=== PATIENT | female | born 1940 | race Caucasian/White ===

== ENCOUNTER → 2016-10-05 | Outpatient (CLI) | payer MEDICARE, OTHER ==
[2016-10-05 16:34] LABS: CH 32.5; CHCM 34.1; HCT 33.3 % (34.0-46.0); HDW 2.68; HGB 11.3 gm/dL (11.4-16.0); MCH 32.5 pg (25.0-35.0); MCV 95.6 fL (80.0-100.0); Mean Platelet Volume 8.3; RBC 3.48 m/uL (3.80-5.40); RDW 13.2 % (11.5-15.5); WBC 9.4 k/uL (3.8-10.6)
[2016-10-05 18:24] LABS: Erythrocyte Sedimentation Rate 106 mm/hr (0-20)
--- NOTE | 2016-10-05 22:24 | US ---
EXAMINATION TYPE: US venous doppler duplex LE RT DATE OF EXAM: 10/05/2016 3:46 PM COMPARISON: NONE CLINICAL HISTORY: 76-year-old female I80.9 Calf Pain, Phlebitis I80.9. Right foot pain. SIDE PERFORMED: Right TECHNIQUE: The lower extremity deep venous system is examined utilizing real time linear array sonog mayuri with graded compression, doppler sonography and color-flow sonography. FINDINGS: VESSELS IMAGED: External Iliac Vein (EIV) Common Femoral Vein Deep Femoral Vein Greater Saphenous Vein * Femoral Vein Popliteal Vein Small Saphenous Vein * Proximal Calf Veins Posterior tibial veins (* superficial vessels) Right Leg: Appears negative for DVT IMPRESSION: No evidence for DVT within the right lower extremity.
== END | disposition home or self-care (01) ==
LOC: RADUSWWP 15:05
PROVIDERS: ATTEND Orthopaedic Surgery
DX: S90.31XD Contusion of right foot, subsequent encounter (principal); M79.671 Pain in right foot; E11.9 Type 2 diabetes mellitus without complications; M19.071 Primary osteoarthritis, right ankle and foot; I80.9 Phlebitis and thrombophlebitis of unspecified site; S90.31XA Contusion of right foot, initial encounter; M25.571 Pain in right ankle and joints of right foot; M25.471 Effusion, right ankle; X58.XXXA Exposure to other specified factors, initial encounter
CPT/HCPCS: 36415; 83520; 85027; 85652; 86140

== ENCOUNTER 2016-12-14 12:08 | Day surgery (SDC) | payer MEDICARE, OTHER ==
[2016-12-13 09:11] VITALS: BMI 31.9
[~2016-12-14 12:08] MED LIST: CLINDAMYCIN 900 MG in DEXTROSE 5% IN WATER 50 ML IVPB ONE; LIDOCAINE 1%-EPI 1:100,000 20 ML VIAL SQ ONE; MIDAZOLAM 2 MG/2 ML VIAL IV ONE; SODIUM CHLORIDE 0.9% 1,000 ML IV SCH; fentaNYL (PF) 50 MCG/ML 2 ML AMP IV ONE
[2016-12-14 12:52] VITALS: BP 151/66; PULSE 77; RESP 12
[2016-12-14] MEDS ORDERED: ACETAMINOPHEN TAB 325 MG TAB PO PRN (14:20)
--- NOTE | 2016-12-15 13:14 | P.PCN ---
Date of Procedure: 12/14/16 Preoperative Diagnosis: Recurrent palpitations Postoperative Diagnosis: The same Procedure(s) Performed: Loop recorder insertion Implants: Indications for Procedure: Operative Findings: Description of Procedure: This 76-year-old female has been having recurrent bouts of unexplained palpitations. Patient is advised to have a loop recorder insertion for further investigation. Patient was brought to the procedure as an outpatient. She was prepped and draped in the usual fashion. Patient was given 1 mg of Versed and 50 of fentanyl for sedation. The duration of the conscious sedation was 10 minutes. The skin in the third intercostal space on the left side was infiltrated with lidocaine. An incision was made with the provided blade. A reveal lingular device was advanced through the incision subcutaneously. The incision was closed with a stay suture. Patient tolerated the procedure well. The R-wave amplitude is satisfactory at 0.5 mV. The sensing is programmed to point at 035 mV. A HECTOR/AF detection is on. Tachycardia detection is programmed to a rate of 1 54 bpm, pulse duration of 60 beats. Lito detection is programmed to a rate of 30 bpm for a duration of 4 beats and pauses of programmed for more than 3 seconds. Patient tolerated the procedure well. Patient will be discharged home later today. Follow-up in the office in about one week.
== END 2016-12-14 15:06 | disposition home or self-care (01) ==
LOC: CATHEP 12:08
PROVIDERS: ATTEND Internal Medicine Cardiovascular Disease
DX: R00.2 Palpitations (principal); I42.9 Cardiomyopathy, unspecified; I50.42 Chronic combined systolic (congestive) and diastolic (congestive) heart failure; E78.5 Hyperlipidemia, unspecified; E11.9 Type 2 diabetes mellitus without complications; I25.10 Atherosclerotic heart disease of native coronary artery without angina pectoris; E66.9 Obesity, unspecified; I08.0 Rheumatic disorders of both mitral and aortic valves; E78.00 Pure hypercholesterolemia, unspecified; Z85.3 Personal history of malignant neoplasm of breast; Z92.21 Personal history of antineoplastic chemotherapy; Z92.3 Personal history of irradiation; Z86.73 Personal history of transient ischemic attack (TIA), and cerebral infarction without residual deficits; Z82.49 Family history of ischemic heart disease and other diseases of the circulatory system; Z79.84 Long term (current) use of oral hypoglycemic drugs; Z79.02 Long term (current) use of antithrombotics/antiplatelets; Z79.82 Long term (current) use of aspirin; Z79.899 Other long term (current) drug therapy; Z88.5 Allergy status to narcotic agent; Z88.0 Allergy status to penicillin; Z88.7 Allergy status to serum and vaccine; Z88.8 Allergy status to other drugs, medicaments and biological substances
CPT/HCPCS: 33282; 99152; C1764; J2250; J3010

== ENCOUNTER → 2017-02-15 | Outpatient (CLI) | payer MEDICARE, OTHER ==
--- NOTE | 2017-02-16 09:46 | MM ---
Reason for exam: additional evaluation requested from prior study. Last mammogram was performed 1 year ago. History: Patient is postmenopausal, has history of breast cancer at age 59, and history of other cancer. Benign right mammotome panel of the right breast, September 29, 2013. Benign right mammotome panel of the right breast, August 24, 2010. Excisional biopsy of the right breast, August 27, 2007. Malignant excisional biopsy of the left breast, June 13, 1999. Excisional biopsy of the left breast, 1999. Lumpectomy of the left breast, 1999. Chemotherapy, 1999. Radiation therapy of the left breast, 1999. Excisional biopsy of the right breast. Took estrogen for 4 years. Took tamoxifen for 5 years 7 months beginning at age 60. Physical Findings: Nurse did not find any significant physical abnormalities on exam. MG 3D Diag Mammo W/Cad ANN MARIE Bilateral CC and MLO view(s) were taken. XCCL view(s) were taken of the left breast. Prior study comparison: February 09, 2016, left breast MG 3d diag mammo w/cad LT. October 04, 2015, bilateral MG 3d diag mammo w/cad ANN MARIE. The breast tissue is heterogeneously dense. This may lower the sensitivity of mammography. Stable benign calcifications. Stable post operation distortion bilateral breast. No significant new findings when compared with previous films. These results were verbally communicated with the patient and result sheet given to the patient on 02/15/17. ASSESSMENT: Benign, BI-RAD 2 RECOMMENDATION: Follow-up diagnostic mammogram of both breasts in 1 year.
== END | disposition home or self-care (01) ==
LOC: RADMAMWWP 10:40
PROVIDERS: ATTEND Radiology Diagnostic Radiology
DX: Z08 Encounter for follow-up examination after completed treatment for malignant neoplasm (principal); Z85.3 Personal history of malignant neoplasm of breast
CPT/HCPCS: G0204; G0279

== ENCOUNTER → 2017-03-23 | Outpatient (CLI) | payer MEDICARE, OTHER ==
--- NOTE | 2017-03-26 08:06 | USB ---
Reason for exam: clinical finding. History: Patient is postmenopausal, has history of breast cancer at age 59, and history of other cancer. Benign right mammotome panel of the right breast, September 29, 2013. Benign right mammotome panel of the right breast, August 24, 2010. Excisional biopsy of the right breast, August 27, 2007. Malignant excisional biopsy of the left breast, June 13, 1999. Excisional biopsy of the left breast, 1999. Lumpectomy of the left breast, 1999. Chemotherapy, 1999. Radiation therapy of the left breast, 1999. Excisional biopsy of the right breast. Took estrogen for 4 years. Took tamoxifen for 5 years 7 months beginning at age 60. Indicated problem(s): lump or thickening in the left breast. Physical Findings: Nurse Summary: left breast loop recorder, left breast palpable area 2 o'clock post lumpectomy scar, bilateral thickening due post radiation (nurse ts). US Breast LT Left breast ultrasound includes all four quadrants, the retroareolar region and axilla. Finding demonstrates a 0.7 x 0.6 x 0.4cm solid, hypoechoic lesion at 2 o'clock, suspicious mass for which a biopsy is recommended and a 2.0cm lesion at scar at 2 o'clock. These results were verbally communicated with the patient and result sheet given to the patient on 03/23/17. ASSESSMENT: Suspicious, BI-RAD 4 RECOMMENDATION: Ultrasound core biopsy of the left breast. Called Dr. Hicks with mammographic findings and has scheduled an appointment for the patient for 03/27/17 at 10:[address] Underwood. PRELIMINARY REPORT CALLED AND FAXED TO DR. UNDERWOOD ON 03/26/17.
== END ==
LOC: RADUSWWP 12:24
PROVIDERS: ATTEND Family Medicine
DX: R22.32 Localized swelling, mass and lump, left upper limb (principal); Z85.3 Personal history of malignant neoplasm of breast

== ENCOUNTER 2017-11-25 16:07 | Inpatient (IN) | payer MEDICARE, OTHER ==
[2017-11-25 16:58] LABS: Basophils # (A) 0.1 k/uL (0-0.2); Basophils % (A) 1 %; Eosinophils # (A) 0.2 k/uL (0-0.7); Eosinophils % (A) 2 %; HCT 40.6 % (34.0-46.0); HGB 13.6 gm/dL (11.4-16.0); Lymphocytes # (A) 0.9 k/uL (1.0-4.8); Lymphocytes % (A) 12 %; MCH 31.1 pg (25.0-35.0); MCHC 33.4 g/dL (31.0-37.0); MCV 93.1 fL (80.0-100.0); Mean Platelet Volume 8.3; Monocytes # (A) 0.3 k/uL (0-1.0); Monocytes % (A) 4 %; Neutrophils # (A) 6.4 k/uL (1.3-7.7); Neutrophils % (A) 80 %; Platelet Count 241 k/uL (150-450); RBC 4.36 m/uL (3.80-5.40); RDW 14.6 % (11.5-15.5); WBC 8.1 k/uL (3.8-10.6)
--- NOTE | 2017-11-25 17:00 | ED ---
Chest Pain HPI - General Chief Complaint: Chest Pain Stated Complaint: CHEST PAIN Time Seen by Provider: 11/25/17 16:12 Source: patient, EMS Mode of arrival: EMS Limitations: no limitations - History of Present Illness Initial Comments: This patient is a 77-year-old woman who presents to be evaluated for chest pain. The patient states that she has been having these pains intermittently, as she has a diagnosis of angina. The episodes may have been coming more frequently over the past week. She states that it usually goes away with the nitroglycerin but today's did not. The patient phoned EMS and was given additional nitroglycerin and aspirin and placed on oxygen and the pain did resolve. Today's episode lasted about 20-30 minutes. She denies associated symptoms. MD Complaint: chest pain Onset/Timin -: week(s) Pain Location: substernal Pain Radiation: neck Severity: mild Quality: other Consistency: intermittent, now resolved Improves With: nitroglycerin Worsens With: nothing Treatments Prior to Arrival: aspirin, nitroglycerin, oxygen - Related Data Home Medications Medication Instructions Recorded Confirmed Ascorbic Acid [Vitamin C] 500 mg PO DAILY 09/11/14 11/25/17 Aspirin 81 mg PO DAILY 09/11/14 11/25/17 Cholecalciferol [Vitamin D3] 2,000 unit PO DAILY 09/11/14 11/25/17 Clopidogrel [Plavix] 75 mg PO DAILY 09/11/14 11/25/17 Glucosam/Denilson-Msm1/C/Curtis/Bosw 1 tab PO DAILY 09/11/14 11/25/17 [Glucosamine-Chondroitin Tablet] Lutein 20 mg PO DAILY 09/11/14 11/25/17 Multivitamins, Thera [Multivitamin 1 tab PO DAILY 09/11/14 11/25/17 (formulary)] Simvastatin [Zocor] 40 mg PO HS 09/11/14 11/25/17 Spironolactone [Aldactone] 12.5 - 25 mg PO DAILY 09/11/14 11/25/17 Digoxin [Digox] 125 mcg PO DAILY 11/07/15 11/25/17 Sacubitril/Valsartan [Entresto 24 1 tab PO BID 11/07/15 11/25/17 mg-26 mg Tablet] Biotin 5,000 mcg PO DAILY 12/13/16 11/25/17 Carvedilol [Coreg] 3.125 mg PO BID 12/13/16 11/25/17 Levothyroxine Sodium [Synthroid] 112 mcg PO DAILY 06/01/17 11/25/17 Anastrozole [Arimidex] 1 mg PO DAILY 11/25/17 11/25/17 Furosemide [Lasix] 40 mg PO DAILY 11/25/17 11/25/17 Isosorbide Mononitrate ER [Imdur] 30 mg PO DAILY 11/25/17 11/25/17 LORazepam [Ativan] 0.5 - 1 mg PO DAILY PRN 11/25/17 11/25/17 Loratadine [Claritin] 10 mg PO DAILY 11/25/17 11/25/17 Previous Rx's Medication Instructions Recorded glipiZIDE XL [Glucotrol XL] 10 mg PO DAILY #30 tab 06/03/17 Allergies Allergy/AdvReac Type Severity Reaction Status Date / Time bee venom protein (honey bee) Allergy Unknown Swelling Verified 11/25/17 17:44 Penicillins AdvReac Rash/Hives Verified 11/25/17 17:44 Tetanus Vaccines and Toxoid AdvReac Swelling Verified 11/25/17 17:44 [Tetanus Vaccines & Toxoid] yeast, dried AdvReac Abdominal Verified 11/25/17 17:44 Pain zolpidem tartrate AdvReac Hallucinati Verified 11/25/17 17:44 [[facility] ons Review of Systems ROS Statement: Those systems with pertinent positive or pertinent negative responses have been documented in the HPI. ROS Other: All systems not noted in ROS Statement are negative. Constitutional: Denies: fever, chills Respiratory: Denies: cough, dyspnea Cardiovascular: Reports: chest pain. Denies: palpitations, orthopnea, edema, syncope Gastrointestinal: Denies: abdominal pain, nausea, vomiting Genitourinary: Denies: dysuria Musculoskeletal: Denies: back pain Skin: Denies: rash Neurological: Denies: headache, weakness, numbness, paresthesias EKG Findings - EKG Results: EKG: interpreted by ERMD, sinus rhythm (Rate approximately 86 bpm), normal axis - Blocks, Gary, Hypertrophy, ST Abn: AV and intraventricular conduction: 1 AV block (NV interval 232 ms, consistent with first-degree AV block) - SC, Pacemaker, Normal: Myocardial infarction: septal SC (old age or indeterminate) (Possible old septal infarct.) Past Medical History Past Medical History: Cancer, Heart Failure, CVA/TIA, Diabetes Mellitus, Hyperlipidemia, Osteoarthritis (OA), Thyroid Disorder Additional Past Medical History / Comment(s): Bilateral breast cancer (L in 1999 and R in 2007) tx with lumpectomies and chemo and radiation, lymphadema bilateral upper arms, CHF with 1st chemo, NIDDM, leaky heart valve, tia (2011) with L upper arm weakness since resolved., HX of leg fx x2 hema, SOB with exertion., See Cardiology [facility] & [facility]. History of Any Multi-Drug Resistant Organisms: None Reported Past Surgical History: Appendectomy, Breast Surgery, Heart Catheterization, Hysterectomy, Joint Replacement, Orthopedic Surgery, Tonsillectomy Additional Past Surgical History / Comment(s): Breast bx's & lumpectomy (1999 & 2007), Heart cath (2003), R and L lower leg fx (separate incidences) with surgical repair using plates and screws, neck skin cancer , Cataracts, Bilateral total shoulders, bilateral carpal tunnel . thumb surgery. Additional Past Anesthesia/Blood Transfusion Reaction / Comment(s): "slow to wake up" after surgery. Hx of blood transfusion after chemo - no reaction. Past Psychological History: No Psychological Hx Reported Smoking Status: Never smoker Past Alcohol Use History: Occasional Past Drug Use History: None Reported - Past Family History Father Family Medical History: Congestive Heart Failure (CHF) Additional Family Medical History / Comment(s): Father at age 69yrs from CHF. He also had stomach problems-ulcers. Mother Family Medical History: Cancer, Coronary Artery Disease (CAD) Additional Family Medical History / Comment(s): . General Exam General appearance: alert, in no apparent distress Head exam: Present: atraumatic, normocephalic Eye exam: Present: normal appearance. Absent: scleral icterus, conjunctival injection Respiratory exam: Present: normal lung sounds bilaterally. Absent: respiratory distress, wheezes, rales, rhonchi, stridor, chest wall tenderness, accessory muscle use, decreased breath sounds, prolonged expiratory Cardiovascular Exam: Present: regular rate, normal rhythm, systolic murmur ( Grade 2/6 systolic ejection murmur). Absent: diastolic murmur, rubs, gallop GI/Abdominal exam: Present: soft. Absent: distended, tenderness, guarding, rebound, mass Extremities exam: Present: normal inspection, normal capillary refill. Absent: pedal edema, calf tenderness Back exam: Present: normal inspection. Absent: CVA tenderness (R), CVA tenderness (L) Neurological exam: Present: alert Skin exam: Present: warm, dry, intact, normal color. Absent: rash Course Vital Signs 11/25/17 11/25/17 11/25/17 16:14 17:00 18:54 Temperature 97.8 F Pulse Rate 90 78 80 Respiratory 16 16 16 Rate Blood Pressure 137/61 126/82 116/56 O2 Sat by Pulse 99 98 98 Oximetry Disposition Clinical Impression: Hyperglycemia, Angina pectoris Disposition: ADMITTED IP TO THIS HOSP Condition: Fair Instructions: Angina (ED), Diabetic Hyperglycemia (ED) Is patient prescribed a controlled substance at d/c from ED?: No Referrals: Radha Hicks MD [Primary Care Provider] - 1-2 days
[2017-11-25 17:07] LABS: Albumin 4.3 g/dL (3.5-5.0); Calcium 9.4 mg/dL (8.4-10.2); Magnesium 2.4 mg/dL (1.6-2.3); Potassium 5.1 mmol/L (3.5-5.1); Total Bilirubin 0.6 mg/dL (0.2-1.3); Total Protein 7.3 g/dL (6.3-8.2)
[2017-11-25 17:09] LABS: Creatine Kinase 34 U/L (30-135)
[2017-11-25 17:13] LABS: Partial Thromboplastin Time 22.5 sec (22.0-30.0); Prothrombin Time 9.9 sec (9.0-12.0)
[2017-11-25 17:22] LABS: Creatine Kinase MB <0.2 ng/mL (0.0-2.4); Troponin I <0.012 ng/mL (0.000-0.034)
[2017-11-25] MEDS ORDERED: INSULIN REGULAR 100 UNIT/ML VIAL SQ STA (17:30)
--- NOTE | 2017-11-25 17:37 | XR ---
EXAMINATION TYPE: XR chest 1V portable DATE OF EXAM: 11/25/2017 COMPARISON: 06/02/2017 HISTORY: Chest pain TECHNIQUE: Single frontal view of the chest is obtained. FINDINGS: There is mild pulmonary congestion. Heart is slightly enlarged. There are bilateral should er prostheses. There is very slight blunting of costophrenic angles. There are chest leads. IMPRESSION: There is mild heart failure that is improved compared to last exam. No pulmonary consolidation.
[2017-11-25] MEDS ORDERED: NITROGLYCERIN SL TABS 0.4 MG TAB SUBLINGUAL PRN (19:22)
[2017-11-25] MEDS: SACUBITRIL/VALSARTAN 24 MG-26 MG TABLET PO SCH (21:18)
[2017-11-25] MEDS: ATORVASTATIN 20 MG TAB PO SCH (21:19)
[2017-11-25] MEDS: CARVEDILOL 3.125 MG TAB PO SCH (21:19)
[2017-11-25] MEDS: glipiZIDE 5 MG TAB PO SCH (21:19)
[2017-11-25 21:49] VITALS: BMI 27.1
[2017-11-26 00:08] LABS: Creatine Kinase MB 1.2 ng/mL (0.0-2.4)
[2017-11-26 00:24] LABS: Troponin I 0.053 ng/mL (0.000-0.034)
[2017-11-26 04:50] LABS: Cholesterol 157 mg/dL (<200); HDL Cholesterol 49 mg/dL (40-60); LDL Cholesterol,Calculated 88 mg/dL (0-99); Triglycerides 101 mg/dL (<150)
[2017-11-26 05:24] LABS: Creatine Kinase MB 1.7 ng/mL (0.0-2.4)
[2017-11-26 05:27] LABS: Troponin I 0.062 ng/mL (0.000-0.034)
[2017-11-26] MEDS: LEVOTHYROXINE 112 MCG TAB PO SCH ×2 (06:47→09:26)
[2017-11-26 07:25] LABS: Glucose,Whole Blood 93 mg/dL (75-99)
[2017-11-26] MEDS ORDERED: ASPIRIN 325 MG TAB PO SCH (09:00)
[2017-11-26] MEDS ORDERED: glipiZIDE 5 MG TAB PO SCH (09:00)
[2017-11-26] MEDS: FUROSEMIDE 40 MG TAB PO SCH (09:25)
[2017-11-26] MEDS: CHOLECALCIFEROL 1,000 UNIT TAB PO SCH (09:25)
[2017-11-26] MEDS: ASPIRIN 81 MG PO SCH (09:25)
[2017-11-26] MEDS: glipiZIDE 5 MG TAB PO SCH ×2 (09:25→21:22)
[2017-11-26] MEDS: SACUBITRIL/VALSARTAN 24 MG-26 MG TABLET PO SCH ×2 (09:25→21:22)
[2017-11-26] MEDS: CLOPIDOGREL 75 MG TAB PO SCH (09:26)
[2017-11-26] MEDS: ISOSORBIDE MONONITRATE ER 30 MG TAB.ER.24H PO SCH (09:26)
[2017-11-26] MEDS: CARVEDILOL 3.125 MG TAB PO SCH ×2 (09:26→17:21)
[2017-11-26] MEDS: DIGOXIN 125 MCG TAB PO SCH (09:26)
[2017-11-26] MEDS: ANASTROZOLE 1 MG TAB PO SCH (09:26)
[2017-11-26] MEDS: SODIUM CHLORIDE 0.9% 1,000 ML IV SCH (09:27)
[2017-11-26] MEDS ORDERED: LORazepam 0.5 MG TAB PO PRN (11:00)
[2017-11-26] MEDS ORDERED: ALPRAZolam 0.5 MG TAB PO PRN (11:01)
[2017-11-26] MEDS ORDERED: ALPRAZolam 0.25 MG TAB PO PRN (11:01)
[2017-11-26] MEDS ORDERED: HEPARIN SODIUM,PORCINE 5,000 UNIT/ML 1 ML VIAL IV PRN (11:03)
[2017-11-26] MEDS ORDERED: HEPARIN SODIUM,PORCINE 5,000 UNIT/ML 1 ML VIAL IV ONE (11:03)
--- NOTE | 2017-11-26 11:12 | P.CRDCN ---
History of Present Illness History of present illness: Mrs. Stevenson is a pleasant 77-year-old female past medical history significant for chemotherapy induced cardiomyopathy, systolic heart failure, dyslipidemia, diabetes mellitus, breast cancer s/p mastectomy, junctional tachycardia and mild disease of RCA per catheterization in 2016. She follows with Dr. Rogers in the office. Her ejection fraction has been fluctuating between 20 -25% 05/2017 with recent improvement to 35% in most recent echo performed at the office using contrast 07/2017. We have been asked to see her in consultation for chest pain. She states she has been following closely with Dr. Hicks over the last 2 months for symptoms of shortness of breath and lower extremity swelling. Serial proBNP levels obtained have been elevated. Starting 09/17 were 6820, 8580, 8800 and 2170. She had been instructed to increase her lasix to 40 mg TID from daily and increase aldactone to 25 mg daily from 12.5 mg daily. She states her swelling has been decreasing and her breathing was improving. However , over the last week she started having a sensation of tightening in her chest after bending over. The discomfort was very non-specific and improved after she took her Claritin. Yesterday she felt a similar discomfort in her mid-sternal region that was much more intensified and radiated into her neck on both sides and down her left arm. The discomfort did not subside as it had been previously so she called EMS. EMS gave her aspirin, nitroglycerin and oxygen and her symptoms subsided. She has had no further symptoms since admission. She underwent cardiac catheterization in 2016 that revealed mild disease of the RCA and aortic stenosis with gradient across the valve of 18 mmHg. EKG on admission reveals first degree AV block with ST depression inferiolateral leads. Repeat EKG this morning appears to have a more significantly prolonged NC interval with the P-wave appearing in the T-wave. Chest xray shows mild heart failure with no consolidation. Laboratory data reviewed, hgb 13.6, plt 241, d-dimer 0.74, sodium 141, potassium 5.1, creatinine 1.67, GFR 29, magnesium 2.4, digoxin level 1.7, troponin 0.012, 0.053, 0.062, proBNP this admission 4030, LDL 88, HDL 49. Current cardiac medications include simvastatin 40 mg daily, aspirin 81 mg daily , imdur 30 mg daily, aldactone 12.5 mg daily with recent increase per PCP to 25 mg daily, entresto 24/26 mg daily, lasix 40 mg daily with recent increase to TID per primary, digozin 125 mcg daily, plavix 75 mg daily and carvedilol 3.125 mg BID. Review of Systems At the time of my exam: CONSTITUTIONAL: Denies fever. Denies chills. EYES: Denies blurred vision. Denies vision changes. Denies eye pain. EARS, NOSE, MOUTH & THROAT: Denies headache. Denies sore throat. Denies ear pain. CARDIOVASCULAR: Denies chest pain. Denies shortness of breath. Denies orthopnea. Denies PND. Denies palpitations. RESPIRATORY: Denies cough. GASTROINTESTINAL: Denies abdominal pain. Denies diarrhea. Denies constipation. Denies nausea. Denies vomiting. MUSCULOSKELETAL: Denies myalgias. INTEGUMENTARY: Denies pruitis. Denies rash. NEUROLOGIC: Denies numbness. Denies tingling. Denies weakness. PSYCHIATRIC: Denies anxiety. Denies depression. ENDOCRINE: Denies fatigue. Denies weight change. Denies polydipsia. Denies polyurina. GENITOURINARY: Denies burning, hematuria or urgency with micturation. HEMATOLOGIC: Denies history of anemia. Denies bleeding. Past Medical History Past Medical History: Cancer, Heart Failure, CVA/TIA, Diabetes Mellitus, Hyperlipidemia, Osteoarthritis (OA), Thyroid Disorder Additional Past Medical History / Comment(s): Bilateral breast cancer (L in 1999 and R in 2007) tx with lumpectomies and chemo and radiation, lymphadema bilateral upper arms, CHF with 1st chemo, NIDDM, leaky heart valve, tia (2011) with L upper arm weakness since resolved., HX of leg fx x2 hema, SOB with exertion., See Cardiology H & P. History of Any Multi-Drug Resistant Organisms: None Reported Past Surgical History: Appendectomy, Breast Surgery, Heart Catheterization, Hysterectomy, Joint Replacement, Orthopedic Surgery, Tonsillectomy Additional Past Surgical History / Comment(s): Breast bx's & lumpectomy (1999 & 2007), Mastectomy (2017) Heart cath (2003, 2016), R and L lower leg fx ( separate incidences) with surgical repair using plates and screws, neck & face skin cancer , Cataracts, Bilateral total shoulders, bilateral carpal tunnel . thumb surgery. Additional Past Anesthesia/Blood Transfusion Reaction / Comment(s): "slow to wake up" after surgery. Hx of blood transfusion after chemo - no reaction. Past Psychological History: No Psychological Hx Reported Additional Psychological History / Comment(s): . Smoking Status: Never smoker Past Alcohol Use History: Occasional Past Drug Use History: None Reported - Past Family History Father Family Medical History: Congestive Heart Failure (CHF) Additional Family Medical History / Comment(s): Father at age 69yrs from CHF. He also had stomach problems-ulcers. Mother Family Medical History: Cancer, Coronary Artery Disease (CAD) Additional Family Medical History / Comment(s): . Medications and Allergies Home Medications Medication Instructions Recorded Confirmed Type Ascorbic Acid [Vitamin C] 500 mg PO DAILY 09/11/14 11/25/17 History Aspirin 81 mg PO DAILY 09/11/14 11/25/17 History Cholecalciferol [Vitamin D3] 2,000 unit PO DAILY 09/11/14 11/25/17 History Clopidogrel [Plavix] 75 mg PO DAILY 09/11/14 11/25/17 History Glucosam/Denilson-Msm1/C/Curtis/Bosw 1 tab PO DAILY 09/11/14 11/25/17 History [Glucosamine-Chondroitin Tablet] Lutein 20 mg PO DAILY 09/11/14 11/25/17 History Multivitamins, Thera [Multivitamin 1 tab PO DAILY 09/11/14 11/25/17 History (formulary)] Simvastatin [Zocor] 40 mg PO HS 09/11/14 11/25/17 History Spironolactone [Aldactone] 12.5 - 25 mg PO DAILY 09/11/14 11/25/17 History Digoxin [Digox] 125 mcg PO DAILY 11/07/15 11/25/17 History Sacubitril/Valsartan [Entresto 24 1 tab PO BID 11/07/15 11/25/17 History mg-26 mg Tablet] Biotin 5,000 mcg PO DAILY 12/13/16 11/25/17 History Carvedilol [Coreg] 3.125 mg PO BID 12/13/16 11/25/17 History Levothyroxine Sodium [Synthroid] 112 mcg PO DAILY 06/01/17 11/25/17 History glipiZIDE XL [Glucotrol XL] 10 mg PO DAILY #30 tab 06/03/17 11/25/17 Rx Anastrozole [Arimidex] 1 mg PO DAILY 11/25/17 11/25/17 History Furosemide [Lasix] 40 mg PO DAILY 11/25/17 11/25/17 History Isosorbide Mononitrate ER [Imdur] 30 mg PO DAILY 11/25/17 11/25/17 History LORazepam [Ativan] 0.5 - 1 mg PO DAILY PRN 11/25/17 11/25/17 History Loratadine [Claritin] 10 mg PO DAILY 11/25/17 11/25/17 History Allergies Allergy/AdvReac Type Severity Reaction Status Date / Time bee venom protein (honey bee) Allergy Unknown Swelling Verified 11/25/17 17:44 Penicillins AdvReac Rash/Hives Verified 11/25/17 17:44 Tetanus Vaccines and Toxoid AdvReac Swelling Verified 11/25/17 17:44 [Tetanus Vaccines & Toxoid] yeast, dried AdvReac Abdominal Verified 11/25/17 17:44 Pain zolpidem tartrate AdvReac Hallucinati Verified 11/25/17 17:44 [From Ambien] ons Physical Exam Vitals: Vital Signs Temp Pulse Pulse Resp BP BP Pulse Ox 11/26/17 04:57 16 11/26/17 03:39 97.7 F 77 16 107/51 94 L 11/25/17 23:19 97.8 F 79 16 107/51 98 11/25/17 20:30 16 11/25/17 20:11 98.0 F 79 16 123/63 100 11/25/17 18:54 80 16 116/56 98 11/25/17 17:00 78 16 126/82 98 11/25/17 16:14 97.8 F 90 16 137/61 99 Intake and Output 11/25/17 11/26/17 11/26/17 22:59 06:59 14:59 Intake Total 30 Balance 30 Intake: Amount of Fluid Infused ( 30 ml) Other: Voiding Method Toilet Toilet # Voids 1 1 Weight 76.204 kg Blood pressure 107/51 heart rate 77 afebrile maintaining oxygen saturation on room air GENERAL: This is a 77-year-old female in no apparent distress at the time of my examination. HEENT: Head is atraumatic, normocephalic. Pupils are equal, round. Sclerae anicteric. Conjunctivae are clear. Mucous membranes of the mouth are moist. Neck is supple. There is no jugular venous distention. No carotid bruit is heard. LUNGS: Coarse lung sounds right middle and upper lobe, no wheezes or rales. Left side clear to auscultation. No chest wall tenderness is noted on palpation or with deep breathing. HEART: Regular rate and rhythm with systolic ejection murmur, no rubs or gallops. S1 and S2 heard. ABDOMEN: Soft, nontender. Bowel sounds are heard. No organomegaly noted. EXTREMITIES: No evidence of peripheral edema and no calf tenderness noted. VASCULAR: Radial and dorsalis pedis pulses palpated, no evidence of clubbing. NEUROLOGIC: Patient is awake, alert and oriented x3. Results 11/25/17 16:40 11/25/17 16:40 Cardiac Enzymes 11/25/17 11/25/17 11/25/17 Range/Units 16:40 16:40 22:54 AST 30 (14-36) U/L CK-MB (CK-2) <0.2 1.2 (0.0-2.4) ng/mL Troponin I <0.012 0.053 H* (0.000-0.034) ng/mL 11/26/17 Range/Units 04:27 AST (14-36) U/L CK-MB (CK-2) 1.7 (0.0-2.4) ng/mL Troponin I 0.062 H* (0.000-0.034) ng/mL Coagulation 11/25/17 Range/Units 16:40 PT 9.9 (9.0-12.0) sec APTT 22.5 (22.0-30.0) sec Lipids 11/26/17 Range/Units 04:27 Triglycerides 101 (<150) mg/dL Cholesterol 157 (<200) mg/dL HDL Cholesterol 49 (40-60) mg/dL CBC 11/25/17 Range/Units 16:40 WBC 8.1 (3.8-10.6) k/uL RBC 4.36 (3.80-5.40) m/uL Hgb 13.6 (11.4-16.0) gm/dL Hct 40.6 (34.0-46.0) % Plt Count 241 (150-450) k/uL Comprehensive Metabolic Panel 11/25/17 Range/Units 16:40 Sodium 141 (137-145) mmol/L Potassium 5.1 (3.5-5.1) mmol/L Chloride 102 (98-107) mmol/L Carbon Dioxide 25 (22-30) mmol/L BUN 61 H (7-17) mg/dL Creatinine 1.67 H (0.52-1.04) mg/dL Glucose 339 H (74-99) mg/dL Calcium 9.4 (8.4-10.2) mg/dL AST 30 (14-36) U/L ALT 30 (9-52) U/L Alkaline Phosphatase 59 (38-126) U/L Total Protein 7.3 (6.3-8.2) g/dL Albumin 4.3 (3.5-5.0) g/dL Current Medications Generic Name Dose Route Start Last Admin Trade Name Freq PRN Reason Stop Dose Admin Anastrozole 1 mg 11/26/17 09:00 Arimidex PO DAILY [facility] Aspirin 81 mg 11/26/17 09:00 Aspirin PO DAILY [facility] Atorvastatin Calcium 20 mg 11/25/17 21:00 11/25/17 21:19 Lipitor PO 20 mg HS LIBERT[facility] Administration Carvedilol 3.125 mg 11/25/17 20:00 11/25/17 21:19 Coreg PO 3.125 mg AC-BID [facility]ERT[facility] Administration Cholecalciferol 2,000 unit 11/26/17 09:00 Vitamin D3 PO DAILY [facility] Clopidogrel Bisulfate 75 mg 11/26/17 09:00 Plavix PO DAILY [facility] Digoxin 125 mcg 11/26/17 09:00 Lanoxin PO DAILY [facility] Furosemide 40 mg 11/26/17 09:00 Lasix PO DAILY [facility] Glipizide 5 mg 11/25/17 21:00 11/25/17 21:19 Glucotrol PO 5 mg BID [facility] Administration Isosorbide Mononitrate 30 mg 11/26/17 09:00 Imdur PO DAILY [facility] Levothyroxine Sodium 112 mcg 11/26/17 06:30 [place] 0630 [facility] Multivitamins 1 each 11/26/17 12:00 Theragran PO 1200 [facility] Nitroglycerin 0.4 mg 11/25/17 19:22 Nitrostat SUBLINGUAL Q5M PRN Chest Pain Sacubitril/Valsartan 1 each 11/25/17 21:00 11/25/17 21:18 Entresto 24 Mg-26 Mg Tablet PO 1 each BID [facility] Administration Spironolactone 25 mg 11/26/17 09:00 Aldactone PO DAILY [facility] Intake and Output 11/25/17 11/26/17 11/26/17 22:59 06:59 14:59 Intake Total 30 Balance 30 Intake: Amount of Fluid Infused ( 30 ml) Other: Voiding Method Toilet Toilet # Voids 1 1 Weight 76.204 kg 11/25/17 16:40 11/25/17 16:40 Assessment and Plan Assessment: ASSESSMENT 1. [id number] myocardial infarction 2. 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 History of systolic heart failure 4. History of recurrent breast cancer with recent mastectomy. 5. Diabetes mellitus 6. Dyslipidemia 7. Moderate aortic stenosis, mean gradient 18 mmHg 8. Chronic renal failure, GFR 29, Stage 4 9. Minimally elevated d-dimer PLAN Obtain 2-D echocardiogram and Doppler study to assess cardiac structure and function. Check proBNP level and d-dimer. Initiate heparin infusion. Hydrate the patient at 50 cc/hr. Recommend cardiac catheterization tomorrow after hydration for the next 24 hours. I have discussed the risks, benefits and alternative therapies for the above- mentioned procedure and for both sedation/analgesia as well as necessary blood product administration, if indicated, as they pertain to this patient. The patient has indicated understanding and acceptance of the risks and procedures discussed. Questions have been answered appropriately and she is agreeable to proceed with above stated procedure. Further recommendations to follow based on clinical course. Thank you kindly for this consultation. Nurse Practitioner note has been reviewed, I agree with a documented findings and plan of care. Patient was seen and examined.
[2017-11-26] MEDS ORDERED: HEPARIN SODIUM,PORCINE/D5W PMX 25,000 UNIT in DEXTROSE/WATER 1 500ML.BAG IV SCH (11:15)
[2017-11-26 11:18] LABS: Basophils # (A) 0.1 k/uL (0-0.2); Basophils % (A) 1 %; Eosinophils # (A) 0.2 k/uL (0-0.7); Eosinophils % (A) 2 %; HCT 41.9 % (34.0-46.0); Lymphocytes # (A) 1.3 k/uL (1.0-4.8); Lymphocytes % (A) 12 %; MCH 31.3 pg (25.0-35.0); MCHC 33.3 g/dL (31.0-37.0); MCV 93.7 fL (80.0-100.0); Mean Platelet Volume 8.2; Monocytes # (A) 0.6 k/uL (0-1.0); Monocytes % (A) 5 %; Neutrophils # (A) 8.8 k/uL (1.3-7.7); Neutrophils % (A) 79 %; Platelet Count 215 k/uL (150-450); RBC 4.47 m/uL (3.80-5.40); RDW 14.6 % (11.5-15.5); WBC 11.2 k/uL (3.8-10.6)
--- NOTE | 2017-11-26 11:19 | P.HPIM ---
History of Present Illness H&P Date: 11/26/17 Chief Complaint: Chest pain This is a 77-year-old female, patient of Dr. Hicks. She has a known past medical history of angina, systolic congestive heart failure, diabetes mellitus , hyperlipidemia, hypothyroidism, moderate aortic stenosis, moderate to severe aortic, tricuspid and mitral regurgitation. Patient also has a history of bilateral breast cancer had undergone chemo and radiation treatment. Patient has had left breast mastectomy in April 2017. Patient also has a history of TIA and chronic kidney disease. Patient presents to the emergency room with complaints of chest pain. She reports having chest pain, left side of the chest that radiated up into the neck bilaterally also having some numbness and pain in the left arms. She also had shortness of breath. Patient does have known angina and was recently placed on into her. She reports that she gets these chest pain episodes but this one lasted about 20-30 minutes and therefore she called EMS and they gave her a nitro aspirin and place her on oxygen. By the time she presented to the ER her symptoms had completely resolved. Her troponins were elevated initial one was normal at 0.012 and then increased to 0.053 and 0.062. Patient has been placed on IV heparin. Cardiology is planning a heart catheterization tomorrow. Last heart catheterization was 2 years ago no stent was placed at that time per patient. Chest x-ray had shown mild heart failure which had proved improved since last exam. EKG sinus rhythm with a first-degree AV block. Repeat EKG had showed accelerated junctional rhythm. There has been some arrhythmia noted on telemetry. Cardiology is following. D-dimer elevated at 0.74. A VQ scan will be ordered due to patient' s kidney function. Patient denies any nausea or vomiting bowel movement changes urinary symptoms. Denies any cough or cold-like symptoms. Patient was moved from observation up to the sixth floor for closer monitoring. Review of Systems Please refer to HPI otherwise unremarkable Past Medical History Past Medical History: Cancer, Heart Failure, CVA/TIA, Diabetes Mellitus, Hyperlipidemia, Osteoarthritis (OA), Thyroid Disorder Additional Past Medical History / Comment(s): Bilateral breast cancer (L in 1999 and R in 2007) tx with lumpectomies and chemo and radiation, lymphadema bilateral upper arms, CHF with 1st chemo, NIDDM, leaky heart valve, tia (2011) with L upper arm weakness since resolved., HX of leg fx x2 hema, SOB with exertion., See Cardiology H & P. History of Any Multi-Drug Resistant Organisms: None Reported Past Surgical History: Appendectomy, Breast Surgery, Heart Catheterization, Hysterectomy, Joint Replacement, Orthopedic Surgery, Tonsillectomy Additional Past Surgical History / Comment(s): Breast bx's & lumpectomy (1999 & 2007), Mastectomy (2017) Heart cath (2003, 2015), R and L lower leg fx ( separate incidences) with surgical repair using plates and screws, neck & face skin cancer , Cataracts, Bilateral total shoulders, bilateral carpal tunnel . thumb surgery. Additional Past Anesthesia/Blood Transfusion Reaction / Comment(s): "slow to wake up" after surgery. Hx of blood transfusion after chemo - no reaction. Past Psychological History: No Psychological Hx Reported Additional Psychological History / Comment(s): . Smoking Status: Never smoker Past Alcohol Use History: Occasional Past Drug Use History: None Reported - Past Family History Father Family Medical History: Congestive Heart Failure (CHF) Additional Family Medical History / Comment(s): Father at age 69yrs from CHF. He also had stomach problems-ulcers. Mother Family Medical History: Cancer, Coronary Artery Disease (CAD) Additional Family Medical History / Comment(s): . Medications and Allergies Home Medications Medication Instructions Recorded Confirmed Type Ascorbic Acid [Vitamin C] 500 mg PO DAILY 09/11/14 11/25/17 History Aspirin 81 mg PO DAILY 09/11/14 11/25/17 History Cholecalciferol [Vitamin D3] 2,000 unit PO DAILY 09/11/14 11/25/17 History Clopidogrel [Plavix] 75 mg PO DAILY 09/11/14 11/25/17 History Glucosam/Denilson-Msm1/C/Curtis/Bosw 1 tab PO DAILY 09/11/14 11/25/17 History [Glucosamine-Chondroitin Tablet] Lutein 20 mg PO DAILY 09/11/14 11/25/17 History Multivitamins, Thera [Multivitamin 1 tab PO DAILY 09/11/14 11/25/17 History (formulary)] Simvastatin [Zocor] 40 mg PO HS 09/11/14 11/25/17 History Spironolactone [Aldactone] 12.5 - 25 mg PO DAILY 09/11/14 11/25/17 History Digoxin [Digox] 125 mcg PO DAILY 11/07/15 11/25/17 History Sacubitril/Valsartan [Entresto 24 1 tab PO BID 11/07/15 11/25/17 History mg-26 mg Tablet] Biotin 5,000 mcg PO DAILY 12/13/16 11/25/17 History Carvedilol [Coreg] 3.125 mg PO BID 12/13/16 11/25/17 History Levothyroxine Sodium [Synthroid] 112 mcg PO DAILY 06/01/17 11/25/17 History glipiZIDE XL [Glucotrol XL] 10 mg PO DAILY #30 tab 06/03/17 11/25/17 Rx Anastrozole [Arimidex] 1 mg PO DAILY 11/25/17 11/25/17 History Furosemide [Lasix] 40 mg PO DAILY 11/25/17 11/25/17 History Isosorbide Mononitrate ER [Imdur] 30 mg PO DAILY 11/25/17 11/25/17 History LORazepam [Ativan] 0.5 - 1 mg PO DAILY PRN 11/25/17 11/25/17 History Loratadine [Claritin] 10 mg PO DAILY 11/25/17 11/25/17 History Allergies Allergy/AdvReac Type Severity Reaction Status Date / Time bee venom protein (honey bee) Allergy Unknown Swelling Verified 11/25/17 17:44 Penicillins AdvReac Rash/Hives Verified 11/25/17 17:44 Tetanus Vaccines and Toxoid AdvReac Swelling Verified 11/25/17 17:44 [Tetanus Vaccines & Toxoid] yeast, dried AdvReac Abdominal Verified 11/25/17 17:44 Pain zolpidem tartrate AdvReac Hallucinati Verified 11/25/17 17:44 [From Ambien] ons Physical Exam Vitals: Vital Signs Temp Pulse Pulse Resp BP BP Pulse Ox 11/26/17 08:00 98.0 F 83 18 119/59 96 11/26/17 04:57 16 11/26/17 03:39 97.7 F 77 16 107/51 94 L 11/25/17 23:19 97.8 F 79 16 107/51 98 11/25/17 20:30 16 11/25/17 20:11 98.0 F 79 16 123/63 100 11/25/17 18:54 80 16 116/56 98 11/25/17 17:00 78 16 126/82 98 11/25/17 16:14 97.8 F 90 16 137/61 99 Intake and Output 11/25/17 11/26/17 11/26/17 22:59 06:59 14:59 Intake Total 30 Balance 30 Intake: Amount of Fluid Infused ( 30 ml) Other: Voiding Method Toilet Toilet # Voids 1 1 Weight 76.204 kg Head normocephalic Neck supple Lungs clear to auscultation bilaterally no wheezing or crackles. Chest wall left meniscectomy incision area clean and dry. No evidence of any skin lesions or infection Heart regular rate and rhythm S1-S2, no rub or gallop Abdomen is soft nontender nondistended positive bowel sounds no hepatosplenomegaly Extremities no edema Neuro alert and orientated to 3 Results CBC & Chem 7: 11/25/17 16:40 11/25/17 16:40 Labs: Abnormal Lab Results - Last 24 Hours (Table) 11/25/17 11/25/17 11/25/17 Range/Units 16:40 16:40 22:54 Lymphocytes # 0.9 L (1.0-4.8) k/uL D-Dimer (<0.60) mg/L FEU BUN 61 H (7-17) mg/dL Creatinine 1.67 H (0.52-1.04) mg/dL Glucose 339 H (74-99) mg/dL Magnesium 2.4 H (1.6-2.3) mg/dL Troponin I 0.053 H* (0.000-0.034) ng/mL 11/26/17 11/26/17 Range/Units 04:27 09:13 Lymphocytes # (1.0-4.8) k/uL D-Dimer 0.74 H (<0.60) mg/L FEU BUN (7-17) mg/dL Creatinine (0.52-1.04) mg/dL Glucose (74-99) mg/dL Magnesium (1.6-2.3) mg/dL Troponin I 0.062 H* (0.000-0.034) ng/mL Thrombosis Risk Factor Assmnt - Choose All That Apply Each Risk Factor Represents 3 Points: Age 75 years or older Thrombosis Risk Factor Assessment Total Risk Factor Score: 3 Thrombosis Risk Factor Assessment Level: Moderate Risk Assessment and Plan Assessment: 1. Chest pain: Patient does have elevated troponins. Cardiology is planning heart catheterization tomorrow. Continue with IV heparin. Continue aspirin and Lipitor 2. Cardiac arrhythmia: Continue telemetry monitoring await further cardiology recommendations 3. History of chronic systolic congestive heart failure. Cardiology following. Last echo shows an EF of 20-25% in May 2017 4. Chronic kidney disease stage III. 5. Elevated d-dimer of 0.74. Check VQ scan 6. Diabetes mellitus type 2: Continue glipizide and sliding scale 7. Hyperlipidemia 8. Hypothyroidism: Continue Synthroid. Check thyroid level 9. Bilateral breast cancer with previous chemo and radiation treatment. Left mastectomy in April 2017 10. History of TIA 11. History of moderate aortic stenosis 12. History of moderate to severe regurgitation of the aortic valve, mitral valve and tricuspid valve DVT prophylaxis IV heparin and GI prophylaxis Pepcid Time with Patient: Greater than 30 (Greater than 60% of the total time spent in counseling and coordination of care.I performed an examination of the patient and discussed their management with the physician Kiln Car Unloader. I have reviewed the Physician Kiln Car Unloader's notes and agree with the documented findings and plan of care)
[2017-11-26 11:43] LABS: Partial Thromboplastin Time 22.3 sec (22.0-30.0); Prothrombin Time 10.1 sec (9.0-12.0)
--- NOTE | 2017-11-26 12:43 | ECHOF ---
Referral Reason:sob, cp MEASUREMENTS -------- HEIGHT: 167.6 cm WEIGHT: 76.2 kg BP: 119/59 RVIDd: 2.9 cm (< 3.3) IVSd: 1.0 cm (0.6 - 1.1) LVIDd: 4.0 cm (3.9 - 5.3) LVPWd: 1.1 cm (0.6 - 1.1) IVSs: 1.1 cm LVIDs: 3.6 cm LVPWs: 1.3 cm LAESV Index (A-L): 54.99 ml/m Ao Diam: 2.6 cm (2.0 - 3.7) AV Cusp: 1.1 cm (1.5 - 2.6) LA Diam: 4.7 cm (2.7 - 3.8) MV E Sunny: 1.63 m/s MV DecT: 233 ms MV A Sunny: 0.00 m/s MV E/A Ratio: 365.12 AV maxP.77 mmHg AV meanP.24 mmHg AR PHT: 255 ms RAP: 15.00 mmHg RVSP: 72.22 mmHg FINDINGS -------- Sinus rhythm. This was a technically difficult study with suboptimal views. The left ventricular size is normal. Left ventricular wall thickness is normal. There is severe g lobal hypokinesis of LV . Overall left ventricular systolic function is mild-moderately impaired wi th, an EF between 40 - 45 %. Septal wall motion is delayed, and consistent with conduction delay/bu ndle branch block. The right ventricle is normal in size and function. LA is severely dilated >40 ml/m2 RA appears enlarged. 3ml of Lumason was utilized for enhancement of images. There is moderate to severe aortic valve sclerosis. There is jdvcfgra-[id number] aortic regurgitatio n. There is moderate aortic stenosis present. Peak/mean gradient across the Aortic Valve is 40.77 mmHg / 25.24mmHg. The mitral valve leaflets are mildly thickened. Mild mitral annular calcification present. Severe mitral regurgitation is present. Moderate to severe tricuspid regurgitation present. There is moderate to severe pulmonary hypertens ion. The right ventricular systolic pressure, as measured by Doppler, is 72.22mmHg. Trace/mild (physiologic) pulmonic regurgitation. The aortic root size is normal. The inferior vena cava is dilated with no significant inspiratory collapse which is consistent estima fiorella right atrial pressure of >20 mmHg. There is no pericardial effusion. CONCLUSIONS -------- 1. Sinus rhythm. 2. This was a technically difficult study with suboptimal views. 3. The left ventricular size is normal. 4. Left ventricular wall thickness is normal. 5. There is severe global hypokinesis of LV . 6. Septal wall motion is delayed, and consistent with conduction delay/bundle branch block. 7. LA is severely dilated >40 ml/m2 8. RA appears enlarged. 9. 3ml of Lumason was utilized for enhancement of images. 10. There is moderate to severe aortic valve sclerosis. 11. There is lqtsylvz-tr-cfaqfd aortic regurgitation. 12. There is moderate aortic stenosis present. 13. Peak/mean gradient across the Aortic Valve is 40.77mmHg / 25.24mmHg. 14. The mitral valve leaflets are mildly thickened. 15. Mild mitral annular calcification present. 16. Severe mitral regurgitation is present. 17. Moderate to severe tricuspid regurgitation present. 18. There is moderate to severe pulmonary hypertension. 19. The right ventricular systolic pressure, as measured by Doppler, is 72.22mmHg. 20. Trace/mild (physiologic) pulmonic regurgitation. 21. The aortic root size is normal. 22. The inferior vena cava is dilated with no significant inspiratory collapse which is consistent es timated right atrial pressure of >20 mmHg. 23. There is no pericardial effusion. WEB APPLICATIONS PROGRAMMER: Alejandro House RDCS
[2017-11-26] MEDS: SPIRONOLACTONE 25 MG TAB PO SCH (13:02)
[2017-11-26] MEDS: MULTIVITAMINS, THERA 1 EACH TAB PO SCH (13:03)
--- NOTE | 2017-11-26 13:05 | NM ---
EXAMINATION TYPE: NM pul vent and perfuse DATE OF EXAM: 11/26/2017 COMPARISON: 11/07/2015. Correlation to chest radiograph 11/25/2017. HISTORY: 77 year-old female shortness of breath, elevated d-dimer TECHNIQUE: Utilizing inhalation of 37.3 mCi Tc 99m DTPA aerosol and intravenous injection of 5.19 mC i of Tc 99m MAA, ventilation and perfusion images are acquired post injection in multiple projections . FINDINGS: There is mild heterogeneity of ventilation and perfusion without mismatched perfusion defect. IMPRESSION: Very low probability for pulmonary embolus.
[2017-11-26 13:16] LABS: Glucose,Whole Blood 164 mg/dL (75-99)
[2017-11-26] MEDS: INSULIN ASPART 100 UNIT/ML 1 ML 10 ML VIAL SQ SCH ×3 (13:26→21:22)
[2017-11-26 16:28] LABS: Glucose,Whole Blood 165 mg/dL (75-99)
[2017-11-26] MEDS ORDERED: ACETAMINOPHEN TAB 325 MG TAB PO PRN (18:42)
[2017-11-26 19:46] LABS: Hemoglobin A1C 7.4 % (4.0-6.0)
[2017-11-26 21:02] LABS: Glucose,Whole Blood 199 mg/dL (75-99)
[2017-11-26] MEDS: ATORVASTATIN 20 MG TAB PO SCH (21:22)
[2017-11-26] MEDS: LORazepam 1 MG TAB PO PRN (21:25)
[2017-11-27 03:58] LABS: Basophils # (A) 0.1 k/uL (0-0.2); Basophils % (A) 1 %; Eosinophils # (A) 0.2 k/uL (0-0.7); Eosinophils % (A) 2 %; HCT 40.1 % (34.0-46.0); HGB 13.1 gm/dL (11.4-16.0); Lymphocytes # (A) 1.7 k/uL (1.0-4.8); Lymphocytes % (A) 14 %; MCHC 32.6 g/dL (31.0-37.0); Mean Platelet Volume 7.6; Monocytes # (A) 0.6 k/uL (0-1.0); Monocytes % (A) 5 %; Neutrophils # (A) 8.8 k/uL (1.3-7.7); Neutrophils % (A) 77 %; Platelet Count 190 k/uL (150-450); RBC 4.22 m/uL (3.80-5.40); RDW 15.1 % (11.5-15.5); WBC 11.4 k/uL (3.8-10.6)
[2017-11-27 04:28] LABS: Calcium 9.5 mg/dL (8.4-10.2); Potassium 4.4 mmol/L (3.5-5.1)
[2017-11-27 05:57] LABS: Glucose,Whole Blood 106 mg/dL (75-99)
[2017-11-27] MEDS: SODIUM CHLORIDE 0.9% 1,000 ML IV SCH ×3 (06:14→18:03)
[2017-11-27] MEDS: INSULIN ASPART 100 UNIT/ML 1 ML 10 ML VIAL SQ SCH ×4 (06:14→20:53)
[2017-11-27] MEDS: CARVEDILOL 3.125 MG TAB PO SCH ×2 (06:18→17:47)
[2017-11-27] MEDS: ANASTROZOLE 1 MG TAB PO SCH (06:18)
[2017-11-27] MEDS: ASPIRIN 81 MG PO SCH (06:18)
[2017-11-27] MEDS: LEVOTHYROXINE 112 MCG TAB PO SCH (06:18)
[2017-11-27] MEDS: CLOPIDOGREL 75 MG TAB PO SCH (06:18)
[2017-11-27] MEDS: CHOLECALCIFEROL 1,000 UNIT TAB PO SCH (06:18)
[2017-11-27] MEDS: SACUBITRIL/VALSARTAN 24 MG-26 MG TABLET PO SCH ×2 (06:19→20:23)
[2017-11-27] MEDS: LORATADINE 10 MG TAB PO SCH (06:19)
[2017-11-27] MEDS: FAMOTIDINE 20 MG TAB PO SCH (06:19)
[2017-11-27] MEDS: DIGOXIN 125 MCG TAB PO SCH (06:19)
[2017-11-27] MEDS: ISOSORBIDE MONONITRATE ER 30 MG TAB.ER.24H PO SCH (06:19)
[2017-11-27] MEDS ORDERED: IV FLUID CONTINUATION 825 ML IV ONE (08:35)
[2017-11-27] MEDS ORDERED: fentaNYL (PF) 50 MCG/ML 2 ML AMP ONE (08:53)
[2017-11-27] MEDS ORDERED: LIDOCAINE 2% SYG (PF) 100 MG/5 ML MISCELLANE ONE (08:55)
[2017-11-27] MEDS ORDERED: LIDOCAINE 2% INJ 20 MG/ML SQ ONE (08:55)
[2017-11-27] MEDS ORDERED: fentaNYL (PF) 50 MCG/ML 2 ML AMP IV ONE (08:56)
[2017-11-27] MEDS ORDERED: NON-FORMULARY DRUG (Biotin [Biotin] 5,000 MCG) PO SCH (09:00)
[2017-11-27] MEDS ORDERED: NON-FORMULARY DRUG (Lutein [Lutein] 20 MG) PO SCH (09:00)
[2017-11-27 09:25] LABS: O2 Sat Blood Gas 56.8 %
[2017-11-27 09:27] LABS: O2 Sat Blood Gas 91.6 %
[2017-11-27] MEDS ORDERED: IOPAMIDOL-370 125ML BTL INJ ONE (09:37)
[2017-11-27] MEDS ORDERED: RX INFO: IV CONTRAST WAS GIVEN 1 EACH MISC MISCELLANE PRN (09:42)
--- NOTE | 2017-11-27 09:56 | P.PCN ---
Date of Procedure: 11/27/17 Preoperative Diagnosis: Chest pain, positive troponin, aortic stenosis and regurgitation, mitral regurgitation and CHF Postoperative Diagnosis: Severe aortic stenosis, low cardiac output and no coronary artery disease. Echo evidence of moderate to severe mitral Regurgitation Description of Procedure: HISTORY: This is a 77-year-old female with history of bilateral breast cancer status post bilateral mastectomy, history of cardiomyopathy and CHF who was admitted to the hospital with chest pain and positive troponins and also worsening CHF. Echo Cardigan showed evidence of moderate to severe aortic stenosis and moderate to severe mitral regurgitation with a moderately impaired LV function. Patient is advised to have a cardiac catheterization for definitive diagnosis. CONSENT:I have discussed the risks, benefits and alternative therapies for the above-mentioned procedure and for both sedation/analgesia as well as necessary blood product administration, if indicated, as they pertain to this patient. The patient has indicated understanding and acceptance of the risks and procedures discussed. [] PROCEDURE: Patient was brought to the lab in a fasting state. Patient was given IV sedation. Right heart catheterization:The right groin is infiltrated with lidocaine and right femoral Vein was entered using Seldinger technique. A 6-Burundian catheter was left in place and selective coronary arteriography was performed. Patient tolerated the procedure well.Manual compression was applied for hemostasis. Left heart catheterization: This is performed through the right femoral artery. The femoral artery was entered using Seldinger technique and a 6-Burundian catheter was left in place. Selective coronary arteriography was performed. Left ventriculography was not performed. Femoral angiogram was performed and Angio-Seal was applied for hemostasis. No immediate complications were noted and patient was transferred to [facility] in a stable condition Conscious Sedation: Versed 1mg Fentanyl 50g Duration 40 minutes HEMODYNAMICS: The aortic pressure is a 97/44. The left ventricle end-diastolic pressure is about 12-16. The peak gradient across the aortic valve 42 with a mean gradient of 28. The calculated valve area is 0.54 cm with area index of 0.29. The right heart catheterization: Right atrial pressure is 8/15/6, right ventricular pressure is 44/4, pulmonary artery pressure is 45/ 15/28 and the pulmonary wedge pressure is 15/19/16. SELECTIVE CORONARY ARTERIOGRAPHY: LEFT MAIN: Normal length and free of any occlusive disease. THE LEFT ANTERIOR DESCENDING CORONARY ARTERY: This is a good caliber vessel giving rise to 2 diagonal branches of reasonable size and small septal branches. The LAD and branches are free of any significant occlusive disease. THE LEFT CIRCUMFLEX AND IS CORONARY ARTERY: This is a good caliber vessel giving rise to 2 OM branches and AV groove segment. Circumflex and is coronary artery and branches are free of occlusive disease. THE RIGHT CORONARY ARTERY: The right coronary artery is a dominant vessel giving rise to PDA and PLV branches and good in caliber. This vessel is free of any significant occlusive disease. LEFT VENTRICULOGRAPHY: Not performed FINAL IMPRESSION: #1. Severe aortic stenosis with moderate to severe aortic regurgitation #2. Moderate to severe mitral regurgitation #3. Moderate pulmonary hypertension #4. Cardiomyopathy with an ejection fraction about 40%. #5. Chronic CHF PLAN: Patient would benefit from iron 12 replacement and mitral valve repair. Surgical consult is requested PROGNOSIS: Guarded
[2017-11-27 10:51] LABS: Glucose,Whole Blood 82 mg/dL (75-99)
[2017-11-27] MEDS: glipiZIDE 5 MG TAB PO SCH ×2 (11:55→20:23)
--- NOTE | 2017-11-27 12:26 | P.GSCN ---
History of Present Illness Consult date: 11/27/17 Reason for Consult: Severe aortic stenosis with moderate to severe aortic regurgitation, moderate to severe mitral regurgitation, surgical recommendations. Requesting physician: Heriberto Rogers History of present illness: This is a 77-year-old female patient follows on an outpatient basis with Dr. Hicks and Dr. Rogers for cardiology. She has a previous medical history of aortic stenosis, aortic insufficiency, mitral regurgitation, hyperlipidemia, diabetes mellitus, myocardial infarction 2005, TIA, hypothyroidism, bilateral breast cancer with lumpectomy, chemo and radiation last dose in 2007, and recent left mastectomy, chemo-induced cardiomyopathy, systolic heart failure with current ejection fraction 40-45%, and multiple orthopedic surgeries. Over the last couple of months she has noticed increasing shortness of breath and lower extremity edema. This previous weekend she developed anginal-type chest pain and presented to [facility] emergency room. She was given aspirin , nitroglycerin, and oxygen with resolution of her symptoms. Her troponins were mildly elevated with the highest being 0.062, and her BNP was 4030. EKG demonstrated sinus rhythm with first-degree AV block and ST depression in the inferior lateral leads. Chest x-ray demonstrated mild heart failure. Transthoracic echocardiogram was completed demonstrated ejection fraction of 40- 45% which is improved from the echo completed in May 2017 with an ejection fraction 20-25%. The echo also demonstrated moderate to severe aortic insufficiency, moderate aortic stenosis, with a peak/mean gradient of 40.77/ 25.24 mmHg, severe mitral regurgitation, moderate to severe tricuspid regurgitation, and moderate to severe pulmonary hypertension. The patient was recommended to undergo heart catheterization which was completed this morning and which demonstrated normal coronaries. Due to the patient's progression of symptoms Dr. Dale from cardiothoracic surgery was consulted regarding surgical recommendations. Review of Systems 14 point review systems was completed and was negative except as noted. - Cardiovascular Reports dyspnea on exertion, Reports leg edema, Reports shortness of breath - Respiratory Reports dyspnea Past Medical History Past Medical History: Cancer, Heart Failure, CVA/TIA, Diabetes Mellitus, Hyperlipidemia, Osteoarthritis (OA), Thyroid Disorder Additional Past Medical History / Comment(s): Bilateral breast cancer (L in 1999 and R in 2007) tx with lumpectomies and chemo and radiation, lymphadema bilateral upper arms, CHF with 1st chemo, NIDDM, leaky heart valve, tia (2011) with L upper arm weakness since resolved., HX of leg fx x2 hema, SOB with exertion., See [facility]. History of Any Multi-Drug Resistant Organisms: None Reported Past Surgical History: Appendectomy, Breast Surgery, Heart Catheterization, Hysterectomy, Joint Replacement, Orthopedic Surgery, Tonsillectomy Additional Past Surgical History / Comment(s): Breast bx's & lumpectomy (1999 & 2007), Mastectomy (2017) Heart cath (2003, 2015), R and L lower leg fx ( separate incidences) with surgical repair using plates and screws, neck & face skin cancer , Cataracts, Bilateral total shoulders, bilateral carpal tunnel . thumb surgery. Additional Past Anesthesia/Blood Transfusion Reaction / Comm: "slow to wake up" after surgery. Hx of blood transfusion after chemo - no reaction. Past Psychological History: No Psychological Hx Reported Additional Psychological History / Comment(s): . Smoking Status: Never smoker Past Alcohol Use History: Rare Past Drug Use History: None Reported - Past Family History Father Family Medical History: Congestive Heart Failure (CHF) Additional Family Medical History / Comment(s): Father at age 69yrs from CHF. He also had stomach problems-ulcers. Mother Family Medical History: Cancer, Coronary Artery Disease (CAD) Additional Family Medical History / Comment(s): . Medications and Allergies Home Medications Medication Instructions Recorded Confirmed Type Ascorbic Acid [Vitamin C] 500 mg PO DAILY 09/11/14 11/25/17 History Aspirin 81 mg PO DAILY 09/11/14 11/25/17 History Cholecalciferol [Vitamin D3] 2,000 unit PO DAILY 09/11/14 11/25/17 History Clopidogrel [Plavix] 75 mg PO DAILY 09/11/14 11/25/17 History Glucosam/Denilson-Msm1/C/Curtis/Bosw 1 tab PO DAILY 09/11/14 11/25/17 History [Glucosamine-Chondroitin Tablet] Lutein 20 mg PO DAILY 09/11/14 11/25/17 History Multivitamins, Thera [Multivitamin 1 tab PO DAILY 09/11/14 11/25/17 History (formulary)] Simvastatin [Zocor] 40 mg PO HS 09/11/14 11/25/17 History Spironolactone [Aldactone] 12.5 - 25 mg PO DAILY 09/11/14 11/25/17 History Digoxin [Digox] 125 mcg PO DAILY 11/07/15 11/25/17 History Sacubitril/Valsartan [Entresto 24 1 tab PO BID 11/07/15 11/25/17 History mg-26 mg Tablet] Biotin 5,000 mcg PO DAILY 12/13/16 11/25/17 History Carvedilol [Coreg] 3.125 mg PO BID 12/13/16 11/25/17 History Levothyroxine Sodium [Synthroid] 112 mcg PO DAILY 06/01/17 11/25/17 History glipiZIDE XL [Glucotrol XL] 10 mg PO DAILY #30 tab 06/03/17 11/25/17 Rx Anastrozole [Arimidex] 1 mg PO DAILY 11/25/17 11/25/17 History Furosemide [Lasix] 40 mg PO DAILY 11/25/17 11/25/17 History Isosorbide Mononitrate ER [Imdur] 30 mg PO DAILY 11/25/17 11/25/17 History LORazepam [Ativan] 0.5 - 1 mg PO DAILY PRN 11/25/17 11/25/17 History Loratadine [Claritin] 10 mg PO DAILY 11/25/17 11/25/17 History Allergies Allergy/AdvReac Type Severity Reaction Status Date / Time bee venom protein (honey bee) Allergy Unknown Swelling Verified 11/25/17 17:44 Penicillins AdvReac Rash/Hives Verified 11/25/17 17:44 Tetanus Vaccines and Toxoid AdvReac Swelling Verified 11/25/17 17:44 [Tetanus Vaccines & Toxoid] yeast, dried AdvReac Abdominal Verified 11/25/17 17:44 Pain zolpidem tartrate AdvReac Hallucinati Verified 11/25/17 17:44 [From Ambien] ons Surgical - Exam Vital Signs Temp Pulse Resp BP Pulse Ox 97.8 F 90 16 137/61 99 11/25/17 16:14 11/25/17 16:14 11/25/17 16:14 11/25/17 16:14 11/25/17 16:14 - General well developed, well nourished, no distress, no pain - Eyes PERRL, normal ocular movement - ENT no hearing loss - Neck no masses, no bruits, trachea midline - Respiratory Lungs sounds clear bilaterally. Respirations even, nonlabored. Currently on 2 L nasal cannula with oxygen saturation 100%. Chest wall demonstrates postsurgical changes from left mastectomy. - Cardiovascular S1, S2 present. Regular rate and rhythm, sinus rhythm with first-degree AV block on telemetry. Palpable peripheral pulses bilaterally. No edema present. No calf pain or tenderness noted. - Abdomen Abdomen: soft, non tender, bowel sounds - Genitourinary Deferred - Rectum Deferred - Integumentary Skin is warm and dry with evidence of good perfusion. Well-healed left mastectomy scar. no rash, no growths - Neurologic normal coordination, normal sensation - Psychiatric oriented to time, oriented to person, oriented to place, speech is normal, memory intact Results - Labs 11/27/17 03:26 11/27/17 03:26 Abnormal Lab Results - Last 24 Hours (Table) 11/26/17 11/26/17 11/26/17 Range/Units 09:13 12:56 16:19 WBC (3.8-10.6) k/uL Neutrophils # (1.3-7.7) k/uL APTT (22.0-30.0) sec Chloride (98-107) mmol/L Carbon Dioxide (22-30) mmol/L BUN (7-17) mg/dL Creatinine (0.52-1.04) mg/dL Glucose (74-99) mg/dL POC Glucose (mg/dL) 164 H 165 H (75-99) mg/dL Hemoglobin A1c 7.4 H (4.0-6.0) % 11/26/17 11/26/17 11/27/17 Range/Units 19:01 21:00 03:26 WBC (3.8-10.6) k/uL Neutrophils # (1.3-7.7) k/uL APTT 35.4 H (22.0-30.0) sec Chloride 108 H (98-107) mmol/L Carbon Dioxide 19 L (22-30) mmol/L BUN 47 H (7-17) mg/dL Creatinine 1.20 H (0.52-1.04) mg/dL Glucose 119 H (74-99) mg/dL POC Glucose (mg/dL) 199 H (75-99) mg/dL Hemoglobin A1c (4.0-6.0) % 11/27/17 11/27/1711/27/18 Range/Units 03:26 03:26 05:55 WBC 11.4 H (3.8-10.6) k/uL Neutrophils # 8.8 H (1.3-7.7) k/uL APTT 67.6 H (22.0-30.0) sec Chloride (98-107) mmol/L Carbon Dioxide (22-30) mmol/L BUN (7-17) mg/dL Creatinine (0.52-1.04) mg/dL Glucose (74-99) mg/dL POC Glucose (mg/dL) 106 H (75-99) mg/dL Hemoglobin A1c (4.0-6.0) % Diabetes panel 11/26/17 11/27/17 Range/Units 09:13 03:26 Sodium 141 (137-145) mmol/L Potassium 4.4 (3.5-5.1) mmol/L Chloride 108 H (98-107) mmol/L Carbon Dioxide 19 L (22-30) mmol/L BUN 47 H (7-17) mg/dL Creatinine 1.20 H (0.52-1.04) mg/dL Glucose 119 H (74-99) mg/dL Hemoglobin A1c 7.4 H (4.0-6.0) % Calcium 9.5 (8.4-10.2) mg/dL Thyroid panel 11/26/17 Range/Units 04:27 TSH 1.640 (0.465-4.680) mIU/L Calcium panel 11/27/17 Range/Units 03:26 Calcium 9.5 (8.4-10.2) mg/dL Pituitary panel 11/26/17 11/27/17 Range/Units 04:27 03:26 Sodium 141 (137-145) mmol/L Potassium 4.4 (3.5-5.1) mmol/L Chloride 108 H (98-107) mmol/L Carbon Dioxide 19 L (22-30) mmol/L BUN 47 H (7-17) mg/dL Creatinine 1.20 H (0.52-1.04) mg/dL Glucose 119 H (74-99) mg/dL Calcium 9.5 (8.4-10.2) mg/dL TSH 1.640 (0.465-4.680) mIU/L Adrenal panel 06/19/18 Range/Units 03:26 Sodium 141 (137-145) mmol/L Potassium 4.4 (3.5-5.1) mmol/L Chloride 108 H (98-107) mmol/L Carbon Dioxide 19 L (22-30) mmol/L BUN 47 H (7-17) mg/dL Creatinine 1.20 H (0.52-1.04) mg/dL Glucose 119 H (74-99) mg/dL Calcium 9.5 (8.4-10.2) mg/dL - Imaging Chest x-ray: report reviewed, image reviewed EKG: image reviewed Additional studies: Cardiac catheterization, echocardiogram films reviewed. Assessment and Plan (1) Hyperlipidemia Current Visit: Yes Status: Chronic Code(s): E78.5 - HYPERLIPIDEMIA, UNSPECIFIED SNOMED Code(s): 78220608 (2) Previous myocardial infarction older than 8 weeks Current Visit: No Status: Resolved Code(s): I25.2 - OLD MYOCARDIAL INFARCTION SNOMED Code(s): 9191039 (3) Diabetes mellitus type 2 in nonobese Current Visit: Yes Status: Chronic Code(s): E11.9 - TYPE 2 DIABETES MELLITUS WITHOUT COMPLICATIONS SNOMED Code(s): 493107615 (4) History of TIA (transient ischemic attack) Current Visit: No Status: Resolved Code(s): Z86.73 - PRSNL HX OF TIA (TIA), AND CEREB INFRC W/O RESID DEFICITS SNOMED Code(s): 249276812 (5) History of bilateral breast cancer Current Visit: No Status: Resolved Code(s): Z85.3 - PERSONAL HISTORY OF MALIGNANT NEOPLASM OF BREAST SNOMED Code(s): 693106177 (6) H/O left mastectomy Current Visit: No Status: Resolved Code(s): Z90.12 - ACQUIRED ABSENCE OF LEFT BREAST AND NIPPLE SNOMED Code(s): 100152857 (7) History of chemotherapy Current Visit: No Status: Resolved Code(s): Z92.21 - PERSONAL HISTORY OF ANTINEOPLASTIC CHEMOTHERAPY SNOMED Code(s): 337190994559350 (8) History of radiation therapy Current Visit: No Status: Resolved Code(s): Z92.3 - PERSONAL HISTORY OF IRRADIATION SNOMED Code(s): 497118445 (9) Systolic heart failure, chronic Current Visit: Yes Status: Chronic Code(s): I50.22 - CHRONIC SYSTOLIC ( CONGESTIVE) HEART FAILURE SNOMED Code(s): 230468993 (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 Current Visit: Yes Status: Chronic Code(s): I42.7 - CARDIOMYOPATHY DUE TO DRUG AND EXTERNAL AGENT; T45.1X5A - ADVERSE EFFECT OF ANTINEOPLASTIC AND IMMUNOSUP DRUGS, INIT SNOMED Code(s): 74522082 (11) Family history of heart disease Current Visit: Yes Status: Chronic Code(s): Z82.49 - FAMILY HX OF ISCHEM HEART DIS AND OTH DIS OF THE CIRC SYS SNOMED Code(s): 360242647 (12) Aortic stenosis, severe Current Visit: Yes Status: Chronic Code(s): I35.0 - NONRHEUMATIC AORTIC ( VALVE) STENOSIS SNOMED Code(s): 37295317 (13) Mitral regurgitation Current Visit: Yes Status: Chronic Code(s): I34.0 - NONRHEUMATIC MITRAL ( VALVE) INSUFFICIENCY SNOMED Code(s): 26941496 (14) Aortic insufficiency Current Visit: Yes Status: Chronic Code(s): I35.1 - NONRHEUMATIC AORTIC ( VALVE) INSUFFICIENCY SNOMED Code(s): 19859563 (15) Chest pain Current Visit: Yes Status: Acute Code(s): R07.9 - CHEST PAIN, UNSPECIFIED SNOMED Code(s): 60895987 Plan: The patient was seen and examined at the bedside. Chart/diagnostics were reviewed. Discussion has taken place between Dr. Dr. Rogers and Dr. Dale regarding this consult. Preoperative teaching initiated with the patient and her . At this time the patient would like to wait on any preoperative testing until she meets the cardiothoracic surgeon, and in fact the patient and her indicate they may want a second opinion. We will get a copy of her carotid dopplers which [facility] within the last 6 months per the patient. At this time we would recommend maximizing medical therapy. Dr. Dale will have further discussions with the patient regarding surgical options, more recommendations to follow. Thank you Dr. Rogers for this consult. We look forward to working with you in the care of your patient. Time with Patient: Greater than 30
--- NOTE | 2017-11-27 12:44 | P.PN ---
Subjective Progress Note Date: 11/27/17 Principal diagnosis: Non-ST elevation [place] Patient is doing well today. She denies any chest pain at this time. She underwent left heart catheterization this morning. Objective - Vital Signs Vital signs: Vital Signs Temp 96.4 F L 11/27/17 11:10 Pulse 79 11/27/17 11:40 Resp 16 11/27/17 11:40 BP 107/57 11/27/17 11:40 Pulse Ox 100 11/27/17 11:40 Intake & Output 11/26/17 11/27/17 11/27/17 18:59 06:59 18:59 Intake Total 400 491.616 50 Balance 400 491.616 50 Weight 76.7 kg Intake: IV 400 50 Sodium Chloride 0.9% 1, 400 000 ml @ 50 mls/hr IV . Q20H LIBERTAD Rx#:[id number] Intake, IV Titration 131.616 Amount Heparin Sodium,Porcine/ 131.616 D5w Pmx 25,000 unit In Dextrose/Water 1 500ml. bag @ 12 UNITS/KG/HR 18. 28 mls/hr IV .Q24H [facility] Rx #:[id number] Oral 360 Other: Voiding Method Toilet Toilet # Voids 1 - Exam General: The patient is awake and alert, in no distress Eye: there is normal conjunctiva bilaterally. Neck: The neck is supple, there is no JVD. Cardiovascular: Normal S1-S2, no S3-S4, no murmurs. Respiratory: Lungs clear to auscultation bilaterally Gastrointestinal: Abdomen is soft, nontender Musculoskeletal: There is no pedal edema. Neurological:. Speech is normal. Skin: Skin is warm and dry - Labs CBC & Chem 7: 11/27/17 03:26 11/27/17 03:26 Labs: Abnormal Lab Results - Last 24 Hours (Table) 11/26/17 11/26/17 11/26/17 Range/Units 09:13 12:56 16:19 WBC (3.8-10.6) k/uL Neutrophils # (1.3-7.7) k/uL APTT (22.0-30.0) sec Chloride (98-107) mmol/L Carbon Dioxide (22-30) mmol/L BUN (7-17) mg/dL Creatinine (0.52-1.04) mg/dL Glucose (74-99) mg/dL POC Glucose (mg/dL) 164 H 165 H (75-99) mg/dL Hemoglobin A1c 7.4 H (4.0-6.0) % 11/26/17 11/26/17 11/27/17 Range/Units 19:01 21:00 03:26 WBC (3.8-10.6) k/uL Neutrophils # (1.3-7.7) k/uL APTT 35.4 H (22.0-30.0) sec Chloride 108 H (98-107) mmol/L Carbon Dioxide 19 L (22-30) mmol/L BUN 47 H (7-17) mg/dL Creatinine 1.20 H (0.52-1.04) mg/dL Glucose 119 H (74-99) mg/dL POC Glucose (mg/dL) 199 H (75-99) mg/dL Hemoglobin A1c (4.0-6.0) % 11/27/17 11/27/17 11/27/17 Range/Units 03:26 03:26 05:55 WBC 11.4 H (3.8-10.6) k/uL Neutrophils # 8.8 H (1.3-7.7) k/uL APTT 67.6 H (22.0-30.0) sec Chloride (98-107) mmol/L Carbon Dioxide (22-30) mmol/L BUN (7-17) mg/dL Creatinine (0.52-1.04) mg/dL Glucose (74-99) mg/dL POC Glucose (mg/dL) 106 H (75-99) mg/dL Hemoglobin A1c (4.0-6.0) % Assessment and Plan Assessment: 1. Non-ST elevation NJ, managed medically. Patient underwent left heart catheterization showing no obstructive coronary artery disease. 2. Severe aortic stenosis with moderate to severe aortic regurg, awaiting cardiothoracic surgery evaluation for possible valve replacement. 3. Moderate pulmonary hypertension 4. Moderate to severe mitral regurg 5. 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 Type 2 diabetes mellitus: Relatively well-controlled 7. Stage IIIB chronic kidney disease 8. Elevated d-dimer on presentation, PE very less likely. VQ scan showed very low probability for PE. 9. Hypothyroidism, maintained on Synthroid Today, I reviewed her medication list and lab work results. Continue gentle IV fluid hydration. Appreciate senior science consultant's recommendations. Repeat lab work in the morning.
[2017-11-27] MEDS: FUROSEMIDE 40 MG TAB PO SCH (15:59)
[2017-11-27] MEDS: MULTIVITAMINS, THERA 1 EACH TAB PO SCH (15:59)
[2017-11-27] MEDS: SPIRONOLACTONE 25 MG TAB PO SCH (15:59)
[2017-11-27 17:16] LABS: Glucose,Whole Blood 158 mg/dL (75-99)
[2017-11-27] MEDS: ATORVASTATIN 20 MG TAB PO SCH (20:23)
[2017-11-27 20:49] LABS: Glucose,Whole Blood 188 mg/dL (75-99)
[2017-11-27] MEDS: LORazepam 1 MG TAB PO PRN (22:53)
[2017-11-28 05:44] LABS: Basophils # (A) 0.1 k/uL (0-0.2); Basophils % (A) 1 %; Eosinophils # (A) 0.3 k/uL (0-0.7); Eosinophils % (A) 3 %; HCT 36.9 % (34.0-46.0); HGB 12.2 gm/dL (11.4-16.0); Lymphocytes # (A) 1.2 k/uL (1.0-4.8); Lymphocytes % (A) 13 %; MCH 30.8 pg (25.0-35.0); MCHC 33.2 g/dL (31.0-37.0); Mean Platelet Volume 8.2; Monocytes # (A) 0.6 k/uL (0-1.0); Monocytes % (A) 6 %; Neutrophils # (A) 7.3 k/uL (1.3-7.7); Neutrophils % (A) 76 %; Platelet Count 181 k/uL (150-450); RBC 3.97 m/uL (3.80-5.40); RDW 14.8 % (11.5-15.5); WBC 9.6 k/uL (3.8-10.6)
[2017-11-28 05:54] LABS: Calcium 9.1 mg/dL (8.4-10.2); Potassium 4.6 mmol/L (3.5-5.1)
[2017-11-28 06:15] LABS: Glucose,Whole Blood 89 mg/dL (75-99)
[2017-11-28] MEDS: LEVOTHYROXINE 112 MCG TAB PO SCH (06:54)
[2017-11-28] MEDS: INSULIN ASPART 100 UNIT/ML 1 ML 10 ML VIAL SQ SCH ×2 (06:54→12:01)
[2017-11-28] MEDS: CARVEDILOL 3.125 MG TAB PO SCH ×2 (06:55→16:52)
[2017-11-28] MEDS: LORATADINE 10 MG TAB PO SCH (09:30)
[2017-11-28] MEDS: DIGOXIN 125 MCG TAB PO SCH (09:31)
[2017-11-28] MEDS: CHOLECALCIFEROL 1,000 UNIT TAB PO SCH (09:31)
[2017-11-28] MEDS: glipiZIDE 5 MG TAB PO SCH (09:31)
[2017-11-28] MEDS: SPIRONOLACTONE 25 MG TAB PO SCH (09:31)
[2017-11-28] MEDS: CLOPIDOGREL 75 MG TAB PO SCH (09:31)
[2017-11-28] MEDS: ISOSORBIDE MONONITRATE ER 30 MG TAB.ER.24H PO SCH (09:32)
[2017-11-28] MEDS: ASPIRIN 81 MG PO SCH (09:32)
[2017-11-28] MEDS: MULTIVITAMINS, THERA 1 EACH TAB PO SCH (09:32)
[2017-11-28] MEDS: SACUBITRIL/VALSARTAN 24 MG-26 MG TABLET PO SCH (09:33)
[2017-11-28] MEDS: FAMOTIDINE 20 MG TAB PO SCH (09:33)
[2017-11-28] MEDS: ANASTROZOLE 1 MG TAB PO SCH (09:33)
[2017-11-28] MEDS: FUROSEMIDE 40 MG TAB PO SCH (09:34)
[2017-11-28 09:45] VITALS: RESP 18
--- NOTE | 2017-11-28 10:05 | P.PN ---
<German Viera - Last Filed: 11/28/17 09:44> Subjective Progress Note Date: 11/28/17 Principal diagnosis: Severe aortic valve stenosis with moderate to severe aortic regurgitation, moderate to severe mitral valve regurgitation, hyperlipidemia, diabetes mellitus type 2, history of myocardial infarction in 2005, history of TIA, hypothyroidism, history of bilateral breast cancer with left mastectomy in 2017 and has received chemotherapy and radiation treatments with her last dose in 2007, systolic heart failure with current ejection fraction 40-45%, chronic kidney disease and osteoarthritis. Patient is sitting up to the bedside edge. She is in no acute distress. She is reporting that she has had some episodes of chest tightness this morning with minimal activity. She denies any complaints of nausea, dizziness or shortness of breath at this time. She has decided to proceed with preoperative testing and be evaluated for a Her procedure at [facility]. Objective - Vital Signs Vital signs: Vital Signs Temp 98.8 F 11/27/17 22:54 Pulse 92 11/28/17 04:00 Resp 16 11/28/17 04:00 BP 107/56 11/28/17 04:00 Pulse Ox 94 L 11/28/17 04:00 Intake & Output 11/27/17 11/28/17 11/28/17 18:59 06:59 18:59 Intake Total 680 600 180 Output Total 950 200 Balance -270 600 -20 Weight 77.8 kg Intake: IV 500 600 Sodium Chloride 0.9% 1, 450 600 000 ml @ 75 mls/hr IV . [id number] [facility] Rx#:[id number] Oral 180 180 Output: Urine 950 200 Other: Voiding Method Toilet Toilet # Voids 2 2 - Constitutional General appearance: Present: cooperative, no acute distress, obese - Respiratory Details: Lung sounds with few scattered crackles throughout, diminished bilateral bases. Respirations are symmetrical and nonlabored. Oxygen saturation are 96% on room air. - Cardiovascular Details: Regular rhythm and rate. S1 and S2 present with systolic murmur 3/6 present. Remote telemetry showing normal sinus rhythm with first-degree AV block heart rate 87 BPM. No edema present. - Gastrointestinal Gastrointestinal Comment(s): Abdomen is soft, nontender nondistended. Active bowel sounds to all 4 abdominal quadrants. No guarding or rigidity. Tolerating oral intake. - Genitourinary Genitourinary Comment(s): Voiding clear yellow urine. - Integumentary Integumentary Comment(s): Skin is warm and dry. No clubbing or cyanosis present. No rash or abnormal pigmentation present. - Neurologic Neurologic: Present: CNII-XII intact - Musculoskeletal Musculoskeletal: Present: gait normal, strength equal bilaterally - Psychiatric Psychiatric: Present: A&O x's 3, appropriate affect, intact judgment & insight - Allied health notes Allied health notes reviewed: nursing - Labs CBC & Chem 7: 11/28/17 05:22 11/28/17 05:22 Labs: Abnormal Lab Results - Last 24 Hours (Table) 11/27/17 11/27/17 11/28/17 Range/Units 17:07 20:47 05:22 Chloride 108 H (98-107) mmol/L Carbon Dioxide 21 L (22-30) mmol/L BUN 43 H (7-17) mg/dL Creatinine 1.40 H (0.52-1.04) mg/dL POC Glucose (mg/dL) 158 H 188 H (75-99) mg/dL Assessment and Plan (1) Chest pain Current Visit: Yes Status: Acute Code(s): R07.9 - CHEST PAIN, UNSPECIFIED SNOMED Code(s): 99556799 (2) Aortic insufficiency Current Visit: Yes Status: Chronic Code(s): I35.1 - NONRHEUMATIC AORTIC ( VALVE) INSUFFICIENCY SNOMED Code(s): 05831516 (3) Aortic stenosis, severe Current Visit: Yes Status: Chronic Code(s): I35.0 - NONRHEUMATIC AORTIC ( VALVE) STENOSIS SNOMED Code(s): 96121684 (4) Cardiomyopathy due to chemotherapy Current Visit: Yes Status: Chronic Code(s): I42.7 - CARDIOMYOPATHY DUE TO DRUG AND EXTERNAL AGENT; T45.1X5A - ADVERSE EFFECT OF ANTINEOPLASTIC AND IMMUNOSUP DRUGS, INIT SNOMED Code(s): 21175278 (5) Diabetes mellitus type 2 in nonobese Current Visit: Yes Status: Chronic Code(s): E11.9 - TYPE 2 DIABETES MELLITUS WITHOUT COMPLICATIONS SNOMED Code(s): 830517178 (6) Family history of heart disease Current Visit: Yes Status: Chronic Code(s): Z82.49 - FAMILY HX OF ISCHEM HEART DIS AND OTH DIS OF THE CIRC SYS SNOMED Code(s): 192092878 (7) Hyperlipidemia Current Visit: Yes Status: Chronic Code(s): E78.5 - HYPERLIPIDEMIA, UNSPECIFIED SNOMED Code(s): 88835122 (8) Mitral regurgitation Current Visit: Yes Status: Chronic Code(s): I34.0 - NONRHEUMATIC MITRAL ( VALVE) INSUFFICIENCY SNOMED Code(s): 96068195 (9) Systolic heart failure, chronic Current Visit: Yes Status: Chronic Code(s): I50.22 - CHRONIC SYSTOLIC ( CONGESTIVE) HEART FAILURE SNOMED Code(s): 144485171 (10) Renal insufficiency Current Visit: No Status: Acute Code(s): N28.9 - DISORDER OF KIDNEY AND URETER, UNSPECIFIED SNOMED Code(s): 601997392 (11) H/O left mastectomy Current Visit: No Status: Resolved Code(s): Z90.12 - ACQUIRED ABSENCE OF LEFT BREAST AND NIPPLE SNOMED Code(s): 288348910 (12) History of TIA (transient ischemic attack) Current Visit: No Status: Resolved Code(s): Z86.73 - PRSNL HX OF TIA (TIA), AND CEREB INFRC W/O RESID DEFICITS SNOMED Code(s): 408967497 (13) History of bilateral breast cancer Current Visit: No Status: Resolved Code(s): Z85.3 - PERSONAL HISTORY OF MALIGNANT NEOPLASM OF BREAST SNOMED Code(s): 784861555 (14) History of chemotherapy Current Visit: No Status: Resolved Code(s): Z92.21 - PERSONAL HISTORY OF ANTINEOPLASTIC CHEMOTHERAPY SNOMED Code(s): 296217900258851 (15) History of radiation therapy Current Visit: No Status: Resolved Code(s): Z92.3 - PERSONAL HISTORY OF IRRADIATION SNOMED Code(s): 192848346 (16) Previous myocardial infarction older than 8 weeks Current Visit: No Status: Resolved Code(s): I25.2 - OLD MYOCARDIAL INFARCTION SNOMED Code(s): 5702236 Plan: 1. Continue to maximize medical therapy, continue aspirin, Lipitor, beta devendra, Aldactone, Lasix, plavix, Entresto and Imdur. 2. The patient wishes to proceed with evaluation for TAVR procedure, her records will be sent to [facility] [place] review. 3. We will obtain a carotid duplex study and bedside FEV1 for further preoperative evaluation. 4. Further recommendations to follow based on the patient's clinical course. Time with Patient: Greater than 30 <Salinas Reyes - Last Filed: 11/28/17 14:09> Objective - Vital Signs Vital signs: Vital Signs Temp 96.7 F L 11/28/17 12:00 Pulse 83 11/28/17 12:00 Resp 18 11/28/17 12:00 BP 118/58 11/28/17 12:00 Pulse Ox 96 11/28/17 12:00 Intake & Output 11/27/17 11/28/17 11/28/17 18:59 06:59 18:59 Intake Total 680 600 180 Output Total 950 200 Balance -270 600 -20 Weight 77.8 kg Intake: IV 500 600 Sodium Chloride 0.9% 1, 450 600 000 ml @ 75 mls/hr IV . [id number] [facility] Rx#:[id number] Oral 180 180 Output: Urine 950 200 Other: Voiding Method Toilet Toilet Toilet # Voids 2 2 - Labs CBC & Chem 7: 11/28/17 05:22 11/28/17 05:22 Labs: Abnormal Lab Results - Last 24 Hours (Table) 11/27/17 11/27/17 11/28/17 Range/Units 17:07 20:47 05:22 Chloride 108 H (98-107) mmol/L Carbon Dioxide 21 L (22-30) mmol/L BUN 43 H (7-17) mg/dL Creatinine 1.40 H (0.52-1.04) mg/dL POC Glucose (mg/dL) 158 H 188 H (75-99) mg/dL 11/28/17 Range/Units 11:35 Chloride (98-107) mmol/L Carbon Dioxide (22-30) mmol/L BUN (7-17) mg/dL Creatinine (0.52-1.04) mg/dL POC Glucose (mg/dL) 131 H (75-99) mg/dL Assessment and Plan Plan: The patient was seen and examined. The history and physical findings were verified. I agree with the above assessment and plan. The patient is currently hemodynamically stable. She does report intermittent episodes of chest pain which appear to be mild in nature. Her cardiac catheterization did not reveal obstructive coronary artery disease. We will arrange for her to follow-up with our structural heart clinic at [facility] in [place] for consideration of TAVR. She is stable for discharge home from my standpoint.
[2017-11-28 11:37] LABS: Glucose,Whole Blood 131 mg/dL (75-99)
--- NOTE | 2017-11-28 12:00 | US ---
EXAMINATION TYPE: US carotid duplex BILAT DATE OF EXAM: 11/28/2017 COMPARISON: NONE CLINICAL HISTORY: Preop TAVR. Pre-op EXAM MEASUREMENTS: RIGHT: Peak Systolic Velocity (PSV) cm/sec ----- Right CCA: 66.2 ----- Right ICA: 90.5 ----- Right ECA: 71.4 ICA/CCA ratio: 1.4 RIGHT: End Diastole cm/sec ----- Right CCA: 13.0 ----- Right ICA: 18.0 ----- Right ECA: 0.0 LEFT: Peak Systolic Velocity (PSV) cm/sec ----- Left CCA: 72.4 ----- Left ICA: 94.3 ----- Left ECA: 82.7 ICA/CCA ratio: 1.3 LEFT: End Diastole cm/sec ----- Left CCA: 14.2 ----- Left ICA: 18.0 ----- Left ECA: 0.0 VERTEBRALS (direction of flow): Right Vertebral: Antegrade Left Vertebral: Antegrade Heterogeneous plaque bilaterally without hemodynamically significant stenosis bilaterally IMPRESSION: 1. Mild to moderate atheromatous plaquing without significant flow-limiting stenosis. Criteria for Assigning % of Stenosis / Diameter reduction (Estimation based on the indirect measurements of the internal carotid artery velocities (ICA PSV). 1. Normal (no stenosis)=ICA PSV < 125 cm/s: ratio < 2.0: ICA EDV<40 cm/s. 2. Less than 50% stenosis=ICA PSV < 125 cm/s: ratio < 2.0: ICA EDV<40 cm/s. 3. 50 to 69% stenosis=ICA PSV of 125 to 230 cm/s: ration 2.0 ? 4.0: ICA EDV 40-100 cm/s. 4. Greater than 70% stenosis to near occlusion= ICA PSV > 230 cm/s: ratio > 4.0: ICA EDV > 100 cm/s. 5. Near occlusion= ICA PSV velocities may be low or undetectable: variable ratio and ICA EDV. 6. Total occlusion=unable to detect flow.
--- NOTE | 2017-11-28 13:12 | P.PN ---
Subjective Progress Note Date: 11/28/17 Principal diagnosis: Non-ST elevation KS Patient is doing well today. She denies any chest pain at this time. No events overnight Objective - Vital Signs Vital signs: Vital Signs Temp 96.7 F L 11/28/17 12:00 Pulse 83 11/28/17 12:00 Resp 18 11/28/17 12:00 BP 118/58 11/28/17 12:00 Pulse Ox 96 11/28/17 12:00 Intake & Output 11/27/17 11/28/17 11/28/17 18:59 06:59 18:59 Intake Total 680 600 180 Output Total 950 200 Balance -270 600 -20 Weight 77.8 kg Intake: IV 500 600 Sodium Chloride 0.9% 1, 450 600 000 ml @ 75 mls/hr IV . [id number] [facility] Rx#:[id number] Oral 180 180 Output: Urine 950 200 Other: Voiding Method Toilet Toilet Toilet # Voids 2 2 - Exam General: The patient is awake and alert, in no distress Eye: there is normal conjunctiva bilaterally. Neck: The neck is supple, there is no JVD. Cardiovascular: Normal S1-S2, no S3-S4, no murmurs. Respiratory: Lungs clear to auscultation bilaterally Gastrointestinal: Abdomen is soft, nontender Musculoskeletal: There is no pedal edema. Neurological:. Speech is normal. Skin: Skin is warm and dry - Labs CBC & Chem 7: 11/28/17 05:22 11/28/17 05:22 Labs: Abnormal Lab Results - Last 24 Hours (Table) 11/27/17 11/27/17 11/28/17 Range/Units 17:07 20:47 05:22 Chloride 108 H (98-107) mmol/L Carbon Dioxide 21 L (22-30) mmol/L BUN 43 H (7-17) mg/dL Creatinine 1.40 H (0.52-1.04) mg/dL POC Glucose (mg/dL) 158 H 188 H (75-99) mg/dL 11/28/17 Range/Units 11:35 Chloride (98-107) mmol/L Carbon Dioxide (22-30) mmol/L BUN (7-17) mg/dL Creatinine (0.52-1.04) mg/dL POC Glucose (mg/dL) 131 H (75-99) mg/dL Assessment and Plan Assessment: 1. Non-ST elevation KS, managed medically. Patient underwent left heart catheterization showing no obstructive coronary artery disease. 2. Severe aortic stenosis with moderate to severe aortic regurg 3. Moderate pulmonary hypertension 4. Moderate to severe mitral regurg 5. 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 Type 2 diabetes mellitus: Relatively well-controlled 7. Stage IIIB chronic kidney disease 8. Elevated d-dimer on presentation, PE very less likely. VQ scan showed very low probability for PE. 9. Hypothyroidism, maintained on Synthroid Patient is currently being evaluated for possible TAVR. She underwent carotid Dopplers today. A spirometry was done today as well. Awaiting report. Awaiting further recommendations from cardiology. Continue optimal medical management
[2017-11-28] MEDS: SODIUM CHLORIDE 0.9% 1,000 ML IV SCH (14:59)
--- NOTE | 2017-11-28 15:17 | P.PN ---
Subjective Progress Note Date: 11/28/17 Mrs. 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 She follows with Dr. Rogers in the office. Her ejection fraction has been fluctuating between 20 -25% 05/2017 with recent improvement to 35% in most recent echo performed at the office using contrast 07/2017. We have been asked to see her in consultation for chest pain. She states she has been following closely with Dr. Hicks over the last 2 months for symptoms of shortness of breath and lower extremity swelling. Serial proBNP levels obtained have been elevated. Starting 09/17 were 6820, 8580, 8800 and 2170. She had been instructed to increase her lasix to 40 mg TID from daily and increase aldactone to 25 mg daily from 12.5 mg daily. She states her swelling has been decreasing and her breathing was improving. However , over the last week she started having a sensation of tightening in her chest after bending over. The discomfort was very non-specific and improved after she took her Claritin. Yesterday she felt a similar discomfort in her mid-sternal region that was much more intensified and radiated into her neck on both sides and down her left arm. The discomfort did not subside as it had been previously so she called EMS. EMS gave her aspirin, nitroglycerin and oxygen and her symptoms subsided. She has had no further symptoms since admission. She underwent cardiac catheterization in 2016 that revealed mild disease of the RCA and aortic stenosis with gradient across the valve of 18 mmHg. EKG on admission reveals first degree AV block with ST depression inferiolateral leads. Repeat EKG this morning appears to have a more significantly prolonged ID interval with the P-wave appearing in the T-wave. Chest xray shows mild heart failure with no consolidation. Laboratory data reviewed, hgb 13.6, plt 241, d-dimer 0.74, sodium 141, potassium 5.1, creatinine 1.67, GFR 29, magnesium 2.4, digoxin level 1.7, troponin 0.012, 0.053, 0.062, proBNP this admission 4030, LDL 88, HDL 49. Current cardiac medications include simvastatin 40 mg daily, aspirin 81 mg daily , imdur 30 mg daily, aldactone 12.5 mg daily with recent increase per PCP to 25 mg daily, entresto 24/26 mg daily, lasix 40 mg daily with recent increase to TID per primary, digozin 125 mcg daily, plavix 75 mg daily and carvedilol 3.125 mg BID. 11/28/2017 Patient was seen and examined this morning she underwent a cardiac catheterization yesterday by Dr. Rogers which did not reveal any significant obstructive coronary artery disease. Patient was found to have severe aortic stenosis with moderate to severe aortic regurgitation. Moderate to severe mitral regurgitation and moderate pulmonary hypertension. Artery thoracic surgery had been consulted regarding valve replacement. Patient requesting to undergo TAVR or seizure if possible. At the time of her examination today, she is doing well, denies any difficulty in breathing. Hemodynamically stable. Right groin is soft with no evidence of hematoma. Objective - Vital Signs Vital signs: Vital Signs Temp 96.7 F L 11/28/17 12:00 Pulse 83 11/28/17 12:00 Resp 18 11/28/17 12:00 BP 118/58 11/28/17 12:00 Pulse Ox 96 11/28/17 12:00 Intake & Output 11/27/17 11/28/17 11/28/17 18:59 06:59 18:59 Intake Total 680 600 180 Output Total 950 200 Balance -270 600 -20 Weight 77.8 kg Intake: IV 500 600 Sodium Chloride 0.9% 1, 450 600 000 ml @ 75 mls/hr IV . [id number] [facility] Rx#:[id number] Oral 180 180 Output: Urine 950 200 Other: Voiding Method Toilet Toilet Toilet # Voids 2 2 - Exam GENERAL: This is a 77-year-old female in no apparent distress at the time of my examination. HEENT: Head is atraumatic, normocephalic. Pupils are equal, round. Sclerae anicteric. Conjunctivae are clear. Mucous membranes of the mouth are moist. Neck is supple. There is no jugular venous distention. No carotid bruit is heard. LUNGS: Coarse lung sounds right middle and upper lobe, no wheezes or rales. Left side clear to auscultation. No chest wall tenderness is noted on palpation or with deep breathing. HEART: Regular rate and rhythm with systolic ejection murmur, no rubs or gallops. S1 and S2 heard. ABDOMEN: Soft, nontender. Bowel sounds are heard. No organomegaly noted. EXTREMITIES: No evidence of peripheral edema and no calf tenderness noted. Right groin soft, no evidence of any hematoma. VASCULAR: Radial and dorsalis pedis pulses palpated, no evidence of clubbing. NEUROLOGIC: Patient is awake, alert and oriented x3. - Labs CBC & Chem 7: 11/28/17 05:22 11/28/17 05:22 Labs: Abnormal Lab Results - Last 24 Hours (Table) 11/27/17 11/27/17 11/28/17 Range/Units 17:07 20:47 05:22 Chloride 108 H (98-107) mmol/L Carbon Dioxide 21 L (22-30) mmol/L BUN 43 H (7-17) mg/dL Creatinine 1.40 H (0.52-1.04) mg/dL POC Glucose (mg/dL) 158 H 188 H (75-99) mg/dL 11/28/17 Range/Units 11:35 Chloride (98-107) mmol/L Carbon Dioxide (22-30) mmol/L BUN (7-17) mg/dL Creatinine (0.52-1.04) mg/dL POC Glucose (mg/dL) 131 H (75-99) mg/dL Assessment and Plan Plan: ASSESSMENT 1. Eyk-KJ-pjnlriyi myocardial infarction 2. 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 History of systolic heart failure 4. History of recurrent breast cancer with recent mastectomy. 5. Diabetes mellitus 6. Dyslipidemia 7. Moderate aortic stenosis, mean gradient 18 mmHg 8. Chronic renal failure, GFR 29, Stage 4 9. Minimally elevated d-dimer Patient underwent cardiac catheterization yesterday which did not reveal any obstructive coronary artery disease. She was found to have severe aortic stenosis with moderate to severe mitral regurgitation. She has been seen by cardiothoracic surgery, preoperative testing as ordered. The plan is for her to be discharged home today, follow-up with Dr. Rogers in the office. She will be contacted regarding a follow-up for TAVR procedure as an outpatient. DNP note has been reviewed, I agree with a documented findings and plan of care. Patient was seen and examined.
--- NOTE | 2017-11-28 16:11 | P.DS ---
Providers Date of admission: 11/26/17 13:37 Expected date of discharge: 11/28/17 Attending physician: Kala Kimbrough Consults: 11/25/17 19:22 Consult Physician Routine Consulting Provider: Rafael Pablo Consult Reason/Comments: chest pain Do you want consulting provider notified?: Yes [facility] Course: 1. Non-ST elevation [place], managed medically. Patient underwent left heart catheterization showing no obstructive coronary artery disease. 2. Severe aortic stenosis with moderate to severe aortic regurg 3. Moderate pulmonary hypertension 4. Moderate to severe mitral regurg 5. 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 Type 2 diabetes mellitus: Relatively well-controlled 7. Stage IIIB chronic kidney disease 8. Elevated d-dimer on presentation, PE very less likely. VQ scan showed very low probability for PE. 9. Hypothyroidism, maintained on Synthroid Patient was seen and evaluated by cardiac surgery during this admission. She had a discussion regarding different options for her underlying valvular disease. She elected to pursue further evaluation at [facility] for possible TAVR. She'll be discharged home on optimal medical management. She will follow-up with cardiology as directed in the office. Patient Condition at Discharge: Fair Plan - Discharge Summary New Discharge Prescriptions: Continue Multivitamins, Thera [Multivitamin (formulary)] 1 tab PO DAILY Cholecalciferol [Vitamin D3] 2,000 unit PO DAILY Ascorbic Acid [Vitamin C] 500 mg PO DAILY Aspirin 81 mg PO DAILY Clopidogrel [Plavix] 75 mg PO DAILY Spironolactone [Aldactone] 12.5 - 25 mg PO DAILY Simvastatin [Zocor] 40 mg PO HS Glucosam/Denilson-Msm1/C/Curtis/Bosw [Glucosamine-Chondroitin Tablet] 1 tab PO DAILY Lutein 20 mg PO DAILY Digoxin [Digox] 125 mcg PO DAILY Sacubitril/Valsartan [Entresto 24 mg-26 mg Tablet] 1 tab PO BID Carvedilol [Coreg] 3.125 mg PO BID Biotin 5,000 mcg PO DAILY Levothyroxine Sodium [Synthroid] 112 mcg PO DAILY glipiZIDE XL [Glucotrol XL] 10 mg PO DAILY #30 tab LORazepam [Ativan] 0.5 - 1 mg PO DAILY PRN PRN Reason: Anxiety Anastrozole [Arimidex] 1 mg PO DAILY Isosorbide Mononitrate ER [Imdur] 30 mg PO DAILY Furosemide [Lasix] 40 mg PO DAILY Discontinued Loratadine [Claritin] 10 mg PO DAILY Discharge Medication List Ascorbic Acid [Vitamin C] 500 mg PO DAILY 09/11/14 [History] Aspirin 81 mg PO DAILY 09/11/14 [History] Cholecalciferol [Vitamin D3] 2,000 unit PO DAILY 09/11/14 [History] Clopidogrel [Plavix] 75 mg PO DAILY 09/11/14 [History] Glucosam/Denilson-Msm1/C/Curtis/Bosw [Glucosamine-Chondroitin Tablet] 1 tab PO DAILY 09/11/14 [History] Lutein 20 mg PO DAILY 09/11/14 [History] Multivitamins, Thera [Multivitamin (formulary)] 1 tab PO DAILY 09/11/14 [History ] Simvastatin [Zocor] 40 mg PO HS 09/11/14 [History] Spironolactone [Aldactone] 12.5 - 25 mg PO DAILY 09/11/14 [History] Digoxin [Digox] 125 mcg PO DAILY 11/07/15 [History] Sacubitril/Valsartan [Entresto 24 mg-26 mg Tablet] 1 tab PO BID 11/07/15 [ History] Biotin 5,000 mcg PO DAILY 12/13/16 [History] Carvedilol [Coreg] 3.125 mg PO BID 12/13/16 [History] Levothyroxine Sodium [Synthroid] 112 mcg PO DAILY 06/01/17 [History] glipiZIDE XL [Glucotrol XL] 10 mg PO DAILY #30 tab 06/03/17 [Rx] Anastrozole [Arimidex] 1 mg PO DAILY 11/25/17 [History] Furosemide [Lasix] 40 mg PO DAILY 11/25/17 [History] Isosorbide Mononitrate ER [Imdur] 30 mg PO DAILY 11/25/17 [History] LORazepam [Ativan] 0.5 - 1 mg PO DAILY PRN 11/25/17 [History] Follow up Appointment(s)/Referral(s): Radha Hicks MD [Primary Care Provider] - 12/04/17 9:45 am (Please keep previous appointment when discharged from hospital.) Gundlapalli,Sivaji, MD [STAFF PHYSICIAN] - 1 Week Patient Instructions/Handouts: *Surgery [facility] - After Heart Catheterization - Manager Sound Instructions, Heart Healthy Diet (DC), Acute Coronary Syndrome ( DC) Discharge Disposition: HOME SELF-CARE
[2017-11-28 16:13] VITALS: BP 123/67; PULSE 86; TEMP 97.1
[2017-11-28 16:54] LABS: Glucose,Whole Blood 110 mg/dL (75-99)
== END 2017-11-28 17:30 | disposition home or self-care (01) | DRG 281 ==
LOC: EC 16:07 → 3SUR 19:22 → 3OBS 11-26 08:25 → 6SEL 11-26 10:00 → OBSVTOIN 11-26 13:37
PROVIDERS: ADMIT Internal Medicine; ATTEND Internal Medicine
PROC: B211YZZ Fluoroscopy of Multiple Coronary Arteries using Other Contrast (ICD-10-PCS; 2017-11-27)
PROC: 4A023N6 Measurement of Cardiac Sampling and Pressure, Right Heart, Percutaneous Approach (ICD-10-PCS; principal; 2017-11-27 08:35)
DX: I21.4 Non-ST elevation (NSTEMI) myocardial infarction (principal); I42.7 Cardiomyopathy due to drug and external agent; I47.1 Supraventricular tachycardia; I50.22 Chronic systolic (congestive) heart failure; E11.22 Type 2 diabetes mellitus with diabetic chronic kidney disease; E11.65 Type 2 diabetes mellitus with hyperglycemia; I27.20 Pulmonary hypertension, unspecified; I08.3 Combined rheumatic disorders of mitral, aortic and tricuspid valves; T45.1X5A Adverse effect of antineoplastic and immunosuppressive drugs, initial encounter; E03.9 Hypothyroidism, unspecified; E78.5 Hyperlipidemia, unspecified; I44.0 Atrioventricular block, first degree; I25.2 Old myocardial infarction; I97.2 Postmastectomy lymphedema syndrome; M19.91 Primary osteoarthritis, unspecified site; Z79.811 Long term (current) use of aromatase inhibitors; Z79.84 Long term (current) use of oral hypoglycemic drugs; Z79.02 Long term (current) use of antithrombotics/antiplatelets; Z79.82 Long term (current) use of aspirin; Z79.890 Hormone replacement therapy; Z79.899 Other long term (current) drug therapy; Z92.3 Personal history of irradiation; Z92.21 Personal history of antineoplastic chemotherapy; Z85.3 Personal history of malignant neoplasm of breast; Z98.42 Cataract extraction status, left eye; Z98.41 Cataract extraction status, right eye; Z86.73 Personal history of transient ischemic attack (TIA), and cerebral infarction without residual deficits; Z87.81 Personal history of (healed) traumatic fracture; Z88.0 Allergy status to penicillin; Z88.7 Allergy status to serum and vaccine; Z88.8 Allergy status to other drugs, medicaments and biological substances; Z91.030 Bee allergy status; Z91.02 Food additives allergy status; Z90.49 Acquired absence of other specified parts of digestive tract; Z90.13 Acquired absence of bilateral breasts and nipples; Z96.612 Presence of left artificial shoulder joint; Z96.611 Presence of right artificial shoulder joint; Z82.49 Family history of ischemic heart disease and other diseases of the circulatory system; Z83.79 Family history of other diseases of the digestive system; Z80.9 Family history of malignant neoplasm, unspecified; N18.3 Chronic kidney disease, stage 3 (moderate); Z90.710 Acquired absence of both cervix and uterus; Z85.828 Personal history of other malignant neoplasm of skin
CPT/HCPCS: 36415; 71045; 78582; 80048; 80053; 80061; 80162; 82550; 82553; 82810; 83036; 83735; 83880; 84443; 84484; 85018; 85025; 85379; 85610; 85730; 93005; 93306; 93460; 93880; 94150; 99285

== ENCOUNTER → 2018-02-22 | Outpatient (CLI) | payer MEDICARE, OTHER ==
--- NOTE | 2018-02-23 11:30 | ECHOF ---
Referral Reason:Aortic Stenosis I35.0 MEASUREMENTS -------- HEIGHT: 167.6 cm WEIGHT: 73.9 kg BP: RVIDd: 2.3 cm (< 3.3) IVSd: 1.2 cm (0.6 - 1.1) LVIDd: 4.3 cm (3.9 - 5.3) LVPWd: 1.2 cm (0.6 - 1.1) IVSs: 1.5 cm LVIDs: 3.8 cm LVPWs: 1.4 cm LAESV Index (A-L): 44.72 ml/m Ao Diam: 2.0 cm (2.0 - 3.7) LA Diam: 4.1 cm (2.7 - 3.8) MV E Sunny: 1.89 m/s MV DecT: 174 ms MV A Sunny: 0.37 m/s MV E/A Ratio: 5.15 RAP: 5.00 mmHg RVSP: 33.65 mmHg FINDINGS -------- Sinus rhythm. This was a technically adequate study. The left ventricular size is normal. There is mild concentric left ventricular hypertrophy. Overa ll left ventricular systolic function is severely impaired with, an EF between 25 - 30 %. S eptal Hy pokinesis Apical Hypokinesis. The right ventricle is normal in size and function. LA is severely dilated >40 ml/m2 The right atrium is markedly enlarged. There is no evidence of aortic regurgitation. There is no evidence of aortic stenosis. Normally f unctioning bioprosthetic valve. The mitral valve leaflets are moderately thickened. Severe mitral annular calcification present. Severe mitral regurgitation is present. The peak and mean MV gradients are 21.34mmHg 5.44mmHg as m easured by doppler. Moderate mitral stenosis. Severe tricuspid regurgitation present. There is borderline pulmonary hypertension. The right nabil tricular systolic pressure, as measured by Doppler, is 33.65mmHg. The pulmonic valve was not well visualized. The aortic root size is normal. Normal inferior vena cava with normal inspiratory collapse consistent with estimated right atrial pre ssure of 5 mmHg. There is no pericardial effusion. CONCLUSIONS -------- 1. Sinus rhythm. 2. This was a technically adequate study. 3. The left ventricular size is normal. 4. There is mild concentric left ventricular hypertrophy. 5. Overall left ventricular systolic function is severely impaired with, an EF between 25 - 30 %. 6. Septal Hypokinesis 7. Apical Hypokinesis. 8. LA is severely dilated >40 ml/m2 9. The right atrium is markedly enlarged. 10. Normally functioning bioprosthetic valve. 11. The mitral valve leaflets are moderately thickened. 12. Severe mitral annular calcification present. 13. Severe mitral regurgitation is present. 14. The peak and mean MV gradients are 21.34mmHg 5.44mmHg as measured by doppler. 15. Moderate mitral stenosis. 16. Severe tricuspid regurgitation present. 17. There is borderline pulmonary hypertension. 18. The right ventricular systolic pressure, as measured by Doppler, is 33.65mmHg. 19. The pulmonic valve was not well visualized. 20. The aortic root size is normal. 21. There is no pericardial effusion. PLASTIC TILE SETTER: Alejandro Cordero RDCS
== END | disposition home or self-care (01) ==
LOC: RADECHMAIN 15:20
PROVIDERS: ATTEND Internal Medicine Cardiovascular Disease
DX: I08.1 Rheumatic disorders of both mitral and tricuspid valves (principal); I27.20 Pulmonary hypertension, unspecified; Z95.2 Presence of prosthetic heart valve
CPT/HCPCS: 93306

== ENCOUNTER → 2018-11-01 | Outpatient (CLI) | payer MEDICARE, OTHER ==
[2018-11-01 09:37] LABS: HCT 37.1 % (34.0-46.0); HGB 12.8 gm/dL (11.4-16.0); MCH 32.6 pg (25.0-35.0); MCHC 34.4 g/dL (31.0-37.0); MCV 94.9 fL (80.0-100.0); Mean Platelet Volume 7.6; Platelet Count 240 k/uL (150-450); RBC 3.91 m/uL (3.80-5.40); RDW 12.9 % (11.5-15.5); WBC 7.6 k/uL (3.8-10.6)
== END | disposition home or self-care (01) ==
LOC: LABPAT 09:06
PROVIDERS: ATTEND Internal Medicine Cardiovascular Disease
DX: Z01.812 Encounter for preprocedural laboratory examination (principal); I44.0 Atrioventricular block, first degree; I42.8 Other cardiomyopathies
CPT/HCPCS: 36415; 80051; 82565; 84520; 85027

== ENCOUNTER 2018-11-18 06:27 | Day surgery (SDC) | payer MEDICARE, OTHER ==
[2018-11-13 08:36] VITALS: BMI 28.2
[~2018-11-18 06:27] MED LIST changes: +CLINDAMYCIN 600 MG in SODIUM CHLORIDE 0.9% IRRIGATIO 250 ML IRRIGATION ONE; -LIDOCAINE 1%-EPI 1:100,000 20 ML VIAL SQ ONE; -MIDAZOLAM 2 MG/2 ML VIAL IV ONE; -fentaNYL (PF) 50 MCG/ML 2 ML AMP IV ONE
[2018-11-18 07:23] LABS: Glucose,Whole Blood 160 mg/dL (75-99)
[2018-11-18] MEDS ORDERED: IV FLUID CONTINUATION 1,000 ML IV ONE (07:50)
[2018-11-18] MEDS ORDERED: IOPAMIDOL-250 50ML BTL IV ONE (07:50)
[2018-11-18] MEDS ORDERED: LIDOCAINE 1% INJ 10MG/ML (20 ML MDV) ONE (08:08)
[2018-11-18] MEDS ORDERED: fentaNYL (PF) 50 MCG/ML 2 ML AMP ONE (08:09)
[2018-11-18] MEDS ORDERED: MIDAZOLAM (PF) 2 MG/2 ML VIAL IV ONE (08:12)
[2018-11-18] MEDS ORDERED: fentaNYL (PF) 50 MCG/ML 2 ML AMP IV ONE (08:12)
[2018-11-18] MEDS ORDERED: LIDOCAINE 1% INJ 10MG/ML (20 ML MDV) SQ ONE (08:16)
[2018-11-18] MEDS ORDERED: HYDROcodone/APAP 5-325MG 1 EACH TAB PO PRN (09:35)
[2018-11-18] MEDS ORDERED: ACETAMINOPHEN TAB 325 MG TAB PO PRN (09:35)
--- NOTE | 2018-11-18 09:46 | P.PCN ---
Date of Procedure: 11/18/18 Preoperative Diagnosis: High degree AV block and bradycardia Postoperative Diagnosis: The same Procedure(s) Performed: Dual-chamber permanent pacemaker implantation, axillary venography Description of Procedure: HISTORY: This is a 78-year-old female with history of cardiomyopathy and history of breast cancer and received multiple courses of chemotherapy, status post aortic replacement was noted to have very long MT interval of more than 4 seconds with intermittent AV block and bradycardia. Patient is in need of beta blockers and also digoxin. Patient is advised to have permanent pacemaker implantation. Patient had a cardiac MRI which showed an ejection fraction of 40%. CONSENT:I have discussed the risks, benefits and alternative therapies for the above-mentioned procedure and for both sedation/analgesia as well as necessary blood product administration, if indicated, as they pertain to this patient. The patient has indicated understanding and acceptance of the risks and procedures discussed. PROCEDURE: Patient was brought to the lab in a fasting state. Patient was prepped and draped in the usual fashion. Patient was given IV sedation with fentanyl and Versed. The skin below the left clavicle was infiltrated with lidocaine. An incision was made parallel to deltopectoral groove was deepened until the pectoral fascia was exposed. A pocket was created by blunt dissection and cautery. Axillary venography was performed to delineate the course of the axillary vein. 2 sticks were performed into extrathoracic portion of the axillary vein and 2 sheaths were advanced over the guidewires and left in subclavian vein. Conscious Sedation: Versed 2mg Fentanyl 50 g Duration 72minutes LEADS: ATRIAL:. The lead is manufactured by [employer]. Model number is 5076-45. The serial number is [id number] VENTRICULAR: This is manufactured by [employer]. Model number is 5076-52. The serial number is [id number] The ventricular lead is maneuvered l with help of a straight and curved stylets into the left ventricle apical region. Satisfactory position was obtained and threshold measurements were made. The atrial lead was then maneuvered into the right atrial appendage. And thresholds were obtained. THRESHOLDS: ATRIUM:. The minimum patient threshold was 3.1 at pulse width of 0.65. The impedance is 8 and 60 ohms. P-wave: 3.1. Multiple locations were tried but thresholds seemed to be high in the atrium. Could be related to scar tissue from all chemotherapy and radiation VENTRICLE:. The minimal patient threshold is 0.7 at pulse width of 0.5. The impedance was 12 was 2 R-wave: 12.2 The leads and pulse generator remained in the pocket after it was washed with antibiotics. Pocket was closed in the usual fashion. The fascia was closed with 2-0 Prolene ,the subcutaneous tissue was closed with 3-0 Prolene and the skin was closed with 4-0 Prolene. PROGRAMMING: MODE: DDD RATE: 60 to 130OUTPUT: Atrium : 3.5 Ventricle: 3.5 FINAL IMPRESSION: #1. Axillary venography #2. Dual-chamber permanent pacemaker implantation COMPLICATIONS:. None PLAN: Be monitored on the telemetry unit. Prophylactic antibacterial be continued. Chest x-ray in the morning
[2018-11-18 11:40] LABS: Glucose,Whole Blood 146 mg/dL (75-99)
[2018-11-18] MEDS: CLINDAMYCIN 900 MG in DEXTROSE 5% IN WATER 50 ML IVPB SCH ×4 (13:57→20:47)
[2018-11-18 16:30] LABS: Glucose,Whole Blood 85 mg/dL (75-99)
[2018-11-18] MEDS: CARVEDILOL 3.125 MG TAB PO SCH (17:41)
[2018-11-18 20:07] LABS: Glucose,Whole Blood 131 mg/dL (75-99)
[2018-11-18] MEDS: glipiZIDE 5 MG TAB PO SCH (20:47)
[2018-11-18] MEDS: SACUBITRIL/VALSARTAN 24 MG-26 MG TABLET PO SCH (20:47)
[2018-11-18] MEDS: SODIUM CHLORIDE 0.9% 1,000 ML IV SCH (20:54)
[2018-11-18] MEDS ORDERED: ATORVASTATIN 20 MG TAB PO SCH (21:00)
[2018-11-19] MEDS: CLINDAMYCIN 900 MG in DEXTROSE 5% IN WATER 50 ML IVPB SCH ×4 (02:05→09:50)
[2018-11-19] MEDS: SODIUM CHLORIDE 0.9% 1,000 ML IV SCH (03:28)
[2018-11-19] MEDS ORDERED: LEVOTHYROXINE 112 MCG TAB PO SCH (06:30)
[2018-11-19 06:42] LABS: Glucose,Whole Blood 76 mg/dL (75-99)
[2018-11-19 08:01] VITALS: RESP 18
[2018-11-19] MEDS: SACUBITRIL/VALSARTAN 24 MG-26 MG TABLET PO SCH (08:35)
[2018-11-19] MEDS: CARVEDILOL 3.125 MG TAB PO SCH (08:36)
[2018-11-19] MEDS: glipiZIDE 5 MG TAB PO SCH (08:36)
[2018-11-19] MEDS ORDERED: SPIRONOLACTONE 25 MG TAB PO SCH (09:00)
[2018-11-19] MEDS ORDERED: GLUCOSAMINE CHONDROITIN PO SCH (09:00)
[2018-11-19] MEDS ORDERED: MULTIVITAMINS, THERA 1 EACH TAB PO SCH (09:00)
[2018-11-19] MEDS ORDERED: NON-FORMULARY DRUG (Lutein 20 MG) PO SCH (09:00)
[2018-11-19] MEDS ORDERED: ISOSORBIDE MONONITRATE ER 30 MG TAB.ER.24H PO SCH (09:00)
[2018-11-19] MEDS ORDERED: FUROSEMIDE 40 MG TAB PO SCH (09:00)
[2018-11-19] MEDS ORDERED: ANASTROZOLE 1 MG TAB PO SCH (09:00)
[2018-11-19] MEDS ORDERED: ASCORBIC ACID 500 MG TAB PO SCH (09:00)
[2018-11-19] MEDS ORDERED: CHOLECALCIFEROL 1,000 UNIT TAB PO SCH (09:00)
[2018-11-19] MEDS ORDERED: DIGOXIN 125 MCG TAB PO SCH (09:00)
--- NOTE | 2018-11-19 09:03 | XR ---
EXAMINATION TYPE: XR chest 2V DATE OF EXAM: 11/19/2018 COMPARISON: 11/25/2017 HISTORY: Lead placement check TECHNIQUE: Frontal and lateral views of the chest are obtained. FINDINGS: Bilateral humeral arthroplasties are seen with old healed fracture deformity of the right proximal humerus. Left chest wall surgical clips are present. There is chronic right hemidiaphragm el evation. No new focal consolidation, pleural effusion or pneumothorax. A new dual lead left-sided car diac device is present with a notable lead and ventricular lead. An aortic stent is also seen. Mild m ultilevel degenerative changes of the spine. IMPRESSION: 1. New left-sided dual lead cardiac device is described above with no postprocedural pneumothorax. 2. Chronic changes with no acute cardiopulmonary process.
[2018-11-19 11:48] LABS: Glucose,Whole Blood 92 mg/dL (75-99)
[2018-11-19 12:26] VITALS: BP 120/72; PULSE 71; TEMP 98.5
== END 2018-11-19 14:05 | disposition home or self-care (01) ==
LOC: CATHEP 06:27 → 1SOBS 09:31 → CATHEP 11-19 14:05
PROVIDERS: ATTEND Internal Medicine Cardiovascular Disease
DX: I44.30 Unspecified atrioventricular block (principal); R00.1 Bradycardia, unspecified; I42.8 Other cardiomyopathies; E78.00 Pure hypercholesterolemia, unspecified; E11.9 Type 2 diabetes mellitus without complications; E78.5 Hyperlipidemia, unspecified; Z82.49 Family history of ischemic heart disease and other diseases of the circulatory system; I25.10 Atherosclerotic heart disease of native coronary artery without angina pectoris; I50.22 Chronic systolic (congestive) heart failure; C50.919 Malignant neoplasm of unspecified site of unspecified female breast; Z92.21 Personal history of antineoplastic chemotherapy; Z95.2 Presence of prosthetic heart valve; E66.9 Obesity, unspecified; Z68.28 Body mass index [BMI] 28.0-28.9, adult; Z79.84 Long term (current) use of oral hypoglycemic drugs; Z79.02 Long term (current) use of antithrombotics/antiplatelets; Z79.811 Long term (current) use of aromatase inhibitors; Z79.82 Long term (current) use of aspirin; Z79.899 Other long term (current) drug therapy; Z88.5 Allergy status to narcotic agent; Z88.0 Allergy status to penicillin; Z88.7 Allergy status to serum and vaccine; Z88.8 Allergy status to other drugs, medicaments and biological substances
CPT/HCPCS: 33207; 71046; C1892; C1898; C1769; C1785; J2001; J3010; S0170; Q9966; J2250

== ENCOUNTER → 2020-04-05 | Outpatient (CLI) | payer MEDICARE, OTHER ==
--- NOTE | 2020-04-05 13:53 | US ---
EXAMINATION TYPE: US venous doppler duplex LE LT DATE OF EXAM: 04/05/2020 1:35 PM COMPARISON: NONE CLINICAL HISTORY: 80-year-old female I80.9, M25.572, M19.172. Left leg swelling, patient on blood thi nners SIDE PERFORMED: Left TECHNIQUE: The lower extremity deep venous system is examined utilizing real time linear array sonog mayuri with graded compression, doppler sonography and color-flow sonography. FINDINGS: VESSELS IMAGED: External Iliac Vein (EIV) Common Femoral Vein Deep Femoral Vein Greater Saphenous Vein * Femoral Vein Popliteal Vein Small Saphenous Vein * Proximal Calf Veins (* superficial vessels) Left Leg: Appears negative for DVT IMPRESSION: No evidence for DVT within the left lower extremity imaged from the groin to the upper calf.
[2020-04-05 15:29] LABS: HCT 35.5 % (34.0-46.0); HGB 11.6 gm/dL (11.4-16.0); MCH 32.4 pg (25.0-35.0); MCHC 32.8 g/dL (31.0-37.0); MCV 98.7 fL (80.0-100.0); Mean Platelet Volume 8.7; Platelet Count 215 k/uL (150-450); RDW 12.7 % (11.5-15.5)
[2020-04-06 01:12] LABS: Erythrocyte Sedimentation Rate 85 mm/Hr (0-30)
== END | disposition home or self-care (01) ==
LOC: LABWHC1 13:01
PROVIDERS: ATTEND Orthopaedic Surgery
DX: M25.572 Pain in left ankle and joints of left foot (principal); M19.172 Post-traumatic osteoarthritis, left ankle and foot; M79.672 Pain in left foot; I80.9 Phlebitis and thrombophlebitis of unspecified site
CPT/HCPCS: 36415; 83520; 85027; 85652; 86140

== ENCOUNTER → 2020-08-17 | Outpatient (CLI) | payer MEDICARE, OTHER | END | disposition home or self-care (01) | LOC: LABWHC1 14:43 | PROVIDERS: ATTEND Family Medicine | DX: Z20.822 Contact with and (suspected) exposure to COVID-19 (principal) | CPT/HCPCS: 36415; 86769 ==

== ENCOUNTER → 2021-04-28 | Outpatient (CLI) | payer MEDICARE, OTHER ==
[2021-04-28 13:00] LABS: HCT 25.7 % (34.0-46.0); HGB 8.3 gm/dL (11.4-16.0); Hypochromasia Moderate; MCH 32.8 pg (25.0-35.0); MCHC 32.2 g/dL (31.0-37.0); Macrocytosis Slight; Mean Platelet Volume 8.5; Platelet Count 261 k/uL (150-450); RBC 2.52 m/uL (3.80-5.40); RDW 14.3 % (11.5-15.5); WBC 7.1 k/uL (3.8-10.6)
== END | disposition home or self-care (01) ==
LOC: LABWHC1 12:24
PROVIDERS: ATTEND Family Medicine
DX: R79.89 Other specified abnormal findings of blood chemistry (principal)
CPT/HCPCS: 36415; 85027

== ENCOUNTER → 2021-06-16 | Outpatient (CLI) | payer MEDICARE, OTHER ==
--- NOTE | 2021-06-16 15:17 | US ---
EXAMINATION TYPE: US kidneys/renal and bladder DATE OF EXAM: 06/16/2021 COMPARISON: NONE CLINICAL HISTORY: N18.9 CKD. CKD, pending kidney biopsy next week to determine if pt has lupus EXAM MEASUREMENTS: Right Kidney: 9.9 x 4.1 x 5.4 cm Left Kidney: 10.3 x 4.2 x 5.3 cm Right Kidney: No hydronephrosis or masses seen Left Kidney: No hydronephrosis or masses seen Bladder: wnl Bilateral Jets seen: Yes There is no evidence for hydronephrosis at this point in time. No nephrolithiasis is seen. No nicci s are identified. Cortical medullary differentiation is maintained. The urinary bladder is anechoic. Bilateral ureteral jets are seen. IMPRESSION: Normal renal ultrasound.
== END | disposition home or self-care (01) ==
LOC: RADUSWWP 13:28
PROVIDERS: ATTEND Family Medicine
DX: N18.9 Chronic kidney disease, unspecified (principal)
CPT/HCPCS: 76770

== ENCOUNTER → 2021-07-18 | Outpatient (CLI) | payer MEDICARE, OTHER ==
[2021-07-18 15:02] LABS: ALT 22 U/L (8-44); AST 28 U/L (13-35); African American GFR (CKD) 49.1 (60.0-200.0); Albumin 4.1 g/dL (3.8-4.9); Albumin/Globulin Ratio 1.82 (1.60-3.17); Alkaline Phosphatase 62 U/L (41-126); BUN/Creat Ratio 26.75 Ratio (12.00-20.00); Blood Urea Nitrogen 32.1 mg/dL (9.0-27.0); Calcium 9.1 mg/dL (8.7-10.3); Carbon Dioxide 20.3 mmol/L (20.0-27.5); Chloride 107 mmol/L (96-109); Chol/HDL Ratio 1.94 Ratio; Globulin 2.2 g/dL (1.6-3.3); Glucose 128 mg/dL (70-110); LDL Cholesterol,Calculated 54.5 mg/dL (0.0-131.0); Non-African American GFR(CKD) 42.4 (60.0-200.0); Potassium 4.8 mmol/L (3.5-5.5); Sodium 140 mmol/L (135-145); Total Bilirubin <0.20 mg/dL (0.30-1.20); Total Protein 6.3 g/dL (6.2-8.2)
== END | disposition home or self-care (01) ==
LOC: LABWHC1 08:19
PROVIDERS: ATTEND Internal Medicine Endocrinology, Diabetes & Metabolism
DX: E11.65 Type 2 diabetes mellitus with hyperglycemia (principal)
CPT/HCPCS: 36415; 80053; 80061; 82043; 82570; 83036; 84443

== ENCOUNTER 2022-04-11 05:56 | Day surgery (SDC) | payer MEDICARE, OTHER ==
[2022-04-11] MEDS ORDERED: ALPRAZolam 0.25 MG TAB PO PRN (06:01)
[2022-04-11] MEDS ORDERED: HEPARIN SODIUM,PORCINE 2,500 UNIT in SODIUM CHLORIDE 0.9% 250 ML IRRIGATION PRN (06:01)
[2022-04-11] MEDS ORDERED: SODIUM CHLORIDE 0.9% 1,000 ML in EMPTY BAG 1 BAG IV SCH (06:01)
[2022-04-11] MEDS ORDERED: HEPARIN SODIUM,PORCINE 10,000 UNIT in SODIUM CHLORIDE 0.9% 1,000 ML IRRIGATION PRN (06:01)
[2022-04-11] MEDS ORDERED: ATORVASTATIN 80 MG TAB PO STA (06:01)
[2022-04-11] MEDS ORDERED: ASPIRIN 325 MG TAB PO STA (06:01)
[2022-04-11] MEDS ORDERED: ALPRAZolam 0.5 MG TAB PO PRN (06:01)
[2022-04-11] MEDS ORDERED: NITROGLYCERIN SL TABS 0.4 MG TAB SUBLINGUAL PRN (06:01)
[2022-04-11] MEDS ORDERED: SODIUM CHLORIDE 0.9% 1,000 ML IV ONE (06:12)
[2022-04-11 06:27] LABS: Glucose,Whole Blood 110 mg/dL (70-110)
[2022-04-11 06:30] VITALS: RESP 16
[2022-04-11] MEDS ORDERED: VERAPAMIL 2.5 MG/ML 2 ML AMP ONE (07:13)
[2022-04-11] MEDS ORDERED: HEPARIN SODIUM 1,000 UN/ML (10ML VL) ONE (07:28)
[2022-04-11] MEDS ORDERED: MIDAZOLAM 2 MG/2 ML VIAL IV ONE ×2 (07:35→07:57)
[2022-04-11] MEDS: fentaNYL (PF) 50 MCG/1 ML VIAL IV ONE ×2 (07:36→08:03)
[2022-04-11] MEDS ORDERED: LIDOCAINE 1% INJ 10MG/ML (30 ML VIAL-PF) SQ ONE (07:36)
[2022-04-11] MEDS: VERAPAMIL SYRINGE (5 MG/10 ML) INTRAARTER ONE ×2 (07:37→07:58)
[2022-04-11] MEDS ORDERED: HEPARIN SODIUM 1,000 UN/ML (10ML VL) IV ONE (07:38)
[2022-04-11] MEDS ORDERED: IOPAMIDOL-370 125ML BTL INJ ONE (08:04)
[2022-04-11] MEDS ORDERED: RX INFO: IV CONTRAST WAS GIVEN 1 EACH MISC MISCELLANE PRN (08:18)
[2022-04-11] MEDS ORDERED: IOPAMIDOL-370 100ML BTL INJ ONE (08:20)
[2022-04-11] MEDS ORDERED: SODIUM CHLORIDE 0.9% 1,000 ML IV SCH (08:30)
[2022-04-11] MEDS ORDERED: ACETAMINOPHEN TAB 325 MG TAB ONE (16:33)
[2022-04-11 17:23] VITALS: BP 131/62; PULSE 82
--- NOTE | 2022-04-11 21:08 | P.PCN ---
Date of Procedure: 04/11/22 Operative Findings: CARDIAC CATHETERIZATION PERFORMING PHYSICIAN: Rafael Pablo MD, RPVI PROCEDURE PERFORMED: 1. Selective right and left coronary angiogram 2. Left heart catheterization 3. Ultrasound guided access of the right common femoral artery INDICATION: This is an 82-year-old female patient with hypertension and dyslipidemia who was having symptoms of chest discomfort with exertion concerning for angina. COMPLICATION: None APPROACH: Right radial artery In the right common femoral artery LEVEL OF SEDATION: Moderate with a sedation length of 45 minutes PROCEDURE DESCRIPTION: After obtaining an informed consent, the patient was brought to cardiac component lab tech. Local anesthesia was performed using lidocaine subcutaneously. The right radial artery was cannulated using Seldinger technique, the guidewire passed easily, following that we advanced a 5-Sami sheath dilator assembly, the wire and dilator were removed and sheath was flushed. Following that, 2 mg of verapamil along with 5000 unit heparin were given. Selective right coronary angiogram was performed using JR4 catheter. Selective left coronary angiogram was performed using JL4 catheter from right groin approach. We had a hard time engaging the left coronary system from radial approach because of severe vasospasm. Left heart catheterization was performed using the JR4 catheter which crossed the aortic valve. The procedure was completed there was no complication. SELECTIVE CORONARY ANGIOGRAM: The right coronary artery: Large-caliber vessel and dominant vessel. The RCA has mild disease only Left main: Angiographically normal and bifurcates into LCx and LAD The left circumflex: Large-caliber vessel and codominant vessel. The LCx appeared to be angiographically normal The left anterior descending artery: Large-caliber vessel. Appeared to have mild disease only. Gives rises into a diagonal branch which appeared to be angiographically normal CONCLUSION: 1. Normal coronary angiogram 2. Normal left-sided filling pressure POSTPROCEDURE MANAGEMENT: Medical treatment
== END 2022-04-11 17:35 | disposition home or self-care (01) ==
LOC: CATHCVL 05:56
PROVIDERS: ATTEND Internal Medicine Interventional Cardiology
DX: I25.10 Atherosclerotic heart disease of native coronary artery without angina pectoris (principal); E78.5 Hyperlipidemia, unspecified; I10 Essential (primary) hypertension
CPT/HCPCS: 93458; 76937; C1769 ×2; C1894 ×2; J2250; J2001; J1644; Q9967 ×2; J3010

== ENCOUNTER 2024-09-18 11:44 | Inpatient (IN) | payer MEDICARE, OTHER ==
[2024-09-18 11:55] LABS: Glucose,Whole Blood 91 mg/dL (70-110)
[2024-09-18 12:03] LABS: Basophils # (A) 0.07 10*3/uL (0.00-0.10); Basophils % (A) 0.8 %; Eosinophils # (A) 0.26 10*3/uL (0.04-0.35); Eosinophils % (A) 3.1 %; HCT 40.2 % (37.2-46.3); HGB 13.4 g/dL (12.0-15.0); Lymphocytes # (A) 1.72 10*3/uL (0.90-5.00); Lymphocytes % (A) 20.8 %; MCH 31.9 pg (27.0-32.0); MCHC 33.3 g/dL (32.0-37.0); MCV 95.7 fL (80.0-97.0); Monocytes # (A) 0.72 10*3/uL (0.20-1.00); Monocytes % (A) 8.7 %; Neutrophils # (A) 5.46 10*3/uL (1.80-7.70); Neutrophils % (A) 66.2 %; Platelet Count 173 10*3/uL (140-440); RDW 13.5 % (11.5-14.5); WBC 8.26 10*3/uL (4.50-10.00)
[2024-09-18] MEDS: SODIUM CHLORIDE 0.9% 1,000 ML IV STA (12:06)
--- NOTE | 2024-09-18 12:12 | CT ---
EXAMINATION TYPE: CT brain wo con DATE OF EXAM: 09/18/2024 COMPARISON: CT brain 2011 CLINICAL INDICATION: Female, 84 years old with history of Neuro deficit, acute, stroke suspected, Cod e stroke. Left side weakness. Difficulty speaking. TECHNIQUE: CT scan of the head is performed without contrast. CT DLP: 1190.6 mGycm. Automated Exposure Control for Dose Reduction was Utilized. FINDINGS: There is no acute intracranial hemorrhage or midline shift identified. There is mild to m oderate diffuse ventricular and sulcal prominence bowel seen. There is [id number] low-attenuat ion in the periventricular white matter now seen. Bilateral aphakia now present. Partial opacificatio n inferior left mastoid air cells. The visualized sinuses are clear. IMPRESSION: No acute intracranial hemorrhage or midline shift. If clinical concern for acute stroke persist further investigation with MRI study would be warranted. [facility], , 09/18/2024 12:09 PM
--- NOTE | 2024-09-18 12:20 | ED ---
General Adult HPI - General Chief complaint: Neuro Symptoms/Deficit Stated complaint: AMS Time Seen by Provider: 09/18/24 11:48 Source: patient, RN notes reviewed, old records reviewed Mode of arrival: EMS Limitations: no limitations - History of Present Illness Initial comments: 84-year-old female presenting with confusion that began while she woke. Sent denies specific complaint. She does appear to have some word finding difficulty on initial assessment. She went to bed at 11 PM yesterday evening and woke at 10:30 AM. Symptoms began at this time. Patient transported by paramedics, stroke scale was negative during transport. - Related Data Home Medications Medication Instructions Recorded Confirmed Ascorbic Acid [Vitamin C] 500 mg PO DAILY 09/11/14 04/11/22 Aspirin 81 mg PO DAILY 09/11/14 04/11/22 Cholecalciferol [Vitamin D3 (25 1,000 unit PO DAILY 09/11/14 04/11/22 Mcg = 1000 Iu)] Clopidogrel [Plavix] 75 mg PO HS 09/11/14 04/11/22 Lutein 20 mg PO DAILY 09/11/14 04/11/22 Multivitamins, Thera [Multivitamin 1 tab PO DAILY 09/11/14 04/11/22 (formulary)] Digoxin [Digox] 125 mcg PO DAILY 11/07/15 04/11/22 Sacubitril/Valsartan [Entresto 24 1 tab PO BID 11/07/15 04/11/22 mg-26 mg Tablet] carvediloL [Coreg] 3.125 mg PO BID 12/13/16 04/11/22 Levothyroxine Sodium [Synthroid] 112 mcg PO DAILY 06/01/17 04/11/22 Anastrozole [Arimidex] 1 mg PO DAILY 11/25/17 04/11/22 Isosorbide Mononitrate ER [Imdur] 30 mg PO BID 11/25/17 04/11/22 Loratadine 10 mg PO DAILY 11/18/18 04/11/22 Insulin Glargine,Hum.rec.anlog 12 - 14 unit SQ HS 12/03/19 04/11/22 [Lantus Solostar Pen] Rosuvastatin [Crestor] 20 mg PO HS 04/07/22 04/11/22 Semaglutide [Ozempic] 0.5 mg SQ FR 04/07/22 04/11/22 Allergies Allergy/AdvReac Type Severity Reaction Status Date / Time bee venom protein (honey bee) Allergy Unknown Swelling Verified 09/18/24 11:53 Penicillins AdvReac Rash/Hives Verified 09/18/24 11:53 Tetanus Vaccines and Toxoid AdvReac Swelling Verified 09/18/24 11:53 [Tetanus Vaccines & Toxoid] zolpidem tartrate AdvReac Hallucinati Verified 09/18/24 11:53 [From Ambien] ons Review of Systems ROS Statement: Those systems with pertinent positive or pertinent negative responses have been documented in the HPI. ROS Other: All systems not noted in ROS Statement are negative. Past Medical History Past Medical History: Cancer, Heart Failure, CVA/TIA, Diabetes Mellitus, Hyperlipidemia, Osteoarthritis (OA), Thyroid Disorder Additional Past Medical History / Comment(s): Bilateral breast cancer (L in 1999 and R in 2007) tx with lumpectomies and chemo and radiation, lymphadema bilateral upper arms, CHF with 1st chemo, NIDDM, leaky heart valve, tia (2011) with L upper arm weakness since resolved., HX of leg fx x2 hema, SOB with exertion., See Cardiology H & P. History of Any Multi-Drug Resistant Organisms: None Reported Past Surgical History: Appendectomy, Breast Surgery, Heart Catheterization, Hysterectomy, Joint Replacement, Orthopedic Surgery, Tonsillectomy Additional Past Surgical History / Comment(s): Breast bx's & lumpectomy (1999 & 2007), Mastectomy (2017) Heart cath (2003, 2015), R and L lower leg fx (separate incidences) with surgical repair using plates and screws, neck & face skin cancer , Cataracts, Bilateral total shoulders, bilateral carpal tunnel . thumb surgery. Additional Past Anesthesia/Blood Transfusion Reaction / Comment(s): "slow to wake up" after surgery. Hx of blood transfusion after chemo - no reaction. Past Psychological History: No Psychological Hx Reported Smoking Status: Never smoker Past Alcohol Use History: Rare Past Drug Use History: None Reported - Past Family History Father Family Medical History: Congestive Heart Failure (CHF) Additional Family Medical History / Comment(s): Father at age 69yrs from CHF. He also had stomach problems-ulcers. Mother Family Medical History: Cancer, Coronary Artery Disease (CAD) Additional Family Medical History / Comment(s): . General Exam Limitations: no limitations General appearance: alert, in no apparent distress Head exam: Present: atraumatic, normocephalic Eye exam: Present: normal appearance, PERRL Respiratory exam: Present: normal lung sounds bilaterally. Absent: respiratory distress, wheezes Cardiovascular Exam: Present: regular rate, normal rhythm GI/Abdominal exam: Present: soft. Absent: distended, tenderness, guarding Neurological exam: Present: alert, oriented X3, motor sensory deficit (Subtle right-sided facial droop and intermittent expressive aphasia, NIH of 2) Course Vital Signs 09/18/24 09/18/24 09/18/24 11:46 11:49 12:04 Temperature 98.1 F Pulse Rate 72 72 Respiratory 18 18 Rate Blood Pressure 147/78 146/70 O2 Sat by Pulse 98 99 Oximetry - Reevaluation(s) Reevaluation #1: 09/18/24 [address] Almaraz covering for stroke intervention, due to onset of symptoms, low NIH, patient not a candidate for intervention or thrombolytics. The risks outweigh the benefits. Medical Decision Making - Medical Decision Making Was pt. sent in by a medical professional or institution (, PA, SOFTWARE DEVELOPMENT SPECIALIST, urgent care, hospital, or longterm...) When possible be specific @ -No Did you speak to anyone other than the patient for history (EMS, parent, family, police, friend...)? What history was obtained from this source @ -[Paramedics who brought the patient and the patient's who was present at the initial presentation. Did you review nursing and triage notes (agree or disagree)? Why? @ -I reviewed and agree with nursing and triage notes Were old charts reviewed (outside hosp., previous admission, EMS record, old EKG , old radiological studies, urgent care reports/EKG's, longterm records)? Report findings @ -No old charts were reviewed Differential Diagnosis (chest pain, altered mental status, abdominal pain women, abdominal pain men, vaginal bleeding, weakness, fever, dyspnea, syncope, headache, dizziness, GI bleed, back pain, seizure, CVA, palpatations, mental health, musculoskeletal)? @ -Not applicable EKG interpreted by me (3pts min.). @ -Low voltage rate of 73, suspect paced rhythm. QRS duration 141, QTc 458 X-rays interpreted by me (1pt min.). @ -None done CT interpreted by me (1pt min.). @ -CT brain negative for intracranial hemorrhage or mass effect, CT angiography negative for acute occlusion or stenosis no aneurysmal change U/S interpreted by me (1pt. min.). @ -None done What testing was considered but not performed or refused? (CT, X-rays, U/S, labs)? Why? @ -None What meds were considered but not given or refused? Why? @ -None Did you discuss the management of the patient with other professionals (professionals i.e. , PA, SOFTWARE DEVELOPMENT SPECIALIST, lab, RT, psych nurse, child protective services social worker, construction tech, teacher, hospital chief executive officer, case investigator)? Give summary @ -Dr. Kimbrough, will admit. Case discussed with the stroke intervention, medical management at this time. Was smoking cessation discussed for >3mins.? @ -No Was critical care preformed (if so, how long)? @ -Yes, 35 minutes Were there social determinants of health that impacted care today? How? (Homelessness, low income, unemployed, alcoholism, drug addiction, transportation, low edu. Level, literacy, decrease access to med. care, penitentiary, rehab)? @ -No Was there de-escalation of care discussed even if they declined (Discuss DNR or withdrawal of care, Hospice)? DNR status @ -No What co-morbidities impacted this encounter? (DM, HTN, Smoking, COPD, CAD, Cancer, CVA, ARF, Chemo, Hep., AIDS, mental health diagnosis, sleep apnea, morbid obesity)? @ -[Pacemaker Was patient admitted / discharged? Hospital course, mention meds given and route, prescriptions, significant lab abnormalities, going to OR and other pertinent info. @ -84-year-old female presents with acute confusion, expressive aphasia and right-sided facial droop. Symptoms are mostly improved with very residual right-sided facial droop. CT CT angiography are unremarkable. Patient was a stroke activation due to the onset. Patient given aspirin in the emergency dep artment. Laboratory testing unremarkable. Patient will be admitted for further stroke evaluation. Undiagnosed new problem with uncertain prognosis? @ -[No Drug Therapy requiring intensive monitoring for toxicity (Heparin, Nitro, Insulin, Cardizem)? @ -No Were any procedures done? @ -No Diagnosis/symptom? @ -CVA Acute, or Chronic, or Acute on Chronic? @ -Acute Uncomplicated (without systemic symptoms) or Complicated (systemic symptoms)? @ -Default Side effects of treatment? @ -No Exacerbation, Progression, or Severe Exacerbation? @ -No Poses a threat to life or bodily function? How? (Chest pain, USA, CT, pneumonia, PE, COPD, DKA, ARF, appy, cholecystitis, CVA, Diverticulitis, Homicidal, Suicidal, threat to staff... and all critical care pts) @ -Yes, CVA - Lab Data Result diagrams: 09/18/24 11:55 09/18/24 11:55 Lab Results 09/18/24 09/18/24 09/18/24 Range/Units 11:53 11:55 11:55 WBC 8.26 (4.50-10.00) 10*3/uL RBC 4.20 (4.10-5.20) 10*6/uL Hgb 13.4 (12.0-15.0) g/dL Hct 40.2 (37.2-46.3) % MCV 95.7 (80.0-97.0) fL MCH 31.9 (27.0-32.0) pg MCHC 33.3 (32.0-37.0) g/dL Plt Count 173 (140-440) 10*3/uL MPV 10.0 (9.5-12.2) fL Immature Gran % (Auto) 0.4 % Neutrophils % 66.2 % Lymphocytes % 20.8 % Monocytes % 8.7 % Eosinophils % 3.1 % Basophils % 0.8 % Immature Gran # 0.03 (0.00-0.04) 10*3/uL Neutrophils # 5.46 (1.80-7.70) 10*3/uL Lymphocytes # 1.72 (0.90-5.00) 10*3/uL Monocytes # 0.72 (0.20-1.00) 10*3/uL Eosinophils # 0.26 (0.04-0.35) 10*3/uL Basophils # 0.07 (0.00-0.10) 10*3/uL PT 10.9 (10.0-12.5) sec INR 1.0 (<1.2) APTT 22.3 (22.0-30.0) sec Sodium (137-145) mmol/L Potassium (3.5-5.1) mmol/L Chloride (98-107) mmol/L Carbon Dioxide (22-30) mmol/L Anion Gap mmol/L BUN (7-17) mg/dL Creatinine (0.52-1.04) mg/dL Est GFR (CKD-EPI)AfAm (>60 ml/min/1.73 sqM) Est GFR (CKD-EPI)NonAf (>60 ml/min/1.73 sqM) Glucose (74-99) mg/dL POC Glucose (mg/dL) 91 (70-110) mg/dL POC Glu Real Estate Firm Manager ID [place] Shivani Calcium (8.4-10.2) mg/dL Total Bilirubin (0.2-1.3) mg/dL AST (14-36) U/L ALT (4-34) U/L Alkaline Phosphatase (38-126) U/L Creatine Kinase (30-135) U/L Troponin I (0.000-0.034) ng/mL Total Protein (6.3-8.2) g/dL Albumin (3.5-5.0) g/dL 09/18/24 09/18/24 Range/Units 11:55 11:55 WBC (4.50-10.00) 10*3/uL RBC (4.10-5.20) 10*6/uL Hgb (12.0-15.0) g/dL Hct (37.2-46.3) % MCV (80.0-97.0) fL MCH (27.0-32.0) pg MCHC (32.0-37.0) g/dL Plt Count (140-440) 10*3/uL MPV (9.5-12.2) fL Immature Gran % (Auto) % Neutrophils % % Lymphocytes % % Monocytes % % Eosinophils % % Basophils % % Immature Gran # (0.00-0.04) 10*3/uL Neutrophils # (1.80-7.70) 10*3/uL Lymphocytes # (0.90-5.00) 10*3/uL Monocytes # (0.20-1.00) 10*3/uL Eosinophils # (0.04-0.35) 10*3/uL Basophils # (0.00-0.10) 10*3/uL PT (10.0-12.5) sec INR (<1.2) APTT (22.0-30.0) sec Sodium 141 (137-145) mmol/L Potassium 4.4 (3.5-5.1) mmol/L Chloride 110 H (98-107) mmol/L Carbon Dioxide 23 (22-30) mmol/L Anion Gap 8 mmol/L BUN 27 H (7-17) mg/dL Creatinine 0.92 (0.52-1.04) mg/dL Est GFR (CKD-EPI)AfAm 66 (>60 ml/min/1.73 sqM) Est GFR (CKD-EPI)NonAf 58 (>60 ml/min/1.73 sqM) Glucose 95 (74-99) mg/dL POC Glucose (mg/dL) (70-110) mg/dL POC Glu Real Estate Firm Manager ID Calcium 9.2 (8.4-10.2) mg/dL Total Bilirubin 0.7 (0.2-1.3) mg/dL AST 34 (14-36) U/L ALT 24 (4-34) U/L Alkaline Phosphatase 53 (38-126) U/L Creatine Kinase 45 (30-135) U/L Troponin I <0.012 (0.000-0.034) ng/mL Total Protein 6.3 (6.3-8.2) g/dL Albumin 3.7 (3.5-5.0) g/dL Critical Care Time Critical Care Time: Yes Total Critical Care Time: 35 Disposition Clinical Impression: Cerebrovascular accident (CVA) Disposition: ADMITTED IP TO THIS [facility] Condition: Stable Is patient prescribed a controlled substance at d/c from ED?: No Referrals: Radha Hicks MD [Primary Care Provider] - 1-2 days Time of Disposition: 12:55
[2024-09-18 12:24] LABS: Partial Thromboplastin Time 22.3 sec (22.0-30.0); Prothrombin Time 10.9 sec (10.0-12.5)
[2024-09-18 12:37] LABS: ALT 24 U/L (4-34); AST 34 U/L (14-36); African American GFR (CKD) 66 (>60 ml/min/1.73 sqM); Albumin 3.7 g/dL (3.5-5.0); Alkaline Phosphatase 53 U/L (38-126); Anion Gap 8 mmol/L; Blood Urea Nitrogen 27 mg/dL (7-17); Calcium 9.2 mg/dL (8.4-10.2); Carbon Dioxide 23 mmol/L (22-30); Chloride 110 mmol/L (98-107); Creatine Kinase 45 U/L (30-135); Glucose 95 mg/dL (74-99); Non-African American GFR(CKD) 58 (>60 ml/min/1.73 sqM); Potassium 4.4 mmol/L (3.5-5.1); Sodium 141 mmol/L (137-145); Total Bilirubin 0.7 mg/dL (0.2-1.3); Total Protein 6.3 g/dL (6.3-8.2)
--- NOTE | 2024-09-18 12:41 | CT ---
EXAMINATION TYPE: CT angio head neck DATE OF EXAM: 09/18/2024 COMPARISON: NONE CLINICAL INDICATION: Female, 84 years old with history of Neuro deficit, acute, stroke suspected, Cod e stroke. Left side weakness. Difficulty speaking., TECHNIQUE: CTA scan of the head and neck is performed with IV Contrast, patient injected with 65 ml mL of Isovue 370, axial images are obtained, coronal and sagittal reformatted images are reviewed. 3D reconstructed images are created on an independent workstation and reviewed. NASCET criteria was use d in interpretation of this exam? CT DLP: 458.8 mGycm. Automated Exposure Control for Dose Reduction was Utilized. FINDINGS: Vertebral arteries: The vertebral arteries are patent. Vertebral artery dominance: Codominant Basilar artery: The basilar artery is intact. The basilar artery bifurcation is normal. Internal Carotid arteries: The cervical, petrous, cavernous and supraclinoid segments are normal. YESENIA: Patent with no evidence of aneurysm. ACOM: Small-caliber and likely patent without aneurysm. MCA: Patent with no evidence of aneurysm. DRY WALL SPRAYER: Patent with no evidence of aneurysm. PCOM: Patent bilaterally. Dural sinuses: Patent. CTA NECK: Right Carotid System: The common carotid artery and external carotid artery are patent. The carotid bifurcation demonstrate s moderate to severe calcified plaque extending into proximal internal carotid artery causing stenosi s approaching but under 50%. The remaining portions of the internal carotid artery demonstrate normal size without significant narrowing. Left Carotid System: The common carotid artery and external carotid artery are patent. The carotid bifurcation demonstrate s no evidence of hemodynamically significant stenosis. Moderate peripheral calcified plaque at this l evel is seen. The remaining portions of the internal carotid artery demonstrate normal size without s ignificant narrowing. Patent vertebral arteries are noted. There is a three-vessel aortic arch. The origins of the great v essels are patent. No evidence of hemodynamically significant stenosis. Surgical change of bilateral shoulders is seen. Pacemaker device is partially imaged. IMPRESSION: No evidence of significant stenosis at the carotid bifurcations. No evidence of intracranial large vessel occlusion or intracranial aneurysm. [facility], , 09/18/2024 12:38 PM
[2024-09-18] MEDS: ASPIRIN 325 MG TAB PO STA (13:00)
[2024-09-18 14:13] LABS: Appearance,Urine Clear (Clear); Bacteria,Urine Rare /hpf; Bilirubin,Urine Negative (Negative); Blood,Urine Negative (Negative); Color,Urine Colorless; Glucose,Urine (UA) 3+ (Negative); Ketones,Urine Negative (Negative); Leukocyte Esterase,Urine Small (Negative); Nitrite,Urine Negative (Negative); PH, Urine 5.5 (5.0-8.0); Protein,Urine Negative (Negative); Specific Gravity,Urine 1.014 (1.001-1.035); Squamous Epithelial Cell,Urine <1 /hpf (0-4); Urobilinogen,Urine <2.0 mg/dL (<2.0); WBC,Urine 9 /hpf (0-5)
--- NOTE | 2024-09-18 16:44 | P.CNNES ---
History of Present Illness Consult date: 09/18/24 Requesting physician: Franky Dougherty Reason for Consult: cva History of Present Illness: This is an 84-year-old woman who presents to the emergency department because of episode of verbal nonresponsivess. History is obtained from the patient was at bedside. It seems at 9:45 AM when the patient woke up her was speaking to her and she is awake but not verbally responding to him then they went to the kitchen and she was just looking at the window and not responding not following commands. Has any jerking of any extremity. No focal weakness was noted by the patient that he appreciated. He felt like the episode lasted for about 30 minutes. Her last normal was yesterday at 10 PM. At baseline she usually is very talkative. She does have a history of TIA in the past. She is on aspirin 81 mg daily. History of seizure. Is better compared to earlier in the morning. Patient has congestive heart failure and she has a pacemaker. Some of the workup during this hospital visit consisted of: I reviewed the lab workup CT of the head is reported as no acute intracranial hemorrhage or midline shift. I personally reviewed the CT and agree with the report. CT angiography of the head and neck is reported as no evidence of significant stenosis at the carotid bifurcation. No evidence of intracranial large vessel occlusion or intracranial aneurysm. Review of Systems As per HPI. Past Medical History Past Medical History: Cancer, Heart Failure, CVA/TIA, Diabetes Mellitus, Hyperlipidemia, Osteoarthritis (OA), Thyroid Disorder Additional Past Medical History / Comment(s): Bilateral breast cancer (L in 1999 and R in 2007) tx with lumpectomies and chemo and radiation, lymphadema bilate ral upper arms, CHF with 1st chemo, NIDDM, leaky heart valve, tia (2011) with L upper arm weakness since resolved., HX of leg fx x2 hema, SOB with exertion., See Cardiology H & P. History of Any Multi-Drug Resistant Organisms: None Reported Past Surgical History: Appendectomy, Breast Surgery, Heart Catheterization, Hysterectomy, Joint Replacement, Orthopedic Surgery, Tonsillectomy Additional Past Surgical History / Comment(s): Breast bx's & lumpectomy (1999 & 2007), Mastectomy (2017) Heart cath (2003, 2015), R and L lower leg fx (separate incidences) with surgical repair using plates and screws, neck & face skin cancer , Cataracts, Bilateral total shoulders, bilateral carpal tunnel . thumb surgery. Additional Past Anesthesia/Blood Transfusion Reaction / Comment(s): "slow to wake up" after surgery. Hx of blood transfusion after chemo - no reaction. Past Psychological History: No Psychological Hx Reported Smoking Status: Never smoker Past Alcohol Use History: Rare Past Drug Use History: None Reported - Past Family History Father Family Medical History: Congestive Heart Failure (CHF) Additional Family Medical History / Comment(s): Father at age 69yrs from CHF. He also had stomach problems-ulcers. Mother Family Medical History: Cancer, Coronary Artery Disease (CAD) Additional Family Medical History / Comment(s): . Medications and Allergies Home Medications Medication Instructions Recorded Confirmed Type Ascorbic Acid [Vitamin C] 500 mg PO DAILY 09/11/14 09/18/24 History Clopidogrel [Plavix] 75 mg PO DAILY 09/11/14 09/18/24 History Lutein 20 mg PO DAILY 09/11/14 09/18/24 History Digoxin [Digox] 125 mcg PO DAILY 11/07/15 09/18/24 History Sacubitril/Valsartan [Entresto 24 1 tab PO BID 11/07/15 09/18/24 History mg-26 mg Tablet] Anastrozole [Arimidex] 1 mg PO DAILY 11/25/17 09/18/24 History Isosorbide Mononitrate ER [Imdur] 30 mg PO BID 11/25/17 09/18/24 History Loratadine 10 mg PO DAILY 11/18/18 09/18/24 History Rosuvastatin [Crestor] 20 mg PO HS 04/07/22 09/18/24 History Cholecalciferol [Vitamin D3 (25 25 mcg PO DAILY 09/18/24 09/18/24 History Mcg = 1000 Iu)] Empagliflozin [Jardiance] 25 mg PO DAILY 09/18/24 09/18/24 History Ferrous Sulfate [Feosol] 325 mg PO DAILY 09/18/24 09/18/24 History Glucosam/Denilson-Msm1/C/Curtis/Bosw 1 tab PO DAILY 09/18/24 09/18/24 History [Glucosamine-Chondroitin Tablet] Levothyroxine Sodium [Synthroid] 137 mcg PO DAILY 09/18/24 09/18/24 History Mv-Min/Folic/K1/Lycopen/Lutein 1 tab PO DAILY 09/18/24 09/18/24 History [Centrum Silver Men Tablet] Repaglinide [Prandin] 2 mg PO TID-W/MEALS 09/18/24 09/18/24 History Zinc Gluconate [Zinc] 50 mg PO DAILY 09/18/24 09/18/24 History carvediloL [Coreg] 3.125 mg PO BID 09/18/24 09/18/24 History Allergies Allergy/AdvReac Type Severity Reaction Status Date / Time bee venom protein (honey bee) Allergy Unknown Swelling Verified 09/18/24 13:34 Penicillins AdvReac Rash/Hives Verified 09/18/24 13:34 Tetanus Vaccines and Toxoid AdvReac Swelling Verified 09/18/24 13:34 [Tetanus Vaccines & Toxoid] zolpidem tartrate AdvReac Hallucinati Verified 09/18/24 13:34 [facility] ons Physical Examination - Vital Signs Vital Signs: Vital Signs Temp Pulse Resp BP Pulse Ox 09/18/24 14:30 74 18 143/82 97 09/18/24 13:02 74 18 151/77 99 09/18/24 12:04 72 18 146/70 99 09/18/24 11:49 72 18 147/78 98 09/18/24 11:46 98.1 F Intake and Output 09/18/24 09/18/24 09/18/24 06:59 14:59 22:59 Other: Weight 77.111 kg GENERAL: The patient is lying in bed and is not in acute distress. NEUROLOGICAL: Higher mental function: The patient is awake, alert, oriented to self, place and time. Patient is following commands. No aphasia and no neglect. Cranial nerves: The pupils are round, equal and reactive to light. Visual salcido are full to confrontation throughout. Extraocular movement is intact no nystagmus is noted. Facial sensation is normal to touch throughout. The facial strength is normal throughout. Hearing is mildly decreased bilaterally to hand rub. Tongue is midline and moved [id number] without any difficulty. No dysarthria is noted. Shoulder shrug is normal bilaterally. Motor: The strength is 5 over 5 throughout. Normal tone and bulk. Cerebellum: Normal finger to nose bilaterally. Sensation: Sensation is normal to touch throughout. Reflexes (right/left): B2+ uppers while lowers are limited since was resisting. Plantars are mute bilaterally. Results - Laboratory Findings CBC and BMP: 09/18/24 11:55 09/18/24 11:55 Abnormal Lab Findings: Abnormal Labs 09/18/24 09/18/24 11:55 13:58 Chloride 110 H BUN 27 H Urine Glucose (UA) 3+ H Ur Leukocyte Esterase Small H Urine WBC 9 H Urine Bacteria Rare H Assessment and Plan Assessment: This is an 84-year-old woman who presents the emergency department because she was not verbally responsive today in the morning and the episode lasted for 30 minutes. According to the she was looking at the window and not responding. No jerking of any extremity Episode of verbal nonresponsiveness/aphasia: Transient ischemic attack. Cannot rule out other etiologies: such as seizure She was TIA Underlying history of congestive heart failure status post pacemaker History of breast cancer bilateral status post lumpectomies and chemoradiation therapy Diabetes mellitus Hyperlipidemia Plan: Cannot obtain MRI of the brain since patient has a pacemaker Will obtain repeat CT of the head 48 hours from the last CT Patient was given aspirin 325 once in the ED. I resumed the patient aspirin 81 mg daily. I started the patient on Lipitor 40 mg nightly for secondary stroke prophylaxis I ordered 2D echo Lipid panel is ordered and is pending Ordered vitamin B12, folate, ammonia level. She had recent TSH on 07/2024 and was normal. Routine EEG which will be completed tomorrow Continue neurochecks Cardiac monitoring PT OT and PREDICTIVE MAINTENANCE SPECIALIST are consulted Will defer the rest of medical management to primary team Plan discussed with the patient and her family members were at bedside ( and children). Thank you for the consultation Time with Patient: Greater than 30
[2024-09-18] MEDS: DIGOXIN 125 MCG TAB PO SCH (19:36)
[2024-09-18] MEDS: ASCORBIC ACID 500 MG TAB PO SCH (19:56)
[2024-09-18] MEDS: ISOSORBIDE MONONITRATE ER 30 MG TAB.ER.24H PO SCH (20:28)
[2024-09-18] MEDS: ATORVASTATIN 40 MG TAB PO SCH (20:29)
[2024-09-18] MEDS: SACUBITRIL/VALSARTAN 24 MG-26 MG TABLET PO SCH (22:29)
[2024-09-18] MEDS: carvediloL 3.125 MG TAB PO SCH (22:29)
[2024-09-18 22:54] LABS: Glucose,Whole Blood 101 mg/dL (70-110)
[2024-09-19 06:26] LABS: Glucose,Whole Blood 86 mg/dL (70-110)
[2024-09-19] MEDS: LEVOTHYROXINE 137 MCG TAB PO SCH (06:49)
[2024-09-19] MEDS: REPAGLINIDE 1 MG TAB PO SCH (07:30)
[2024-09-19] MEDS ORDERED: NON FORMULARY DRUG (Lutein [Lutein] 10 MG Tablet) PO SCH (09:00)
[2024-09-19] MEDS ORDERED: NON FORMULARY DRUG (Glucosam/Chon-Msm1/C/Mang/Bosw [Glucosamine-Chondroitin Tablet] 1 EACH PO SCH (09:00)
[2024-09-19 09:17] LABS: Chol/HDL Ratio 2.77 Ratio; LDL Cholesterol,Calculated 58.3 mg/dL (0.0-131.0)
--- NOTE | 2024-09-19 10:49 | P.CRDCN ---
History of Present Illness History of present illness: HISTORY OF PRESENT ILLNESS: This is a 84-year-old female with a past medical history significant for valvular heart disease with previous TAVR, moderate to severe MR, pacemaker implantation, hypertension, hyperlipidemia, carotid atherosclerosis, breast cancer with mastectomy, nonischemic cardiomyopathy. Patient follows in the office with Dr. Pablo. We have been asked to see the patient in consultation for CVA. Patient examined at the bedside. Patient presented to the hospital with a ltered mental status per her . Patient is a poor historian this morning. There is no family present with her. The patient denied having any chest pain or pressure. She denied having any shortness of breath. The patient does appear to have expressive aphasia during examination this morning. Patient is able to answer some questions appropriately but majority of questions she answers with "okay". DIAGNOSTICS: - EKG reveals paced/sinus mechanism with left bundle branch block. Repeat EKG reveals sinus mechanism.. - CT brain negative for intracranial hemorrhage or midline shift - Laboratory data: WBC 8.26. Hemoglobin 13.4. Platelet count 173. Sodium 141. Potassium 4.4. BUN 27. Creatinine 0.92. Troponin negative x 1. - Current home cardiac medications include 3.125 mg twice a day, Entresto 24-26 mg twice a day, rosuvastatin 20 mg daily, Imdur 30 mg twice a day, digoxin 12 5mcg daily, Plavix 75 mg daily. - Most recent echocardiogram obtained in February 2024 revealed ejection fraction 45%, moderate TR, prosthetic aortic valve, moderate to severe MR - Cardiac catheterization history: April 2022 revealing normal coronary arteries REVIEW OF SYSTEMS: At the time of my exam: CONSTITUTIONAL: Denies fever or chills. HEENT: Denies blurred vision, vision changes, or eye pain. Denies hemoptysis CARDIOVASCULAR: Denies chest pain. Denies orthopnea. Denies PND. Denies p alpitations RESPIRATORY: Denies shortness of breath. GASTROINTESTINAL: Denies abdominal pain. Denies nausea or vomiting. HEMATOLOGIC: Denies bleeding disorders. GENITOURINARY: Denies any blood in urine. SKIN: Denies pruitis. Denies rash. PHYSICAL EXAM: VITAL SIGNS: Reviewed. GENERAL: Well-developed in no acute distress. HEENT: Head is normocephalic. Pupils are equal, round. Sclerae anicteric. Mucous membranes of the mouth are moist. Neck supple. No JVD or thyromegaly LUNGS: Respirations even and unlabored. Lungs essentially clear to auscultation bilaterally. HEART: Regular rate and rhythm. S1 and S2 heard. ABDOMEN: Soft. Nondistended. Nontender. EXTREMITIES: Normal range of motion. No clubbing or cyanosis. Peripheral pulses intact. No lower extremity edema NEUROLOGIC: Awake and alert. Oriented x 3. ASSESSMENT: Episode of unresponsiveness with expressive aphasia, suspected CVA Valvular heart disease with previous TAVR Moderate to severe mitral regurgitation Moderate tricuspid regurgitation History of pacemaker implantation, [employer] Carotid atherosclerosis Normal coronary arteries per cath 2021 History of breast cancer with mastectomy History of nonischemic cardiomyopathy, 45% PLAN: Obtain 2D echo to assess cardiac structure and function Repeat EKG obtained this morning reveals sinus mechanism Pacemaker was interrogated this morning with no evidence of atrial fibrillation noted Spoke with [employer] Garland reyes, who stated patient's device is MRI compatible. Updated Dr. Salinas Veloz. Continue telemetry monitoring Further recommendations pending patient course Nurse practitioner note has been reviewed by physician. Signing provider agrees with the documented findings, assessment, and plan of care documented by SLIP SEAT COVERER as a scribe. Past Medical History Past Medical History: Cancer, Heart Failure, CVA/TIA, Diabetes Mellitus, Hyperlipidemia, Osteoarthritis (OA), Thyroid Disorder Additional Past Medical History / Comment(s): Bilateral breast cancer (L in 1999 and R in 2007) tx with lumpectomies and chemo and radiation, lymphadema bilateral upper arms, CHF with 1st chemo, NIDDM, leaky heart valve, tia (2011) with L upper arm weakness since resolved., HX of leg fx x2 hema, SOB with exertion., See Cardiology H & P. History of Any Multi-Drug Resistant Organisms: None Reported Past Surgical History: Appendectomy, Breast Surgery, Heart Catheterization, Hysterectomy, Joint Replacement, Orthopedic Surgery, Tonsillectomy Additional Past Surgical History / Comment(s): Breast bx's & lumpectomy (1999 & 2007), Mastectomy (2017) Heart cath (2003, 2015), R and L lower leg fx (separate incidences) with surgical repair using plates and screws, neck & face skin cancer , Cataracts, Bilateral total shoulders, bilateral carpal tunnel . thumb surgery. Additional Past Anesthesia/Blood Transfusion Reaction / Comment(s): "slow to wake up" after surgery. Hx of blood transfusion after chemo - no reaction. Past Psychological History: No Psychological Hx Reported Smoking Status: Never smoker Past Alcohol Use History: Rare Past Drug Use History: None Reported - Past Family History Father Family Medical History: Congestive Heart Failure (CHF) Additional Family Medical History / Comment(s): Father at age 69yrs from CHF. He also had stomach problems-ulcers. Mother Family Medical History: Cancer, Coronary Artery Disease (CAD) Additional Family Medical History / Comment(s): . Medications and Allergies Home Medications Medication Instructions Recorded Confirmed Type Ascorbic Acid [Vitamin C] 500 mg PO DAILY 09/11/14 09/18/24 History Clopidogrel [Plavix] 75 mg PO DAILY 09/11/14 09/18/24 History Lutein 20 mg PO DAILY 09/11/14 09/18/24 History Digoxin [Digox] 125 mcg PO DAILY 11/07/15 09/18/24 History Sacubitril/Valsartan [Entresto 24 1 tab PO BID 11/07/15 09/18/24 History mg-26 mg Tablet] Anastrozole [Arimidex] 1 mg PO DAILY 11/25/17 09/18/24 History Isosorbide Mononitrate ER [Imdur] 30 mg PO BID 11/25/17 09/18/24 History Loratadine 10 mg PO DAILY 11/18/18 09/18/24 History Rosuvastatin [Crestor] 20 mg PO HS 04/07/22 09/18/24 History Cholecalciferol [Vitamin D3 (25 25 mcg PO DAILY 09/18/24 09/18/24 History Mcg = 1000 Iu)] Empagliflozin [Jardiance] 25 mg PO DAILY 09/18/24 09/18/24 History Ferrous Sulfate [Feosol] 325 mg PO DAILY 09/18/24 09/18/24 History Glucosam/Denilson-Msm1/C/Curtis/Bosw 1 tab PO DAILY 09/18/24 09/18/24 History [Glucosamine-Chondroitin Tablet] Levothyroxine Sodium [Synthroid] 137 mcg PO DAILY 09/18/24 09/18/24 History Mv-Min/Folic/K1/Lycopen/Lutein 1 tab PO DAILY 09/18/24 09/18/24 History [Centrum Silver Men Tablet] Repaglinide [Prandin] 2 mg PO TID-W/MEALS 09/18/24 09/18/24 History Zinc Gluconate [Zinc] 50 mg PO DAILY 09/18/24 09/18/24 History carvediloL [Coreg] 3.125 mg PO BID 09/18/24 09/18/24 History Allergies Allergy/AdvReac Type Severity Reaction Status Date / Time bee venom protein (honey bee) Allergy Unknown Swelling Verified 09/18/24 13:34 Penicillins AdvReac Rash/Hives Verified 09/18/24 13:34 Tetanus Vaccines and Toxoid AdvReac Swelling Verified 09/18/24 13:34 [Tetanus Vaccines & Toxoid] zolpidem tartrate AdvReac Hallucinati Verified 09/18/24 13:34 [From Ambien] ons Physical Exam Vitals: Vital Signs Temp Pulse Pulse Resp BP BP Pulse Ox 09/19/24 07:00 97.4 F L 71 16 147/79 98 09/19/24 06:50 77 121/74 98 09/19/24 03:21 97.9 F 73 15 113/64 96 09/18/24 22:29 75 09/18/24 21:22 97.9 F 75 16 147/77 98 09/18/24 20:26 75 16 134/74 98 09/18/24 19:03 98.3 F 68 18 132/80 98 09/18/24 17:00 79 16 144/73 97 09/18/24 14:30 74 18 143/82 97 09/18/24 13:02 74 18 151/77 99 09/18/24 12:04 72 18 146/70 99 09/18/24 11:49 72 18 147/78 98 09/18/24 11:46 98.1 F Intake and Output 09/18/24 09/19/24 09/19/24 22:59 06:59 14:59 Other: Voiding Method Toilet # Voids 2 1 Weight 77.111 kg 77.7 kg Results 09/18/24 11:55 09/18/24 11:55 Cardiac Enzymes 09/18/24 09/18/24 Range/Units 11:55 11:55 AST 34 (14-36) U/L Troponin I <0.012 (0.000-0.034) ng/mL Coagulation 09/18/24 Range/Units 11:55 PT 10.9 (10.0-12.5) sec APTT 22.3 (22.0-30.0) sec Lipids 09/18/24 Range/Units 11:55 Triglycerides 133.00 (0.00-149.00) mg/dL Cholesterol 133.00 (0.00-200.00) mg/dL HDL Cholesterol 48.10 (40.00-60.00) mg/dL Cholesterol/HDL Ratio 2.77 Ratio CBC 09/18/24 Range/Units 11:55 WBC 8.26 (4.50-10.00) 10*3/uL RBC 4.20 (4.10-5.20) 10*6/uL Hgb 13.4 (12.0-15.0) g/dL Hct 40.2 (37.2-46.3) % Plt Count 173 (140-440) 10*3/uL Comprehensive Metabolic Panel 09/18/24 Range/Units 11:55 Sodium 141 (137-145) mmol/L Potassium 4.4 (3.5-5.1) mmol/L Chloride 110 H (98-107) mmol/L Carbon Dioxide 23 (22-30) mmol/L BUN 27 H (7-17) mg/dL Creatinine 0.92 (0.52-1.04) mg/dL Glucose 95 (74-99) mg/dL Calcium 9.2 (8.4-10.2) mg/dL AST 34 (14-36) U/L ALT 24 (4-34) U/L Alkaline Phosphatase 53 (38-126) U/L Total Protein 6.3 (6.3-8.2) g/dL Albumin 3.7 (3.5-5.0) g/dL Current Medications Generic Name Dose Route Start Last Admin Trade Name Freq PRN Reason Stop Dose Admin Anastrozole 1 mg 09/19/24 09:00 Anastrozole 1 Mg Tab PO DAILY [facility] Ascorbic Acid 500 mg 09/18/24 18:45 09/18/24 19:56 Ascorbic Acid 500 Mg Tab PO 500 mg DAILY [facility] Administration Aspirin 81 mg 09/19/24 09:00 Aspirin 81 Mg PO DAILY [facility] Atorvastatin Calcium 40 mg 09/18/24 21:00 09/18/24 20:29 Atorvastatin 40 Mg Tab PO 40 mg HS [facility] Administration Carvedilol 3.125 mg 09/18/24 21:00 09/19/24 06:49 Carvedilol 3.125 Mg Tab PO 3.125 mg BID-W/MEALS [facility] Administration Cholecalciferol 25 mcg 09/19/24 09:00 Cholecalciferol 25 Mcg (1000 Iu) Tablet PO DAILY [facility] Clopidogrel Bisulfate 75 mg 09/19/24 09:00 Clopidogrel 75 Mg Tab PO DAILY [facility] Dapagliflozin 10 mg 09/19/24 09:00 Dapagliflozin Propanediol 10 Mg Tablet PO DAILY [facility] Digoxin 125 mcg 09/18/24 18:45 09/18/24 19:36 Digoxin 125 Mcg Tab PO Not Given DAILY [facility] Ferrous Sulfate 325 mg 09/19/24 09:00 Ferrous Sulfate 325 Mg Tab PO DAILY [facility] Isosorbide Mononitrate 30 mg 09/18/24 21:00 09/18/24 20:28 Isosorbide Mononitrate Er 30 Mg Tab.Er.24h PO 30 mg BID [facility] Administration Levothyroxine Sodium 137 mcg 09/19/24 06:30 09/19/24 06:49 Levothyroxine 137 Mcg Tab PO 137 mcg 0630 [facility] Administration Loratadine 10 mg 09/19/24 09:00 Loratadine 10 Mg Tab PO DAILY [facility] Multivitamins 1 each 09/19/24 09:00 Multivitamins, Thera 1 Each Tab PO DAILY [facility] Repaglinide 2 mg 09/19/24 07:30 Repaglinide 1 Mg Tab PO TID-W/MEALS [facility] Sacubitril/Valsartan 1 each 09/18/24 21:00 09/18/24 22:29 Sacubitril/Valsartan 24 Mg-26 Mg Tablet PO 1 each BID [facility] Administration Zinc Sulfate 220 mg 09/19/24 09:00 Zinc Sulfate 220 Mg Cap PO DAILY [facility] Intake and Output 09/18/24 09/19/24 09/19/24 22:59 06:59 14:59 Other: Voiding Method Toilet # Voids 2 1 Weight 77.111 kg 77.7 kg 09/18/24 11:55 09/18/24 11:55
--- NOTE | 2024-09-19 10:53 | CA ---
Transthoracic Echo Report Name: Kami Stevenson Age: 84 Gender: F : 1940 Exam Date: 09/18/2024 17:29 Exam Location: [facility] Ht (in): 66 Wt (lb): 170 Ordering Physician: Salinas Veloz MD Attending/Referring Phys: Survey Methodologist Afua Lantigua RDCS Procedure CPT: Indications: stroke Cardiac Hx: Bioprosthetic AOV Technical Quality: Fair Contrast 1: Total Dose (mL): Contrast 2: Total Dose (mL): MEASUREMENTS (Male / Female) Normal Values 2D ECHO LV Diastolic Diameter PLAX 5.3 cm 4.2 - 5.9 / 3.9 - 5.3 cm LV Systolic Diameter PLAX 4.0 cm IVS Diastolic Thickness 0.8 cm 0.6 - 1.0 / 0.6 - 0.9 cm LVPW Diastolic Thickness 0.8 cm 0.6 - 1.0 / 0.6 - 0.9 cm LV Relative Wall Thickness 0.3 RV Internal Dim ED PLAX 4.1 cm LVOT Diameter 1.7 cm LA Systolic Diameter LX 4.4 cm 3.0 - 4.0 / 2.7 - 3.8 cm LV Diastolic Volume MOD 4C 44.6 cm??? LV Systolic Volume MOD 4C 27.5 cm??? LV Ejection Fraction MOD 4C 38.4 % LV Cardiac Index MOD 4C 581.5 cm???/min???m??? LV Diastolic Length 4C 6.8 cm LV Systolic Length 4C 5.8 cm LV Diastolic Volume MOD 2C 48.0 cm??? LV Systolic Volume MOD 2C 26.8 cm??? LV Ejection Fraction MOD 2C 44.2 % LV Cardiac Index MOD 2C 720.5 cm???/min???m??? LV Diastolic Length 2C 7.1 cm LV Systolic Length 2C 6.3 cm M-MODE Aortic Root Diameter MM 2.5 cm DOPPLER AV Peak Velocity 147.9 cm/s AV Peak Gradient 8.8 mmHg AV Mean Velocity 95.9 cm/s AV Mean Gradient 4.3 mmHg AV Velocity Time Integral 30.5 cm LVOT Peak Velocity 118.5 cm/s LVOT Peak Gradient 5.6 mmHg LVOT Velocity Time Integral 23.4 cm LVOT Stroke Volume 53.0 cm??? LVOT Stroke Volume Index 28.4 ml/m??? LVOT Cardiac Index 1800.9 cm???/min???m??? AV Area Cont Eq vti 1.7 cm??? AV Area Cont Eq pk 1.8 cm??? MV Peak Velocity 190.6 cm/s MV Peak Gradient 14.5 mmHg MV Mean Velocity 130.5 cm/s MV Mean Gradient 7.2 mmHg MV Velocity Time Integral 54.8 cm MR Peak Velocity 545.1 cm/s MR Peak Gradient 118.9 mmHg Mitral E Point Velocity 147.3 cm/s Mitral A Point Velocity 174.3 cm/s Mitral E to A Ratio 0.8 MV Deceleration Time 472.1 ms TR Peak Velocity 245.3 cm/s TR Peak Gradient 24.1 mmHg Right Ventricular Systolic Press 34.1 mmHg FINDINGS Left Ventricle Left ventricular ejection fraction is estimated at 40-45 %. Left ventricular cavity size normal. Left ventricular wall thickness normal. Mildly reduced global left ventricular systolic function. Right Ventricle Severe right ventricular dilatation. Mild pulmonary hypertension. Right Atrium Normal right atrial size. No right atrial thrombus or mass seen. Left Atrium Normal left atrial size. No left atrial thrombus or mass present. Mitral Valve Moderate thickening/calcification of the anterior mitral valve leaflet. Moderate thickening/calcification of the posterior mitral valve leaflet. Moderate mitral annular calcification. Moderate mitral stenosis. Aortic Valve Normally functioning bioprosthetic aortic valve without stenosis with a peak velocity of 1.4 m/s, peak gradient 9 mmHg, mean4 gradient mmHg, and estimated aortic valve area of 1.8 cm???. Tricuspid Valve Structurally normal tricuspid valve. Mild tricuspid regurgitation. Pulmonic Valve Pulmonic valve not well visualized. Pericardium No pericardial effusion. Aorta Normal size aortic root and proximal ascending aorta. CONCLUSIONS Impaired LV function with EF between 40 to 45% Extremely calcified mitral valve apparatus and moderate mitral stenosis was identified Poorly visualized aortic valve with possible bioprosthetic aortic valve and acceptable gradient across it a 4 mmHg Previewed by: Dr. Rafael Pablo MD (Electronically Signed) Final Date: 19 September 2024 10:52
[2024-09-19] MEDS: ASPIRIN 81 MG PO SCH (11:08)
[2024-09-19] MEDS: ZINC SULFATE 220 MG CAP PO SCH (11:08)
[2024-09-19] MEDS: CHOLECALCIFEROL 25 MCG (1000 IU) TABLET PO SCH (11:08)
[2024-09-19] MEDS: FERROUS SULFATE 325 MG TAB PO SCH (11:09)
[2024-09-19] MEDS: CLOPIDOGREL 75 MG TAB PO SCH (11:09)
[2024-09-19] MEDS: LORATADINE 10 MG TAB PO SCH (11:09)
[2024-09-19] MEDS: DAPAGLIFLOZIN PROPANEDIOL 10 MG TABLET PO SCH (11:09)
[2024-09-19] MEDS: MULTIVITAMINS, THERA 1 EACH TAB PO SCH (11:09)
[2024-09-19] MEDS: ANASTROZOLE 1 MG TAB PO SCH (11:14)
--- NOTE | 2024-09-19 11:36 | P.HPIM ---
History of Present Illness H&P Date: 09/18/24 Earle Stevenson, is a 84-year-old female patient of Dr. Jonas who presented with complaints of increased confusion upon awakening this a.m. no focal weakness noted. Patient's episode lasted about 30 minutes patient does have a past medical history of heart failure, CVA, hyperlipidemia, breast cancer, CHF. Head CT was completed showing no acute intracranial hemorrhage or midline shift. CTA completed showing no evidence of significant stenosis. At this time patient will be admitted neurology and cardiology services consulted 2D echo has been ordered. Patient is resting comfortably in chair. Patient denies chest pain or shortness of breath. Patient denies nausea vomiting or diarrhea. Patient denies any urinary burning or frequency. Current vital signs temp 97.9, heart rate 113/64 with pulse ox 96% on room air Review of Systems Please refer to HPI otherwise unremarkable Past Medical History Past Medical History: Cancer, Heart Failure, CVA/TIA, Diabetes Mellitus, Hyperlipidemia, Osteoarthritis (OA), Thyroid Disorder Additional Past Medical History / Comment(s): Bilateral breast cancer (L in 1999 and R in 2007) tx with lumpectomies and chemo and radiation, lymphadema bilateral upper arms, CHF with 1st chemo, NIDDM, leaky heart valve, tia (2011) with L upper arm weakness since resolved., HX of leg fx x2 hema, SOB with exertion., See Cardiology H & P. History of Any Multi-Drug Resistant Organisms: None Reported Past Surgical History: Appendectomy, Breast Surgery, Heart Catheterization, Hysterectomy, Joint Replacement, Orthopedic Surgery, Tonsillectomy Additional Past Surgical History / Comment(s): Breast bx's & lumpectomy (1999 & 2007), Mastectomy (2017) Heart cath (2003, 2015), R and L lower leg fx (separate incidences) with surgical repair using plates and screws, neck & face skin cancer , Cataracts, Bilateral total shoulders, bilateral carpal tunnel . thumb surgery. Additional Past Anesthesia/Blood Transfusion Reaction / Comment(s): "slow to wake up" after surgery. Hx of blood transfusion after chemo - no reaction. Past Psychological History: No Psychological Hx Reported Smoking Status: Never smoker Past Alcohol Use History: Rare Past Drug Use History: None Reported - Past Family History Father Family Medical History: Congestive Heart Failure (CHF) Additional Family Medical History / Comment(s): Father at age 69yrs from CHF. He also had stomach problems-ulcers. Mother Family Medical History: Cancer, Coronary Artery Disease (CAD) Additional Family Medical History / Comment(s): . Medications and Allergies Home Medications Medication Instructions Recorded Confirmed Type Ascorbic Acid [Vitamin C] 500 mg PO DAILY 09/11/14 09/18/24 History Clopidogrel [Plavix] 75 mg PO DAILY 09/11/14 09/18/24 History Lutein 20 mg PO DAILY 09/11/14 09/18/24 History Digoxin [Digox] 125 mcg PO DAILY 11/07/15 09/18/24 History Sacubitril/Valsartan [Entresto 24 1 tab PO BID 11/07/15 09/18/24 History mg-26 mg Tablet] Anastrozole [Arimidex] 1 mg PO DAILY 11/25/17 09/18/24 History Isosorbide Mononitrate ER [Imdur] 30 mg PO BID 11/25/17 09/18/24 History Loratadine 10 mg PO DAILY 11/18/18 09/18/24 History Rosuvastatin [Crestor] 20 mg PO HS 04/07/22 09/18/24 History Cholecalciferol [Vitamin D3 (25 25 mcg PO DAILY 09/18/24 09/18/24 History Mcg = 1000 Iu)] Empagliflozin [Jardiance] 25 mg PO DAILY 09/18/24 09/18/24 History Ferrous Sulfate [Feosol] 325 mg PO DAILY 09/18/24 09/18/24 History Glucosam/Denilson-Msm1/C/Curtis/Bosw 1 tab PO DAILY 09/18/24 09/18/24 History [Glucosamine-Chondroitin Tablet] Levothyroxine Sodium [Synthroid] 137 mcg PO DAILY 09/18/24 09/18/24 History Mv-Min/Folic/K1/Lycopen/Lutein 1 tab PO DAILY 09/18/24 09/18/24 History [Centrum Silver Men Tablet] Repaglinide [Prandin] 2 mg PO TID-W/MEALS 09/18/24 09/18/24 History Zinc Gluconate [Zinc] 50 mg PO DAILY 09/18/24 09/18/24 History carvediloL [Coreg] 3.125 mg PO BID 09/18/24 09/18/24 History Allergies Allergy/AdvReac Type Severity Reaction Status Date / Time bee venom protein (honey bee) Allergy Unknown Swelling Verified 09/18/24 13:34 Penicillins AdvReac Rash/Hives Verified 09/18/24 13:34 Tetanus Vaccines and Toxoid AdvReac Swelling Verified 09/18/24 13:34 [Tetanus Vaccines & Toxoid] zolpidem tartrate AdvReac Hallucinati Verified 09/18/24 13:34 [From Ambien] ons Physical Exam Vitals: Vital Signs Temp Pulse Resp BP Pulse Ox 09/18/24 17:00 79 16 144/73 97 09/18/24 14:30 74 18 143/82 97 09/18/24 13:02 74 18 151/77 99 09/18/24 12:04 72 18 146/70 99 09/18/24 11:49 72 18 147/78 98 09/18/24 11:46 98.1 F Intake and Output 09/18/24 09/18/24 09/18/24 06:59 14:59 22:59 Other: Weight 77.111 kg In general patient is alert and oriented Ã-3 in no distress HEENT head normocephalic and atraumatic Neck is supple no JVD no goiter no lymphadenopathy no carotid bruit Chest examination is clear to auscultation no crackles no wheezing Cardiac exam reveals regular heart sounds S1 and S2 no gallops no murmurs Abdomen is soft nontender no organomegaly with normal bowel sounds Extremity exam reveals no edema no cyanosis or clubbing Neurological examination reveals no gross focal deficits Results CBC & Chem 7: 09/18/24 11:55 09/18/24 11:55 Labs: Abnormal Lab Results - Last 24 Hours (Table) 09/18/24 09/18/24 Range/Units 11:55 13:58 Chloride 110 H (98-107) mmol/L BUN 27 H (7-17) mg/dL Urine Glucose (UA) 3+ H (Negative) Ur Leukocyte Esterase Small H (Negative) Urine WBC 9 H (0-5) /hpf Urine Bacteria Rare H (None) /hpf Assessment and Plan Assessment: 1. TIA episode with episode of confusion and aphasia 2. History of previous TIA 3. History of breast cancer 4. History of congestive heart failure 5. History of diabetes mellitus 6. History of hyperlipidemia DVT prophylaxis Lovenox. GI prophylaxis Pepcid Neurology and cardiology services consulted 2D echo, EEG and repeat CT scan has been ordered Repeat labs ordered PT OT and speech services consulted Time with Patient: Greater than 30
--- NOTE | 2024-09-19 11:38 | P.PN ---
Subjective Progress Note Date: 09/19/24 Earle Stevenson, is a 84-year-old female patient of Dr. Jonas who presented with complaints of increased confusion upon awakening this a.m. no focal weakness noted. Patient's episode lasted about 30 minutes patient does have a past medical history of heart failure, CVA, hyperlipidemia, breast cancer, CHF. Head CT was completed showing no acute intracranial hemorrhage or midline shift. CTA completed showing no evidence of significant stenosis. At this time patient will be admitted neurology and cardiology services consulted 2D echo has been ordered. Patient is resting comfortably in chair. Patient denies chest pain or shortness of breath. Patient denies nausea vomiting or diarrhea. Patient denies any urinary burning or frequency. Current vital signs temp 97.9, heart rate 113/64 with pulse ox 96% on room air On 09/19/2024 patient is alert and oriented x 3. Patient to undergo EEG and repeat CT scan today. Cardiology and neurology services following. No new neurological symptoms. Patient denies chest pain or shortness of breath. Patient denies nausea vomiting or diarrhea. Patient denies any urinary burning or frequency current vital signs temp 97.4, heart rate 71, respiratory rate 16, blood pressure 147/79 with a pulse ox of 98% on room air Objective - Vital Signs Vital signs: Vital Signs Temp 97.4 F L 09/19/24 07:00 Pulse 71 09/19/24 07:00 Resp 16 09/19/24 07:00 BP 147/79 09/19/24 07:00 Pulse Ox 98 09/19/24 07:00 FiO2 Intake & Output 09/18/24 09/19/24 09/19/24 18:59 06:59 18:59 Weight 77.111 kg 77.7 kg Other: Voiding Method Toilet # Voids 2 1 - Exam In general patient is alert and oriented Ã-3 in no distress HEENT head normocephalic and atraumatic Neck is supple no JVD no goiter no lymphadenopathy no carotid bruit Chest examination is clear to auscultation no crackles no wheezing Cardiac exam reveals regular heart sounds S1 and S2 no gallops no murmurs Abdomen is soft nontender no organomegaly with normal bowel sounds Extremity exam reveals no edema no cyanosis or clubbing Neurological examination reveals no gross focal deficits - Labs CBC & Chem 7: 09/18/24 11:55 09/18/24 11:55 Labs: Abnormal Lab Results - Last 24 Hours (Table) 09/18/24 09/18/24 09/18/24 Range/Units 11:55 13:58 17:22 Chloride 110 H (98-107) mmol/L BUN 27 H (7-17) mg/dL Folate 34.20 H (4.40-31.00) ng/mL Urine Glucose (UA) 3+ H (Negative) Ur Leukocyte Esterase Small H (Negative) Urine WBC 9 H (0-5) /hpf Urine Bacteria Rare H (None) /hpf Assessment and Plan Assessment: 1. TIA episode with episode of confusion and aphasia 2. History of previous TIA 3. History of breast cancer 4. History of congestive heart failure 5. History of diabetes mellitus 6. History of hyperlipidemia DVT prophylaxis Lovenox. GI prophylaxis Pepcid Neurology and cardiology services consulted 2D echo, EEG and repeat CT scan has been ordered Repeat labs ordered PT OT and speech services consulted
[2024-09-19 12:31] LABS: Glucose,Whole Blood 175 mg/dL (70-110)
--- NOTE | 2024-09-19 16:05 | P.PN ---
Subjective Progress Note Date: 09/19/24 I will follow-up with the patient and she is accompanied by her daughter. Per the daughter the patient speech is not back to baseline and she continues to be slow and not as talkative as to her baseline. Patient denies of any headache. Denies any focal weakness. Objective - Vital Signs Vital signs: Vital Signs Temp 100.1 F H 09/19/24 15:00 Pulse 77 09/19/24 15:00 Resp 20 09/19/24 15:00 BP 132/70 09/19/24 15:00 Pulse Ox 98 09/19/24 15:00 FiO2 Intake & Output 09/18/24 09/19/24 09/19/24 18:59 06:59 18:59 Weight 77.111 kg 77.7 kg Other: Voiding Method Toilet Toilet # Voids 2 3 - Exam General: Sitting in a recliner chair and is not in acute distress. Neuro: The patient is awake, alert oriented to self place. Initially she stated the year is 19 something but after asking the question again she correctly stated the current year. She correctly stated that the current month. She is somewhat slow to respond to questioning it appears the patient has expressive aphasia. Pupils are round equal reactive to light. No facial weakness. No dysarthria The motor: Strength is equal throughout and there is no focality Cerebellar is normal [id number] bilaterally Some of the workup during this hospital visit consisted of: Lipid panel: Is triglycerides 133, cholesterol is 133, LDL is 58 and HDL is 48 Vitamin B12 is 923 Ammonia level is less than 9 Serum folate is 34.2 CT of the head is reported as no acute intracranial hemorrhage or midline shift. I personally reviewed the CT and agree with the report. CT angiography of the head and neck is reported as no evidence of significant stenosis at the carotid bifurcation. No evidence of intracranial large vessel occlusion or intracranial aneurysm. Echo is reported as impaired left ventricular function with ejection fraction of 40 to 45%. Extremely calcified mitral valve apparatus and moderate mitral stenosis was identified. - Labs CBC & Chem 7: 09/18/24 11:55 09/18/24 11:55 Labs: Abnormal Lab Results - Last 24 Hours (Table) 09/18/24 09/19/24 Range/Units 17:22 12:29 POC Glucose (mg/dL) 175 H (70-110) mg/dL Folate 34.20 H (4.40-31.00) ng/mL Assessment and Plan Assessment: This is an 84-year-old woman who presents the emergency department because she was not verbally responsive today in the morning and the episode lasted for 30 minutes. According to the she was looking at the window and not responding. No jerking of any extremity Episode of verbal nonresponsiveness/expressive aphasia--improving but still not back to baseline and continues to be slow responding. History of TIA Underlying history of congestive heart failure status post pacemaker. Ejection fraction is 40 to 45% Extremely calcified mitral valve apparatus on current 2D echo History of breast cancer bilateral status post lumpectomies and chemoradiation therapy Diabetes mellitus Hyperlipidemia Plan: Patient is pending to have a repeat CT of the head tomorrow I was notified by the cardiology FORMULA MIXER that her defibrillator is MRI compatible and therefore I ordered MRI to rule out any acute or subacute stroke. I doubt that the MRI will be performed today or tomorrow and likely will be completed this Sunday The official report of the routine EEG Patient was given aspirin 325 once in the ED. I resumed the patient aspirin 81 mg daily. Primary started her on Plavix 75mg daily. I started the patient on Lipitor 40 mg nightly for secondary stroke prophylaxis Continue neurochecks Cardiac monitoring PT OT and ELECTRICAL TESTER are consulted Will defer the rest of medical management to primary team Plan discussed with the patient and her daughter who is at bedside. Dr. Sorto would resume neurology service tomorrow AM then Dr. Owusu will resume this Sunday a.m. Time with Patient: Less than 30
[2024-09-19 17:40] LABS: Glucose,Whole Blood 236 mg/dL (70-110)
[2024-09-19 19:52] LABS: Glucose,Whole Blood 233 mg/dL (70-110)
--- NOTE | 2024-09-20 03:11 | EEG ---
ELECTROENCEPHALOGRAM REPORT CLINICAL HISTORY: This is an 84-year-old woman with altered mental status. The video EEG is obtained to evaluate for seizure epileptiform activity. RELEVANT MEDICATION: The patient is not on any antiepileptic drugs. EEG TYPE: This is a routine 21-channel EEG with video using the 10/20 electrode placement system. DESCRIPTION: Wakefulness and drowsiness are obtained. During awake state, the posterior dominant rhythm consists of [id number] voltage of 7 hertz activity that is well modulated and well sustained. There is no physiological stage 2 sleep architecture. There is no focal slowing. Interictal and ictal is none. ACTIVATION PROCEDURE: Photic stimulation did not evoke a posterior driving response. There is no abnormality during the photic stimulation. Hyperventilation is not performed. CLINICAL INTERPRETATION: This is an abnormal routine EEG. The background slowing is suggestive of mild encephalopathy. There is no focal slowing, epileptiform discharge, or seizure on the EEG. Lack of epileptiform discharges does not rule out underlying epilepsy. Clinical correlation is recommended. MMHELENE / CHADWICKN: [id number] /
[2024-09-20 05:27] LABS: Glucose,Whole Blood 156 mg/dL (70-110)
[2024-09-20] MEDS: FAMOTIDINE 20 MG TAB PO SCH (08:39)
[2024-09-20] MEDS: ENOXAPARIN 40 MG/0.4 ML SYRINGE SQ SCH (08:49)
[2024-09-20 09:34] LABS: Basophils # (A) 0.06 X 10*3/uL (0.00-0.10); Basophils % (A) 0.6 %; Blood Urea Nitrogen 24.4 mg/dL (9.0-27.0); Chloride 112 mmol/L (96-109); Eosinophils # (A) 0.21 X 10*3/uL (0.04-0.35); Glucose 141 mg/dL (70-110); HCT 44.5 % (37.2-46.3); HGB 14.1 g/dL (12.0-15.0); Lymphocytes # (A) 1.72 X 10*3/uL (0.90-5.00); Lymphocytes % (A) 16.2 %; MCH 31.1 pg (27.0-32.0); MCHC 31.7 g/dL (32.0-37.0); Monocytes # (A) 0.84 X 10*3/uL (0.20-1.00); Monocytes % (A) 7.9 %; NRBC Per 100 WBC 0 X 10*3/uL (0.00-0.01); Neutrophils # (A) 7.76 X 10*3/uL (1.80-7.70); Platelet Count 182 X 10*3/uL (140-440); Potassium 4.4 mmol/L (3.5-5.5); RBC 4.54 X 10*6/uL (4.10-5.20); RDW 13.9 % (11.5-14.5); Sodium 146 mmol/L (135-145); WBC 10.62 X 10*3/uL (4.50-10.00)
[2024-09-20 09:35] LABS: ALT 20 U/L (8-44); AST 29 U/L (13-35); Albumin 3.9 g/dL (3.8-4.9); Albumin/Globulin Ratio 1.56 Ratio (1.60-3.17); Alkaline Phosphatase 58 U/L (41-126); Calcium 9.2 mg/dL (8.7-10.3); Carbon Dioxide 19.7 mmol/L (21.6-31.8); Globulin 2.5 g/dL (1.6-3.3); Total Bilirubin 0.5 mg/dL (0.3-1.2); Total Protein 6.4 g/dL (6.2-8.2)
--- NOTE | 2024-09-20 10:35 | CT ---
EXAMINATION TYPE: CT brain wo con DATE OF EXAM: 09/20/2024 10:13 AM COMPARISON: 09/18/2024 CLINICAL INDICATION: Female, 84 years old with history of confusion r/o cva, Confusion R/O CVA TECHNIQUE: CT of the brain is performed utilizing 3 mm thick sections through the posterior fossa and 3 mm thick sections through the remaining calvarium. Study is performed within 24 hours of arrival to the hospital. Contrast used: mL of , (none if empty) CT DLP: 1116 mGycm, Automated exposure control for dose reduction was used. FINDINGS: No abnormal hyperdensity is present to suggest an acute intracranial hemorrhage. No mass lesion is evident. There is hypodensity through the medial left frontal lobe. Correlate for small cortical infarct. This is developing from the recent comparison compatible with acute ischemic change. Follow-up is recomme nded. Ventricles and sulci are appropriate for the patient age. Paranasal sinuses and mastoid air cells within the [id number] are clear. IMPRESSION: 1. Findings compatible with developing acute medial left frontal lobe infarct. [facility], , 09/20/2024 10:32 AM
[2024-09-20 11:49] LABS: Glucose,Whole Blood 231 mg/dL (70-110)
--- NOTE | 2024-09-20 12:54 | P.PN ---
Subjective Progress Note Date: 09/20/24 Earle Stevenson, is a 84-year-old female patient of Dr. Jonas who presented with complaints of increased confusion upon awakening this a.m. no focal weakness noted. Patient's episode lasted about 30 minutes patient does have a past medical history of heart failure, CVA, hyperlipidemia, breast cancer, CHF. Head CT was completed showing no acute intracranial hemorrhage or midline shift. CTA completed showing no evidence of significant stenosis. At this time patient will be admitted neurology and cardiology services consulted 2D echo has been ordered. Patient is resting comfortably in chair. Patient denies chest pain or shortness of breath. Patient denies nausea vomiting or diarrhea. Patient denies any urinary burning or frequency. Current vital signs temp 97.9, heart rate 113/64 with pulse ox 96% on room air On 09/19/2024 patient is alert and oriented x 3. Patient to undergo EEG and repeat CT scan today. Cardiology and neurology services following. No new neurological symptoms. Patient denies chest pain or shortness of breath. Patient denies nausea vomiting or diarrhea. Patient denies any urinary burning or frequency current vital signs temp 97.4, heart rate 71, respiratory rate 16, blood pressure 147/79 with a pulse ox of 98% on room air On 09/20/2024 patient was seen and examined on the medical floor, she is alert responsive in no apparent distress. She still has significant expressive aphasia, she underwent CT scan of the brain today which revealed evidence of developing acute medial left frontal lobe infarct, currently she is maintained on Plavix and aspirin neurology and cardiology are following physical therapy and Occupational Therapy consulted speech therapy consulted, will follow closely. Objective - Vital Signs Vital signs: Vital Signs Temp 97.6 F 09/20/24 07:00 Pulse 76 09/20/24 07:00 Resp 14 09/20/24 07:00 BP 161/74 09/20/24 07:00 Pulse Ox 96 09/20/24 07:00 FiO2 Intake & Output 09/19/24 09/20/24 09/20/24 18:59 06:59 18:59 Output Total 980 Balance -980 Output: Urine 980 Other: Voiding Method Toilet Toilet Toilet # Voids 3 1 - Exam In general patient is alert and oriented Ã-3 in no distress HEENT head normocephalic and atraumatic Neck is supple no JVD no goiter no lymphadenopathy no carotid bruit Chest examination is clear to auscultation no crackles no wheezing Cardiac exam reveals regular heart sounds S1 and S2 no gallops no murmurs Abdomen is soft nontender no organomegaly with normal bowel sounds Extremity exam reveals no edema no cyanosis or clubbing Neurological examination reveals no gross focal deficits - Labs CBC & Chem 7: 09/20/24 05:02 09/20/24 05:02 Labs: Abnormal Lab Results - Last 24 Hours (Table) 09/19/24 09/19/24 09/20/24 Range/Units 17:38 19:49 05:02 WBC 10.62 H (4.50-10.00) X 10*3/uL MCV 98.0 H (80.0-97.0) FL MCHC 31.7 L (32.0-37.0) g/dL Neutrophils # 7.76 H (1.80-7.70) X 10*3/uL Sodium (135-145) mmol/L Chloride (96-109) mmol/L Carbon Dioxide (21.6-31.8) mmol/L Anion Gap (4.00-12.00) mmol/L Est GFR (CKD-EPI) (>=60) BUN/Creatinine Ratio (12.00-20.00) Ratio Glucose (70-110) mg/dL POC Glucose (mg/dL) 236 H 233 H (70-110) mg/dL Albumin/Globulin Ratio (1.60-3.17) Ratio 09/20/24 09/20/24 09/20/24 Range/Units 05:02 05:26 11:47 WBC (4.50-10.00) X 10*3/uL MCV (80.0-97.0) FL MCHC (32.0-37.0) g/dL Neutrophils # (1.80-7.70) X 10*3/uL Sodium 146 H (135-145) mmol/L Chloride 112 H (96-109) mmol/L Carbon Dioxide 19.7 L (21.6-31.8) mmol/L Anion Gap 14.30 H (4.00-12.00) mmol/L Est GFR (CKD-EPI) 56 L (>=60) BUN/Creatinine Ratio 24.40 H (12.00-20.00) Ratio Glucose 141 H (70-110) mg/dL POC Glucose (mg/dL) 156 H 231 H (70-110) mg/dL Albumin/Globulin Ratio 1.56 L (1.60-3.17) Ratio Assessment and Plan Assessment: 1. TIA episode with episode of confusion and aphasia 2. History of previous TIA 3. History of breast cancer 4. History of congestive heart failure 5. History of diabetes mellitus 6. History of hyperlipidemia DVT prophylaxis Lovenox. GI prophylaxis Pepcid Neurology and cardiology services consulted 2D echo, EEG and repeat CT scan has been ordered Repeat labs ordered PT OT and speech services consulted
--- NOTE | 2024-09-20 15:00 | P.PN ---
Subjective Progress Note Date: 09/20/24 This is a 84-year-old female with a past medical history significant for valvular heart disease with previous TAVR, moderate to severe MR, pacemaker implantation, hypertension, hyperlipidemia, carotid atherosclerosis, breast cancer with mastectomy, nonischemic cardiomyopathy. Patient follows in the office with Dr. Pablo. We have been asked to see the patient in consultation for CVA. Patient examined at the bedside. Patient presented to the hospital with altered mental status per her . Patient is a poor historian this morning. There is no family present with her. The patient denied having any chest pain or pressure. She denied having any shortness of breath. The patient does appear to have expressive aphasia during examination this morning. Patient is able to answer some questions appropriately but majority of questions she answers with "okay". DIAGNOSTICS: - EKG reveals paced/sinus mechanism with left bundle branch block. Repeat EKG reveals sinus mechanism.. - CT brain negative for intracranial hemorrhage or midline shift - Laboratory data: WBC 8.26. Hemoglobin 13.4. Platelet count 173. Sodium 141. Potassium 4.4. BUN 27. Creatinine 0.92. Troponin negative x 1. - Current home cardiac medications include 3.125 mg twice a day, Entresto 24-26 mg twice a day, rosuvastatin 20 mg daily, Imdur 30 mg twice a day, digoxin 125mcg daily, Plavix 75 mg daily. - Most recent echocardiogram obtained in February 2024 revealed ejection fraction 45%, moderate TR, prosthetic aortic valve, moderate to severe MR - Cardiac catheterization history: April 2022 revealing normal coronary arteries 09/20/2024 Patient was seen and examined resting comfortably in bed. Continues to have some expressive aphasia and answering "okay"to majority of questions. Complains of left-sided weakness. 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 According to nursing staff MRI is unable to be completed here due to pacemaker despite [employer] recommendations. Echocardiogram with Doppler study showed ejection fraction of 40 to 45% with bioprosthetic aortic valve and moderate mitral stenosis. PHYSICAL EXAM: VITAL SIGNS: Reviewed. GENERAL: Well-developed in no acute distress. HEENT: Head is normocephalic. Pupils are equal, round. Sclerae anicteric. Mucous membranes of the mouth are moist. Neck supple. No JVD or thyromegaly LUNGS: Respirations even and unlabored. Lungs essentially clear to auscultation bilaterally. HEART: Regular rate and rhythm. S1 and S2 heard. ABDOMEN: Soft. Nondistended. Nontender. EXTREMITIES: Normal range of motion. No clubbing or cyanosis. Peripheral pulses intact. No lower extremity edema NEUROLOGIC: Awake and alert. Oriented x 3. ASSESSMENT: Episode of unresponsiveness with expressive aphasia, suspected CVA Valvular heart disease with previous TAVR Moderate to severe mitral regurgitation Moderate tricuspid regurgitation History of pacemaker implantation, [employer] Carotid atherosclerosis Normal coronary arteries per cath 2021 History of breast cancer with mastectomy History of nonischemic cardiomyopathy, 45% PLAN: There has been no evidence of arrhythmia. Continue telemetry monitoring Patient will likely require outpatient MRI to be done likely at [facility] due to the pacemaker Further recommendations pending patient course PRODUCT PLANNER note has been reviewed, I agree with a documented findings and plan of care. Patient was seen and examined. Objective - Vital Signs Vital signs: Vital Signs Temp 97.6 F 09/20/24 07:00 Pulse 76 09/20/24 07:00 Resp 14 09/20/24 07:00 BP 161/74 09/20/24 07:00 Pulse Ox 96 09/20/24 07:00 FiO2 Intake & Output 09/19/24 09/20/24 09/20/24 18:59 06:59 18:59 Output Total 980 Balance -980 Output: Urine 980 Other: Voiding Method Toilet Toilet # Voids 3 1 - Labs CBC & Chem 7: 09/18/24 11:55 09/18/24 11:55 Labs: Abnormal Lab Results - Last 24 Hours (Table) 09/19/24 09/19/24 09/19/24 Range/Units 12:29 17:38 19:49 POC Glucose (mg/dL) 175 H 236 H 233 H (70-110) mg/dL 09/20/24 Range/Units 05:26 POC Glucose (mg/dL) 156 H (70-110) mg/dL
--- NOTE | 2024-09-20 15:55 | P.PN ---
Subjective Progress Note Date: 09/20/24 The patient is an 84-year-old female who was seen in neurologic follow-up on September 20, 2024, in collaboration with Sara Andrade, via teleneurology. The patient's chart has been reviewed. Patient has visitors in her room at the time of our evaluation today. The patient is seated in the chair. Visitor reports that the patient was able to greet them when they came into the room. They report that her speech is improving. The patient herself feels that her speech is improving. Initial head CT and CT angiogram are negative for acute infarct and significant stenosis or large vessel occlusion. Objective - Vital Signs Vital signs: Vital Signs Temp 97.6 F 09/20/24 07:00 Pulse 76 09/20/24 07:00 Resp 14 09/20/24 07:00 BP 161/74 09/20/24 07:00 Pulse Ox 96 09/20/24 07:00 FiO2 Intake & Output 09/19/24 09/20/24 09/20/24 18:59 06:59 18:59 Output Total 980 Balance -980 Output: Urine 980 Other: Voiding Method Toilet Toilet Toilet # Voids 3 1 - Exam General: The patient is well-nourished, well-developed and in no acute distress. She is seated in bedside chair. HEENT: Head is atraumatic, normocephalic. Fundus not visualized. There is no scleral icterus. Mucous membranes are moist. Extremities: Without edema Neurological examination Mental status: The patient is awake, alert and oriented x 3. She is able to state her name and date of . She is able to accurately repeat phrases. She is able to accurately name objects. The patient does have some difficulty with word finding. Cranial nerves: Pupils are equal at 3 mm and reactive. Visual salcido are full to confrontation. Extraocular movements are intact. Facial sensation is intact. There is no facial asymmetry. Hearing is grossly intact. Uvula and palate are midline. Shoulder shrug is symmetric. Tongue protrudes midline. Motor: Strength is 5/5 throughout - Labs CBC & Chem 7: 09/20/24 05:02 09/20/24 05:02 Labs: Abnormal Lab Results - Last 24 Hours (Table) 09/19/24 09/19/24 09/19/24 Range/Units 12:29 17:38 19:49 WBC (4.50-10.00) X 10*3/uL MCV (80.0-97.0) FL MCHC (32.0-37.0) g/dL Neutrophils # (1.80-7.70) X 10*3/uL Sodium (135-145) mmol/L Chloride (96-109) mmol/L Carbon Dioxide (21.6-31.8) mmol/L Anion Gap (4.00-12.00) mmol/L Est GFR (CKD-EPI) (>=60) BUN/Creatinine Ratio (12.00-20.00) Ratio Glucose (70-110) mg/dL POC Glucose (mg/dL) 175 H 236 H 233 H (70-110) mg/dL Albumin/Globulin Ratio (1.60-3.17) Ratio 09/20/24 09/20/24 09/20/24 Range/Units 05:02 05:02 05:26 WBC 10.62 H (4.50-10.00) X 10*3/uL MCV 98.0 H (80.0-97.0) FL MCHC 31.7 L (32.0-37.0) g/dL Neutrophils # 7.76 H (1.80-7.70) X 10*3/uL Sodium 146 H (135-145) mmol/L Chloride 112 H (96-109) mmol/L Carbon Dioxide 19.7 L (21.6-31.8) mmol/L Anion Gap 14.30 H (4.00-12.00) mmol/L Est GFR (CKD-EPI) 56 L (>=60) BUN/Creatinine Ratio 24.40 H (12.00-20.00) Ratio Glucose 141 H (70-110) mg/dL POC Glucose (mg/dL) 156 H (70-110) mg/dL Albumin/Globulin Ratio 1.56 L (1.60-3.17) Ratio Assessment and Plan Assessment: 1. The patient is an 84-year-old female with expressive aphasia. Repeat CT scan of the brain is positive for left frontal ischemic infarct. 2. Underlying history of congestive heart failure status post pacemaker 3. History of breast cancer bilateral status post lumpectomies and chemoradiation therapy 4. Diabetes mellitus 5. Hyperlipidemia Plan: 1. MRI of the brain is unable to be obtained at our facility secondary to pacemaker 2. Continue aspirin and Plavix 3. Continue high-dose statin 4. Continue speech therapy 5. Care management for discharge plan Time with Patient: Greater than 30 (40 minutes were spent caring for this patient today including, obtaining a history, examining the patient, reviewing imaging, chart documentation, labs, placing orders and creating this note)
[2024-09-20 17:09] LABS: Glucose,Whole Blood 254 mg/dL (70-110)
[2024-09-20 19:53] LABS: Glucose,Whole Blood 243 mg/dL (70-110)
[2024-09-21 05:49] LABS: Glucose,Whole Blood 177 mg/dL (70-110)
--- NOTE | 2024-09-21 08:32 | P.PN ---
Subjective Progress Note Date: 09/21/24 Earle Stevenson, is a 84-year-old female patient of Dr. Jonas who presented with complaints of increased confusion upon awakening this a.m. no focal weakness noted. Patient's episode lasted about 30 minutes patient does have a past medical history of heart failure, CVA, hyperlipidemia, breast cancer, CHF. Head CT was completed showing no acute intracranial hemorrhage or midline shift. CTA completed showing no evidence of significant stenosis. At this time patient will be admitted neurology and cardiology services consulted 2D echo has been ordered. Patient is resting comfortably in chair. Patient denies chest pain or shortness of breath. Patient denies nausea vomiting or diarrhea. Patient denies any urinary burning or frequency. Current vital signs temp 97.9, heart rate 113/64 with pulse ox 96% on room air On 09/19/2024 patient is alert and oriented x 3. Patient to undergo EEG and repeat CT scan today. Cardiology and neurology services following. No new neurological symptoms. Patient denies chest pain or shortness of breath. Patient denies nausea vomiting or diarrhea. Patient denies any urinary burning or frequency current vital signs temp 97.4, heart rate 71, respiratory rate 16, blood pressure 147/79 with a pulse ox of 98% on room air On 09/20/2024 patient was seen and examined on the medical floor, she is alert responsive in no apparent distress. She still has significant expressive aphasia, she underwent CT scan of the brain today which revealed evidence of developing acute medial left frontal lobe infarct, currently she is maintained on Plavix and aspirin neurology and cardiology are following physical therapy and Occupational Therapy consulted speech therapy consulted, will follow closely. On 09/21/2024 patient is alert and oriented x 3. Per nursing staff patient had postvoid residuals of over 700 throughout the night requiring Esposito catheter. At this time will consult urology services and add Flomax. Patient denies chest pain or shortness of breath. Patient denies nausea vomiting or diarrhea. Patient denies any urinary burning or frequency Objective - Vital Signs Vital signs: Vital Signs Temp 97.8 F 09/21/24 07:00 Pulse 67 09/21/24 07:00 Resp 14 09/21/24 07:00 BP 133/72 09/21/24 07:00 Pulse Ox 96 09/21/24 07:00 FiO2 Intake & Output 04/06/0409/21/24 09/21/24 18:59 06:59 18:59 Output Total 2809 Balance -2809 Output: Urine 1150 Straight 1100 Post Void Residual 1659 Other: Voiding Method Toilet Toilet # Voids 2 - Exam In general patient is alert and oriented Ã-3 in no distress HEENT head normocephalic and atraumatic Neck is supple no JVD no goiter no lymphadenopathy no carotid bruit Chest examination is clear to auscultation no crackles no wheezing Cardiac exam reveals regular heart sounds S1 and S2 no gallops no murmurs Abdomen is soft nontender no organomegaly with normal bowel sounds Extremity exam reveals no edema no cyanosis or clubbing Neurological examination reveals no gross focal deficits - Labs CBC & Chem 7: 09/20/24 05:02 09/20/24 05:02 Labs: Abnormal Lab Results - Last 24 Hours (Table) 09/20/24 09/20/24 09/20/24 Range/Units 05:02 05:02 11:47 WBC 10.62 H (4.50-10.00) X 10*3/uL MCV 98.0 H (80.0-97.0) FL MCHC 31.7 L (32.0-37.0) g/dL Neutrophils # 7.76 H (1.80-7.70) X 10*3/uL Sodium 146 H (135-145) mmol/L Chloride 112 H (96-109) mmol/L Carbon Dioxide 19.7 L (21.6-31.8) mmol/L Anion Gap 14.30 H (4.00-12.00) mmol/L Est GFR (CKD-EPI) 56 L (>=60) BUN/Creatinine Ratio 24.40 H (12.00-20.00) Ratio Glucose 141 H (70-110) mg/dL POC Glucose (mg/dL) 231 H (70-110) mg/dL Albumin/Globulin Ratio 1.56 L (1.60-3.17) Ratio 09/20/24 09/20/24 09/21/24 Range/Units 17:08 19:48 05:48 WBC (4.50-10.00) X 10*3/uL MCV (80.0-97.0) FL MCHC (32.0-37.0) g/dL Neutrophils # (1.80-7.70) X 10*3/uL Sodium (135-145) mmol/L Chloride (96-109) mmol/L Carbon Dioxide (21.6-31.8) mmol/L Anion Gap (4.00-12.00) mmol/L Est GFR (CKD-EPI) (>=60) BUN/Creatinine Ratio (12.00-20.00) Ratio Glucose (70-110) mg/dL POC Glucose (mg/dL) 254 H 243 H 177 H (70-110) mg/dL Albumin/Globulin Ratio (1.60-3.17) Ratio Assessment and Plan Assessment: 1. TIA episode with episode of confusion and aphasia repeat CT positive for left frontal ischemic infarct 2. History of previous TIA 3. History of breast cancer 4. History of congestive heart failure 5. History of diabetes mellitus 6. History of hyperlipidemia 7. Urinary retention. Esposito catheter placed Flomax added urology services consulted DVT prophylaxis Lovenox. GI prophylaxis Pepcid Neurology and cardiology services consulted Patient was started on aspirin and Plavix Unable to get MRI due to pacemaker PT OT and speech services consulted
[2024-09-21] MEDS: LACTULOSE 20 GM/30 ML CUP PO SCH (08:51)
--- NOTE | 2024-09-21 09:43 | P.GSCN ---
History of Present Illness Consult date: 09/21/24 History of present illness: 84 yo female in hospital with cva. SHe is in urine retention and we have been asked to see the patient. The patient is seen at the bedside. She is conversant and sitting. The left side which was affected is mobile. She has no facial drooping. Historically she has no urologic problems prior to admission. She apparently is going to rehab relatively soon. There is no blood in the urine. Her urine on admission was unremarkable. Her kidney function is normal. Review of Systems All systems: negative - Constitutional Denies fever, Denies weight loss - EENT Eyes: denies blurred vision Ears, nose, mouth and throat: Denies dysphagia - Cardiovascular Denies chest pain, Denies shortness of breath - Respiratory Denies cough, Denies 7 - Gastrointestinal Reports as per HPI - Genitourinary Genitourinary: Denies dysuria, Denies hematuria - Integumentary Denies rash, Denies unusual bruising - Neurological Denies headaches, Denies syncope - Hematologic/Lymphatic Denies easy bleeding, Denies easy bruising Past Medical History Past Medical History: Cancer, Heart Failure, CVA/TIA, Diabetes Mellitus, Hyperlipidemia, Osteoarthritis (OA), Thyroid Disorder Additional Past Medical History / Comment(s): Bilateral breast cancer (L in 1999 and R in 2007) tx with lumpectomies and chemo and radiation, lymphadema bilateral upper arms, CHF with 1st chemo, NIDDM, leaky heart valve, tia (2011) with L upper arm weakness since resolved., HX of leg fx x2 hema, SOB with exertion., See Cardiology H & P. History of Any Multi-Drug Resistant Organisms: None Reported Past Surgical History: Appendectomy, Breast Surgery, Heart Catheterization, Hysterectomy, Joint Replacement, Orthopedic Surgery, Tonsillectomy Additional Past Surgical History / Comment(s): Breast bx's & lumpectomy (1999 & 2007), Mastectomy (2017) Heart cath (2003, 2015), R and L lower leg fx (separate incidences) with surgical repair using plates and screws, neck & face skin cancer , Cataracts, Bilateral total shoulders, bilateral carpal tunnel . thumb surgery. Additional Past Anesthesia/Blood Transfusion Reaction / Comm: "slow to wake up" after surgery. Hx of blood transfusion after chemo - no reaction. Past Psychological History: No Psychological Hx Reported Smoking Status: Never smoker Past Alcohol Use History: Rare Past Drug Use History: None Reported - Past Family History Father Family Medical History: Congestive Heart Failure (CHF) Additional Family Medical History / Comment(s): Father at age 69yrs from CHF. He also had stomach problems-ulcers. Mother Family Medical History: Cancer, Coronary Artery Disease (CAD) Additional Family Medical History / Comment(s): . Medications and Allergies Home Medications Medication Instructions Recorded Confirmed Type Ascorbic Acid [Vitamin C] 500 mg PO DAILY 09/11/14 09/18/24 History Clopidogrel [Plavix] 75 mg PO DAILY 09/11/14 09/18/24 History Lutein 20 mg PO DAILY 09/11/14 09/18/24 History Digoxin [Digox] 125 mcg PO DAILY 11/07/15 09/18/24 History Sacubitril/Valsartan [Entresto 24 1 tab PO BID 11/07/15 09/18/24 History mg-26 mg Tablet] Anastrozole [Arimidex] 1 mg PO DAILY 11/25/17 09/18/24 History Isosorbide Mononitrate ER [Imdur] 30 mg PO BID 11/25/17 09/18/24 History Loratadine 10 mg PO DAILY 11/18/18 09/18/24 History Rosuvastatin [Crestor] 20 mg PO HS 04/07/22 09/18/24 History Cholecalciferol [Vitamin D3 (25 25 mcg PO DAILY 09/18/24 09/18/24 History Mcg = 1000 Iu)] Empagliflozin [Jardiance] 25 mg PO DAILY 09/18/24 09/18/24 History Ferrous Sulfate [Feosol] 325 mg PO DAILY 09/18/24 09/18/24 History Glucosam/Denilson-Msm1/C/Curtis/Bosw 1 tab PO DAILY 09/18/24 09/18/24 History [Glucosamine-Chondroitin Tablet] Levothyroxine Sodium [Synthroid] 137 mcg PO DAILY 09/18/24 09/18/24 History Mv-Min/Folic/K1/Lycopen/Lutein 1 tab PO DAILY 09/18/24 09/18/24 History [Centrum Silver Men Tablet] Repaglinide [Prandin] 2 mg PO TID-W/MEALS 09/18/24 09/18/24 History Zinc Gluconate [Zinc] 50 mg PO DAILY 09/18/24 09/18/24 History carvediloL [Coreg] 3.125 mg PO BID 09/18/24 09/18/24 History Allergies Allergy/AdvReac Type Severity Reaction Status Date / Time bee venom protein (honey bee) Allergy Unknown Swelling Verified 09/18/24 13:34 Penicillins AdvReac Rash/Hives Verified 09/18/24 13:34 Tetanus Vaccines and Toxoid AdvReac Swelling Verified 09/18/24 13:34 [Tetanus Vaccines & Toxoid] zolpidem tartrate AdvReac Hallucinati Verified 09/18/24 13:34 [From Ambien] ons Surgical - Exam Vital Signs Temp 98.1 F 09/18/24 11:46 - General well developed, well nourished, no distress - Eyes normal ocular movement, no icteric - ENT no hearing loss, no congestion - Neck no masses, trachea midline - Respiratory normal respiratory effort, clear to auscultation - Abdomen Abdomen: soft, non tender, no guarding, no rigid, no rebound - Genitourinary Indwelling catheter - Integumentary no rash, no abnormal pigmentation - Neurologic no disoriented, no combative - Psychiatric oriented to time, oriented to person, oriented to place, speech is normal, memory intact Results - Labs 09/20/24 05:02 09/20/24 05:02 Abnormal Lab Results - Last 24 Hours (Table) 09/20/24 09/20/24 09/20/24 Range/Units 05:02 05:02 11:47 WBC 10.62 H (4.50-10.00) X 10*3/uL MCV 98.0 H (80.0-97.0) FL MCHC 31.7 L (32.0-37.0) g/dL Neutrophils # 7.76 H (1.80-7.70) X 10*3/uL Sodium 146 H (135-145) mmol/L Chloride 112 H (96-109) mmol/L Carbon Dioxide 19.7 L (21.6-31.8) mmol/L Anion Gap 14.30 H (4.00-12.00) mmol/L Est GFR (CKD-EPI) 56 L (>=60) BUN/Creatinine Ratio 24.40 H (12.00-20.00) Ratio Glucose 141 H (70-110) mg/dL POC Glucose (mg/dL) 231 H (70-110) mg/dL Albumin/Globulin Ratio 1.56 L (1.60-3.17) Ratio 09/20/24 09/20/24 09/21/24 Range/Units 17:08 19:48 05:48 WBC (4.50-10.00) X 10*3/uL MCV (80.0-97.0) FL MCHC (32.0-37.0) g/dL Neutrophils # (1.80-7.70) X 10*3/uL Sodium (135-145) mmol/L Chloride (96-109) mmol/L Carbon Dioxide (21.6-31.8) mmol/L Anion Gap (4.00-12.00) mmol/L Est GFR (CKD-EPI) (>=60) BUN/Creatinine Ratio (12.00-20.00) Ratio Glucose (70-110) mg/dL POC Glucose (mg/dL) 254 H 243 H 177 H (70-110) mg/dL Albumin/Globulin Ratio (1.60-3.17) Ratio Diabetes panel 09/20/24 Range/Units 05:02 Sodium 146 H (135-145) mmol/L Potassium 4.4 (3.5-5.5) mmol/L Chloride 112 H (96-109) mmol/L Carbon Dioxide 19.7 L (21.6-31.8) mmol/L BUN 24.4 (9.0-27.0) mg/dL Creatinine 1.0 (0.6-1.5) mg/dL Glucose 141 H (70-110) mg/dL Calcium 9.2 (8.7-10.3) mg/dL AST 29 (13-35) U/L ALT 20 (8-44) U/L Alkaline Phosphatase 58 (41-126) U/L Total Protein 6.4 (6.2-8.2) g/dL Albumin 3.9 (3.8-4.9) g/dL Calcium panel 09/20/24 Range/Units 05:02 Calcium 9.2 (8.7-10.3) mg/dL Albumin 3.9 (3.8-4.9) g/dL Pituitary panel 09/20/24 Range/Units 05:02 Sodium 146 H (135-145) mmol/L Potassium 4.4 (3.5-5.5) mmol/L Chloride 112 H (96-109) mmol/L Carbon Dioxide 19.7 L (21.6-31.8) mmol/L BUN 24.4 (9.0-27.0) mg/dL Creatinine 1.0 (0.6-1.5) mg/dL Glucose 141 H (70-110) mg/dL Calcium 9.2 (8.7-10.3) mg/dL Adrenal panel 09/20/24 Range/Units 05:02 Sodium 146 H (135-145) mmol/L Potassium 4.4 (3.5-5.5) mmol/L Chloride 112 H (96-109) mmol/L Carbon Dioxide 19.7 L (21.6-31.8) mmol/L BUN 24.4 (9.0-27.0) mg/dL Creatinine 1.0 (0.6-1.5) mg/dL Glucose 141 H (70-110) mg/dL Calcium 9.2 (8.7-10.3) mg/dL Total Bilirubin 0.5 (0.3-1.2) mg/dL AST 29 (13-35) U/L ALT 20 (8-44) U/L Alkaline Phosphatase 58 (41-126) U/L Total Protein 6.4 (6.2-8.2) g/dL Albumin 3.9 (3.8-4.9) g/dL Assessment and Plan Assessment: Impression: urine retention associated with a cva Recommendations: It is very common post CVA for urine retention to appear. Frequently the initial urinations are overflow incontinence and subsequently the urine retention is identified. The catheter should remain in place until she is more ambulatory and functioning more normally. This will probably achieved in rehab. The catheter can probably be removed for voiding trial in rehab. I will see the patient as an outpatient. Time with Patient: Greater than 30
[2024-09-21 10:01] LABS: Basophils # (A) 0.09 X 10*3/uL (0.00-0.10); Basophils % (A) 0.8 %; Eosinophils # (A) 0.26 X 10*3/uL (0.04-0.35); Eosinophils % (A) 2.4 %; HCT 38.6 % (37.2-46.3); HGB 12.5 g/dL (12.0-15.0); Lymphocytes # (A) 1.79 X 10*3/uL (0.90-5.00); Lymphocytes % (A) 16.6 %; MCHC 32.4 g/dL (32.0-37.0); MCV 95.8 FL (80.0-97.0); Mean Platelet Volume 11.1 FL (9.5-12.2); Monocytes # (A) 1.04 X 10*3/uL (0.20-1.00); Monocytes % (A) 9.6 %; NRBC Per 100 WBC 0 X 10*3/uL (0.00-0.01); Neutrophils # (A) 7.57 X 10*3/uL (1.80-7.70); Neutrophils % (A) 70.3 %; Platelet Count 190 X 10*3/uL (140-440); RBC 4.03 X 10*6/uL (4.10-5.20); RDW 13.8 % (11.5-14.5); WBC 10.78 X 10*3/uL (4.50-10.00)
[2024-09-21 11:01] LABS: ALT 18 U/L (8-44); AST 23 U/L (13-35); Albumin 3.6 g/dL (3.8-4.9); Alkaline Phosphatase 48 U/L (41-126); BUN/Creat Ratio 25.82 Ratio (12.00-20.00); Blood Urea Nitrogen 28.4 mg/dL (9.0-27.0); Calcium 8.9 mg/dL (8.7-10.3); Chloride 114 mmol/L (96-109); Glucose 171 mg/dL (70-110); Potassium 4.3 mmol/L (3.5-5.5); Sodium 147 mmol/L (135-145); Total Bilirubin 0.6 mg/dL (0.3-1.2); Total Protein 5.6 g/dL (6.2-8.2)
--- NOTE | 2024-09-21 12:09 | P.PN ---
Subjective Progress Note Date: 09/21/24 This is a 84-year-old female with a past medical history significant for valvular heart disease with previous TAVR, moderate to severe MR, pacemaker implantation, hypertension, hyperlipidemia, carotid atherosclerosis, breast cancer with mastectomy, nonischemic cardiomyopathy. Patient follows in the office with Dr. Pablo. We have been asked to see the patient in consultation for CVA. Patient examined at the bedside. Patient presented to the hospital with altered mental status per her . Patient is a poor historian this morning. There is no family present with her. The patient denied having any chest pain or pressure. She denied having any shortness of breath. The patient does appear to have expressive aphasia during examination this morning. Patient is able to answer some questions appropriately but majority of questions she answers with "okay". DIAGNOSTICS: - EKG reveals paced/sinus mechanism with left bundle branch block. Repeat EKG reveals sinus mechanism.. - CT brain negative for intracranial hemorrhage or midline shift - Laboratory data: WBC 8.26. Hemoglobin 13.4. Platelet count 173. Sodium 141. Potassium 4.4. BUN 27. Creatinine 0.92. Troponin negative x 1. - Current home cardiac medications include 3.125 mg twice a day, Entresto 24-26 mg twice a day, rosuvastatin 20 mg daily, Imdur 30 mg twice a day, digoxin 125mcg daily, Plavix 75 mg daily. - Most recent echocardiogram obtained in February 2024 revealed ejection fraction 45%, moderate TR, prosthetic aortic valve, moderate to severe MR - Cardiac catheterization history: April 2022 revealing normal coronary arteries 09/20/2024 Patient was seen and examined resting comfortably in bed. Continues to have some expressive aphasia and answering "okay"to majority of questions. Complains of left-sided weakness. [employer] front desk representative was spoken to yesterday and pacemaker is MRI conditional. According to nursing staff MRI is unable to be completed here due to pacemaker despite [employer] recommendations. Echocardiogram with Doppler study showed ejection fraction of 40 to 45% with bioprosthetic aortic valve and moderate mitral stenosis. 09/21/2024 Patient seen and examined sitting up in a chair. Overall feeling a bit better. She feels her speech is improving. Weakness is better. She is maintaining sinus mechanism. CT scan of the brain done yesterday showed findings compatible with developing acute medial left frontal lobe infarct. Neurology is following. PHYSICAL EXAM: VITAL SIGNS: Reviewed. GENERAL: Well-developed in no acute distress. HEENT: Head is normocephalic. Pupils are equal, round. Sclerae anicteric. Mucous membranes of the mouth are moist. Neck supple. No JVD or thyromegaly LUNGS: Respirations even and unlabored. Lungs essentially clear to auscultation bilaterally. HEART: Regular rate and rhythm. S1 and S2 heard. ABDOMEN: Soft. Nondistended. Nontender. EXTREMITIES: Normal range of motion. No clubbing or cyanosis. Peripheral pulses intact. No lower extremity edema NEUROLOGIC: Awake and alert. Oriented x 3. ASSESSMENT: Episode of unresponsiveness with expressive aphasia, suspected CVA Valvular heart disease with previous TAVR Moderate to severe mitral regurgitation Moderate tricuspid regurgitation History of pacemaker implantation, [employer] Carotid atherosclerosis Normal coronary arteries per cath 2021 History of breast cancer with mastectomy History of nonischemic cardiomyopathy, 45% PLAN: There has been no evidence of arrhythmia. Continue telemetry monitoring Patient will likely require outpatient MRI to be done likely at [facility] due to the pacemaker Further recommendations pending patient course FINANCE ATTORNEY note has been reviewed, I agree with a documented findings and plan of care. Patient was seen and examined. Objective - Vital Signs Vital signs: Vital Signs Temp 97.8 F 09/21/24 07:00 Pulse 67 09/21/24 07:00 Resp 14 09/21/24 07:00 BP 133/72 09/21/24 07:00 Pulse Ox 96 09/21/24 07:00 FiO2 Intake & Output 09/20/24 09/21/24 09/21/24 18:59 06:59 18:59 Output Total 2809 Balance -2809 Output: Urine 1150 Straight 1100 Post Void Residual 1659 Other: Voiding Method Toilet Toilet Indwelling Catheter # Voids 2 - Labs CBC & Chem 7: 09/21/24 05:46 09/21/24 05:46 Labs: Abnormal Lab Results - Last 24 Hours (Table) 09/20/24 09/20/24 09/20/24 Range/Units 11:47 17:08 19:48 WBC (4.50-10.00) X 10*3/uL RBC (4.10-5.20) X 10*6/uL Monocytes # (0.20-1.00) X 10*3/uL Sodium (135-145) mmol/L Chloride (96-109) mmol/L BUN (9.0-27.0) mg/dL Est GFR (CKD-EPI) (>=60) BUN/Creatinine Ratio (12.00-20.00) Ratio Glucose (70-110) mg/dL POC Glucose (mg/dL) 231 H 254 H 243 H (70-110) mg/dL Total Protein (6.2-8.2) g/dL Albumin (3.8-4.9) g/dL 09/21/24 09/21/24 09/21/24 Range/Units 05:46 05:46 05:48 WBC 10.78 H (4.50-10.00) X 10*3/uL RBC 4.03 L (4.10-5.20) X 10*6/uL Monocytes # 1.04 H (0.20-1.00) X 10*3/uL Sodium 147 H (135-145) mmol/L Chloride 114 H (96-109) mmol/L BUN 28.4 H (9.0-27.0) mg/dL Est GFR (CKD-EPI) 50 L (>=60) BUN/Creatinine Ratio 25.82 H (12.00-20.00) Ratio Glucose 171 H (70-110) mg/dL POC Glucose (mg/dL) 177 H (70-110) mg/dL Total Protein 5.6 L (6.2-8.2) g/dL Albumin 3.6 L (3.8-4.9) g/dL
[2024-09-21 12:25] LABS: Glucose,Whole Blood 207 mg/dL (70-110)
[2024-09-21 17:24] LABS: Glucose,Whole Blood 179 mg/dL (70-110)
[2024-09-21] MEDS: TAMSULOSIN 0.4 MG CAP.ER.24H PO SCH (18:07)
[2024-09-21 20:07] LABS: Glucose,Whole Blood 202 mg/dL (70-110)
[2024-09-22 05:38] LABS: Glucose,Whole Blood 151 mg/dL (70-110)
[2024-09-22 08:44] LABS: ALT 17 U/L (8-44); AST 23 U/L (13-35); Albumin 3.8 g/dL (3.8-4.9); Albumin/Globulin Ratio 1.58 Ratio (1.60-3.17); Alkaline Phosphatase 54 U/L (41-126); Blood Urea Nitrogen 30.9 mg/dL (9.0-27.0); Calcium 8.9 mg/dL (8.7-10.3); Carbon Dioxide 20.8 mmol/L (21.6-31.8); Chloride 112 mmol/L (96-109); Globulin 2.4 g/dL (1.6-3.3); Glucose 171 mg/dL (70-110); Potassium 3.9 mmol/L (3.5-5.5); Sodium 146 mmol/L (135-145); Total Bilirubin 0.6 mg/dL (0.3-1.2); Total Protein 6.2 g/dL (6.2-8.2)
[2024-09-22 08:54] LABS: Basophils # (A) 0.08 X 10*3/uL (0.00-0.10); Basophils % (A) 0.5 %; Eosinophils % (A) 1.4 %; HCT 41.4 % (37.2-46.3); HGB 13.2 g/dL (12.0-15.0); Lymphocytes # (A) 1.46 X 10*3/uL (0.90-5.00); MCH 31.1 pg (27.0-32.0); MCHC 31.9 g/dL (32.0-37.0); MCV 97.6 FL (80.0-97.0); Mean Platelet Volume 11.1 FL (9.5-12.2); Monocytes # (A) 0.98 X 10*3/uL (0.20-1.00); Monocytes % (A) 6.7 %; NRBC Per 100 WBC 0 X 10*3/uL (0.00-0.01); Neutrophils # (A) 11.78 X 10*3/uL (1.80-7.70); Platelet Count 166 X 10*3/uL (140-440); RBC 4.24 X 10*6/uL (4.10-5.20); WBC 14.56 X 10*3/uL (4.50-10.00)
[2024-09-22 12:39] LABS: Glucose,Whole Blood 198 mg/dL (70-110)
--- NOTE | 2024-09-22 12:46 | P.PN ---
Subjective Progress Note Date: 09/22/24 This is a 84-year-old female with a past medical history significant for valvular heart disease with previous TAVR, moderate to severe MR, pacemaker implantation, hypertension, hyperlipidemia, carotid atherosclerosis, breast cancer with mastectomy, nonischemic cardiomyopathy. Patient follows in the office with Dr. Pablo. We have been asked to see the patient in consultation for CVA. Patient examined at the bedside. Patient presented to the hospital with altered mental status per her . Patient is a poor historian this morning. There is no family present with her. The patient denied having any chest pain or pressure. She denied having any shortness of breath. The patient does appear to have expressive aphasia during examination this morning. Patient is able to answer some questions appropriately but majority of questions she answers with "okay". DIAGNOSTICS: - EKG reveals paced/sinus mechanism with left bundle branch block. Repeat EKG reveals sinus mechanism.. - CT brain negative for intracranial hemorrhage or midline shift - Laboratory data: WBC 8.26. Hemoglobin 13.4. Platelet count 173. Sodium 141. Potassium 4.4. BUN 27. Creatinine 0.92. Troponin negative x 1. - Current home cardiac medications include 3.125 mg twice a day, Entresto 24-26 mg twice a day, rosuvastatin 20 mg daily, Imdur 30 mg twice a day, digoxin 125mcg daily, Plavix 75 mg daily. - Most recent echocardiogram obtained in February 2024 revealed ejection fraction 45%, moderate TR, prosthetic aortic valve, moderate to severe MR - Cardiac catheterization history: April 2022 revealing normal coronary arteries 09/20/2024 Patient was seen and examined resting comfortably in bed. Continues to have some expressive aphasia and answering "okay"to majority of questions. Complains of left-sided weakness. [employer] b2b sales representative was spoken to yesterday and pacemaker is MRI conditional. According to nursing staff MRI is unable to be completed here due to pacemaker despite [employer] recommendations. Echocardiogram with Doppler study showed ejection fraction of 40 to 45% with bioprosthetic aortic valve and moderate mitral stenosis. 09/21/2024 Patient seen and examined sitting up in a chair. Overall feeling a bit better. She feels her speech is improving. Weakness is better. She is maintaining sinus mechanism. CT scan of the brain done yesterday showed findings compatible with developing acute medial left frontal lobe infarct. Neurology is following. 09/22/2024 Denies any chest pain chest pressure. BP 128/74, heart rate 72 bpm PHYSICAL EXAM: VITAL SIGNS: Reviewed. GENERAL: Well-developed in no acute distress. HEENT: Head is normocephalic. Pupils are equal, round. Sclerae anicteric. Mucous membranes of the mouth are moist. Neck supple. No JVD or thyromegaly LUNGS: Respirations even and unlabored. Lungs essentially clear to auscultation bilaterally. HEART: Regular rate and rhythm. S1 and S2 heard. ABDOMEN: Soft. Nondistended. Nontender. EXTREMITIES: Normal range of motion. No clubbing or cyanosis. Peripheral pulses intact. No lower extremity edema NEUROLOGIC: Awake and alert. Oriented x 3. ASSESSMENT: Episode of unresponsiveness with expressive aphasia, suspected CVA Valvular heart disease with previous TAVR Moderate to severe mitral regurgitation Moderate tricuspid regurgitation History of pacemaker implantation, [employer] Carotid atherosclerosis Normal coronary arteries per cath 2021 History of breast cancer with mastectomy History of nonischemic cardiomyopathy, 45% PLAN: There has been no evidence of arrhythmia. Patient will likely require outpatient MRI to be done likely at [facility] due to the pacemaker Recommend outpatient follow-up with device clinic on routine basis to make sure there is subclinical atrial fibrillation Continue aspirin, Lipitor, Coreg, Plavix, Farxiga Imdur and Entresto. For some reason patient is on digoxin. At this time we will continue without any changes At this time patient is stable from cardiovascular standpoint. Recommend outpatient follow-up with cardiology. Cardiology team will sign off Objective - Vital Signs Vital signs: Vital Signs Temp 98.0 F 09/22/24 07:35 Pulse 72 09/22/24 07:35 Resp 16 09/22/24 08:30 BP 128/74 09/22/24 07:35 Pulse Ox 97 09/22/24 07:35 FiO2 Intake & Output 09/21/24 09/22/24 09/22/24 18:59 06:59 18:59 Output Total 1200 1200 Balance -1200 -1200 Output: Urine 1200 1200 Other: Voiding Method Indwelling Catheter Indwelling Catheter Indwelling Catheter # Voids 1 # Bowel Movements 1 - Labs CBC & Chem 7: 09/22/24 05:08 09/22/24 05:08 Labs: Abnormal Lab Results - Last 24 Hours (Table) 09/21/24 09/21/24 09/22/24 Range/Units 17:22 19:55 05:08 WBC 14.56 H (4.50-10.00) X 10*3/uL MCV 97.6 H (80.0-97.0) FL MCHC 31.9 L (32.0-37.0) g/dL Immature Gran # 0.06 H (0.00-0.04) X 10*3/uL Neutrophils # 11.78 H (1.80-7.70) X 10*3/uL Sodium (135-145) mmol/L Chloride (96-109) mmol/L Carbon Dioxide (21.6-31.8) mmol/L Anion Gap (4.00-12.00) mmol/L BUN (9.0-27.0) mg/dL Est GFR (CKD-EPI) (>=60) BUN/Creatinine Ratio (12.00-20.00) Ratio Glucose (70-110) mg/dL POC Glucose (mg/dL) 179 H 202 H (70-110) mg/dL Albumin/Globulin Ratio (1.60-3.17) Ratio 09/22/24 09/22/24 09/22/24 Range/Units 05:08 05:36 12:38 WBC (4.50-10.00) X 10*3/uL MCV (80.0-97.0) FL MCHC (32.0-37.0) g/dL Immature Gran # (0.00-0.04) X 10*3/uL Neutrophils # (1.80-7.70) X 10*3/uL Sodium 146 H (135-145) mmol/L Chloride 112 H (96-109) mmol/L Carbon Dioxide 20.8 L (21.6-31.8) mmol/L Anion Gap 13.20 H (4.00-12.00) mmol/L BUN 30.9 H (9.0-27.0) mg/dL Est GFR (CKD-EPI) 56 L (>=60) BUN/Creatinine Ratio 30.90 H (12.00-20.00) Ratio Glucose 171 H (70-110) mg/dL POC Glucose (mg/dL) 151 H 198 H (70-110) mg/dL Albumin/Globulin Ratio 1.58 L (1.60-3.17) Ratio
[2024-09-22 17:26] LABS: Glucose,Whole Blood 177 mg/dL (70-110)
--- NOTE | 2024-09-22 18:09 | P.PN ---
Subjective Progress Note Date: 09/22/24 Earle Stevenson, is a 84-year-old female patient of Dr. Jonas who presented with complaints of increased confusion upon awakening this a.m. no focal weakness noted. Patient's episode lasted about 30 minutes patient does have a past medical history of heart failure, CVA, hyperlipidemia, breast cancer, CHF. Head CT was completed showing no acute intracranial hemorrhage or midline shift. CTA completed showing no evidence of significant stenosis. At this time patient will be admitted neurology and cardiology services consulted 2D echo has been ordered. Patient is resting comfortably in chair. Patient denies chest pain or shortness of breath. Patient denies nausea vomiting or diarrhea. Patie nt denies any urinary burning or frequency. Current vital signs temp 97.9, heart rate 113/64 with pulse ox 96% on room air On 09/19/2024 patient is alert and oriented x 3. Patient to undergo EEG and repeat CT scan today. Cardiology and neurology services following. No new neurological symptoms. Patient denies chest pain or shortness of breath. Patient denies nausea vomiting or diarrhea. Patient denies any urinary burning or frequency current vital signs temp 97.4, heart rate 71, respiratory rate 16, blood pressure 147/79 with a pulse ox of 98% on room air On 09/20/2024 patient was seen and examined on the medical floor, she is alert responsive in no apparent distress. She still has significant expressive aphasia, she underwent CT scan of the brain today which revealed evidence of d eveloping acute medial left frontal lobe infarct, currently she is maintained on Plavix and aspirin neurology and cardiology are following physical therapy and Occupational Therapy consulted speech therapy consulted, will follow closely. On 09/21/2024 patient is alert and oriented x 3. Per nursing staff patient had postvoid residuals of over 700 throughout the night requiring Esposito catheter. At this time will consult urology services and add Flomax. Patient denies chest pain or shortness of breath. Patient denies nausea vomiting or diarrhea. Patient denies any urinary burning or frequency On 09/22/2024 patient was seen and examined on the medical floor she is alert and oriented in no apparent distress there is no fever or chills no headache or dizziness no chest pain no shortness of breath no cough no nausea or vomiting no abdominal pain no diarrhea and no urinary symptoms. Patient had urinary retention and has a Esposito catheter in at this time, she was evaluated by urology and recommendation is to keep Esposito catheter in for the next couple of weeks, and follow-up with urology as outpatient. Discharge planning was discussed in details with patient and family, patient and her want the patient to be discharged to home, also her daughter is asking for her to be discharged home with home care and is willing to stay with her for the next couple of weeks to help her father take care of her. However, patient's son is requesting transferring patient to rehab. I will meet with him tomorrow, and assess discharge destination. Objective - Vital Signs Vital signs: Vital Signs Temp 97.9 F 09/22/24 15:00 Pulse 74 09/22/24 15:00 Resp 16 09/22/24 15:00 BP 112/68 09/22/24 15:00 Pulse Ox 97 09/22/24 15:00 FiO2 Intake & Output 09/21/24 09/22/24 09/22/24 18:59 06:59 18:59 Intake Total 238 Output Total 1200 1200 380 Balance -1200 -1200 -142 Intake: Oral 238 Output: Urine 1200 1200 380 Other: Voiding Method Indwelling Catheter Indwelling Catheter Indwelling Catheter # Voids 1 # Bowel Movements 1 - Exam In general patient is alert and oriented Ã-3 in no distress HEENT head normocephalic and atraumatic Neck is supple no JVD no goiter no lymphadenopathy no carotid bruit Chest examination is clear to auscultation no crackles no wheezing Cardiac exam reveals regular heart sounds S1 and S2 no gallops no murmurs Abdomen is soft nontender no organomegaly with normal bowel sounds Extremity exam reveals no edema no cyanosis or clubbing Neurological examination reveals no gross focal deficits - Labs CBC & Chem 7: 09/22/24 05:08 09/22/24 05:08 Labs: Abnormal Lab Results - Last 24 Hours (Table) 09/21/24 09/22/24 09/22/24 Range/Units 19:55 05:08 05:08 WBC 14.56 H (4.50-10.00) X 10*3/uL MCV 97.6 H (80.0-97.0) FL MCHC 31.9 L (32.0-37.0) g/dL Immature Gran # 0.06 H (0.00-0.04) X 10*3/uL Neutrophils # 11.78 H (1.80-7.70) X 10*3/uL Sodium 146 H (135-145) mmol/L Chloride 112 H (96-109) mmol/L Carbon Dioxide 20.8 L (21.6-31.8) mmol/L Anion Gap 13.20 H (4.00-12.00) mmol/L BUN 30.9 H (9.0-27.0) mg/dL Est GFR (CKD-EPI) 56 L (>=60) BUN/Creatinine Ratio 30.90 H (12.00-20.00) Ratio Glucose 171 H (70-110) mg/dL POC Glucose (mg/dL) 202 H (70-110) mg/dL Albumin/Globulin Ratio 1.58 L (1.60-3.17) Ratio 09/22/24 09/22/24 09/22/24 Range/Units 05:36 12:38 17:25 WBC (4.50-10.00) X 10*3/uL MCV (80.0-97.0) FL MCHC (32.0-37.0) g/dL Immature Gran # (0.00-0.04) X 10*3/uL Neutrophils # (1.80-7.70) X 10*3/uL Sodium (135-145) mmol/L Chloride (96-109) mmol/L Carbon Dioxide (21.6-31.8) mmol/L Anion Gap (4.00-12.00) mmol/L BUN (9.0-27.0) mg/dL Est GFR (CKD-EPI) (>=60) BUN/Creatinine Ratio (12.00-20.00) Ratio Glucose (70-110) mg/dL POC Glucose (mg/dL) 151 H 198 H 177 H (70-110) mg/dL Albumin/Globulin Ratio (1.60-3.17) Ratio Assessment and Plan Assessment: 1. TIA episode with episode of confusion and aphasia repeat CT positive for left frontal ischemic infarct 2. History of previous TIA 3. History of breast cancer 4. History of congestive heart failure 5. History of diabetes mellitus 6. History of hyperlipidemia 7. Urinary retention. Esposito catheter placed Flomax added urology services consulted DVT prophylaxis Lovenox. GI prophylaxis Pepcid Neurology and cardiology services consulted Patient was started on aspirin and Plavix Unable to get MRI due to pacemaker PT OT and speech services consulted
[2024-09-22 20:32] LABS: Glucose,Whole Blood 170 mg/dL (70-110)
[2024-09-23 05:50] LABS: Glucose,Whole Blood 84 mg/dL (70-110)
--- NOTE | 2024-09-23 06:55 | P.PN ---
Subjective Progress Note Date: 09/22/24 Patient was initially seen by Dr. Salinas Veloz and then by Dr. Sorto. Please refer to their notes for details. Patient is a 84-year-old female with expressive aphasia and confusion. EEG was negative for seizures. Patient has defibrillator, therefore cannot have MRI. Patient was seen for a follow-up. Patient denies any headache, or dizziness. Patient has much improved. Offers no new complaints. Some of the workup during this hospital visit consisted of: Lipid panel: Is triglycerides 133, cholesterol is 133, LDL is 58 and HDL is 48 Vitamin B12 is 923 Ammonia level is less than 9 Serum folate is 34.[address] of the head is reported as no acute intracranial hemorrhage or midline shift. I personally reviewed the CT and agree with the report. CT angiography of the head and neck is reported as no evidence of significant stenosis at the carotid bifurcation. No evidence of intracranial large vessel occlusion or intracranial aneurysm. Echo is reported as impaired left ventricular function with ejection fraction of 40 to 45%. Extremely calcified mitral valve apparatus and moderate mitral stenosis was identified. Objective - Vital Signs Vital signs: Vital Signs Temp 97.7 F 09/22/24 19:36 Pulse 77 09/22/24 19:36 Resp 16 09/22/24 19:36 BP 140/78 09/22/24 19:36 Pulse Ox 93 L 09/22/24 19:36 FiO2 Intake & Output 09/22/24 09/22/24 09/23/24 06:59 18:59 06:59 Intake Total 356 Output Total 1200 380 Balance -1200 -24 Intake: Oral 356 Output: Urine 1200 380 Other: Voiding Method Indwelling Catheter Indwelling Catheter # Bowel Movements 1 - Exam On examination patient is an elderly female, very pleasant, in no acute distress. She knows it is September 2024 and that she is in [facility] in [place]. Speech and language functions are normal. On cranial nerves pupils are equal, round and reactive to light, visual salcido are full, face is symmetric and tongue protrudes the midline. On muscle strength testing, there is no pronator drift and the strength is grossly normal in the arms and legs except deltoid region at about 5-bilaterally. Sensory to touch is equal with no neglect. No ataxia for [id number] testing. - Labs CBC & Chem 7: 09/22/24 05:08 09/22/24 05:08 Labs: Abnormal Lab Results - Last 24 Hours (Table) 09/21/24 09/22/24 09/22/24 Range/Units 19:55 05:08 05:08 WBC 14.56 H (4.50-10.00) X 10*3/uL MCV 97.6 H (80.0-97.0) FL MCHC 31.9 L (32.0-37.0) g/dL Immature Gran # 0.06 H (0.00-0.04) X 10*3/uL Neutrophils # 11.78 H (1.80-7.70) X 10*3/uL Sodium 146 H (135-145) mmol/L Chloride 112 H (96-109) mmol/L Carbon Dioxide 20.8 L (21.6-31.8) mmol/L Anion Gap 13.20 H (4.00-12.00) mmol/L BUN 30.9 H (9.0-27.0) mg/dL Est GFR (CKD-EPI) 56 L (>=60) BUN/Creatinine Ratio 30.90 H (12.00-20.00) Ratio Glucose 171 H (70-110) mg/dL POC Glucose (mg/dL) 202 H (70-110) mg/dL Albumin/Globulin Ratio 1.58 L (1.60-3.17) Ratio 09/22/24 09/22/24 09/22/24 Range/Units 05:36 12:38 17:25 WBC (4.50-10.00) X 10*3/uL MCV (80.0-97.0) FL MCHC (32.0-37.0) g/dL Immature Gran # (0.00-0.04) X 10*3/uL Neutrophils # (1.80-7.70) X 10*3/uL Sodium (135-145) mmol/L Chloride (96-109) mmol/L Carbon Dioxide (21.6-31.8) mmol/L Anion Gap (4.00-12.00) mmol/L BUN (9.0-27.0) mg/dL Est GFR (CKD-EPI) (>=60) BUN/Creatinine Ratio (12.00-20.00) Ratio Glucose (70-110) mg/dL POC Glucose (mg/dL) 151 H 198 H 177 H (70-110) mg/dL Albumin/Globulin Ratio (1.60-3.17) Ratio Assessment and Plan Assessment: 1. The patient is an 84-year-old female with expressive aphasia. Repeat CT scan of the brain is positive for left frontal ischemic infarct. 2. Underlying history of congestive heart failure status post pacemaker 3. History of breast cancer bilateral status post lumpectomies and chemoradiation therapy 4. Diabetes mellitus 5. Hyperlipidemia Plan: 1. MRI of the brain is unable to be obtained at our facility secondary to pacemaker. Repeat CT head confirmed CVA involving left frontal lobe. 2. Continue aspirin and Plavix 3. Continue high-dose statin. LDL is well controlled 58.3, continue home dose of Crestor 20 mg daily at night. 4. Continue speech therapy 5. Hemoglobin A1c 7.3. Recommend optimize control of diabetes to target A1c < 7.0. 6. Cardiology following. Pacemaker interrogation rule out paroxysmal atrial fibrillation. 7. 2-D echo revealed LVEF decreased 40-45%. Mildly reduced global left and clear systolic function. Severe right ventricular dilation. Normal left atrial size. Moderate thickening/calcification of the anterior, posterior wall thic kness and moderate mitral stenosis. Normally functioning bioprosthetic aortic valve without stenosis. Cardiology on board. Consider HECTOR rule out embolic source with abnormal transthoracic echo. 8. Patient was already on aspirin 81 mg and Plavix 75 mg daily at home. Patient has failed this regimen. Need to rule out embolic source. We will reconsult cardiology for transesophageal echocardiogram.
--- NOTE | 2024-09-23 09:29 | P.PN ---
Subjective Progress Note Date: 09/23/24 Earle Stevenson, is a 84-year-old female patient of Dr. Jonas who presented with complaints of increased confusion upon awakening this a.m. no focal weakness noted. Patient's episode lasted about 30 minutes patient does have a past medical history of heart failure, CVA, hyperlipidemia, breast cancer, CHF. Head CT was completed showing no acute intracranial hemorrhage or midline shift. CTA completed showing no evidence of significant stenosis. At this time patient will be admitted neurology and cardiology services consulted 2D echo has been ordered. Patient is resting comfortably in chair. Patient denies chest pain or shortness of breath. Patient denies nausea vomiting or diarrhea. Patie nt denies any urinary burning or frequency. Current vital signs temp 97.9, heart rate 113/64 with pulse ox 96% on room air On 09/19/2024 patient is alert and oriented x 3. Patient to undergo EEG and repeat CT scan today. Cardiology and neurology services following. No new neurological symptoms. Patient denies chest pain or shortness of breath. Patient denies nausea vomiting or diarrhea. Patient denies any urinary burning or frequency current vital signs temp 97.4, heart rate 71, respiratory rate 16, blood pressure 147/79 with a pulse ox of 98% on room air On 09/20/2024 patient was seen and examined on the medical floor, she is alert responsive in no apparent distress. She still has significant expressive aphasia, she underwent CT scan of the brain today which revealed evidence of d eveloping acute medial left frontal lobe infarct, currently she is maintained on Plavix and aspirin neurology and cardiology are following physical therapy and Occupational Therapy consulted speech therapy consulted, will follow closely. On 09/21/2024 patient is alert and oriented x 3. Per nursing staff patient had postvoid residuals of over 700 throughout the night requiring Esposito catheter. At this time will consult urology services and add Flomax. Patient denies chest pain or shortness of breath. Patient denies nausea vomiting or diarrhea. Patient denies any urinary burning or frequency On 09/22/2024 patient was seen and examined on the medical floor she is alert and oriented in no apparent distress there is no fever or chills no headache or dizziness no chest pain no shortness of breath no cough no nausea or vomiting no abdominal pain no diarrhea and no urinary symptoms. Patient had urinary retention and has a Esposito catheter in at this time, she was evaluated by urology and recommendation is to keep Esposito catheter in for the next couple of weeks, and follow-up with urology as outpatient. Discharge planning was discussed in details with patient and family, patient and her want the patient to be discharged to home, also her daughter is asking for her to be discharged home with home care and is willing to stay with her for the next couple of weeks to help her father take care of her. However, patient's son is requesting transferring patient to rehab. I will meet with him tomorrow, and assess discharge destination. On 09/23/2024 patient is alert and oriented x 3. Esposito catheter remains in place. Neurology services also recommending HECTOR. Per nursing staff cardiology is aware awaiting further recommendations. At this time patient denies chest pain or shortness of breath. Patient denies nausea vomiting or diarrhea. Patient denies any urinary burning or frequency Objective - Vital Signs Vital signs: Vital Signs Temp 98.5 F 09/23/24 07:15 Pulse 76 09/23/24 07:15 Resp 17 09/23/24 07:15 BP 126/58 09/23/24 07:15 Pulse Ox 93 L 09/23/24 07:15 FiO2 Intake & Output 09/22/24 09/23/24 09/23/24 18:59 06:59 18:59 Intake Total 356 Output Total 380 1000 Balance -24 -1000 Intake: Oral 356 Output: Urine 380 1000 Other: Voiding Method Indwelling Catheter Indwelling Catheter # Bowel Movements 1 - Exam In general patient is alert and oriented Ã-3 in no distress HEENT head normocephalic and atraumatic Neck is supple no JVD no goiter no lymphadenopathy no carotid bruit Chest examination is clear to auscultation no crackles no wheezing Cardiac exam reveals regular heart sounds S1 and S2 no gallops no murmurs Abdomen is soft nontender no organomegaly with normal bowel sounds Extremity exam reveals no edema no cyanosis or clubbing Neurological examination reveals no gross focal deficits - Labs CBC & Chem 7: 09/22/24 05:08 09/22/24 05:08 Labs: Abnormal Lab Results - Last 24 Hours (Table) 09/22/24 09/22/24 09/22/24 Range/Units 12:38 17:25 20:31 POC Glucose (mg/dL) 198 H 177 H 170 H (70-110) mg/dL Assessment and Plan Assessment: 1. TIA episode with episode of confusion and aphasia repeat CT positive for left frontal ischemic infarct 2. History of previous TIA 3. History of breast cancer 4. History of congestive heart failure 5. History of diabetes mellitus 6. History of hyperlipidemia 7. Urinary retention. Esposito catheter placed Flomax added urology services consulted DVT prophylaxis Lovenox. GI prophylaxis Pepcid Neurology and cardiology services consulted Patient was started on aspirin and Plavix Unable to get MRI due to pacemaker PT OT and speech services consulted
[2024-09-23] MEDS ORDERED: MIDAZOLAM 2 MG/2 ML VIAL IV PRN (10:29)
[2024-09-23] MEDS ORDERED: fentaNYL (PF) 50 MCG/ML 5 ML AMP IVP PRN (10:29)
--- NOTE | 2024-09-23 10:35 | P.PN ---
Subjective Progress Note Date: 09/23/24 This is a 84-year-old female with a past medical history significant for valvular heart disease with previous TAVR, moderate to severe MR, pacemaker implantation, hypertension, hyperlipidemia, carotid atherosclerosis, breast cancer with mastectomy, nonischemic cardiomyopathy. Patient follows in the office with Dr. Pablo. We have been asked to see the patient in consultation for CVA. Patient examined at the bedside. Patient presented to the hospital with altered mental status per her . Patient is a poor historian this morning. There is no family present with her. The patient denied having any chest pain or pressure. She denied having any shortness of breath. The patient does appear to have expressive aphasia during examination this morning. Patient is able to answer some questions appropriately but majority of questions she answers with "okay". DIAGNOSTICS: - EKG reveals paced/sinus mechanism with left bundle branch block. Repeat EKG reveals sinus mechanism.. - CT brain negative for intracranial hemorrhage or midline shift - Laboratory data: WBC 8.26. Hemoglobin 13.4. Platelet count 173. Sodium 141. Potassium 4.4. BUN 27. Creatinine 0.92. Troponin negative x 1. - Current home cardiac medications include 3.125 mg twice a day, Entresto 24-26 mg twice a day, rosuvastatin 20 mg daily, Imdur 30 mg twice a day, digoxin 125mcg daily, Plavix 75 mg daily. - Most recent echocardiogram obtained in February 2024 revealed ejection fraction 45%, moderate TR, prosthetic aortic valve, moderate to severe MR - Cardiac catheterization history: April 2022 revealing normal coronary arteries 09/20/2024 Patient was seen and examined resting comfortably in bed. Continues to have some expressive aphasia and answering "okay"to majority of questions. Complains of left-sided weakness. [employer] airline security representative was spoken to yesterday and pacemaker is MRI conditional. According to nursing staff MRI is unable to be completed here due to pacemaker despite [employer] recommendations. Echocardiogram with Doppler study showed ejection fraction of 40 to 45% with bioprosthetic aortic valve and moderate mitral stenosis. 09/21/2024 Patient seen and examined sitting up in a chair. Overall feeling a bit better. She feels her speech is improving. Weakness is better. She is maintaining sinus mechanism. CT scan of the brain done yesterday showed findings compatible with developing acute medial left frontal lobe infarct. Neurology is following. 09/22/2024 Denies any chest pain chest pressure. BP 128/74, heart rate 72 bpm 09/23 Cardiology has been reconsulted by neurology to perform HECTOR due to left frontal ischemic infarct rule out embolic source. Patient will be scheduled for this tomorrow with Dr. Pablo. PHYSICAL EXAM: VITAL SIGNS: Reviewed. GENERAL: Well-developed in no acute distress. HEENT: Head is normocephalic. Pupils are equal, round. Sclerae anicteric. Mucous membranes of the mouth are moist. Neck supple. No JVD or thyromegaly LUNGS: Respirations even and unlabored. Lungs essentially clear to auscultation bilaterally. HEART: Regular rate and rhythm. S1 and S2 heard. ABDOMEN: Soft. Nondistended. Nontender. EXTREMITIES: Normal range of motion. No clubbing or cyanosis. Peripheral pulses intact. No lower extremity edema NEUROLOGIC: Awake and alert. Oriented x 3. ASSESSMENT: Episode of unresponsiveness with expressive aphasia, left frontal ischemic infarct Valvular heart disease with previous TAVR Moderate to severe mitral regurgitation Moderate tricuspid regurgitation History of pacemaker implantation, [employer] Carotid atherosclerosis Normal coronary arteries per cath 2021 History of breast cancer with mastectomy History of nonischemic cardiomyopathy, 45% PLAN: There has been no evidence of arrhythmia. Schedule patient for HECTOR tomorrow with Dr. Pablo N.p.o. after midnight Recommend outpatient follow-up with device clinic on routine basis to make sure there is subclinical atrial fibrillation Continue aspirin, Lipitor, Coreg, Plavix, Farxiga Imdur and Entresto. For some reason patient is on digoxin. At this time we will continue without any changes At this time patient is stable from cardiovascular standpoint. Recommend outpatient follow-up with cardiology. Nurse practitioner note has been reviewed, I agree with documented findings and plan of care. Patient was seen and examined. Objective - Vital Signs Vital signs: Vital Signs Temp 98.5 F 09/23/24 07:15 Pulse 76 09/23/24 07:15 Resp 17 09/23/24 09:30 BP 126/58 09/23/24 07:15 Pulse Ox 93 L 09/23/24 07:15 FiO2 Intake & Output 09/22/24 09/23/24 09/23/24 18:59 06:59 18:59 Intake Total 356 Output Total 380 1000 Balance -24 -1000 Intake: Oral 356 Output: Urine 380 1000 Other: Voiding Method Indwelling Catheter Indwelling Catheter Indwelling Catheter # Bowel Movements 1 - Labs CBC & Chem 7: 09/22/24 05:08 09/22/24 05:08 Labs: Abnormal Lab Results - Last 24 Hours (Table) 09/22/24 09/22/24 09/22/24 Range/Units 12:38 17:25 20:31 POC Glucose (mg/dL) 198 H 177 H 170 H (70-110) mg/dL
[2024-09-23 12:15] LABS: Glucose,Whole Blood 143 mg/dL (70-110)
[2024-09-23 17:26] LABS: Glucose,Whole Blood 183 mg/dL (70-110)
[2024-09-23 20:49] LABS: Glucose,Whole Blood 118 mg/dL (70-110)
[2024-09-24 06:38] LABS: Glucose,Whole Blood 55 mg/dL (70-110)
[2024-09-24] MEDS ORDERED: DEXTROSE 50% SYRINGE 50 ML IVP PRN (06:42)
[2024-09-24] MEDS: DEXTROSE 50% SYRINGE 50 ML IVP PRN (06:51)
[2024-09-24 07:16] LABS: Glucose,Whole Blood 148 mg/dL (70-110)
[2024-09-24 08:25] LABS: Glucose,Whole Blood 97 mg/dL (70-110)
[2024-09-24 08:30] LABS: Basophils # (A) 0.05 X 10*3/uL (0.00-0.10); Basophils % (A) 0.5 %; Eosinophils # (A) 0.16 X 10*3/uL (0.04-0.35); Eosinophils % (A) 1.7 %; HCT 37.9 % (37.2-46.3); HGB 12.2 g/dL (12.0-15.0); Lymphocytes # (A) 1.32 X 10*3/uL (0.90-5.00); Lymphocytes % (A) 14.1 %; MCHC 32.2 g/dL (32.0-37.0); MCV 96.4 FL (80.0-97.0); Mean Platelet Volume 11.1 FL (9.5-12.2); Monocytes # (A) 1.13 X 10*3/uL (0.20-1.00); Monocytes % (A) 12.1 %; NRBC Per 100 WBC 0 X 10*3/uL (0.00-0.01); Neutrophils # (A) 6.63 X 10*3/uL (1.80-7.70); Neutrophils % (A) 71.1 %; Platelet Count 171 X 10*3/uL (140-440); RBC 3.93 X 10*6/uL (4.10-5.20); RDW 13.7 % (11.5-14.5); WBC 9.34 X 10*3/uL (4.50-10.00)
[2024-09-24] MEDS: BENZOCAINE SPRAY 1 EACH TOPICAL ONE (08:31)
[2024-09-24 08:40] LABS: Carbon Dioxide 21.4 mmol/L (21.6-31.8); Chloride 110 mmol/L (96-109); Glucose 49 mg/dL (70-110); Potassium 3.6 mmol/L (3.5-5.5); Sodium 143 mmol/L (135-145)
[2024-09-24 08:41] LABS: ALT 19 U/L (8-44); AST 26 U/L (13-35); Albumin 3.5 g/dL (3.8-4.9); Albumin/Globulin Ratio 1.59 Ratio (1.60-3.17); Alkaline Phosphatase 50 U/L (41-126); Calcium 8.3 mg/dL (8.7-10.3); Globulin 2.2 g/dL (1.6-3.3); Total Bilirubin 0.7 mg/dL (0.3-1.2); Total Protein 5.7 g/dL (6.2-8.2)
[2024-09-24] MEDS: fentaNYL (PF) 50 MCG/ML 2 ML AMP IVP ONE ×3 (08:42)
[2024-09-24] MEDS: MIDAZOLAM 2 MG/2 ML VIAL IVP ONE ×2 (08:42)
--- NOTE | 2024-09-24 08:47 | P.PN ---
Subjective Progress Note Date: 09/23/24 09/23/2024: Patient was seen for follow-up. Patient is laying comfortably in the bed. Offers no new complaints. Patient denies headache. 09/22/2024: Patient was initially seen by Dr. Salinas Veloz and then by Dr. Sorto. Please refer to their notes for details. Patient is a 84-year-old female with expressive aphasia and confusion. EEG was negative for seizures. Patient has defibrillator, therefore cannot have MRI. Patient was seen for a follow-up. Patient denies any headache, or dizziness. Patient has much improved. Offers no new complaints. Some of the workup during this hospital visit consisted of: Lipid panel: Is triglycerides 133, cholesterol is 133, LDL is 58 and HDL is 48 Vitamin B12 is 923 Ammonia level is less than 9 Serum folate is 34.[address] of the head is reported as no acute intracranial hemorrhage or midline shift. I personally reviewed the CT and agree with the report. CT angiography of the head and neck is reported as no evidence of significant stenosis at the carotid bifurcation. No evidence of intracranial large vessel occlusion or intracranial aneurysm. Echo is reported as impaired left ventricular function with ejection fraction of 40 to 45%. Extremely calcified mitral valve apparatus and moderate mitral stenosis was identified. Objective - Vital Signs Vital signs: Vital Signs Temp 98.6 F 09/24/24 07:00 Pulse 111 H 09/24/24 07:00 Resp 16 09/24/24 07:56 BP 118/66 09/24/24 07:00 Pulse Ox 94 L 09/24/24 07:00 FiO2 Intake & Output 09/23/24 09/24/24 09/24/24 18:59 06:59 18:59 Intake Total 120 Output Total 600 620 Balance -480 -620 Intake: Oral 120 Output: Urine 600 620 Other: Voiding Method Indwelling Catheter Indwelling Catheter Indwelling Catheter - Exam On examination patient is an elderly female, very pleasant, in no acute distress. She knows it is September 2024 and that she is in [facility] in [place]. Speech and language functions are normal. Patient can name Moy, earlobes and can repeat. On cranial nerves pupils are equal, round and reactive to light, visual salcido are full, face is symmetric and tongue protrudes the midline. On muscle strength testing, there is no pronator drift and the strength is grossly normal in the arms and legs except deltoid region at about 5- bilaterally. Sensory to touch is equal with no neglect. No ataxia for [id number] testing. - Labs CBC & Chem 7: 09/24/24 03:28 09/24/24 03:28 Labs: Abnormal Lab Results - Last 24 Hours (Table) 09/23/24 09/23/24 09/23/24 Range/Units 12:13 17:24 20:47 RBC (4.10-5.20) X 10*6/uL Immature Gran # (0.00-0.04) X 10*3/uL Monocytes # (0.20-1.00) X 10*3/uL Chloride (96-109) mmol/L Carbon Dioxide (21.6-31.8) mmol/L Est GFR (CKD-EPI) (>=60) BUN/Creatinine Ratio (12.00-20.00) Ratio Glucose (70-110) mg/dL POC Glucose (mg/dL) 143 H 183 H 118 H (70-110) mg/dL Calcium (8.7-10.3) mg/dL Total Protein (6.2-8.2) g/dL Albumin (3.8-4.9) g/dL Albumin/Globulin Ratio (1.60-3.17) Ratio 09/24/24 09/24/24 09/24/24 Range/Units 03:28 03:28 06:36 RBC 3.93 L (4.10-5.20) X 10*6/uL Immature Gran # 0.05 H (0.00-0.04) X 10*3/uL Monocytes # 1.13 H (0.20-1.00) X 10*3/uL Chloride 110 H (96-109) mmol/L Carbon Dioxide 21.4 L (21.6-31.8) mmol/L Est GFR (CKD-EPI) 56 L (>=60) BUN/Creatinine Ratio 26.00 H (12.00-20.00) Ratio Glucose 49 A* (70-110) mg/dL POC Glucose (mg/dL) 55 L (70-110) mg/dL Calcium 8.3 L (8.7-10.3) mg/dL Total Protein 5.7 L (6.2-8.2) g/dL Albumin 3.5 L (3.8-4.9) g/dL Albumin/Globulin Ratio 1.59 L (1.60-3.17) Ratio 09/24/ Range/Units 07:15 RBC (4.10-5.20) X 10*6/uL Immature Gran # (0.00-0.04) X 10*3/uL Monocytes # (0.20-1.00) X 10*3/uL Chloride (96-109) mmol/L Carbon Dioxide (21.6-31.8) mmol/L Est GFR (CKD-EPI) (>=60) BUN/Creatinine Ratio (12.00-20.00) Ratio Glucose (70-110) mg/dL POC Glucose (mg/dL) 148 H (70-110) mg/dL Calcium (8.7-10.3) mg/dL Total Protein (6.2-8.2) g/dL Albumin (3.8-4.9) g/dL Albumin/Globulin Ratio (1.60-3.17) Ratio Assessment and Plan Assessment: 1. The patient is an 84-year-old female with expressive aphasia. Repeat CT scan of the brain is positive for left frontal ischemic infarct. 2. Underlying history of congestive heart failure status post pacemaker 3. History of breast cancer bilateral status post lumpectomies and chemoradiation therapy 4. Diabetes mellitus 5. Hyperlipidemia Plan: 1. MRI of the brain is unable to be obtained at our facility secondary to pacemaker. Repeat CT head confirmed CVA involving left frontal lobe. 2. Continue aspirin and Plavix 3. Continue high-dose statin. LDL is well controlled 58.3, continue home dose of Crestor 20 mg daily at night. 4. Continue speech therapy 5. Hemoglobin A1c 7.3. Recommend optimize control of diabetes to target A1c < 7.0. 6. Cardiology following. Pacemaker interrogation rule out paroxysmal atrial fibrillation. 7. 2-D echo revealed LVEF decreased 40-45%. Mildly reduced global left and clear systolic function. Severe right ventricular dilation. Normal left atrial size. Moderate thickening/calcification of the anterior, posterior wall thick ness and moderate mitral stenosis. Normally functioning bioprosthetic aortic valve without stenosis. Cardiology on board. Patient undergoing transesophageal echocardiogram in the morning. 8. Patient was already on aspirin 81 mg and Plavix 75 mg daily at home. Patient has failed this regimen. Need to rule out embolic source.
[2024-09-24] MEDS: BENZOCAINE SPRAY 1 EACH MM ONE (09:00)
--- NOTE | 2024-09-24 10:24 | P.PCN ---
Date of Procedure: 09/24/24 Operative Findings: TRANSESOPHAGEAL ECHOCARDIOGRAM MATERIALS HANDLING EQUIPMENT OPERATOR: CLIFTON ESTRADA MD, RPVI INDICATION: Rule out cardiac source of embolization in somebody who was admitted to the hospital with a stroke SEDATION: Conscious sedation COMPLICATION: None LEVEL OF SEDATION Moderate with sedation length of 20 minutes PROCEDURE DESCRIPTION: After obtaining an informed consent, the patient was brought to transesophageal echocardiogram room. Pulse oximetry and heart monitors were attached to the patient. The patient throat was sprayed using lidocaine. The patient was turned into left lateral position. After that a bite guard was placed. After an appropriate conscious sedation was initiated, the transesophageal echocardiogram was advanced through a bite guard into the mid esophagus. A 2-D echocardiogram images, color Doppler images, continuous wave images, pulse-wave images, of various cardiac structure were performed. After that the transesophageal echocardiogram probe was advanced into the stomach and fixed to obtain transgastric view was. The probe was brought into the mid esophagus. I nter-atrial septum was interrogated using 2D images, color Doppler images, and then contrast study. After that transesophageal echocardiogram was withdrawn out and upon withdrawing the descending thoracic aorta all the way up to the arch was evaluated. CONCLUSION: 1. Intact interatrial septum with no evidence of shunt 2. Intact left atrial appendage with no evidence of thrombus 3. Overall no evidence of cardiac source of embolization 4. Normally functioning transcatheter valve 5. Thickened mitral valve leaflets with moderate mitral regurgitation 6. Moderate tricuspid regurgitation
--- NOTE | 2024-09-24 10:48 | P.PN ---
Subjective Progress Note Date: 09/24/24 This is a 84-year-old female with a past medical history significant for valvular heart disease with previous TAVR, moderate to severe MR, pacemaker implantation, hypertension, hyperlipidemia, carotid atherosclerosis, breast cancer with mastectomy, nonischemic cardiomyopathy. Patient follows in the office with Dr. Pablo. We have been asked to see the patient in consultation for CVA. Patient examined at the bedside. Patient presented to the hospital with altered mental status per her . Patient is a poor historian this morning. There is no family present with her. The patient denied having any chest pain or pressure. She denied having any shortness of breath. The patient does appear to have expressive aphasia during examination this morning. Patient is able to answer some questions appropriately but majority of questions she answers with "okay". DIAGNOSTICS: - EKG reveals paced/sinus mechanism with left bundle branch block. Repeat EKG reveals sinus mechanism.. - CT brain negative for intracranial hemorrhage or midline shift - Laboratory data: WBC 8.26. Hemoglobin 13.4. Platelet count 173. Sodium 141. Potassium 4.4. BUN 27. Creatinine 0.92. Troponin negative x 1. - Current home cardiac medications include 3.125 mg twice a day, Entresto 24-26 mg twice a day, rosuvastatin 20 mg daily, Imdur 30 mg twice a day, digoxin 125mcg daily, Plavix 75 mg daily. - Most recent echocardiogram obtained in February 2024 revealed ejection fraction 45%, moderate TR, prosthetic aortic valve, moderate to severe MR - Cardiac catheterization history: April 2022 revealing normal coronary arteries 09/20/2024 Patient was seen and examined resting comfortably in bed. Continues to have some expressive aphasia and answering "okay"to majority of questions. Complains of left-sided weakness. [employer] workforce services representative was spoken to yesterday and pacemaker is MRI conditional. According to nursing staff MRI is unable to be completed here due to pacemaker despite [employer] recommendations. Echocardiogram with Doppler study showed ejection fraction of 40 to 45% with bioprosthetic aortic valve and moderate mitral stenosis. 09/21/2024 Patient seen and examined sitting up in a chair. Overall feeling a bit better. She feels her speech is improving. Weakness is better. She is maintaining sinus mechanism. CT scan of the brain done yesterday showed findings compatible with developing acute medial left frontal lobe infarct. Neurology is following. 09/22/2024 Denies any chest pain chest pressure. BP 128/74, heart rate 72 bpm 09/23 Cardiology has been reconsulted by neurology to perform HECTOR due to left frontal ischemic infarct rule out embolic source. Patient will be scheduled for this tomorrow with Dr. Pablo. 09/24 Patient underwent HECTOR with Dr. Pablo which revealed no evidence of shunt, left atrial appendage with no evidence of thrombus. No cardiac source of emboli zation identified. Patient has a normally functioning transcatheter valve. Thickened mitral valve leaflets with moderate mitral regurgitation. Moderate tricuspid regurgitation. From a cardiology perspective, patient is cleared for discharge and continue on current cardiac medications. Patient will follow-up as an outpatient Dr. Pablo in 1 to 2 weeks. Patient will also have follow-up in the device clinic. PHYSICAL EXAM: VITAL SIGNS: Reviewed. GENERAL: Well-developed in no acute distress. HEENT: Head is normocephalic. Pupils are equal, round. Sclerae anicteric. Mucous membranes of the mouth are moist. Neck supple. No JVD or thyromegaly LUNGS: Respirations even and unlabored. Lungs essentially clear to auscultation bilaterally. HEART: Regular rate and rhythm. S1 and S2 heard. ABDOMEN: Soft. Nondistended. Nontender. EXTREMITIES: Normal range of motion. No clubbing or cyanosis. Peripheral pulses intact. No lower extremity edema NEUROLOGIC: Awake and alert. Oriented x 3. ASSESSMENT: Episode of unresponsiveness with expressive aphasia, left frontal ischemic infarct Valvular heart disease with previous TAVR Moderate to severe mitral regurgitation Moderate tricuspid regurgitation History of pacemaker implantation, [employer] Carotid atherosclerosis Normal coronary arteries per cath 2021 History of breast cancer with mastectomy History of nonischemic cardiomyopathy, 45% PLAN: There has been no evidence of arrhythmia. Recommend outpatient follow-up with device clinic on routine basis to make sure there is subclinical atrial fibrillation Continue aspirin, Lipitor, Coreg, Plavix, Farxiga Imdur and Entresto. For some reason patient is on digoxin. At this time we will continue without any changes At this time patient is stable from cardiovascular standpoint. No further cardiac workup. Patient will follow-up with Dr. Pablo in 1 to 2 weeks Cardiology will sign off this case and follow on an as-needed basis. Please reconsult for any new concerns. Nurse practitioner note has been reviewed, I agree with documented findings and plan of care. Patient was seen and examined. Objective - Vital Signs Vital signs: Vital Signs Temp 98.6 F 09/24/24 07:00 Pulse 111 H 09/24/24 07:00 Resp 16 09/24/24 07:56 BP 118/66 09/24/24 07:00 Pulse Ox 94 L 09/24/24 07:00 FiO2 Intake & Output 09/23/24 09/24/24 09/24/24 18:59 06:59 18:59 Intake Total 120 Output Total 600 620 Balance -480 -620 Intake: Oral 120 Output: Urine 600 620 Other: Voiding Method Indwelling Catheter Indwelling Catheter Indwelling Catheter - Labs CBC & Chem 7: 09/24/24 03:28 09/24/24 03:28 Labs: Abnormal Lab Results - Last 24 Hours (Table) 09/23/24 09/23/24 09/23/24 Range/Units 12:13 17:24 20:47 RBC (4.10-5.20) X 10*6/uL Immature Gran # (0.00-0.04) X 10*3/uL Monocytes # (0.20-1.00) X 10*3/uL Chloride (96-109) mmol/L Carbon Dioxide (21.6-31.8) mmol/L Est GFR (CKD-EPI) (>=60) BUN/Creatinine Ratio (12.00-20.00) Ratio Glucose (70-110) mg/dL POC Glucose (mg/dL) 143 H 183 H 118 H (70-110) mg/dL Calcium (8.7-10.3) mg/dL Total Protein (6.2-8.2) g/dL Albumin (3.8-4.9) g/dL Albumin/Globulin Ratio (1.60-3.17) Ratio 09/24/24 09/24/24 09/24/24 Range/Units 03:28 03:28 06:36 RBC 3.93 L (4.10-5.20) X 10*6/uL Immature Gran # 0.05 H (0.00-0.04) X 10*3/uL Monocytes # 1.13 H (0.20-1.00) X 10*3/uL Chloride 110 H (96-109) mmol/L Carbon Dioxide 21.4 L (21.6-31.8) mmol/L Est GFR (CKD-EPI) 56 L (>=60) BUN/Creatinine Ratio 26.00 H (12.00-20.00) Ratio Glucose 49 A* (70-110) mg/dL POC Glucose (mg/dL) 55 L (70-110) mg/dL Calcium 8.3 L (8.7-10.3) mg/dL Total Protein 5.7 L (6.2-8.2) g/dL Albumin 3.5 L (3.8-4.9) g/dL Albumin/Globulin Ratio 1.59 L (1.60-3.17) Ratio 09/24/24 Range/Units 07:15 RBC (4.10-5.20) X 10*6/uL Immature Gran # (0.00-0.04) X 10*3/uL Monocytes # (0.20-1.00) X 10*3/uL Chloride (96-109) mmol/L Carbon Dioxide (21.6-31.8) mmol/L Est GFR (CKD-EPI) (>=60) BUN/Creatinine Ratio (12.00-20.00) Ratio Glucose (70-110) mg/dL POC Glucose (mg/dL) 148 H (70-110) mg/dL Calcium (8.7-10.3) mg/dL Total Protein (6.2-8.2) g/dL Albumin (3.8-4.9) g/dL Albumin/Globulin Ratio (1.60-3.17) Ratio
[2024-09-24 12:11] LABS: Glucose,Whole Blood 142 mg/dL (70-110)
[2024-09-24 17:29] LABS: Glucose,Whole Blood 234 mg/dL (70-110)
[2024-09-24 19:29] LABS: Glucose,Whole Blood 211 mg/dL (70-110)
[2024-09-24 21:43] LABS: Influenza A Not Detected (Not Detectd); Influenza B Not Detected (Not Detectd); RSV Not Detected (Not Detectd)
[2024-09-25 06:41] LABS: Glucose,Whole Blood 115 mg/dL (70-110)
[2024-09-25] MEDS ORDERED: TICAGRELOR 90 MG TAB PO STA (08:46)
--- NOTE | 2024-09-25 08:46 | P.PN ---
Subjective Progress Note Date: 09/24/24 09/24/2024: Patient was seen for a follow-up. Patient's was also present by the bedside. Patient had undergone HECTOR. It showed no embolic source. Patient denies any new focal symptoms. 09/23/2024: Patient was seen for follow-up. Patient is laying comfortably in the bed. Offers no new complaints. Patient denies headache. 09/22/2024: Patient was initially seen by Dr. Salinas Veloz and then by Dr. Sorto. Please refer to their notes for details. Patient is a 84-year-old female with expressive aphasia and confusion. EEG was negative for seizures. Patient has defibrillator, therefore cannot have MRI. Patient was seen for a follow-up. Patient denies any headache, or dizziness. Patient has much improved. Offers no new complaints. Some of the workup during this hospital visit consisted of: Lipid panel: Is triglycerides 133, cholesterol is 133, LDL is 58 and HDL is 48 Vitamin B12 is 923 Ammonia level is less than 9 Serum folate is 34.[address] of the head is reported as no acute intracranial hemorrhage or midline shift. I personally reviewed the CT and agree with the report. CT angiography of the head and neck is reported as no evidence of significant stenosis at the carotid bifurcation. No evidence of intracranial large vessel occlusion or intracranial aneurysm. Echo is reported as impaired left ventricular function with ejection fraction of 40 to 45%. Extremely calcified mitral valve apparatus and moderate mitral stenosis was identified. Objective - Vital Signs Vital signs: Vital Signs Temp 98.5 F 09/24/24 14:36 Pulse 77 09/24/24 14:36 Resp 16 09/24/24 14:36 BP 120/66 09/24/24 14:36 Pulse Ox 97 09/24/24 14:36 FiO2 Intake & Output 09/23/24 09/24/24 09/24/24 18:59 06:59 18:59 Intake Total 120 218 Output Total 600 620 Balance -480 -620 218 Intake: Oral 120 218 Output: Urine 600 620 Other: Voiding Method Indwelling Catheter Indwelling Catheter Indwelling Catheter - Exam On examination patient is an elderly female, very pleasant, in no acute distress. She knows it is September 2024 and that she is in [facility] in [place]. Speech and language functions are normal. Patient can name knuckles, earlobes and can repeat. On cranial nerves pupils are equal, round and reactive to light, visual salcido are full, face is symmetric and tongue protrudes the midline. On muscle strength testing, there is no pronator drift and the strength is grossly normal in the arms and legs except deltoid region at about 5- bilaterally. Sensory to touch is equal with no neglect. No ataxia for [id number] testing. - Labs CBC & Chem 7: 09/24/24 03:28 09/24/24 03:28 Labs: Abnormal Lab Results - Last 24 Hours (Table) 09/23/24 09/24/24 09/24/24 Range/Units 20:47 03:28 03:28 RBC 3.93 L (4.10-5.20) X 10*6/uL Immature Gran # 0.05 H (0.00-0.04) X 10*3/uL Monocytes # 1.13 H (0.20-1.00) X 10*3/uL Chloride 110 H (96-109) mmol/L Carbon Dioxide 21.4 L (21.6-31.8) mmol/L Est GFR (CKD-EPI) 56 L (>=60) BUN/Creatinine Ratio 26.00 H (12.00-20.00) Ratio Glucose 49 A* (70-110) mg/dL POC Glucose (mg/dL) 118 H (70-110) mg/dL Calcium 8.3 L (8.7-10.3) mg/dL Total Protein 5.7 L (6.2-8.2) g/dL Albumin 3.5 L (3.8-4.9) g/dL Albumin/Globulin Ratio 1.59 L (1.60-3.17) Ratio 09/24/24 09/24/24 09/24/24 Range/Units 06:36 07:15 12:09 RBC (4.10-5.20) X 10*6/uL Immature Gran # (0.00-0.04) X 10*3/uL Monocytes # (0.20-1.00) X 10*3/uL Chloride (96-109) mmol/L Carbon Dioxide (21.6-31.8) mmol/L Est GFR (CKD-EPI) (>=60) BUN/Creatinine Ratio (12.00-20.00) Ratio Glucose (70-110) mg/dL POC Glucose (mg/dL) 55 L 148 H 142 H (70-110) mg/dL Calcium (8.7-10.3) mg/dL Total Protein (6.2-8.2) g/dL Albumin (3.8-4.9) g/dL Albumin/Globulin Ratio (1.60-3.17) Ratio /16/ Range/Units 17:27 RBC (4.10-5.20) X 10*6/uL Immature Gran # (0.00-0.04) X 10*3/uL Monocytes # (0.20-1.00) X 10*3/uL Chloride (96-109) mmol/L Carbon Dioxide (21.6-31.8) mmol/L Est GFR (CKD-EPI) (>=60) BUN/Creatinine Ratio (12.00-20.00) Ratio Glucose (70-110) mg/dL POC Glucose (mg/dL) 234 H (70-110) mg/dL Calcium (8.7-10.3) mg/dL Total Protein (6.2-8.2) g/dL Albumin (3.8-4.9) g/dL Albumin/Globulin Ratio (1.60-3.17) Ratio Assessment and Plan Assessment: 1. The patient is an 84-year-old female with expressive aphasia. Repeat CT scan of the brain is positive for left frontal ischemic infarct. 2. Underlying history of congestive heart failure status post pacemaker 3. History of breast cancer bilateral status post lumpectomies and chemo radiation therapy 4. Diabetes mellitus 5. Hyperlipidemia Plan: 1. MRI of the brain is unable to be obtained at our facility secondary to pacemaker. Repeat CT head confirmed CVA involving left frontal lobe. 2. Continue aspirin and Plavix 3. Continue high-dose statin. LDL is well controlled 58.3, continue home dose of Crestor 20 mg daily at night. 4. Continue speech therapy 5. Hemoglobin A1c 7.3. Recommend optimize control of diabetes to target A1c < 7.0. 6. Cardiology following. Recommend pacemaker interrogation rule out paroxysmal atrial fibrillation. 7. 2-D echo revealed LVEF decreased 40-45%. Mildly reduced global left and clear systolic function. Severe right ventricular dilation. Normal left atrial size. Moderate thickening/calcification of the anterior, posterior wall thickness and moderate mitral stenosis. Normally functioning bioprosthetic aortic valve without stenosis. Cardiology on board. 8. Transesophageal echocardiogram revealed intact interatrial septum with no evidence of shunt. Intact left atrial appendage with no evidence of thrombus. Overall no evidence of cardiac source of embolization. Normally functioning t ranscatheter valve. Thickened mitral valve leaflets with moderate mitral regurgitation. Moderate TR. 8. Patient was already on aspirin 81 mg and Plavix 75 mg daily at home. Patient has failed this regimen. We will switch from Plavix to Brilinta. 9. Neurologically patient will be clear, if the pacemaker interrogation is clear. Will discuss with cardiology.
[2024-09-25] MEDS: TICAGRELOR 90 MG TAB PO SCH (09:33)
--- NOTE | 2024-09-25 11:00 | P.PN ---
Subjective Progress Note Date: 09/24/24 Earle Stevenson, is a 84-year-old female patient of Dr. Jonas who presented with complaints of increased confusion upon awakening this a.m. no focal weakness noted. Patient's episode lasted about 30 minutes patient does have a past medical history of heart failure, CVA, hyperlipidemia, breast cancer, CHF. Head CT was completed showing no acute intracranial hemorrhage or midline shift. CTA completed showing no evidence of significant stenosis. At this time patient will be admitted neurology and cardiology services consulted 2D echo has been ordered. Patient is resting comfortably in chair. Patient denies chest pain or shortness of breath. Patient denies nausea vomiting or diarrhea. Patie nt denies any urinary burning or frequency. Current vital signs temp 97.9, heart rate 113/64 with pulse ox 96% on room air On 09/19/2024 patient is alert and oriented x 3. Patient to undergo EEG and repeat CT scan today. Cardiology and neurology services following. No new neurological symptoms. Patient denies chest pain or shortness of breath. Patient denies nausea vomiting or diarrhea. Patient denies any urinary burning or frequency current vital signs temp 97.4, heart rate 71, respiratory rate 16, blood pressure 147/79 with a pulse ox of 98% on room air On 09/20/2024 patient was seen and examined on the medical floor, she is alert responsive in no apparent distress. She still has significant expressive aphasia, she underwent CT scan of the brain today which revealed evidence of d eveloping acute medial left frontal lobe infarct, currently she is maintained on Plavix and aspirin neurology and cardiology are following physical therapy and Occupational Therapy consulted speech therapy consulted, will follow closely. On 09/21/2024 patient is alert and oriented x 3. Per nursing staff patient had postvoid residuals of over 700 throughout the night requiring Esposito catheter. At this time will consult urology services and add Flomax. Patient denies chest pain or shortness of breath. Patient denies nausea vomiting or diarrhea. Patient denies any urinary burning or frequency On 09/22/2024 patient was seen and examined on the medical floor she is alert and oriented in no apparent distress there is no fever or chills no headache or dizziness no chest pain no shortness of breath no cough no nausea or vomiting no abdominal pain no diarrhea and no urinary symptoms. Patient had urinary retention and has a Esposito catheter in at this time, she was evaluated by urology and recommendation is to keep Esposito catheter in for the next couple of weeks, and follow-up with urology as outpatient. Discharge planning was discussed in details with patient and family, patient and her want the patient to be discharged to home, also her daughter is asking for her to be discharged home with home care and is willing to stay with her for the next couple of weeks to help her father take care of her. However, patient's son is requesting transferring patient to rehab. I will meet with him tomorrow, and assess discharge destination. On 09/23/2024 patient is alert and oriented x 3. Esposito catheter remains in place. Neurology services also recommending HECTOR. Per nursing staff cardiology is aware awaiting further recommendations. At this time patient denies chest pain or shortness of breath. Patient denies nausea vomiting or diarrhea. Patient denies any urinary burning or frequency On 09/24/2024 patient is alert and oriented x 3. Patient to undergo HECTOR today. Discharge planning in progress. Patient denies chest pain or shortness of breath. Patient denies nausea vomiting or diarrhea. Patient denies any urinary burning or frequency Objective - Vital Signs Vital signs: Vital Signs Temp 98.5 F 09/24/24 14:36 Pulse 77 09/24/24 14:36 Resp 16 09/24/24 14:36 BP 120/66 09/24/24 14:36 Pulse Ox 97 09/24/24 14:36 FiO2 Intake & Output 09/23/24 09/24/24 09/24/24 18:59 06:59 18:59 Intake Total 120 218 Output Total 600 620 Balance -480 -620 218 Intake: Oral 120 218 Output: Urine 600 620 Other: Voiding Method Indwelling Catheter Indwelling Catheter Indwelling Catheter - Exam In general patient is alert and oriented Ã-3 in no distress HEENT head normocephalic and atraumatic Neck is supple no JVD no goiter no lymphadenopathy no carotid bruit Chest examination is clear to auscultation no crackles no wheezing Cardiac exam reveals regular heart sounds S1 and S2 no gallops no murmurs Abdomen is soft nontender no organomegaly with normal bowel sounds Extremity exam reveals no edema no cyanosis or clubbing Neurological examination reveals no gross focal deficits - Labs CBC & Chem 7: 09/24/24 03:28 09/24/24 03:28 Labs: Abnormal Lab Results - Last 24 Hours (Table) 09/23/24 09/23/24 09/24/24 Range/Units 17:24 20:47 03:28 RBC 3.93 L (4.10-5.20) X 10*6/uL Immature Gran # 0.05 H (0.00-0.04) X 10*3/uL Monocytes # 1.13 H (0.20-1.00) X 10*3/uL Chloride (96-109) mmol/L Carbon Dioxide (21.6-31.8) mmol/L Est GFR (CKD-EPI) (>=60) BUN/Creatinine Ratio (12.00-20.00) Ratio Glucose (70-110) mg/dL POC Glucose (mg/dL) 183 H 118 H (70-110) mg/dL Calcium (8.7-10.3) mg/dL Total Protein (6.2-8.2) g/dL Albumin (3.8-4.9) g/dL Albumin/Globulin Ratio (1.60-3.17) Ratio 09/24/24 09/24/24 09/24/24 Range/Units 03:28 06:36 07:15 RBC (4.10-5.20) X 10*6/uL Immature Gran # (0.00-0.04) X 10*3/uL Monocytes # (0.20-1.00) X 10*3/uL Chloride 110 H (96-109) mmol/L Carbon Dioxide 21.4 L (21.6-31.8) mmol/L Est GFR (CKD-EPI) 56 L (>=60) BUN/Creatinine Ratio 26.00 H (12.00-20.00) Ratio Glucose 49 A* (70-110) mg/dL POC Glucose (mg/dL) 55 L 148 H (70-110) mg/dL Calcium 8.3 L (8.7-10.3) mg/dL Total Protein 5.7 L (6.2-8.2) g/dL Albumin 3.5 L (3.8-4.9) g/dL Albumin/Globulin Ratio 1.59 L (1.60-3.17) Ratio 09/24/24 Range/Units 12:09 RBC (4.10-5.20) X 10*6/uL Immature Gran # (0.00-0.04) X 10*3/uL Monocytes # (0.20-1.00) X 10*3/uL Chloride (96-109) mmol/L Carbon Dioxide (21.6-31.8) mmol/L Est GFR (CKD-EPI) (>=60) BUN/Creatinine Ratio (12.00-20.00) Ratio Glucose (70-110) mg/dL POC Glucose (mg/dL) 142 H (70-110) mg/dL Calcium (8.7-10.3) mg/dL Total Protein (6.2-8.2) g/dL Albumin (3.8-4.9) g/dL Albumin/Globulin Ratio (1.60-3.17) Ratio Assessment and Plan Assessment: 1. TIA episode with episode of confusion and aphasia repeat CT positive for left frontal ischemic infarct 2. History of previous TIA 3. History of breast cancer 4. History of congestive heart failure 5. History of diabetes mellitus 6. History of hyperlipidemia 7. Urinary retention. Esposito catheter placed Flomax added urology services consulted DVT prophylaxis Lovenox. GI prophylaxis Pepcid Neurology and cardiology services consulted Patient was started on aspirin and Plavix Unable to get MRI due to pacemaker PT OT and speech services consulted
--- NOTE | 2024-09-25 11:02 | P.PN ---
Subjective Progress Note Date: 09/25/24 Earle Stevenson, is a 84-year-old female patient of Dr. Jonas who presented with complaints of increased confusion upon awakening this a.m. no focal weakness noted. Patient's episode lasted about 30 minutes patient does have a past medical history of heart failure, CVA, hyperlipidemia, breast cancer, CHF. Head CT was completed showing no acute intracranial hemorrhage or midline shift. CTA completed showing no evidence of significant stenosis. At this time patient will be admitted neurology and cardiology services consulted 2D echo has been ordered. Patient is resting comfortably in chair. Patient denies chest pain or shortness of breath. Patient denies nausea vomiting or diarrhea. Patie nt denies any urinary burning or frequency. Current vital signs temp 97.9, heart rate 113/64 with pulse ox 96% on room air On 09/19/2024 patient is alert and oriented x 3. Patient to undergo EEG and repeat CT scan today. Cardiology and neurology services following. No new neurological symptoms. Patient denies chest pain or shortness of breath. Patient denies nausea vomiting or diarrhea. Patient denies any urinary burning or frequency current vital signs temp 97.4, heart rate 71, respiratory rate 16, blood pressure 147/79 with a pulse ox of 98% on room air On 09/20/2024 patient was seen and examined on the medical floor, she is alert responsive in no apparent distress. She still has significant expressive aphasia, she underwent CT scan of the brain today which revealed evidence of d eveloping acute medial left frontal lobe infarct, currently she is maintained on Plavix and aspirin neurology and cardiology are following physical therapy and Occupational Therapy consulted speech therapy consulted, will follow closely. On 09/21/2024 patient is alert and oriented x 3. Per nursing staff patient had postvoid residuals of over 700 throughout the night requiring Esposito catheter. At this time will consult urology services and add Flomax. Patient denies chest pain or shortness of breath. Patient denies nausea vomiting or diarrhea. Patient denies any urinary burning or frequency On 09/22/2024 patient was seen and examined on the medical floor she is alert and oriented in no apparent distress there is no fever or chills no headache or dizziness no chest pain no shortness of breath no cough no nausea or vomiting no abdominal pain no diarrhea and no urinary symptoms. Patient had urinary retention and has a Esposito catheter in at this time, she was evaluated by urology and recommendation is to keep Esposito catheter in for the next couple of weeks, and follow-up with urology as outpatient. Discharge planning was discussed in details with patient and family, patient and her want the patient to be discharged to home, also her daughter is asking for her to be discharged home with home care and is willing to stay with her for the next couple of weeks to help her father take care of her. However, patient's son is requesting transferring patient to rehab. I will meet with him tomorrow, and assess discharge destination. On 09/23/2024 patient is alert and oriented x 3. Esposito catheter remains in place. Neurology services also recommending HECTOR. Per nursing staff cardiology is aware awaiting further recommendations. At this time patient denies chest pain or shortness of breath. Patient denies nausea vomiting or diarrhea. Patient denies any urinary burning or frequency On 09/24/2024 patient is alert and oriented x 3. Patient to undergo HECTOR today. Discharge planning in progress. Patient denies chest pain or shortness of breath. Patient denies nausea vomiting or diarrhea. Patient denies any urinary burning or frequency On 09/25/2024 patient is alert and oriented x 3. Patient has been cleared for discharge from neurology and cardiology services HECTOR negative. Patient to follow-up outpatient for further management. Per case management note awaiting decision by family in regards to discharge destination. Patient denies chest pain or shortness of breath. Patient denies nausea vomiting or diarrhea. Patient denies any urinary burning or frequency Objective - Vital Signs Vital signs: Vital Signs Temp 99.7 F H 09/25/24 07:00 Pulse 82 09/25/24 07:00 Resp 16 09/25/24 07:00 BP 122/66 09/25/24 07:00 Pulse Ox 94 L 09/25/24 07:00 FiO2 Intake & Output 09/24/24 09/25/24 09/25/24 18:59 06:59 18:59 Intake Total 758 500 Output Total 850 550 Balance -92 -50 Intake: Oral 758 500 Output: Urine 850 550 Other: Voiding Method Indwelling Catheter Indwelling Catheter Indwelling Catheter # Bowel Movements 0 - Exam In general patient is alert and oriented Ã-3 in no distress HEENT head normocephalic and atraumatic Neck is supple no JVD no goiter no lymphadenopathy no carotid bruit Chest examination is clear to auscultation no crackles no wheezing Cardiac exam reveals regular heart sounds S1 and S2 no gallops no murmurs Abdomen is soft nontender no organomegaly with normal bowel sounds Extremity exam reveals no edema no cyanosis or clubbing Neurological examination reveals no gross focal deficits - Labs CBC & Chem 7: 09/24/24 03:28 09/24/24 03:28 Labs: Abnormal Lab Results - Last 24 Hours (Table) 09/24/24 09/24/24 09/24/24 Range/Units 12:09 17:27 19:28 POC Glucose (mg/dL) 142 H 234 H 211 H (70-110) mg/dL 09/25/24 Range/Units 06:40 POC Glucose (mg/dL) 115 H (70-110) mg/dL Assessment and Plan Assessment: 1. TIA episode with episode of confusion and aphasia repeat CT positive for left frontal ischemic infarct 2. History of previous TIA 3. History of breast cancer 4. History of congestive heart failure 5. History of diabetes mellitus 6. History of hyperlipidemia 7. Urinary retention. Esposito catheter placed Flomax added urology services consulted DVT prophylaxis Lovenox. GI prophylaxis Pepcid Neurology and cardiology services consulted Patient was started on aspirin and Plavix Unable to get MRI due to pacemaker PT OT and speech services consulted
[2024-09-25 12:55] LABS: Glucose,Whole Blood 144 mg/dL (70-110)
[2024-09-25 16:31] VITALS: BMI 27.6
[2024-09-25 17:33] LABS: Glucose,Whole Blood 136 mg/dL (70-110)
[2024-09-25 20:11] LABS: Glucose,Whole Blood 149 mg/dL (70-110)
[2024-09-26 08:19] LABS: HCT 38.9 % (37.2-46.3); HGB 12.6 g/dL (12.0-15.0); MCH 30.7 pg (27.0-32.0); MCHC 32.4 g/dL (32.0-37.0); MCV 94.9 FL (80.0-97.0); Mean Platelet Volume 11.4 FL (9.5-12.2); NRBC Per 100 WBC 0 X 10*3/uL (0.00-0.01); Platelet Count 185 X 10*3/uL (140-440); RDW 13.5 % (11.5-14.5); WBC 15.82 X 10*3/uL (4.50-10.00)
[2024-09-26 08:37] LABS: ALT 30 U/L (8-44); AST 58 U/L (13-35); Albumin 3.4 g/dL (3.8-4.9); Albumin/Globulin Ratio 1.42 Ratio (1.60-3.17); Alkaline Phosphatase 57 U/L (41-126); Blood Urea Nitrogen 23.2 mg/dL (9.0-27.0); Calcium 8.4 mg/dL (8.7-10.3); Carbon Dioxide 21.8 mmol/L (21.6-31.8); Chloride 102 mmol/L (96-109); Globulin 2.4 g/dL (1.6-3.3); Glucose 92 mg/dL (70-110); Potassium 3.8 mmol/L (3.5-5.5); Sodium 137 mmol/L (135-145); Total Bilirubin 1.1 mg/dL (0.3-1.2); Total Protein 5.8 g/dL (6.2-8.2)
[2024-09-26 09:06] LABS: Basophils # (A) 0.04 X 10*3/uL (0.00-0.10); Basophils % (A) 0.3 %; Eosinophils # (A) 0.15 X 10*3/uL (0.04-0.35); Eosinophils % (A) 0.9 %; Lymphocytes # (A) 1.12 X 10*3/uL (0.90-5.00); Lymphocytes % (A) 7.1 %; Monocytes # (A) 1.53 X 10*3/uL (0.20-1.00); Monocytes % (A) 9.7 %; Neutrophils % (A) 81.5 %
--- NOTE | 2024-09-26 09:43 | P.PN ---
Subjective Progress Note Date: 09/25/24 09/25/2024: Patient was seen for a follow-up. Patient's son and patient's were both present by the bedside. Patient states that she is feeling slightly more weak. Generalized, not focal. Denies headache. 09/24/2024: Patient was seen for a follow-up. Patient's was also present by the bedside. Patient had undergone HECTOR. It showed no embolic source. Patient denies any new focal symptoms. 09/23/2024: Patient was seen for follow-up. Patient is laying comfortably in the bed. Offers no new complaints. Patient denies headache. 09/22/2024: Patient was initially seen by Dr. Salinas Veloz and then by Dr. Sorto. Please refer to their notes for details. Patient is a 84-year-old female with expressive aphasia and confusion. EEG was negative for seizures. Patient has defibrillator, therefore cannot have MRI. Patient was seen for a follow-up. Patient denies any headache, or dizziness. Patient has much improved. Offers no new complaints. Some of the workup during this hospital visit consisted of: Lipid panel: Is triglycerides 133, cholesterol is 133, LDL is 58 and HDL is 48 Vitamin B12 is 923 Ammonia level is less than 9 Serum folate is 34.[address] of the head is reported as no acute intracranial hemorrhage or midline shift. I personally reviewed the CT and agree with the report. CT angiography of the head and neck is reported as no evidence of significant stenosis at the carotid bifurcation. No evidence of intracranial large vessel occlusion or intracranial aneurysm. Echo is reported as impaired left ventricular function with ejection fraction of 40 to 45%. Extremely calcified mitral valve apparatus and moderate mitral stenosis was identified. Objective - Vital Signs Vital signs: Vital Signs Temp 97.8 F 09/26/24 08:16 Pulse 80 09/26/24 08:16 Resp 16 09/26/24 08:16 BP 127/78 09/26/24 08:16 Pulse Ox 97 09/26/24 08:16 FiO2 Intake & Output 09/25/24 09/26/24 09/26/24 18:59 06:59 18:59 Intake Total 540 Output Total 600 2349 Balance -60 9 Weight 77.7 kg Intake: Oral 540 Output: Urine 600 1400 Straight 600 700 Post Void Residual 949 Other: Voiding Method Diaper Bedside Commode # Voids 1 # Bowel Movements 1 - Exam On examination patient is an elderly female, very pleasant, in no acute distress. She knows it is September 2024 and that she is in [facility] in [place]. Speech and language functions are normal. Patient can name knuckles, earlobes and can repeat. On cranial nerves pupils are equal, round and reactive to light, visual salcido are full, face is symmetric and tongue protrudes the midline. On muscle strength testing, there is no pronator drift and the strength is grossly normal in the arms and legs distally and proximally. Sensory to touch is equal with no neglect. No ataxia for [id number] testing. - Labs CBC & Chem 7: 09/26/24 04:06 09/26/24 04:06 Labs: Abnormal Lab Results - Last 24 Hours (Table) 09/24/24 09/25/24 09/25/24 Range/Units 03:28 12:45 17:15 WBC (4.50-10.00) X 10*3/uL Immature Gran # (0.00-0.04) X 10*3/uL Neutrophils # (1.80-7.70) X 10*3/uL Monocytes # (0.20-1.00) X 10*3/uL Anion Gap (4.00-12.00) mmol/L Est GFR (CKD-EPI) (>=60) BUN/Creatinine Ratio (12.00-20.00) Ratio POC Glucose (mg/dL) 144 H 136 H (70-110) mg/dL Hemoglobin A1c 7.2 H (<=6.0) % Calcium (8.7-10.3) mg/dL AST (13-35) U/L Total Protein (6.2-8.2) g/dL Albumin (3.8-4.9) g/dL Albumin/Globulin Ratio (1.60-3.17) Ratio 09/25/24 09/26/24 09/26/24 Range/Units 20:09 04:06 04:06 WBC 15.82 H (4.50-10.00) X 10*3/uL Immature Gran # 0.08 H (0.00-0.04) X 10*3/uL Neutrophils # 12.90 H (1.80-7.70) X 10*3/uL Monocytes # 1.53 H (0.20-1.00) X 10*3/uL Anion Gap 13.20 H (4.00-12.00) mmol/L Est GFR (CKD-EPI) 56 L (>=60) BUN/Creatinine Ratio 23.20 H (12.00-20.00) Ratio POC Glucose (mg/dL) 149 H (70-110) mg/dL Hemoglobin A1c (<=6.0) % Calcium 8.4 L (8.7-10.3) mg/dL AST 58 H (13-35) U/L Total Protein 5.8 L (6.2-8.2) g/dL Albumin 3.4 L (3.8-4.9) g/dL Albumin/Globulin Ratio 1.42 L (1.60-3.17) Ratio Assessment and Plan Assessment: 1. The patient is an 84-year-old female with expressive aphasia. Repeat CT scan of the brain is positive for left frontal ischemic infarct. 2. Underlying history of congestive heart failure status post pacemaker 3. History of breast cancer bilateral status post lumpectomies and chemoradiation therapy 4. Diabetes mellitus 5. Hyperlipidemia Plan: 1. MRI of the brain is unable to be obtained at our facility secondary to pacemaker. Repeat CT head confirmed CVA involving left frontal lobe. 2. Patient has been switched to aspirin and Brilinta. 3. Continue high-dose statin. LDL is well controlled 58.3, continue home dose of Crestor 20 mg daily at night. 4. Continue speech therapy 5. Hemoglobin A1c 7.3. Recommend optimize control of diabetes to target A1c < 7.0. 6. Per cardiology, interrogation of pacemaker did not reveal any paroxysmal atrial fibrillation. 7. 2-D echo revealed LVEF decreased 40-45%. Mildly reduced global left and clear systolic function. Severe right ventricular dilation. Normal left atrial size. Moderate thickening/calcification of the anterior, posterior wall thickness and moderate mitral stenosis. Normally functioning bioprosthetic aortic valve without stenosis. Cardiology on board. 8. Transesophageal echocardiogram revealed intact interatrial septum with no evidence of shunt. Intact left atrial appendage with no evidence of thrombus. Overall no evidence of cardiac source of embolization. Normally functioning tra nscatheter valve. Thickened mitral valve leaflets with moderate mitral regurgitation. Moderate TR. 8. Patient was already on aspirin 81 mg and Plavix 75 mg daily at home. Patient has failed this regimen. We will switch from Plavix to Brilinta. 9. Neurologically clear for transfer to rehab facility. 10. Discussed with patient's son and in detail.
--- NOTE | 2024-09-26 11:22 | P.DS ---
Providers Date of admission: 09/18/24 12:52 Expected date of discharge: 09/26/24 Attending physician: Kala Kimbrough Consults: 09/18/24 12:52 Consult Physician Routine Consulting Provider: Salinas Veloz Consult Reason/Comments: CVA Do you want consulting provider notified?: Yes 09/21/24 08:30 Consult Physician Routine Consulting Provider: Richard Chaves Consult Reason/Comments: urinary retention Do you want consulting provider notified?: Yes 09/23/24 08:04 Consult Physician Routine Consulting Provider: Nikolas Pierre Consult Reason/Comments: possible HECTOR, r/o embolic source for CVA Do you want consulting provider notified?: Already Contacted Primary care physician: Radha Hicks Hospital Course: Discharge diagnosis 1. TIA episode with episode of confusion and aphasia repeat CT positive for left frontal ischemic infarct 2. History of previous TIA 3. History of breast cancer 4. History of congestive heart failure 5. History of diabetes mellitus 6. History of hyperlipidemia 7. Urinary retention. Esposito catheter placed Flomax added urology services consulted Hospital course Earle Stevenson, is a 84-year-old female patient of Dr. Jonas who presented with complaints of increased confusion upon awakening this a.m. no focal weakness noted. Patient's episode lasted about 30 minutes patient does have a past medical history of heart failure, CVA, hyperlipidemia, breast cancer, CHF. Head CT was completed showing no acute intracranial hemorrhage or midline shift. CTA completed showing no evidence of significant stenosis. At this time patient will be admitted neurology and cardiology services consulted 2D echo has been ordered. Patient is resting comfortably in chair. Patient denies chest pain or shortness of breath. Patient denies nausea vomiting or diarrhea. Patient denies any urinary burning or frequency. Current vital signs temp 97.9, heart rate 113/64 with pulse ox 96% on room air On 09/19/2024 patient is alert and oriented x 3. Patient to undergo EEG and repeat CT scan today. Cardiology and neurology services following. No new neurological symptoms. Patient denies chest pain or shortness of breath. Patient denies nausea vomiting or diarrhea. Patient denies any urinary burning or frequency current vital signs temp 97.4, heart rate 71, respiratory rate 16, blood pressure 147/79 with a pulse ox of 98% on room air On 09/20/2024 patient was seen and examined on the medical floor, she is alert responsive in no apparent distress. She still has significant expressive aphasia, she underwent CT scan of the brain today which revealed evidence of developing acute medial left frontal lobe infarct, currently she is maintained on Plavix and aspirin neurology and cardiology are following physical therapy and Occupational Therapy consulted speech therapy consulted, will follow closely. On 09/21/2024 patient is alert and oriented x 3. Per nursing staff patient had p ostvoid residuals of over 700 throughout the night requiring Esposito catheter. At this time will consult urology services and add Flomax. Patient denies chest pain or shortness of breath. Patient denies nausea vomiting or diarrhea. Patient denies any urinary burning or frequency On 09/22/2024 patient was seen and examined on the medical floor she is alert and oriented in no apparent distress there is no fever or chills no headache or dizziness no chest pain no shortness of breath no cough no nausea or vomiting no abdominal pain no diarrhea and no urinary symptoms. Patient had urinary retent ion and has a Esposito catheter in at this time, she was evaluated by urology and recommendation is to keep Esposito catheter in for the next couple of weeks, and follow-up with urology as outpatient. Discharge planning was discussed in details with patient and family, patient and her want the patient to be discharged to home, also her daughter is asking for her to be discharged home with home care and is willing to stay with her for the next couple of weeks to help her father take care of her. However, patient's son is requesting transferring patient to rehab. I will meet with him tomorrow, and assess discharge destination. On 09/23/2024 patient is alert and oriented x 3. Esposito catheter remains in place. Neurology services also recommending HECTOR. Per nursing staff cardiology is aware awaiting further recommendations. At this time patient denies chest pain or shortness of breath. Patient denies nausea vomiting or diarrhea. Patient denies any urinary burning or frequency On 09/24/2024 patient is alert and oriented x 3. Patient to undergo HECTOR today. Discharge planning in progress. Patient denies chest pain or shortness of breath. Patient denies nausea vomiting or diarrhea. Patient denies any urinary burning or frequency On 09/25/2024 patient is alert and oriented x 3. Patient has been cleared for discharge from neurology and cardiology services HECTOR negative. Patient to follow-up outpatient for further management. Per case management note awaiting decision by family in regards to discharge destination. Patient denies chest pain or shortness of breath. Patient denies nausea vomiting or diarrhea. Patient denies any urinary burning or frequency On 09/26/2024 patient is alert and oriented x 3. Patient will be discharged to assisted living. Patient did have elevation in white count today. Will check chest x-ray COVID-19 and UA prior to discharge. Patient also unable to urinate Esposito catheter be placed and patient to follow-up outpatient with Dr. Dewey. Patient will be discharged on Brilinta and aspirin and follow-up outpatient for further management. At this time patient denies chest pain or shortness of breath. Patient denies nausea vomiting or diarrhea. Patient denies any urinary burning or frequency Patient Condition at Discharge: Stable Plan - Discharge Summary Discharge Rx Participant: No New Discharge Prescriptions: New Aspirin 81 mg PO DAILY 30 Days #30 tab Ticagrelor [Brilinta] 90 mg PO BID 30 Days #30 tab Tamsulosin [Flomax] 0.4 mg PO PC-SUPPER 30 Days #30 cap Continue Ascorbic Acid [Vitamin C] 500 mg PO DAILY Lutein 20 mg PO DAILY Digoxin [Digox] 125 mcg PO DAILY Sacubitril/Valsartan [Entresto 24 mg-26 mg Tablet] 1 tab PO BID Anastrozole [Arimidex] 1 mg PO DAILY Isosorbide Mononitrate ER [Imdur] 30 mg PO BID Loratadine 10 mg PO DAILY Rosuvastatin [Crestor] 20 mg PO HS carvediloL [Coreg] 3.125 mg PO BID Mv-Min/Folic/K1/Lycopen/Lutein [Centrum Silver Men Tablet] 1 tab PO DAILY Empagliflozin [Jardiance] 25 mg PO DAILY Repaglinide [Prandin] 2 mg PO TID-W/MEALS Zinc Gluconate [Zinc] 50 mg PO DAILY Levothyroxine Sodium [Synthroid] 137 mcg PO DAILY Glucosam/Denilson-Msm1/C/Curtis/Bosw [Glucosamine-Chondroitin Tablet] 1 tab PO DAILY Ferrous Sulfate [Iron (65 MG Elemental)] 325 mg PO DAILY Cholecalciferol [Vitamin D3 (25 Mcg = 1000 Iu)] 25 mcg PO DAILY Discontinued Clopidogrel [Plavix] 75 mg PO DAILY Discharge Medication List Ascorbic Acid [Vitamin C] 500 mg PO DAILY 09/11/14 [History] Lutein 20 mg PO DAILY 09/11/14 [History] Digoxin [Digox] 125 mcg PO DAILY 11/07/15 [History] Sacubitril/Valsartan [Entresto 24 mg-26 mg Tablet] 1 tab PO BID 11/07/15 [History] Anastrozole [Arimidex] 1 mg PO DAILY 11/25/17 [History] Isosorbide Mononitrate ER [Imdur] 30 mg PO BID 11/25/17 [History] Loratadine 10 mg PO DAILY 11/18/18 [History] Rosuvastatin [Crestor] 20 mg PO HS 04/07/22 [History] Cholecalciferol [Vitamin D3 (25 Mcg = 1000 Iu)] 25 mcg PO DAILY 09/18/24 [History] Empagliflozin [Jardiance] 25 mg PO DAILY 09/18/24 [History] Ferrous Sulfate [Iron (65 MG Elemental)] 325 mg PO DAILY 09/18/24 [History] Glucosam/Denilson-Msm1/C/Curtis/Bosw [Glucosamine-Chondroitin Tablet] 1 tab PO DAILY 09/18/24 [History] Levothyroxine Sodium [Synthroid] 137 mcg PO DAILY 09/18/24 [History] Mv-Min/Folic/K1/Lycopen/Lutein [Centrum Silver Men Tablet] 1 tab PO DAILY 09/18/24 [History] Repaglinide [Prandin] 2 mg PO TID-W/MEALS 09/18/24 [History] Zinc Gluconate [Zinc] 50 mg PO DAILY 09/18/24 [History] carvediloL [Coreg] 3.125 mg PO BID 09/18/24 [History] Aspirin 81 mg PO DAILY 30 Days #30 tab 09/26/24 [Rx] Tamsulosin [Flomax] 0.4 mg PO PC-SUPPER 30 Days #30 cap 09/26/24 [Rx] Ticagrelor [Brilinta] 90 mg PO BID 30 Days #30 tab 09/26/24 [Rx] Follow up Appointment(s)/Referral(s): [facility], [NON-STAFF] - As Needed Radha Hicks MD [Primary Care Provider] - 1-2 days Richard Chaves MD [STAFF PHYSICIAN] - 2 Weeks Discharge Disposition: HOME SELF-CARE
[2024-09-26 12:33] LABS: Glucose,Whole Blood 174 mg/dL (70-110)
[2024-09-26 13:42] LABS: Glucose,Whole Blood 79 mg/dL (70-110)
--- NOTE | 2024-09-26 14:13 | XR ---
EXAMINATION TYPE: XR chest 2V DATE OF EXAM: 09/26/2024 2:04 PM COMPARISON: Chest radiographs from 11/19/2018 TECHNIQUE: XR chest 2V Frontal and lateral views of the chest. CLINICAL INDICATION:Female, 84 years old with history of fever, leukocytosis; FINDINGS: Lungs/Pleura: There is no evidence of pleural effusion, focal consolidation, or pneumothorax. Chroni c elevation of the right hemidiaphragm. Pulmonary vascularity: Unremarkable. Heart/mediastinum: Cardiomediastinal silhouette is enlarged and stable. Aortic stent is again seen. A therosclerotic calcifications are seen in the aorta. Two lead cardiac conduction device overlying the left hemithorax with lead tips projecting over the right ventricle and right atrium. Musculoskeletal: No acute osseous pathology. 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 Mild multilevel degenerative changes of the spine. Other findings: Left chest wall surgical clips redemonstrated. IMPRESSION: Chronic changes with no acute cardiopulmonary process. [facility], , 09/26/2024 2:11 PM
[2024-09-26 14:23] LABS: Appearance,Urine Turbid (Clear); Bacteria,Urine Many /hpf; Bilirubin,Urine Negative (Negative); Blood,Urine Small (Negative); Color,Urine Light Red; Glucose,Urine (UA) 1+ (Negative); Ketones,Urine Negative (Negative); Leukocyte Esterase,Urine Large (Negative); Nitrite,Urine Negative (Negative); Protein,Urine 2+ (Negative); Urobilinogen,Urine <2.0 mg/dL (<2.0); WBC,Urine >182 /hpf (0-5)
[2024-09-26] MEDS ORDERED: CEFEPIME 2 GM in DEXTROSE 5% IN WATER 50 ML IVPB SCH (17:00)
[2024-09-26 17:27] LABS: Glucose,Whole Blood 187 mg/dL (70-110)
[2024-09-26 19:49] LABS: Glucose,Whole Blood 202 mg/dL (70-110)
[2024-09-26] MEDS: CIPROFLOXACIN HCL 250 MG TAB PO SCH (20:04)
--- NOTE | 2024-09-26 23:29 | P.CONS ---
History of Present Illness - Reason for Consult Consult date: 09/26/24 COVID-19 and UTI Requesting physician: Kala Kimbrough - Chief Complaint Weakness x days - History of Present Illness Patient is a 84-year-old female with a past medical history significant for Cancer, Heart Failure, CVA/TIA, Diabetes Mellitus, Hyperlipidemia, Osteoarthritis (OA), Thyroid Disorder presenting to the hospital about 8 days ago for evaluation of confusion and difficulty finding words patient has been evaluated and treated by neurology and cardiology services patient did have a Esposito catheter placement initially on admission that was subsequently discontinued and the patient was supposed to be discharged today however the patient was noticed to have elevated white count for the patient did have COVID-19 UA done which came back positive prompted this consultation patient herself denies having any fever or any chills denies any headache chest pain shortness of breath or cough some lower abdominal discomfort at the nursing staff mention cloudy urine on straight cath and subsequently patient has been catheterized for having difficulty urination or emptying her bladder patient denies any nausea or vomiting and no diarrhea has been reported patient did have a significantly positive UA with large excite esterase more than 1-2 WBC and he tested positive for COVID-19 patient white count is 15.82 with left shift creatinine is 1.0 patient did have chest x-ray that was reported chronic changes with no acute cardiopulmonary disease process Review of Systems Positive point and negatives has been mentioned in the HPI, complete review of systems was performed and all other systems are negative Past Medical History Past Medical History: Cancer, Heart Failure, CVA/TIA, Diabetes Mellitus, Hyperlipidemia, Osteoarthritis (OA), Thyroid Disorder Additional Past Medical History / Comment(s): Bilateral breast cancer (L in 1999 and R in 2007) tx with lumpectomies and chemo and radiation, lymphadema bilateral upper arms, CHF with 1st chemo, NIDDM, leaky heart valve, tia (2011) with L upper arm weakness since resolved., HX of leg fx x2 hema, SOB with ex ertion., See [facility]. History of Any Multi-Drug Resistant Organisms: None Reported Past Surgical History: Appendectomy, Breast Surgery, Heart Catheterization, Hysterectomy, Joint Replacement, Orthopedic Surgery, Tonsillectomy Additional Past Surgical History / Comment(s): Breast bx's & lumpectomy (1999 & 2007), Mastectomy (2016) Heart cath (2004, 2016), R and L lower leg fx (separate incidences) with surgical repair using plates and screws, neck & face skin cancer , Cataracts, Bilateral total shoulders, bilateral carpal tunnel . thumb surgery. Additional Past Anesthesia/Blood Transfusion Reaction / Comm: "slow to wake up" after surgery. Hx of blood transfusion after chemo - no reaction. Past Psychological History: No Psychological Hx Reported Smoking Status: Never smoker Past Alcohol Use History: Rare Past Drug Use History: None Reported - Past Family History Father Family Medical History: Congestive Heart Failure (CHF) Additional Family Medical History / Comment(s): Father at age 69yrs from CHF. He also had stomach problems-ulcers. Mother Family Medical History: Cancer, Coronary Artery Disease (CAD) Additional Family Medical History / Comment(s): . Medications and Allergies Home Medications Medication Instructions Recorded Confirmed Type Ascorbic Acid [Vitamin C] 500 mg PO DAILY 09/11/14 09/18/24 History Lutein 20 mg PO DAILY 09/11/14 09/18/24 History Digoxin [Digox] 125 mcg PO DAILY 11/07/15 09/18/24 History Sacubitril/Valsartan [Entresto 24 1 tab PO BID 11/07/15 09/18/24 History mg-26 mg Tablet] Anastrozole [Arimidex] 1 mg PO DAILY 11/25/17 09/18/24 History Isosorbide Mononitrate ER [Imdur] 30 mg PO BID 11/25/17 09/18/24 History Loratadine 10 mg PO DAILY 11/18/18 09/18/24 History Rosuvastatin [Crestor] 20 mg PO HS 04/07/22 09/18/24 History Cholecalciferol [Vitamin D3 (25 25 mcg PO DAILY 09/18/24 09/18/24 History Mcg = 1000 Iu)] Empagliflozin [Jardiance] 25 mg PO DAILY 09/18/24 09/18/24 History Ferrous Sulfate [Iron (65 MG 325 mg PO DAILY 09/18/24 09/18/24 History Elemental)] Glucosam/Denilson-Msm1/C/Curtis/Bosw 1 tab PO DAILY 09/18/24 09/18/24 History [Glucosamine-Chondroitin Tablet] Levothyroxine Sodium [Synthroid] 137 mcg PO DAILY 09/18/24 09/18/24 History Mv-Min/Folic/K1/Lycopen/Lutein 1 tab PO DAILY 09/18/24 09/18/24 History [Centrum Silver Men Tablet] Repaglinide [Prandin] 2 mg PO TID-W/MEALS 09/18/24 09/18/24 History Zinc Gluconate [Zinc] 50 mg PO DAILY 09/18/24 09/18/24 History carvediloL [Coreg] 3.125 mg PO BID 09/18/24 09/18/24 History Aspirin 81 mg PO DAILY 30 Days #30 tab 09/26/24 Rx Tamsulosin [Flomax] 0.4 mg PO PC-SUPPER 30 Days #30 cap 09/26/24 Rx Ticagrelor [Brilinta] 90 mg PO BID 30 Days #30 tab 09/26/24 Rx Allergies Allergy/AdvReac Type Severity Reaction Status Date / Time bee venom protein (honey bee) Allergy Unknown Swelling Verified 09/18/24 13:34 Penicillins AdvReac Rash/Hives Verified 09/18/24 13:34 Tetanus Vaccines and Toxoid AdvReac Swelling Verified 09/18/24 13:34 [Tetanus Vaccines & Toxoid] zolpidem tartrate AdvReac Hallucinati Verified 09/18/24 13:34 [From Ambien] ons Physical Exam Vitals: Vital Signs Temp Pulse Resp BP Pulse Ox 09/26/24 14:37 98.3 F 87 15 110/56 98 09/26/24 08:16 97.8 F 80 16 127/78 97 09/26/24 07:00 97.6 F 80 18 127/78 97 09/26/24 02:00 98.3 F 78 17 146/73 97 09/25/24 20:00 98.3 F 80 17 135/70 96 09/25/24 18:24 88 139/65 Intake and Output 09/26/24 09/26/24 09/26/24 06:59 14:59 22:59 Output Total 2349 Balance -2349 Output: Urine 1400 Straight 700 Post Void Residual 949 Other: Voiding Method Bedside Commode # Voids 1 GENERAL DESCRIPTION: Elderly female lying in bed, no distress. No tachypnea or accessory muscle of respiration use. HEENT: Shows Pallor , no scleral icterus. Oral mucous membrane is dry. NECK: Trachea central, no thyromegaly. LUNGS: Unlabored breathing. Clear to auscultation anteriorly. No wheeze or crackle. HEART: S1, S2, regular rate and rhythm. No loud murmur ABDOMEN: Soft, no tenderness , guarding or rigidity, no organomegaly EXTREMITIES: No edema of feet. SKIN: No rash, no masses palpable. NEUROLOGICAL: The patient is awake, alert, oriented x3, mood and affect normal. Results CBC & Chem 7: 09/27/24 03:14 09/27/24 03:14 Labs: Abnormal Lab Results - Last 24 Hours (Table) 09/24/24 09/25/24 09/25/24 Range/Units 03:28 17:15 20:09 WBC (4.50-10.00) X 10*3/uL Immature Gran # (0.00-0.04) X 10*3/uL Neutrophils # (1.80-7.70) X 10*3/uL Monocytes # (0.20-1.00) X 10*3/uL Anion Gap (4.00-12.00) mmol/L Est GFR (CKD-EPI) (>=60) BUN/Creatinine Ratio (12.00-20.00) Ratio POC Glucose (mg/dL) 136 H 149 H (70-110) mg/dL Hemoglobin A1c 7.2 H (<=6.0) % Calcium (8.7-10.3) mg/dL AST (13-35) U/L Total Protein (6.2-8.2) g/dL Albumin (3.8-4.9) g/dL Albumin/Globulin Ratio (1.60-3.17) Ratio Urine Appearance (Clear) Urine Protein (Negative) Urine Glucose (UA) (Negative) Urine Blood (Negative) Ur Leukocyte Esterase (Negative) Urine WBC (0-5) /hpf Urine WBC Clumps (None) /hpf Urine Bacteria (None) /hpf SARS-CoV-2 (PCR) (Not Detectd) 09/26/24 09/26/24 09/26/24 Range/Units 04:06 04:06 12:32 WBC 15.82 H (4.50-10.00) X 10*3/uL Immature Gran # 0.08 H (0.00-0.04) X 10*3/uL Neutrophils # 12.90 H (1.80-7.70) X 10*3/uL Monocytes # 1.53 H (0.20-1.00) X 10*3/uL Anion Gap 13.20 H (4.00-12.00) mmol/L Est GFR (CKD-EPI) 56 L (>=60) BUN/Creatinine Ratio 23.20 H (12.00-20.00) Ratio POC Glucose (mg/dL) 174 H (70-110) mg/dL Hemoglobin A1c (<=6.0) % Calcium 8.4 L (8.7-10.3) mg/dL AST 58 H (13-35) U/L Total Protein 5.8 L (6.2-8.2) g/dL Albumin 3.4 L (3.8-4.9) g/dL Albumin/Globulin Ratio 1.42 L (1.60-3.17) Ratio Urine Appearance (Clear) Urine Protein (Negative) Urine Glucose (UA) (Negative) Urine Blood (Negative) Ur Leukocyte Esterase (Negative) Urine WBC (0-5) /hpf Urine WBC Clumps (None) /hpf Urine Bacteria (None) /hpf SARS-CoV-2 (PCR) (Not Detectd) 09/26/24 09/26/24 Range/Units 13:55 13:55 WBC (4.50-10.00) X 10*3/uL Immature Gran # (0.00-0.04) X 10*3/uL Neutrophils # (1.80-7.70) X 10*3/uL Monocytes # (0.20-1.00) X 10*3/uL Anion Gap (4.00-12.00) mmol/L Est GFR (CKD-EPI) (>=60) BUN/Creatinine Ratio (12.00-20.00) Ratio POC Glucose (mg/dL) (70-110) mg/dL Hemoglobin A1c (<=6.0) % Calcium (8.7-10.3) mg/dL AST (13-35) U/L Total Protein (6.2-8.2) g/dL Albumin (3.8-4.9) g/dL Albumin/Globulin Ratio (1.60-3.17) Ratio Urine Appearance Turbid H (Clear) Urine Protein 2+ H (Negative) Urine Glucose (UA) 1+ H (Negative) Urine Blood Small H (Negative) Ur Leukocyte Esterase Large H (Negative) Urine WBC >182 H (0-5) /hpf Urine WBC Clumps Many H (None) /hpf Urine Bacteria Many H (None) /hpf SARS-CoV-2 (PCR) Detected A (Not Detectd) Assessment and Plan (1) COVID-19 Current Visit: Yes Status: Acute Code(s): U07.1 - COVID-19 SNOMED Code(s): 929200844 (2) UTI (urinary tract infection) Current Visit: Yes Status: Acute Code(s): N39.0 - URINARY TRACT INFECTION, S ITE NOT SPECIFIED SNOMED Code(s): 51586052 (3) Penicillin allergy Current Visit: Yes Status: Acute Code(s): Z88.0 - ALLERGY STATUS TO PENICILLIN SNOMED Code(s): 40759932 Plan: 1patient tested positive for COVID-19 and this patient currently do not have significant respiratory symptoms patient not hypoxic no need for supplemental oxygen chest x-ray has been negative treatment to be mostly supportive. 2patient did have elevated white count did have lower abdominal discomfort cloudy urine positive UA concerning for symptomatic UTI risk factor could be Esposito catheter placement during the initial part of her stay in the hospital and likely from enteric gram-negative pathogen 3-penicillin allergy that will limit number of antibiotics safe to use 4-we will start the patient on cefepime while waiting for the culture to finalize at the bedside question concern answered We will follow on clinical condition and cultures to further adjust medication if needed Thank you for this consultation we will follow the patient along with you Dictation was produced using [employer] dictation software. please excuse any grammatical, word or spelling errors. Time with Patient: Greater than 30
[2024-09-27 05:55] LABS: Glucose,Whole Blood 92 mg/dL (70-110)
--- NOTE | 2024-09-27 09:11 | P.PN ---
Subjective Progress Note Date: 09/26/24 09/26/2024: Patient was seen for follow-up. Patient's was also present by the bedside. Patient offers no new complaints. Denies headache or dizziness. Patient has not developed acute Covid infection. 09/25/2024: Patient was seen for a follow-up. Patient's son and patient's were both present by the bedside. Patient states that she is feeling slightly more weak. Generalized, not focal. Denies headache. 09/24/2024: Patient was seen for a follow-up. Patient's was also present by the bedside. Patient had undergone HECTOR. It showed no embolic source. Patient denies any new focal symptoms. 09/23/2024: Patient was seen for follow-up. Patient is laying comfortably in the bed. Offers no new complaints. Patient denies headache. 09/22/2024: Patient was initially seen by Dr. Salinas Veloz and then by Dr. Sorto. Please refer to their notes for details. Patient is a 84-year-old female with expressive aphasia and confusion. EEG was negative for seizures. Patient has defibrillator, therefore cannot have MRI. Patient was seen for a follow-up. Patient denies any headache, or dizziness. Patient has much improved. Offers no new complaints. Some of the workup during this hospital visit consisted of: Lipid panel: Is triglycerides 133, cholesterol is 133, LDL is 58 and HDL is 48 Vitamin B12 is 923 Ammonia level is less than 9 Serum folate is 34.[address] of the head is reported as no acute intracranial hemorrhage or midline shift. I personally reviewed the CT and agree with the report. CT angiography of the head and neck is reported as no evidence of significant stenosis at the carotid bifurcation. No evidence of intracranial large vessel occlusion or intracranial aneurysm. Echo is reported as impaired left ventricular function with ejection fraction of 40 to 45%. Extremely calcified mitral valve apparatus and moderate mitral stenosis was identified. Objective - Vital Signs Vital signs: Vital Signs Temp 98.3 F 09/26/24 14:37 Pulse 87 09/26/24 14:37 Resp 15 09/26/24 14:37 BP 110/56 09/26/24 14:37 Pulse Ox 98 09/26/24 14:37 FiO2 Intake & Output 09/25/24 09/26/24 09/26/24 18:59 06:59 18:59 Intake Total 540 Output Total 600 2349 750 Balance -60 -2343 -750 Weight 77.7 kg Intake: Oral 540 Output: Urine 600 1400 750 Straight 600 700 Post Void Residual 949 Other: Voiding Method Diaper Bedside Commode Bedside Commode # Voids 1 # Bowel Movements 1 - Exam On examination patient is an elderly female, very pleasant, in no acute distress. She knows it is September 2024 and that she is in [facility] in [place]. Speech and language functions are normal. Patient can name knuckles, earlobes and can repeat. On cranial nerves pupils are equal, round and reactive to light, visual salcido are full, face is symmetric and tongue protrudes the midline. On muscle strength testing, there is no pronator drift and the strength is grossly normal in the arms and legs distally and proximally. Sensory to touch is equal with no neglect. No ataxia for [id number] testing. - Labs CBC & Chem 7: 09/26/24 04:06 09/26/24 04:06 Labs: Abnormal Lab Results - Last 24 Hours (Table) 09/24/24 09/25/24 09/25/24 Range/Units 03:28 17:15 20:09 WBC (4.50-10.00) X 10*3/uL Immature Gran # (0.00-0.04) X 10*3/uL Neutrophils # (1.80-7.70) X 10*3/uL Monocytes # (0.20-1.00) X 10*3/uL Anion Gap (4.00-12.00) mmol/L Est GFR (CKD-EPI) (>=60) BUN/Creatinine Ratio (12.00-20.00) Ratio POC Glucose (mg/dL) 136 H 149 H (70-110) mg/dL Hemoglobin A1c 7.2 H (<=6.0) % Calcium (8.7-10.3) mg/dL AST (13-35) U/L Total Protein (6.2-8.2) g/dL Albumin (3.8-4.9) g/dL Albumin/Globulin Ratio (1.60-3.17) Ratio Urine Appearance (Clear) Urine Protein (Negative) Urine Glucose (UA) (Negative) Urine Blood (Negative) Ur Leukocyte Esterase (Negative) Urine WBC (0-5) /hpf Urine WBC Clumps (None) /hpf Urine Bacteria (None) /hpf SARS-CoV-2 (PCR) (Not Detectd) 09/26/24 09/26/24 09/26/24 Range/Units 04:06 04:06 12:32 WBC 15.82 H (4.50-10.00) X 10*3/uL Immature Gran # 0.08 H (0.00-0.04) X 10*3/uL Neutrophils # 12.90 H (1.80-7.70) X 10*3/uL Monocytes # 1.53 H (0.20-1.00) X 10*3/uL Anion Gap 13.20 H (4.00-12.00) mmol/L Est GFR (CKD-EPI) 56 L (>=60) BUN/Creatinine Ratio 23.20 H (12.00-20.00) Ratio POC Glucose (mg/dL) 174 H (70-110) mg/dL Hemoglobin A1c (<=6.0) % Calcium 8.4 L (8.7-10.3) mg/dL AST 58 H (13-35) U/L Total Protein 5.8 L (6.2-8.2) g/dL Albumin 3.4 L (3.8-4.9) g/dL Albumin/Globulin Ratio 1.42 L (1.60-3.17) Ratio Urine Appearance (Clear) Urine Protein (Negative) Urine Glucose (UA) (Negative) Urine Blood (Negative) Ur Leukocyte Esterase (Negative) Urine WBC (0-5) /hpf Urine WBC Clumps (None) /hpf Urine Bacteria (None) /hpf SARS-CoV-2 (PCR) (Not Detectd) 09/26/24 09/26/24 Range/Units 13:55 13:55 WBC (4.50-10.00) X 10*3/uL Immature Gran # (0.00-0.04) X 10*3/uL Neutrophils # (1.80-7.70) X 10*3/uL Monocytes # (0.20-1.00) X 10*3/uL Anion Gap (4.00-12.00) mmol/L Est GFR (CKD-EPI) (>=60) BUN/Creatinine Ratio (12.00-20.00) Ratio POC Glucose (mg/dL) (70-110) mg/dL Hemoglobin A1c (<=6.0) % Calcium (8.7-10.3) mg/dL AST (13-35) U/L Total Protein (6.2-8.2) g/dL Albumin (3.8-4.9) g/dL Albumin/Globulin Ratio (1.60-3.17) Ratio Urine Appearance Turbid H (Clear) Urine Protein 2+ H (Negative) Urine Glucose (UA) 1+ H (Negative) Urine Blood Small H (Negative) Ur Leukocyte Esterase Large H (Negative) Urine WBC >182 H (0-5) /hpf Urine WBC Clumps Many H (None) /hpf Urine Bacteria Many H (None) /hpf SARS-CoV-2 (PCR) Detected A (Not Detectd) Assessment and Plan Assessment: 1. The patient is an 84-year-old female with expressive aphasia. Repeat CT scan of the brain is positive for left frontal ischemic infarct. 2. Underlying history of congestive heart failure status post pacemaker 3. History of breast cancer bilateral status post lumpectomies and chemoradiation therapy 4. Diabetes mellitus 5. Hyperlipidemia 6. Acute Covid infection. Plan: 1. MRI of the brain is unable to be obtained at our facility secondary to pacemaker. Repeat CT head confirmed CVA involving left frontal lobe. 2. Patient has been switched to aspirin and Brilinta. Plavix discontinued. Patient tolerating it well. Patient on Pepcid 20 mg daily. 3. Continue high-dose statin. LDL is well controlled 58.3, continue home dose of Crestor 20 mg daily at night. 4. Continue speech therapy 5. Hemoglobin A1c 7.3. Recommend optimize control of diabetes to target A1c < 7.0. 6. Per cardiology, interrogation of pacemaker did not reveal any paroxysmal atrial fibrillation. 7. 2-D echo revealed LVEF decreased 40-45%. Mildly reduced global left and clear systolic function. Severe right ventricular dilation. Normal left atrial size. Moderate thickening/calcification of the anterior, posterior wall thickness and moderate mitral stenosis. Normally functioning bioprosthetic aortic valve without stenosis. Cardiology on board. 8. Transesophageal echocardiogram revealed intact interatrial septum with no evidence of shunt. Intact left atrial appendage with no evidence of thrombus. Overall no evidence of cardiac source of embolization. Normally functioning transcatheter valve. Thickened mitral valve leaflets with moderate mitral regurgitation. Moderate TR. 8. Patient was already on aspirin 81 mg and Plavix 75 mg daily at home. Patient has failed this regimen. We will switch from Plavix to Brilinta. 9. Neurologically clear for transfer to rehab facility. Neurology will sign off. Please reconsult if any concerns. 10. Discussed with patient's son and in detail.
[2024-09-27 10:18] LABS: Basophils # (A) 0.04 X 10*3/uL (0.00-0.10); Basophils % (A) 0.3 %; Eosinophils # (A) 0.27 X 10*3/uL (0.04-0.35); Eosinophils % (A) 1.9 %; HCT 36.2 % (37.2-46.3); HGB 11.8 g/dL (12.0-15.0); Lymphocytes # (A) 1.13 X 10*3/uL (0.90-5.00); MCH 31.4 pg (27.0-32.0); MCHC 32.6 g/dL (32.0-37.0); MCV 96.3 FL (80.0-97.0); Mean Platelet Volume 11.4 FL (9.5-12.2); Monocytes # (A) 1.43 X 10*3/uL (0.20-1.00); Monocytes % (A) 10.2 %; NRBC Per 100 WBC 0 X 10*3/uL (0.00-0.01); Neutrophils # (A) 11.12 X 10*3/uL (1.80-7.70); Platelet Count 178 X 10*3/uL (140-440); RBC 3.76 X 10*6/uL (4.10-5.20); RDW 13.7 % (11.5-14.5); WBC 14.08 X 10*3/uL (4.50-10.00)
--- NOTE | 2024-09-27 11:09 | P.PN ---
Subjective Progress Note Date: 09/27/24 Earle Stevenson, is a 84-year-old female patient of Dr. Jonas who presented with complaints of increased confusion upon awakening this a.m. no focal weakness noted. Patient's episode lasted about 30 minutes patient does have a past medical history of heart failure, CVA, hyperlipidemia, breast cancer, CHF. Head CT was completed showing no acute intracranial hemorrhage or midline shift. CTA completed showing no evidence of significant stenosis. At this time patient will be admitted neurology and cardiology services consulted 2D echo has been ordered. Patient is resting comfortably in chair. Patient denies chest pain or shortness of breath. Patient denies nausea vomiting or diarrhea. Patie nt denies any urinary burning or frequency. Current vital signs temp 97.9, heart rate 113/64 with pulse ox 96% on room air On 09/19/2024 patient is alert and oriented x 3. Patient to undergo EEG and repeat CT scan today. Cardiology and neurology services following. No new neurological symptoms. Patient denies chest pain or shortness of breath. Patient denies nausea vomiting or diarrhea. Patient denies any urinary burning or frequency current vital signs temp 97.4, heart rate 71, respiratory rate 16, blood pressure 147/79 with a pulse ox of 98% on room air On 09/20/2024 patient was seen and examined on the medical floor, she is alert responsive in no apparent distress. She still has significant expressive aphasia, she underwent CT scan of the brain today which revealed evidence of d eveloping acute medial left frontal lobe infarct, currently she is maintained on Plavix and aspirin neurology and cardiology are following physical therapy and Occupational Therapy consulted speech therapy consulted, will follow closely. On 09/21/2024 patient is alert and oriented x 3. Per nursing staff patient had postvoid residuals of over 700 throughout the night requiring Esposito catheter. At this time will consult urology services and add Flomax. Patient denies chest pain or shortness of breath. Patient denies nausea vomiting or diarrhea. Patient denies any urinary burning or frequency On 09/22/2024 patient was seen and examined on the medical floor she is alert and oriented in no apparent distress there is no fever or chills no headache or dizziness no chest pain no shortness of breath no cough no nausea or vomiting no abdominal pain no diarrhea and no urinary symptoms. Patient had urinary retention and has a Esposito catheter in at this time, she was evaluated by urology and recommendation is to keep Esposito catheter in for the next couple of weeks, and follow-up with urology as outpatient. Discharge planning was discussed in details with patient and family, patient and her want the patient to be discharged to home, also her daughter is asking for her to be discharged home with home care and is willing to stay with her for the next couple of weeks to help her father take care of her. However, patient's son is requesting transferring patient to rehab. I will meet with him tomorrow, and assess discharge destination. On 09/23/2024 patient is alert and oriented x 3. Esposito catheter remains in place. Neurology services also recommending HECTOR. Per nursing staff cardiology is aware awaiting further recommendations. At this time patient denies chest pain or shortness of breath. Patient denies nausea vomiting or diarrhea. Patient denies any urinary burning or frequency On 09/24/2024 patient is alert and oriented x 3. Patient to undergo HECTOR today. Discharge planning in progress. Patient denies chest pain or shortness of breath. Patient denies nausea vomiting or diarrhea. Patient denies any urinary burning or frequency On 09/25/2024 patient is alert and oriented x 3. Patient has been cleared for discharge from neurology and cardiology services HECTOR negative. Patient to follow-up outpatient for further management. Per case management note awaiting decision by family in regards to discharge destination. Patient denies chest pain or shortness of breath. Patient denies nausea vomiting or diarrhea. Patient denies any urinary burning or frequency. On 09/26/2024 patient is alert and oriented x 3. Patient will be discharged to assisted living. Patient did have elevation in white count today. Will check chest x-ray COVID-19 and UA prior to discharge. Patient also unable to urinate Esposito catheter be placed and patient to follow-up outpatient with Dr. Dewey. Patient will be discharged on Brilinta and aspirin and follow-up outpatient for further management. At this time patient denies chest pain or shortness of breath. Patient denies nausea vomiting or diarrhea. Patient denies any urinary burning or frequency On 09/27/2024 patient was seen and examined on the medical floor she is alert and oriented x 3 in no apparent distress she is complaining of left wrist pain otherwise she denies any complaints there is no fever or chills no headache or dizziness no chest pain no shortness of breath no cough no nausea or vomiting no abdominal pain no diarrhea no urinary symptoms. At this time we will check left wrist x-ray will check uric acid level, patient is positive for COVID-19, treatment is supportive, she also has evidence of symptomatic urinary tract infection, she was started on antibiotic infectious disease are following. Objective - Vital Signs Vital signs: Vital Signs Temp 98.7 F 09/27/24 07:56 Pulse 76 09/27/24 07:56 Resp 17 09/27/24 07:56 BP 105/67 09/27/24 07:56 Pulse Ox 95 09/27/24 07:56 FiO2 Intake & Output 09/26/24 09/27/24 09/27/24 18:59 06:59 18:59 Intake Total 180 Output Total 750 1250 Balance -750 -1070 Intake: Oral 180 Output: Urine 750 1250 Other: Voiding Method Bedside Commode - Exam In general patient is alert and oriented Ã-3 in no distress HEENT head normocephalic and atraumatic Neck is supple no JVD no goiter no lymphadenopathy no carotid bruit Chest examination is clear to auscultation no crackles no wheezing Cardiac exam reveals regular heart sounds S1 and S2 no gallops no murmurs Abdomen is soft nontender no organomegaly with normal bowel sounds Extremity exam reveals no edema no cyanosis or clubbing Neurological examination reveals no gross focal deficits - Labs CBC & Chem 7: 09/27/24 03:14 09/26/24 04:06 Labs: Abnormal Lab Results - Last 24 Hours (Table) 09/26/24 09/26/24 09/26/24 Range/Units 12:32 13:55 13:55 WBC (4.50-10.00) X 10*3/uL RBC (4.10-5.20) X 10*6/uL Hgb (12.0-15.0) g/dL Hct (37.2-46.3) % Immature Gran # (0.00-0.04) X 10*3/uL Neutrophils # (1.80-7.70) X 10*3/uL Monocytes # (0.20-1.00) X 10*3/uL POC Glucose (mg/dL) 174 H (70-110) mg/dL Urine Appearance Turbid H (Clear) Urine Protein 2+ H (Negative) Urine Glucose (UA) 1+ H (Negative) Urine Blood Small H (Negative) Ur Leukocyte Esterase Large H (Negative) Urine WBC >182 H (0-5) /hpf Urine WBC Clumps Many H (None) /hpf Urine Bacteria Many H (None) /hpf SARS-CoV-2 (PCR) Detected A (Not Detectd) 09/26/24 09/26/24 09/27/24 Range/Units 17:26 19:47 03:14 WBC 14.08 H (4.50-10.00) X 10*3/uL RBC 3.76 L (4.10-5.20) X 10*6/uL Hgb 11.8 L (12.0-15.0) g/dL Hct 36.2 L (37.2-46.3) % Immature Gran # 0.09 H (0.00-0.04) X 10*3/uL Neutrophils # 11.12 H (1.80-7.70) X 10*3/uL Monocytes # 1.43 H (0.20-1.00) X 10*3/uL POC Glucose (mg/dL) 187 H 202 H (70-110) mg/dL Urine Appearance (Clear) Urine Protein (Negative) Urine Glucose (UA) (Negative) Urine Blood (Negative) Ur Leukocyte Esterase (Negative) Urine WBC (0-5) /hpf Urine WBC Clumps (None) /hpf Urine Bacteria (None) /hpf SARS-CoV-2 (PCR) (Not Detectd) Assessment and Plan Assessment: 1. TIA episode with episode of confusion and aphasia repeat CT positive for left frontal ischemic infarct 2. History of previous TIA 3. History of breast cancer 4. History of congestive heart failure 5. History of diabetes mellitus 6. History of hyperlipidemia 7. Urinary retention. Esposito catheter placed Flomax added urology services consulted DVT prophylaxis Lovenox. GI prophylaxis Pepcid Neurology and cardiology services consulted Patient was started on aspirin and Plavix Unable to get MRI due to pacemaker PT OT and speech services consulted
[2024-09-27 11:17] LABS: ALT 42 U/L (8-44); AST 68 U/L (13-35); Alkaline Phosphatase 58 U/L (41-126); BUN/Creat Ratio 25.73 Ratio (12.00-20.00); Blood Urea Nitrogen 28.3 mg/dL (9.0-27.0); Calcium 8.2 mg/dL (8.7-10.3); Carbon Dioxide 17.4 mmol/L (21.6-31.8); Chloride 105 mmol/L (96-109); Globulin 2.3 g/dL (1.6-3.3); Glucose 84 mg/dL (70-110); Potassium 3.8 mmol/L (3.5-5.5); Sodium 137 mmol/L (135-145); Total Bilirubin 0.8 mg/dL (0.3-1.2); Total Protein 5.3 g/dL (6.2-8.2)
--- NOTE | 2024-09-27 12:45 | XR ---
Left wrist. HISTORY: Pain. COMPARISON: None TECHNIQUE: 4 views left wrist are obtained. FINDINGS: There is no fracture or focal intraosseous abnormality. There is mild hypertrophic spurring and sclerosis of the first carpometacarpal joint indicating mild osteoarthritis. The remaining carpal bones and articulations are normal. There is diffuse arteriovascular calcification involving the radial artery. IMPRESSION: 1. No acute bone. 2. Mild osteoarthritic change at the first carpometacarpal joint. 3. Arteriovascular calcification. [facility], , 09/27/2024 12:43 PM
[2024-09-27 12:52] LABS: Glucose,Whole Blood 174 mg/dL (70-110)
--- NOTE | 2024-09-27 14:33 | P.PN ---
Subjective Progress Note Date: 09/27/24 Principal diagnosis: Reason for follow-up is UTI and COVID-19 Patient is a 84-year-old female with a past medical history significant for Cancer, Heart Failure, CVA/TIA, Diabetes Mellitus, Hyperlipidemia, Osteoarthritis (OA), Thyroid Disorder presenting to the hospital for evaluation of confusion and difficulty finding words, patient was noticed to have elevated white count for the patient did have a UA came back positive and also tested positive for COVID prompting this consultation. On today's evaluation that is 09/27/2024, patient did not have any fever and de nies any chills, patient is breathing comfortably on room air, patient with no chest pain or cough patient did not have any abdominal pain nausea vomiting or any loose stools. Patient white count slightly down to 14.08, creatinine is 1.1 Objective - Vital Signs Vital signs: Vital Signs Temp 98.7 F 09/27/24 07:56 Pulse 76 09/27/24 07:56 Resp 17 09/27/24 07:56 BP 101/59 09/27/24 12:50 Pulse Ox 95 09/27/24 07:56 FiO2 Intake & Output 09/26/24 09/27/24 09/27/24 18:59 06:59 18:59 Intake Total 180 Output Total 750 1250 Balance -750 -1070 Intake: Oral 180 Output: Urine 750 1250 Other: Voiding Method Bedside Commode # Bowel Movements 1 - Exam GENERAL DESCRIPTION: An elderly female up in the chair in no distress RESPIRATORY SYSTEM: Unlabored breathing , decreased breath sounds at bases HEART: S1 S2 regular rate and rhythm , ABDOMEN: Soft , no tenderness EXTREMITIES: No edema feet - Labs CBC & Chem 7: 09/27/24 03:14 09/27/24 03:14 Labs: Abnormal Lab Results - Last 24 Hours (Table) 09/26/24 09/26/24 09/26/24 Range/Units 13:55 13:55 17:26 WBC (4.50-10.00) X 10*3/uL RBC (4.10-5.20) X 10*6/uL Hgb (12.0-15.0) g/dL Hct (37.2-46.3) % Immature Gran # (0.00-0.04) X 10*3/uL Neutrophils # (1.80-7.70) X 10*3/uL Monocytes # (0.20-1.00) X 10*3/uL Carbon Dioxide (21.6-31.8) mmol/L Anion Gap (4.00-12.00) mmol/L BUN (9.0-27.0) mg/dL Est GFR (CKD-EPI) (>=60) BUN/Creatinine Ratio (12.00-20.00) Ratio POC Glucose (mg/dL) 187 H (70-110) mg/dL Calcium (8.7-10.3) mg/dL AST (13-35) U/L Total Protein (6.2-8.2) g/dL Albumin (3.8-4.9) g/dL Albumin/Globulin Ratio (1.60-3.17) Ratio Urine Appearance Turbid H (Clear) Urine Protein 2+ H (Negative) Urine Glucose (UA) 1+ H (Negative) Urine Blood Small H (Negative) Ur Leukocyte Esterase Large H (Negative) Urine WBC >182 H (0-5) /hpf Urine WBC Clumps Many H (None) /hpf Urine Bacteria Many H (None) /hpf SARS-CoV-2 (PCR) Detected A (Not Detectd) 09/26/24 09/27/24 09/27/24 Range/Units 19:47 03:14 03:14 WBC 14.08 H (4.50-10.00) X 10*3/uL RBC 3.76 L (4.10-5.20) X 10*6/uL Hgb 11.8 L (12.0-15.0) g/dL Hct 36.2 L (37.2-46.3) % Immature Gran # 0.09 H (0.00-0.04) X 10*3/uL Neutrophils # 11.12 H (1.80-7.70) X 10*3/uL Monocytes # 1.43 H (0.20-1.00) X 10*3/uL Carbon Dioxide 17.4 L (21.6-31.8) mmol/L Anion Gap 14.60 H (4.00-12.00) mmol/L BUN 28.3 H (9.0-27.0) mg/dL Est GFR (CKD-EPI) 50 L (>=60) BUN/Creatinine Ratio 25.73 H (12.00-20.00) Ratio POC Glucose (mg/dL) 202 H (70-110) mg/dL Calcium 8.2 L (8.7-10.3) mg/dL AST 68 H (13-35) U/L Total Protein 5.3 L (6.2-8.2) g/dL Albumin 3.0 L (3.8-4.9) g/dL Albumin/Globulin Ratio 1.30 L (1.60-3.17) Ratio Urine Appearance (Clear) Urine Protein (Negative) Urine Glucose (UA) (Negative) Urine Blood (Negative) Ur Leukocyte Esterase (Negative) Urine WBC (0-5) /hpf Urine WBC Clumps (None) /hpf Urine Bacteria (None) /hpf SARS-CoV-2 (PCR) (Not Detectd) 09/27/24 Range/Units 12:50 WBC (4.50-10.00) X 10*3/uL RBC (4.10-5.20) X 10*6/uL Hgb (12.0-15.0) g/dL Hct (37.2-46.3) % Immature Gran # (0.00-0.04) X 10*3/uL Neutrophils # (1.80-7.70) X 10*3/uL Monocytes # (0.20-1.00) X 10*3/uL Carbon Dioxide (21.6-31.8) mmol/L Anion Gap (4.00-12.00) mmol/L BUN (9.0-27.0) mg/dL Est GFR (CKD-EPI) (>=60) BUN/Creatinine Ratio (12.00-20.00) Ratio POC Glucose (mg/dL) 174 H (70-110) mg/dL Calcium (8.7-10.3) mg/dL AST (13-35) U/L Total Protein (6.2-8.2) g/dL Albumin (3.8-4.9) g/dL Albumin/Globulin Ratio (1.60-3.17) Ratio Urine Appearance (Clear) Urine Protein (Negative) Urine Glucose (UA) (Negative) Urine Blood (Negative) Ur Leukocyte Esterase (Negative) Urine WBC (0-5) /hpf Urine WBC Clumps (None) /hpf Urine Bacteria (None) /hpf SARS-CoV-2 (PCR) (Not Detectd) Assessment and Plan (1) COVID-19 Current Visit: Yes Status: Acute Code(s): U07.1 - COVID-19 SNOMED Code(s): 616343090 (2) UTI (urinary tract infection) Current Visit: Yes Status: Acute Code(s): N39.0 - URINARY TRACT INFECTION, SITE NOT SPECIFIED SNOMED Code(s): 09133633 (3) Penicillin allergy Current Visit: Yes Status: Acute Code(s): Z88.0 - ALLERGY STATUS TO PENICILLIN SNOMED Code(s): 64729975 Plan: 1patient tested positive for COVID-19 and this patient currently do not have significant respiratory symptoms patient not hypoxic no need for supplemental oxygen chest x-ray has been negative treatment to be mostly supportive. 2patient did have elevated white count did have lower abdominal discomfort cloudy urine positive UA concerning for symptomatic UTI risk factor could be Esposito catheter placement during the initial part of her stay in the hospital and likely from enteric gram-negative pathogen 3-penicillin allergy that will limit number of antibiotics safe to use 4-patient continue with cefepime while waiting for the culture to finalize at the bedside question concern answered Dictation was produced using [employer] dictation software. please excuse any grammatical, word or spelling errors.
[2024-09-27 17:29] LABS: Glucose,Whole Blood 103 mg/dL (70-110)
[2024-09-27 20:32] LABS: Glucose,Whole Blood 221 mg/dL (70-110)
[2024-09-28 05:51] LABS: Glucose,Whole Blood 107 mg/dL (70-110)
--- NOTE | 2024-09-28 10:29 | P.PN ---
Subjective Progress Note Date: 09/28/24 Earle Stevenson, is a 84-year-old female patient of Dr. Jonas who presented with complaints of increased confusion upon awakening this a.m. no focal weakness noted. Patient's episode lasted about 30 minutes patient does have a past medical history of heart failure, CVA, hyperlipidemia, breast cancer, CHF. Head CT was completed showing no acute intracranial hemorrhage or midline shift. CTA completed showing no evidence of significant stenosis. At this time patient will be admitted neurology and cardiology services consulted 2D echo has been ordered. Patient is resting comfortably in chair. Patient denies chest pain or shortness of breath. Patient denies nausea vomiting or diarrhea. Patient denies any urinary burning or frequency. Current vital signs temp 97.9, heart rate 113/64 with pulse ox 96% on room air On 09/19/2024 patient is alert and oriented x 3. Patient to undergo EEG and repeat CT scan today. Cardiology and neurology services following. No new neurological symptoms. Patient denies chest pain or shortness of breath. Patient denies nausea vomiting or diarrhea. Patient denies any urinary burning or frequency current vital signs temp 97.4, heart rate 71, respiratory rate 16, blood pressure 147/79 with a pulse ox of 98% on room air On 09/20/2024 patient was seen and examined on the medical floor, she is alert responsive in no apparent distress. She still has significant expressive aphasia, she underwent CT scan of the brain today which revealed evidence of de veloping acute medial left frontal lobe infarct, currently she is maintained on Plavix and aspirin neurology and cardiology are following physical therapy and Occupational Therapy consulted speech therapy consulted, will follow closely. On 09/21/2024 patient is alert and oriented x 3. Per nursing staff patient had postvoid residuals of over 700 throughout the night requiring Esposito catheter. At this time will consult urology services and add Flomax. Patient denies chest pain or shortness of breath. Patient denies nausea vomiting or diarrhea. Patient denies any urinary burning or frequency On 09/22/2024 patient was seen and examined on the medical floor she is alert and oriented in no apparent distress there is no fever or chills no headache or dizziness no chest pain no shortness of breath no cough no nausea or vomiting no abdominal pain no diarrhea and no urinary symptoms. Patient had urinary retention and has a Esposito catheter in at this time, she was evaluated by urology and recommendation is to keep Esposito catheter in for the next couple of weeks, and follow-up with urology as outpatient. Discharge planning was discussed in details with patient and family, patient and her want the patient to be discharged to home, also her daughter is asking for her to be discharged home with home care and is willing to stay with her for the next couple of weeks to help her father take care of her. However, patient's son is requesting transferring patient to rehab. I will meet with him tomorrow, and assess discharge destination. On 09/23/2024 patient is alert and oriented x 3. Esposito catheter remains in place. Neurology services also recommending HECTOR. Per nursing staff cardiology is aware awaiting further recommendations. At this time patient denies chest pain or shortness of breath. Patient denies nausea vomiting or diarrhea. Patient denies any urinary burning or frequency On 09/24/2024 patient is alert and oriented x 3. Patient to undergo HECTOR today. Discharge planning in progress. Patient denies chest pain or shortness of breath. Patient denies nausea vomiting or diarrhea. Patient denies any urinary burning or frequency On 09/25/2024 patient is alert and oriented x 3. Patient has been cleared for discharge from neurology and cardiology services HECTOR negative. Patient to follow-up outpatient for further management. Per case management note awaiting decision by family in regards to discharge destination. Patient denies chest pain or shortness of breath. Patient denies nausea vomiting or diarrhea. Patient denies any urinary burning or frequency. On 09/26/2024 patient is alert and oriented x 3. Patient will be discharged to assisted living. Patient did have elevation in white count today. Will check chest x-ray COVID-19 and UA prior to discharge. Patient also unable to urinate Esposito catheter be placed and patient to follow-up outpatient with Dr. Dewey. Patient will be discharged on Brilinta and aspirin and follow-up outpatient for further management. At this time patient denies chest pain or shortness of breath. Patient denies nausea vomiting or diarrhea. Patient denies any urinary burning or frequency On 09/27/2024 patient was seen and examined on the medical floor she is alert and oriented x 3 in no apparent distress she is complaining of left wrist pain otherwise she denies any complaints there is no fever or chills no headache or dizziness no chest pain no shortness of breath no cough no nausea or vomiting no abdominal pain no diarrhea no urinary symptoms. At this time we will check left wrist x-ray will check uric acid level, patient is positive for COVID-19, treatment is supportive, she also has evidence of symptomatic urinary tract infection, she was started on antibiotic infectious disease are following. On 09/28/2024 patient is alert and oriented x 3. Wrist x-ray completed showing no acute bone mild osteoarthritic change at the first carpal metacarpal joint. Patient denies chest pain or shortness of breath. Patient denies chest pain or shortness of breath. Patient denies any urinary burning or frequency. Esposito catheter remains in place patient remains on IV Maxipime urine culture currently growing gram-negative bacilli infectious disease services are following. Current vital signs temp 98.8, heart rate 77, respiratory rate 17, blood pressure 119/53 with a pulse ox of 95% on room air Objective - Vital Signs Vital signs: Vital Signs Temp 98.8 F 09/28/24 08:00 Pulse 81 09/28/24 09:50 Resp 17 09/28/24 08:00 BP 117/63 09/28/24 09:50 Pulse Ox 95 09/28/24 08:00 FiO2 Intake & Output 09/27/24 09/28/24 09/28/24 18:59 06:59 18:59 Intake Total 118 Output Total 600 1050 Balance -600 -1050 118 Intake: Oral 118 Output: Urine 600 1050 Other: Voiding Method Bedside Commode Indwelling Catheter # Bowel Movements 1 - Exam In general patient is alert and oriented Ã-3 in no distress HEENT head normocephalic and atraumatic Neck is supple no JVD no goiter no lymphadenopathy no carotid bruit Chest examination is clear to auscultation no crackles no wheezing Cardiac exam reveals regular heart sounds S1 and S2 no gallops no murmurs Abdomen is soft nontender no organomegaly with normal bowel sounds Extremity exam reveals no edema no cyanosis or clubbing Neurological examination reveals no gross focal deficits - Labs CBC & Chem 7: 09/27/24 03:14 09/27/24 03:14 Labs: Abnormal Lab Results - Last 24 Hours (Table) 09/27/24 09/27/24 09/27/24 Range/Units 03:14 12:50 20:30 Carbon Dioxide 17.4 L (21.6-31.8) mmol/L Anion Gap 14.60 H (4.00-12.00) mmol/L BUN 28.3 H (9.0-27.0) mg/dL Est GFR (CKD-EPI) 50 L (>=60) BUN/Creatinine Ratio 25.73 H (12.00-20.00) Ratio POC Glucose (mg/dL) 174 H 221 H (70-110) mg/dL Calcium 8.2 L (8.7-10.3) mg/dL AST 68 H (13-35) U/L Total Protein 5.3 L (6.2-8.2) g/dL Albumin 3.0 L (3.8-4.9) g/dL Albumin/Globulin Ratio 1.30 L (1.60-3.17) Ratio Microbiology - Last 24 Hours (Table) 09/26/24 13:55 Urine Culture - Preliminary Urine,Catheterized Gram Neg Bacilli Assessment and Plan Assessment: 1. TIA episode with episode of confusion and aphasia repeat CT positive for left frontal ischemic infarct 2. History of previous TIA 3. History of breast cancer 4. History of congestive heart failure 5. History of diabetes mellitus 6. History of hyperlipidemia 7. Urinary retention. Esposito catheter placed Flomax added urology services consulted 8. COVID-19 positive asymptomatic 9. Urinary tract infection patient currently on Maxipime DVT prophylaxis Lovenox. GI prophylaxis Pepcid Neurology and cardiology services consulted Patient was started on aspirin and Plavix Unable to get MRI due to pacemaker PT OT and speech services consulted
[2024-09-28 12:56] LABS: Glucose,Whole Blood 149 mg/dL (70-110)
--- NOTE | 2024-09-28 15:41 | P.PN ---
Subjective Progress Note Date: 09/28/24 Principal diagnosis: Reason for follow-up is UTI and COVID-19 Patient is a 84-year-old female with a past medical history significant for Cancer, Heart Failure, CVA/TIA, Diabetes Mellitus, Hyperlipidemia, Osteoarthritis (OA), Thyroid Disorder presenting to the hospital for evaluation of confusion and difficulty finding words, patient was noticed to have elevated white count for the patient did have a UA came back positive and also tested positive for COVID prompting this consultation. On today's evaluation that is 09/28/2024, Patient is afebrile patient is curren tly on room air and denies having any shortness of breath, the patient denies any chest pain or cough, the patient denies any nausea vomiting did not have any abdominal pain and no diarrhea. No new lab has been obtained today urine is growing gram-negative bacilli Objective - Vital Signs Vital signs: Vital Signs Temp 98.8 F 09/28/24 08:00 Pulse 81 09/28/24 09:50 Resp 17 09/28/24 08:00 BP 117/63 09/28/24 09:50 Pulse Ox 95 09/28/24 08:00 FiO2 Intake & Output 09/27/24 09/28/24 09/28/24 18:59 06:59 18:59 Intake Total 118 Output Total 600 1050 Balance -600 -1050 118 Intake: Oral 118 Output: Urine 600 1050 Other: Voiding Method Bedside Commode Indwelling Catheter # Bowel Movements 1 - Exam GENERAL DESCRIPTION: An elderly female up in the chair in no distress RESPIRATORY SYSTEM: Unlabored breathing , decreased breath sounds at bases HEART: S1 S2 regular rate and rhythm , ABDOMEN: Soft , no tenderness EXTREMITIES: No edema feet - Labs CBC & Chem 7: 09/27/24 03:14 09/27/24 03:14 Labs: Abnormal Lab Results - Last 24 Hours (Table) 09/27/24 09/28/24 Range/Units 20:30 12:54 POC Glucose (mg/dL) 221 H 149 H (70-110) mg/dL Microbiology - Last 24 Hours (Table) 09/26/24 13:55 Urine Culture - Preliminary Urine,Catheterized Gram Neg Bacilli Assessment and Plan (1) COVID-19 Current Visit: Yes Status: Acute Code(s): U07.1 - COVID-19 SNOMED Code(s): 535928088 (2) UTI (urinary tract infection) Current Visit: Yes Status: Acute Code(s): N39.0 - URINARY TRACT INFECTION, SITE NOT SPECIFIED SNOMED Code(s): 31482274 (3) Penicillin allergy Current Visit: Yes Status: Acute Code(s): Z88.0 - ALLERGY STATUS TO PENICILLIN SNOMED Code(s): 73090877 Plan: 1patient tested positive for COVID-19 and this patient currently do not have significant respiratory symptoms patient not hypoxic no need for supplemental oxygen chest x-ray has been negative treatment to be mostly supportive. 2patient did have elevated white count did have lower abdominal discomfort cloudy urine positive UA concerning for symptomatic UTI risk factor could be Esposito catheter placement during the initial part of her stay in the hospital and likely from enteric gram-negative pathogen 3-penicillin allergy that will limit number of antibiotics safe to use 4-patient urine is currently growing gram-negative with ID sensitivities pending, to continue with cefepime while waiting for the culture to finalize at the bedside question concern answered Dictation was produced using [email or web address] dictation software. please excuse any grammatical, word or spelling errors. Time with Patient: Less than 30
[2024-09-28 17:52] LABS: Glucose,Whole Blood 228 mg/dL (70-110)
[2024-09-28 19:55] LABS: Glucose,Whole Blood 314 mg/dL (70-110)
[2024-09-29 05:32] LABS: Glucose,Whole Blood 147 mg/dL (70-110)
[2024-09-29 07:13] VITALS: RESP 16
[2024-09-29 09:11] LABS: Basophils # (A) 0.05 X 10*3/uL (0.00-0.10); Basophils % (A) 0.5 %; Eosinophils # (A) 0.34 X 10*3/uL (0.04-0.35); Eosinophils % (A) 3.5 %; HCT 36.5 % (37.2-46.3); HGB 11.9 g/dL (12.0-15.0); Lymphocytes # (A) 1.03 X 10*3/uL (0.90-5.00); Lymphocytes % (A) 10.5 %; MCH 30.9 pg (27.0-32.0); MCHC 32.6 g/dL (32.0-37.0); MCV 94.8 FL (80.0-97.0); Mean Platelet Volume 10.8 FL (9.5-12.2); Monocytes # (A) 1.04 X 10*3/uL (0.20-1.00); Monocytes % (A) 10.6 %; NRBC Per 100 WBC 0 X 10*3/uL (0.00-0.01); Neutrophils # (A) 7.31 X 10*3/uL (1.80-7.70); Neutrophils % (A) 74.2 %; Platelet Count 251 X 10*3/uL (140-440); RBC 3.85 X 10*6/uL (4.10-5.20); RDW 13.5 % (11.5-14.5); WBC 9.84 X 10*3/uL (4.50-10.00)
[2024-09-29 09:16] LABS: ALT 171 U/L (8-44); AST 210 U/L (13-35); Albumin 2.8 g/dL (3.8-4.9); Albumin/Globulin Ratio 1.12 Ratio (1.60-3.17); Alkaline Phosphatase 74 U/L (41-126); Blood Urea Nitrogen 29.6 mg/dL (9.0-27.0); Calcium 8.1 mg/dL (8.7-10.3); Carbon Dioxide 17.6 mmol/L (21.6-31.8); Chloride 106 mmol/L (96-109); Globulin 2.5 g/dL (1.6-3.3); Glucose 152 mg/dL (70-110); Potassium 4.1 mmol/L (3.5-5.5); Sodium 135 mmol/L (135-145); Total Bilirubin 0.6 mg/dL (0.3-1.2); Total Protein 5.3 g/dL (6.2-8.2)
[2024-09-29 12:08] LABS: Glucose,Whole Blood 315 mg/dL (70-110)
--- NOTE | 2024-09-29 13:16 | US ---
EXAMINATION TYPE: US venous doppler duplex UE LT DATE OF EXAM: 09/29/2024 COMPARISON: NONE CLINICAL INDICATION: Female, 84 years old with history of pain, r/o DVT; left arm edema. TECHNIQUE: Grayscale, color Doppler and spectral Doppler imaging of the upper extremity. SIDE PERFORMED: Left arm. VESSELS IMAGED: IJV Subclavian Vein Axilla Vein Brachial Vein(s) Radial Paired Veins Ulnar Paired Veins Cephalic Vein* Basilic Vein* (*superficial vessels) FINDINGS: Left Arm: No evidence deep vein thrombosis. Thrombus visualized in the Cephalic Vein. Remainder of the vessels demonstrate Grayscale, color doppler, spectral doppler imaging performed of the deep veins of the upper extremities. IMPRESSION: 1. No evidence for DVT. 2. Superficial thrombophlebitis within the cephalic vein. [facility], , 09/29/2024 1:14 PM
[2024-09-29 15:39] VITALS: BP 119/61; PULSE 82; TEMP 98
--- NOTE | 2024-09-30 13:02 | P.DS ---
Providers Date of admission: 09/18/24 12:52 Expected date of discharge: 09/29/24 Attending physician: Kala Kimbrough Consults: 09/18/24 12:52 Consult Physician Routine Consulting Provider: Salinas Veloz Consult Reason/Comments: CVA Do you want consulting provider notified?: Yes 09/21/24 08:30 Consult Physician Routine Consulting Provider: Richard Chaves Consult Reason/Comments: urinary retention Do you want consulting provider notified?: Yes 09/23/24 08:04 Consult Physician Routine Consulting Provider: Nikolas Pierre Consult Reason/Comments: possible HECTOR, r/o embolic source for CVA Do you want consulting provider notified?: Already Contacted 09/26/24 15:15 Consult Physician Routine Consulting Provider: Earnest Dominguez Consult Reason/Comments: covid-19 infection, UTI Do you want consulting provider notified?: Yes Primary care physician: Radha Hicks Hospital Course: Diagnosis on discharge: 1. TIA episode with episode of confusion and aphasia repeat CT positive for left frontal ischemic infarct 2. History of previous TIA 3. History of breast cancer 4. History of congestive heart failure 5. History of diabetes mellitus 6. History of hyperlipidemia 7. Urinary retention. Esposito catheter placed Flomax added urology services consulted Hospital course: Earle Stevenson, is a 84-year-old female patient of Dr. Jonas who presented with complaints of increased confusion upon awakening this a.m. no focal weakness noted. Patient's episode lasted about 30 minutes patient does have a past medical history of heart failure, CVA, hyperlipidemia, breast cancer, CHF. Head CT was completed showing no acute intracranial hemorrhage or midline shift. CTA completed showing no evidence of significant stenosis. At this time patient will be admitted neurology and cardiology services consulted 2D echo has been ordered. Patient is resting comfortably in chair. Patient denies chest pain or shortness of breath. Patient denies nausea vomiting or diarrhea. Patient denies any urinary burning or frequency. Current vital signs temp 97.9, heart rate 113/64 with pulse ox 96% on room air On 09/19/2024 patient is alert and oriented x 3. Patient to undergo EEG and repeat CT scan today. Cardiology and neurology services following. No new neurological symptoms. Patient denies chest pain or shortness of breath. Patient denies nausea vomiting or diarrhea. Patient denies any urinary burning or frequency current vital signs temp 97.4, heart rate 71, respiratory rate 16, blood pressure 147/79 with a pulse ox of 98% on room air On 09/20/2024 patient was seen and examined on the medical floor, she is alert responsive in no apparent distress. She still has significant expressive aphasia, she underwent CT scan of the brain today which revealed evidence of developing acute medial left frontal lobe infarct, currently she is maintained on Plavix and aspirin neurology and cardiology are following physical therapy and Occupational Therapy consulted speech therapy consulted, will follow closely. On 09/21/2024 patient is alert and oriented x 3. Per nursing staff patient had postvoid residuals of over 700 throughout the night requiring Esposito catheter. At this time will consult urology services and add Flomax. Patient denies chest pain or shortness of breath. Patient denies nausea vomiting or diarrhea. Patient denies any urinary burning or frequency On 09/22/2024 patient was seen and examined on the medical floor she is alert and oriented in no apparent distress there is no fever or chills no headache or dizziness no chest pain no shortness of breath no cough no nausea or vomiting no abdominal pain no diarrhea and no urinary symptoms. Patient had urinary retention and has a Esposito catheter in at this time, she was evaluated by urology and recommendation is to keep Esposito catheter in for the next couple of weeks, and follow-up with urology as outpatient. Discharge planning was discussed in details with patient and family, patient and her want the patient to be discharged to home, also her daughter is asking for her to be discharged home with home care and is willing to stay with her for the next couple of weeks to help her father take care of her. However, patient's son is requesting transferring patient to rehab. I will meet with him tomorrow, and assess discharge destination. On 09/23/2024 patient is alert and oriented x 3. Esposito catheter remains in place. Neurology services also recommending HECTOR. Per nursing staff cardiology is aware awaiting further recommendations. At this time patient denies chest pain or shortness of breath. Patient denies nausea vomiting or diarrhea. Patient denies any urinary burning or frequency On 09/24/2024 patient is alert and oriented x 3. Patient to undergo HECTOR today. Discharge planning in progress. Patient denies chest pain or shortness of breath. Patient denies nausea vomiting or diarrhea. Patient denies any urinary burning or frequency On 09/25/2024 patient is alert and oriented x 3. Patient has been cleared for discharge from neurology and cardiology services HECTOR negative. Patient to [facility] w-up outpatient for further management. Per case management note awaiting decision by family in regards to discharge destination. Patient denies chest pain or shortness of breath. Patient denies nausea vomiting or diarrhea. Patient denies any urinary burning or frequency. On 09/26/2024 patient is alert and oriented x 3. Patient will be discharged to assisted living. Patient did have elevation in white count today. Will check chest x-ray COVID-19 and UA prior to discharge. Patient also unable to urinate Esposito catheter be placed and patient to follow-up outpatient with Dr. Dewey. Patient will be discharged on Brilinta and aspirin and follow-up outpatient for further management. At this time patient denies chest pain or shortness of breath. Patient denies nausea vomiting or diarrhea. Patient denies any urinary burning or frequency On 09/27/2024 patient was seen and examined on the medical floor she is alert and oriented x 3 in no apparent distress she is complaining of left wrist pain otherwise she denies any complaints there is no fever or chills no headache or dizziness no chest pain no shortness of breath no cough no nausea or vomiting no abdominal pain no diarrhea no urinary symptoms. At this time we will check left wrist x-ray will check uric acid level, patient is positive for COVID-19, treatment is supportive, she also has evidence of symptomatic urinary tract infection, she was started on antibiotic infectious disease are following. On 09/29/2024 patient will be discharged home with home health care today. Patient will be DC'd on Ceftin for urinary tract infection Brilinta Flomax and aspirin patient to follow-up with urology services outpatient. Patient denies chest pain or shortness of breath. Patient denies nausea vomiting or diarrhea. Patient denies any urinary burning or frequency Patient Condition at Discharge: Stable Plan - Discharge Summary Discharge Rx Participant: No New Discharge Prescriptions: New Aspirin 81 mg PO DAILY 30 Days #30 tab Ticagrelor [Brilinta] 90 mg PO BID 30 Days #30 tab Tamsulosin [Flomax] 0.4 mg PO PC-SUPPER 30 Days #30 cap cefuroxime axetiL [Ceftin] 500 mg PO BID #10 tab Continue Ascorbic Acid [Vitamin C] 500 mg PO DAILY Lutein 20 mg PO DAILY Digoxin [Digox] 125 mcg PO DAILY Sacubitril/Valsartan [Entresto 24 mg-26 mg Tablet] 1 tab PO BID Anastrozole [Arimidex] 1 mg PO DAILY Isosorbide Mononitrate ER [Imdur] 30 mg PO BID Loratadine 10 mg PO DAILY Rosuvastatin [Crestor] 20 mg PO HS carvediloL [Coreg] 3.125 mg PO BID Mv-Min/Folic/K1/Lycopen/Lutein [Centrum Silver Men Tablet] 1 tab PO DAILY Empagliflozin [Jardiance] 25 mg PO DAILY Repaglinide [Prandin] 2 mg PO TID-W/MEALS Zinc Gluconate [Zinc] 50 mg PO DAILY Levothyroxine Sodium [Synthroid] 137 mcg PO DAILY Glucosam/Denilson-Msm1/C/Curtis/Bosw [Glucosamine-Chondroitin Tablet] 1 tab PO DAILY Ferrous Sulfate [Iron (65 MG Elemental)] 325 mg PO DAILY Cholecalciferol [Vitamin D3 (25 Mcg = 1000 Iu)] 25 mcg PO DAILY Discontinued Clopidogrel [Plavix] 75 mg PO DAILY Discharge Medication List Ascorbic Acid [Vitamin C] 500 mg PO DAILY 09/11/14 [History] Lutein 20 mg PO DAILY 09/11/14 [History] Digoxin [Digox] 125 mcg PO DAILY 11/07/15 [History] Sacubitril/Valsartan [Entresto 24 mg-26 mg Tablet] 1 tab PO BID 11/07/15 [History] Anastrozole [Arimidex] 1 mg PO DAILY 11/25/17 [History] Isosorbide Mononitrate ER [Imdur] 30 mg PO BID 11/25/17 [History] Loratadine 10 mg PO DAILY 11/18/18 [History] Rosuvastatin [Crestor] 20 mg PO HS 04/07/22 [History] Cholecalciferol [Vitamin D3 (25 Mcg = 1000 Iu)] 25 mcg PO DAILY 09/18/24 [His tory] Empagliflozin [Jardiance] 25 mg PO DAILY 09/18/24 [History] Ferrous Sulfate [Iron (65 MG Elemental)] 325 mg PO DAILY 09/18/24 [History] Glucosam/Denilson-Msm1/C/Curtis/Bosw [Glucosamine-Chondroitin Tablet] 1 tab PO DAILY 09/18/24 [History] Levothyroxine Sodium [Synthroid] 137 mcg PO DAILY 09/18/24 [History] Mv-Min/Folic/K1/Lycopen/Lutein [Centrum Silver Men Tablet] 1 tab PO DAILY 09/18/24 [History] Repaglinide [Prandin] 2 mg PO TID-W/MEALS 09/18/24 [History] Zinc Gluconate [Zinc] 50 mg PO DAILY 09/18/24 [History] carvediloL [Coreg] 3.125 mg PO BID 09/18/24 [History] Aspirin 81 mg PO DAILY 30 Days #30 tab 09/26/24 [Rx] Tamsulosin [Flomax] 0.4 mg PO PC-SUPPER 30 Days #30 cap 09/26/24 [Rx] Ticagrelor [Brilinta] 90 mg PO BID 30 Days #30 tab 09/26/24 [Rx] cefuroxime axetiL [Ceftin] 500 mg PO BID #10 tab 09/29/24 [Rx] Follow up Appointment(s)/Referral(s): [facility], [NON-STAFF] - As Needed Radha Hicks MD [Primary Care Provider] - 1-2 days Richard Chaves MD [STAFF PHYSICIAN] - 2 Weeks Patient Instructions/Handouts: Urinary Tract Infection in Women (DC) Discharge Disposition: HOME SELF-CARE
--- NOTE | 2024-09-30 14:09 | P.PN ---
Subjective Progress Note Date: 09/29/24 Principal diagnosis: Reason for follow-up is UTI and COVID-19 Patient is a 84-year-old female with a past medical history significant for Cancer, Heart Failure, CVA/TIA, Diabetes Mellitus, Hyperlipidemia, Osteoarthritis (OA), Thyroid Disorder presenting to the hospital for evaluation of confusion and difficulty finding words, patient was noticed to have elevated white count for the patient did have a UA came back positive and also tested positive for COVID prompting this consultation. On today's evaluation that is 09/29/2024, patient has been afebrile, patient is breathing comfortably and is currently on room air, patient denies having any chest pain and cough, patient denies nausea vomiting or diarrhea and no abdominal pain.Mention feeling better and no new symptoms. Patient white count is 9.84, creatinine is 1.0 urine with E. coli sensitive pathogen Objective - Vital Signs Vital signs: Vital Signs Temp 98 F 09/29/24 14:00 Pulse 82 09/29/24 14:00 Resp 16 09/29/24 14:00 BP 119/61 09/29/24 14:00 Pulse Ox 95 09/29/24 14:00 FiO2 - Exam GENERAL DESCRIPTION: An elderly female up in the chair in no distress RESPIRATORY SYSTEM: Unlabored breathing , decreased breath sounds at bases HEART: S1 S2 regular rate and rhythm , ABDOMEN: Soft , no tenderness EXTREMITIES: No edema feet - Labs CBC & Chem 7: 09/29/24 03:49 09/29/24 03:49 Assessment and Plan (1) COVID-19 Status: Acute Code(s): U07.1 - COVID-19 SNOMED Code(s): 863168815 (2) UTI (urinary tract infection) Status: Acute Code(s): N39.0 - URINARY TRACT INFECTION, SITE NOT SPECIFIED SNOMED Code(s): 11820934 (3) Penicillin allergy Status: Acute Code(s): Z88.0 - ALLERGY STATUS TO PENICILLIN SNOMED Code(s): 44732705 Plan: 1patient tested positive for COVID-19 and this patient currently do not have significant respiratory symptoms patient not hypoxic no need for supplemental oxygen chest x-ray has been negative treatment to be mostly supportive. 2patient did have elevated white count did have lower abdominal discomfort cloudy urine positive UA concerning for symptomatic UTI risk factor could be Esposito catheter placement during the initial part of her stay in the hospital and likely from enteric gram-negative pathogen 3-penicillin allergy that will limit number of antibiotics safe to use 4-patient has been complaining of swelling to the left upper extremity stat Doppler was done which was negative for DVT 5urine has been finalized with E. coli sensitive to to ceftriaxone, she will finish therapy with oral Ceftin prescription sent to the pharmacy at the bedside question concern answered Dictation was produced using [employer] dictation software. please excuse any gramma tical, word or spelling errors. Time with Patient: Less than 30
--- NOTE | 2024-10-13 19:56 | CDI ---
Date: From: Tam Greene Phone: Admit Date: 09/18/2024 12:52:00 PM Patient Name: Kami Stevenson Visit Number: [id number] Discharge Date: 09/29/2024 05:24:00 PM ATTENTION: The Clinical Documentation Specialists (CDI) and [facility] Coding Staff appreciate your assistance in clarifying documentation. Please respond to the clarification below the line at the bottom and electronically sign. The CDI & [facility] Coding staff will review the response and follow-up if needed. Please note: Queries are made part of the Legal Health Record. If you have any questions, please contact the author of this message via ITS. Doctor/Provider: Kala Kimbrough Your patient has the documented diagnosis of unspecified CHF 09/18/24 consultation note. Additional information regarding the type, acuity of CHF is requested. History/Risk Factors: Clinical Indicators: VS/Pulse OX: heart rate 113/64 with pulse ox 96 % BNP:not documented Echocardiogram Results:Impaired LV function with EF between 40 to 45%Extremely calcified mitral valve apparatus and moderate mitral stenosis was identified Poorly visualized aortic valve with possible bioprosthetic aortic valve and acceptable gradient across it a 4 mmH Chest X Ray:Cardiomediastinal silhouette is enlarged and stable.Aortic stent is again seen.Atherosclerotic calcifications are seen in the aorta.Two lead cardiac conduction device overlying the left hemithorax with lead tips projecting over the right ventricle and right atrium. Treatment: In your professional opinion, can you please clarify the [acuity and type] of CHF if known? [ xxx ] Acute Systolic Heart Failure (reduced EF) [ ] Chronic Systolic Heart Failure (reduced EF) [ ] Acute on Chronic Systolic Heart Failure (reduced EF) [ ] Acute Diastolic Heart Failure (preserved EF) [ ] Chronic Diastolic Heart Failure (preserved EF) [ ] Acute on Chronic Diastolic Heart Failure (preserved EF) [ ] Acute Systolic & Diastolic Heart Failure [ ] Chronic Systolic & Diastolic Heart Failure [ ] Acute on Chronic Heart Failure Systolic & Diastolic Heart Failure [ ] Other, please specify [ ] Unable to determine MTDD
== END 2024-09-29 17:24 | disposition home or self-care (01) | DRG 64 ==
LOC: EC 11:44 → OBSVTOIN 12:52 → 6NMEDSUR 12:52
PROVIDERS: ADMIT Internal Medicine; ATTEND Internal Medicine
PROC: 4A10X4Z Monitoring of Central Nervous Electrical Activity, External Approach (ICD-10-PCS; principal; 2024-09-19)
PROC: B246ZZ4 Ultrasonography of Right and Left Heart, Transesophageal (ICD-10-PCS; 2024-09-24)
DX: I63.9 Cerebral infarction, unspecified (principal); I50.21 Acute systolic (congestive) heart failure; U07.1 COVID-19; I42.8 Other cardiomyopathies; I11.0 Hypertensive heart disease with heart failure; E11.9 Type 2 diabetes mellitus without complications; Z95.2 Presence of prosthetic heart valve; N39.0 Urinary tract infection, site not specified; Z11.52 Encounter for screening for COVID-19; R47.01 Aphasia; E78.5 Hyperlipidemia, unspecified; Z95.0 Presence of cardiac pacemaker; M19.90 Unspecified osteoarthritis, unspecified site; R33.8 Other retention of urine; Z86.73 Personal history of transient ischemic attack (TIA), and cerebral infarction without residual deficits; R29.702 NIHSS score 2; Z85.3 Personal history of malignant neoplasm of breast; I36.1 Nonrheumatic tricuspid (valve) insufficiency; I34.0 Nonrheumatic mitral (valve) insufficiency; Z79.02 Long term (current) use of antithrombotics/antiplatelets; Z79.811 Long term (current) use of aromatase inhibitors; Z79.82 Long term (current) use of aspirin; Z79.84 Long term (current) use of oral hypoglycemic drugs; Z79.890 Hormone replacement therapy; Z79.899 Other long term (current) drug therapy; Z82.49 Family history of ischemic heart disease and other diseases of the circulatory system; Z88.0 Allergy status to penicillin; Z90.10 Acquired absence of unspecified breast and nipple; Z85.828 Personal history of other malignant neoplasm of skin; Z90.710 Acquired absence of both cervix and uterus; Z98.42 Cataract extraction status, left eye; Z98.41 Cataract extraction status, right eye; Z91.030 Bee allergy status; Z88.7 Allergy status to serum and vaccine; R29.810 Facial weakness
CPT/HCPCS: 36415; 70450; 70496; 70498; 71046; 80053; 80061; 81001; 82140; 82550; 82607; 82746; 83036; 84484; 84550; 85025; 85610; 85730; 87077; 87086; 87186; 87635; 87636; 93005; 93306; 93312; 93320; 93325; 94760; 95816; 96360; 96361; 99291

== ENCOUNTER 2024-10-14 10:41 | Emergency (ER) | payer MEDICARE, OTHER ==
--- NOTE | 2024-10-14 11:41 | ED ---
General Adult HPI - General Chief complaint: Urogenital Stated complaint: Urogenital Time Seen by Provider: 10/14/24 10:53 Source: patient Mode of arrival: wheelchair Limitations: no limitations - History of Present Illness Initial comments: Dictation was produced using [employer] dictation software. please excuse any grammatical, word or spelling errors. Chief Complaint: 84-year-old female with UTI History of Present Illness: Patient is 84-year-old female presents emergency department UTI. Patient was seen at urology office where she had Esposito catheter removed she had her urine tested and was found to be positive for UTI. She was not started on antibiotics at that time. Patient states that she has some burning on urination. Denies any fever or flank pain. The ROS documented in this emergency department record has been reviewed and confirmed by me. Those systems with pertinent positive or negative responses have been documented in the HPI. All other systems are other negative and/or noncontributory. - Related Data Home Medications Medication Instructions Recorded Confirmed Ascorbic Acid [Vitamin C] 500 mg PO DAILY 09/11/14 09/18/24 Lutein 20 mg PO DAILY 09/11/14 09/18/24 Digoxin [Digox] 125 mcg PO DAILY 11/07/15 09/18/24 Sacubitril/Valsartan [Entresto 24 1 tab PO BID 11/07/15 09/18/24 mg-26 mg Tablet] Anastrozole [Arimidex] 1 mg PO DAILY 11/25/17 09/18/24 Isosorbide Mononitrate ER [Imdur] 30 mg PO BID 11/25/17 09/18/24 Loratadine 10 mg PO DAILY 11/18/18 09/18/24 Rosuvastatin [Crestor] 20 mg PO HS 04/07/22 09/18/24 Cholecalciferol [Vitamin D3 (25 25 mcg PO DAILY 09/18/24 09/18/24 Mcg = 1000 Iu)] Empagliflozin [Jardiance] 25 mg PO DAILY 09/18/24 09/18/24 Ferrous Sulfate [Iron (65 MG 325 mg PO DAILY 09/18/24 09/18/24 Elemental)] Glucosam/Denilson-Msm1/C/Curtis/Bosw 1 tab PO DAILY 09/18/24 09/18/24 [Glucosamine-Chondroitin Tablet] Levothyroxine Sodium [Synthroid] 137 mcg PO DAILY 09/18/24 09/18/24 Mv-Min/Folic/K1/Lycopen/Lutein 1 tab PO DAILY 09/18/24 09/18/24 [Centrum Silver Men Tablet] Repaglinide [Prandin] 2 mg PO TID-W/MEALS 09/18/24 09/18/24 Zinc Gluconate [Zinc] 50 mg PO DAILY 09/18/24 09/18/24 carvediloL [Coreg] 3.125 mg PO BID 09/18/24 09/18/24 Previous Rx's Medication Instructions Recorded Aspirin 81 mg PO DAILY 30 Days #30 tab 09/26/24 Tamsulosin [Flomax] 0.4 mg PO PC-SUPPER 30 Days #30 cap 09/26/24 Ticagrelor [Brilinta] 90 mg PO BID 30 Days #30 tab 09/26/24 cefuroxime axetiL [Ceftin] 500 mg PO BID #10 tab 09/29/24 Cefpodoxime Proxetil [Vantin] 200 mg PO Q12HR 10 Days #20 tab 10/14/24 Allergies Allergy/AdvReac Type Severity Reaction Status Date / Time bee venom protein (honey bee) Allergy Unknown Swelling Verified 09/18/24 13:34 Penicillins AdvReac Rash/Hives Verified 09/18/24 13:34 Tetanus Vaccines and Toxoid AdvReac Swelling Verified 09/18/24 13:34 [Tetanus Vaccines & Toxoid] zolpidem tartrate AdvReac Hallucinati Verified 09/18/24 13:34 [From Renu] ons Review of Systems ROS Statement: Those systems with pertinent positive or pertinent negative responses have been documented in the HPI. ROS Other: All systems not noted in ROS Statement are negative. Past Medical History Past Medical History: Cancer, Heart Failure, CVA/TIA, Diabetes Mellitus, Hyperlipidemia, Osteoarthritis (OA), Thyroid Disorder Additional Past Medical History / Comment(s): Bilateral breast cancer (L in 1999 and R in 2007) tx with lumpectomies and chemo and radiation, lymphadema b ilateral upper arms, CHF with 1st chemo, NIDDM, leaky heart valve, tia (2011) with L upper arm weakness since resolved., HX of leg fx x2 hema, SOB with exertion., See Cardiology H & P. History of Any Multi-Drug Resistant Organisms: None Reported Past Surgical History: Appendectomy, Breast Surgery, Heart Catheterization, Hysterectomy, Joint Replacement, Orthopedic Surgery, Tonsillectomy Additional Past Surgical History / Comment(s): Breast bx's & lumpectomy (1999 & 2007), Mastectomy (2017) Heart cath (2003, 2015), R and L lower leg fx (separate incidences) with surgical repair using plates and screws, neck & face skin cancer , Cataracts, Bilateral total shoulders, bilateral carpal tunnel . thumb surgery. Additional Past Anesthesia/Blood Transfusion Reaction / Comment(s): "slow to wake up" after surgery. Hx of blood transfusion after chemo - no reaction. Past Psychological History: No Psychological Hx Reported Smoking Status: Never smoker Past Alcohol Use History: Rare Past Drug Use History: None Reported - Past Family History Father Family Medical History: Congestive Heart Failure (CHF) Additional Family Medical History / Comment(s): Father at age 69yrs from CHF. He also had stomach problems-ulcers. Mother Family Medical History: Cancer, Coronary Artery Disease (CAD) Additional Family Medical History / Comment(s): . General Exam - General Exam Comments Initial Comments: PHYSICAL EXAM: General Impression: Alert and oriented x3, not in acute distress HEENT: Normocephalic atraumatic, extra-ocular movements intact, pupils equal and reactive to light bilaterally, mucous membranes moist. Cardiovascular: Heart regular rate and rhythm Chest: Able to complete full sentences, no retractions, no tachypnea Abdomen: abdomen soft, non-tender, non-distended, no organomegaly Musculoskeletal: Pulses present and equal in all extremities, no peripheral edema Motor: no focal deficits noted Neurological: CN II-XII grossly intact, no focal motor or sensory deficits noted Skin: Intact with no visualized rashes Psych: Normal affect and mood Limitations: no limitations Course Vital Signs 10/14/24 10:42 Temperature 97.9 F Pulse Rate 77 Respiratory 16 Rate Blood Pressure 134/75 O2 Sat by Pulse 98 Oximetry Medical Decision Making - Medical Decision Making Was pt. sent in by a medical professional or institution (, PA, FARM MANAGEMENT PROFESSOR, urgent care, hospital, or retirement...) When possible be specific @ -No Did you speak to anyone other than the patient for history (EMS, parent, family, police, friend...)? What history was obtained from this source @ -No Did you review nursing and triage notes (agree or disagree)? Why? @ -I reviewed and agree with nursing and triage notes Were old charts reviewed (outside hosp., previous admission, EMS record, old EKG, old radiological studies, urgent care reports/EKG's, retirement records)? Report findings @ -No old charts were reviewed Differential Diagnosis (chest pain, altered mental status, abdominal pain women, abdominal pain men, vaginal bleeding, musculoskeletal, weakness, fever, dyspnea, syncope, headache, dizziness, GI bleed, back pain, seizure, CVA, palpatations, mental health)? @ -Cystitis, pyelonephritis, urethritis EKG interpreted by me (3pts min.). @ -None done X-rays interpreted by me (1pt min.). @ -None done CT interpreted by me (1pt min.). @ -None done U/S interpreted by me (1pt. min.). @ -None done What testing was considered but not performed or refused? (CT, X-rays, U/S, labs)? Why? @ -None What meds were considered but not given or refused? Why? @ -None Was smoking cessation discussed for >3mins.? @ -No Were there social determinants of health that impacted care today? How? (Homelessness, low income, unemployed, alcoholism, drug addiction, transportation, low edu. Level, literacy, decrease access to med. care, prison, rehab)? @ -No Was there de-escalation of care discussed even if they declined (Discuss DNR or withdrawal of care, Hospice)? DNR status @ -No What co-morbidities impacted this encounter? (DM, HTN, Smoking, COPD, CAD, Cancer, CVA, ARF, Chemo, Hep., AIDS, mental health diagnosis, sleep apnea, morbid obesity)? @ -None Was patient admitted / discharged? Hospital course, mention meds given and route, prescriptions, significant lab abnormalities, going to OR and other pertinent info. @ -84-year-old female presents with UTI symptoms. Vital signs are stable. Patient has no flank pain. Well-appearing at the bedside. Urinalysis positive for UTI. Previous microbiology results reviewed from September 26, 2024 showing E. coli with resistance to penicillins gentamicin tetracycline and Bactrim. She does have sensitivities to cephalosporins. Patient given ceftriaxone IM 1 time. Patient given prescription for cefpodoxime. Did you discuss the management of the patient with other professionals (professionals i.e. , PA, FARM MANAGEMENT PROFESSOR, lab, RT, psych nurse, social service director, dental technologist, teacher, security police officer, case repairer)? Give summary @ -No Was critical care preformed (if so, how long)? @ -No Undiagnosed new problem with uncertain prognosis? @ -No Drug Therapy requiring intensive monitoring for toxicity (Heparin, Nitro, Insulin, Cardizem)? @ -No Were any procedures done? @ -No Diagnosis/symptom? Acute, or Chronic, or Acute on Chronic? Uncomplicated (without systemic symptoms) or Complicated (systemic symptoms)? @ -UTI Side effects of treatment? @ -No Exacerbation, Progression, or Severe Exacerbation? @ -No Poses a threat to life or bodily function? How? (Chest pain, USA, SC, pneumonia, PE, COPD, DKA, ARF, appy, cholecystitis, CVA, Diverticulitis, Homicidal, Suicidal, threat to staff... and all critical care pts) @ -yes - Lab Data Lab Results 10/14/24 Range/Units 11:37 Urine Color Light Yellow Urine Appearance Turbid H (Clear) Urine pH 5.5 (5.0-8.0) Ur Specific [place] 1.015 (1.001-1.035) Urine Protein 2+ H (Negative) Urine Glucose (UA) 4+ H (Negative) Urine Ketones Negative (Negative) Urine Blood Moderate H (Negative) Urine Nitrite Negative (Negative) Urine Bilirubin Negative (Negative) Urine Urobilinogen <2.0 (<2.0) mg/dL Ur Leukocyte Esterase Large H (Negative) Urine RBC 9 H (0-5) /hpf Urine WBC >182 H (0-5) /hpf Urine WBC Clumps Many H (None) /hpf Urine Bacteria Occasional H (None) /hpf Disposition Clinical Impression: UTI (urinary tract infection) Disposition: HOME SELF-CARE Condition: Fair Instructions (If sedation given, give patient instructions): Urinary Tract Infection in Women (ED) Prescriptions: Cefpodoxime Proxetil [Vantin] 200 mg PO Q12HR 10 Days #20 tab Is patient prescribed a controlled substance at d/c from ED?: No Referrals: Radha Hicks MD [Primary Care Provider] - 1-2 days Time of Disposition: 12:11
[2024-10-14 12:02] LABS: Appearance,Urine Turbid (Clear); Bacteria,Urine Occasional /hpf; Bilirubin,Urine Negative (Negative); Blood,Urine Moderate (Negative); Color,Urine Light Yellow; Glucose,Urine (UA) 4+ (Negative); Ketones,Urine Negative (Negative); Leukocyte Esterase,Urine Large (Negative); Nitrite,Urine Negative (Negative); PH, Urine 5.5 (5.0-8.0); Protein,Urine 2+ (Negative); RBC,Urine 9 /hpf (0-5); Specific Gravity,Urine 1.015 (1.001-1.035); Urobilinogen,Urine <2.0 mg/dL (<2.0); WBC,Urine >182 /hpf (0-5)
[2024-10-14] MEDS: cefTRIAXone 1,000 MG VIAL (IM USE) IM STA (12:22)
[2024-10-14 12:35] VITALS: BP 129/72; PULSE 91; RESP 20; TEMP 98.1
== END 2024-10-14 12:42 | disposition home or self-care (01) ==
LOC: EC 10:41
DX: N39.0 Urinary tract infection, site not specified (principal); Z88.0 Allergy status to penicillin; Z88.7 Allergy status to serum and vaccine; Z88.8 Allergy status to other drugs, medicaments and biological substances; Z91.030 Bee allergy status; Z86.73 Personal history of transient ischemic attack (TIA), and cerebral infarction without residual deficits
CPT/HCPCS: 81001; 99283; 96372; J0696

== ENCOUNTER 2024-10-16 06:32 | Emergency (ER) | payer MEDICARE, OTHER ==
--- NOTE | 2024-10-16 07:01 | ED ---
Female Urogenital HPI - General Chief complaint: Urogenital Stated complaint: Urogenital Time Seen by Provider: 10/16/24 06:44 Source: patient, family, RN notes reviewed Mode of arrival: wheelchair Limitations: no limitations - History of Present Illness Initial comments: This is a 84 year old female who presents to the emergency department for urinary symptoms. Patient was in the hospital last month for a CVA and experienced urinary retention at that time. She was discharged home with a Esposito catheter in place. She followed up with urology on 10/13 to have the Esposito catheter removed. She was advised that she had a UTI at that time. Patient then came to the emergency department the following day, 10/14 to be treated for the UTI, as they had not started her on antibiotics at the urology office, according to the patient. She has been taking the Vantin as prescribed, however her states that she has still been complaining of pain and she is also now starting to retain urine. She does wear a diaper but is only going very small amounts and complaining of urinary pain and pressure. Denies any fevers/chills or nausea/vomiting. Denies any pain in her back. MD Complaint: dysuria - Related Data Home Medications Medication Instructions Recorded Confirmed Ascorbic Acid [Vitamin C] 500 mg PO DAILY 09/11/14 09/18/24 Lutein 20 mg PO DAILY 09/11/14 09/18/24 Digoxin [Digox] 125 mcg PO DAILY 11/07/15 09/18/24 Sacubitril/Valsartan [Entresto 24 1 tab PO BID 11/07/15 09/18/24 mg-26 mg Tablet] Anastrozole [Arimidex] 1 mg PO DAILY 11/25/17 09/18/24 Isosorbide Mononitrate ER [Imdur] 30 mg PO BID 11/25/17 09/18/24 Loratadine 10 mg PO DAILY 11/18/18 09/18/24 Rosuvastatin [Crestor] 20 mg PO HS 04/07/22 09/18/24 Cholecalciferol [Vitamin D3 (25 25 mcg PO DAILY 09/18/24 09/18/24 Mcg = 1000 Iu)] Empagliflozin [Jardiance] 25 mg PO DAILY 09/18/24 09/18/24 Ferrous Sulfate [Iron (65 MG 325 mg PO DAILY 09/18/24 09/18/24 Elemental)] Glucosam/Denilson-Msm1/C/Curtis/Bosw 1 tab PO DAILY 09/18/24 09/18/24 [Glucosamine-Chondroitin Tablet] Levothyroxine Sodium [Synthroid] 137 mcg PO DAILY 09/18/24 09/18/24 Mv-Min/Folic/K1/Lycopen/Lutein 1 tab PO DAILY 09/18/24 09/18/24 [Centrum Silver Men Tablet] Repaglinide [Prandin] 2 mg PO TID-W/MEALS 09/18/24 09/18/24 Zinc Gluconate [Zinc] 50 mg PO DAILY 09/18/24 09/18/24 carvediloL [Coreg] 3.125 mg PO BID 09/18/24 09/18/24 Previous Rx's Medication Instructions Recorded Aspirin 81 mg PO DAILY 30 Days #30 tab 09/26/24 Tamsulosin [Flomax] 0.4 mg PO PC-SUPPER 30 Days #30 cap 09/26/24 Ticagrelor [Brilinta] 90 mg PO BID 30 Days #30 tab 09/26/24 cefuroxime axetiL [Ceftin] 500 mg PO BID #10 tab 09/29/24 Cefpodoxime Proxetil [Vantin] 200 mg PO Q12HR 10 Days #20 tab 10/14/24 Allergies Allergy/AdvReac Type Severity Reaction Status Date / Time bee venom protein (honey bee) Allergy Unknown Swelling Verified 10/16/24 06:40 Penicillins AdvReac Rash/Hives Verified 10/16/24 06:40 Tetanus Vaccines and Toxoid AdvReac Swelling Verified 10/16/24 06:40 [Tetanus Vaccines & Toxoid] zolpidem tartrate AdvReac Hallucinati Verified 10/16/24 06:40 [From Ambien] ons Review of Systems ROS Statement: Those systems with pertinent positive or pertinent negative responses have been documented in the HPI. ROS Other: All systems not noted in ROS Statement are negative. Past Medical History Past Medical History: Cancer, Heart Failure, CVA/TIA, Diabetes Mellitus, Hyperlipidemia, Osteoarthritis (OA), Thyroid Disorder Additional Past Medical History / Comment(s): Bilateral breast cancer (L in 1999 and R in 2007) tx with lumpectomies and chemo and radiation, lymphadema bilateral upper arms, CHF with 1st chemo, NIDDM, leaky heart valve, tia (2011) with L upper arm weakness since resolved., HX of leg fx x2 hema, SOB with exertion., See Cardiology H & P. History of Any Multi-Drug Resistant Organisms: None Reported Past Surgical History: Appendectomy, Breast Surgery, Heart Catheterization, Hysterectomy, Joint Replacement, Orthopedic Surgery, Tonsillectomy Additional Past Surgical History / Comment(s): Breast bx's & lumpectomy (1999 & 2007), Mastectomy (2017) Heart cath (2003, 2015), R and L lower leg fx (separate incidences) with surgical repair using plates and screws, neck & face skin cancer , Cataracts, Bilateral total shoulders, bilateral carpal tunnel . thumb surgery. Additional Past Anesthesia/Blood Transfusion Reaction / Comment(s): "slow to wake up" after surgery. Hx of blood transfusion after chemo - no reaction. Past Psychological History: No Psychological Hx Reported Smoking Status: Never smoker Past Alcohol Use History: None Reported Past Drug Use History: None Reported - Past Family History Father Family Medical History: Congestive Heart Failure (CHF) Additional Family Medical History / Comment(s): Father at age 69yrs from CHF. He also had stomach problems-ulcers. Mother Family Medical History: Cancer, Coronary Artery Disease (CAD) Additional Family Medical History / Comment(s): . General Exam Limitations: no limitations General appearance: alert, in no apparent distress Head exam: Present: atraumatic, normocephalic, normal inspection Respiratory exam: Present: normal lung sounds bilaterally. Absent: respiratory distress, wheezes, rales, rhonchi, stridor Cardiovascular Exam: Present: regular rate, normal rhythm GI/Abdominal exam: Present: soft, tenderness (Lower abdomen). Absent: distended Neurological exam: Present: alert, oriented X3, CN II-XII intact Psychiatric exam: Present: normal affect, normal mood Skin exam: Present: warm, dry, intact, normal color. Absent: rash Course Vital Signs 10/16/24 10/16/24 06:40 09:43 Temperature 97.8 F 98.0 F Pulse Rate 79 80 Respiratory 18 20 Rate Blood Pressure 109/66 112/70 O2 Sat by Pulse 98 98 Oximetry Medical Decision Making - Medical Decision Making This is an 84-year-old female who presents to the emergency department for urinary symptoms. Was pt. sent in by a medical professional or institution? @ -No Did you speak to anyone other than the patient for history? @ -Her provided the majority of the history. Did you review nursing and triage notes? @ -Yes, and I agree, it is accurate with regards to the patient's symptoms. Were old charts reviewed? @ -Urine culture from 10/13 demonstrating gram-negative bacilli. Urine culture from 09/26 was positive for E. coli. Differential Diagnosis? @ -UTI, urinary retention, neurogenic bladder, kidney stone, this is not meant to be an all-inclusive list. EKG interpreted by me (3pts min.)? @ -Not obtained X-rays interpreted by me (1pt min.)? @ -Not obtained CT interpreted by me (1pt min.)? @ -Not obtained U/S interpreted by me (1pt. min.)? @ -Not obtained What testing was considered but not performed? (CT, X-rays, U/S, labs)? Why? @ -None What meds were considered but not given? Why? @ -None Did you discuss the management of the patient with other professionals? @ -No Did you reconcile home meds? @ -No Was smoking cessation discussed for >3mins.? @ -No Was critical care preformed (if so, how long)? @ -No Were there social determinants of health that impacted care today? How? (Homelessness, low income, unemployed, alcoholism, drug addiction, transportation, low edu. Level, literacy, decrease access to med. care, usp, rehab)? @ -No Was there de-escalation of care discussed even if they declined? (Discuss DNR or withdrawal of care, Hospice)? @ -No What co-morbidities impacted this encounter? (DM, HTN, Smoking, COPD, CAD, Cancer, CVA, Hep., AIDS, mental health diagnosis, sleep apnea, morbid obesity)? @ -DM, hx of CVA Was patient admitted / discharged? @ -Discharged. Bladder scan performed on arrival demonstrating approximately 800 mL of urine. Esposito catheter placed and over 1 L of urine was drained in itially and patient reported improvement in symptoms. Lab work demonstrates mild leukocytosis with a white blood cell count of 11.3. Renal function is relatively stable. Urinalysis negative for signs of infection. Advised that her symptoms are most likely related to the urinary retention she was experiencing, as the infection appears to have cleared. Patient discharged home with the Esposito catheter in place. Advised that she needs to follow back up with urology. Also advised she finish the course of antibiotics she had been prescribed. Patient discharged home in stable condition. Case discussed with ED attending Dr. Blount. Return precautions reviewed in depth, the patient is instructed to return to the emergency department with any new, worsening, or concerning symptoms. Patient ve rbalized understanding. Undiagnosed new problem with uncertain prognosis? @ -None Drug Therapy requiring intensive monitoring for toxicity (Heparin, Nitro, Insul in, Cardizem)? @ -None Were any procedures done? @ -None Diagnosis/symptom? @ -Urinary retention Acute, or Chronic, or Acute on Chronic? @ -Acute Uncomplicated (without systemic symptoms) or Complicated (systemic symptoms)? @ -Uncomplicated Side effects of treatment? @ -None Exacerbation, Progression, or Severe Exacerbation] @ -Not applicable Poses a threat to life or bodily function? @ -No - Lab Data Result diagrams: 10/16/24 08:15 10/16/24 08:15 Lab Results 10/16/24 10/16/24 10/16/24 Range/Units 07:10 08:15 08:15 WBC 11.33 H (4.50-10.00) 10*3/uL RBC 3.68 L (4.10-5.20) 10*6/uL Hgb 11.5 L (12.0-15.0) g/dL Hct 34.6 L (37.2-46.3) % MCV 94.0 (80.0-97.0) fL MCH 31.3 (27.0-32.0) pg MCHC 33.2 (32.0-37.0) g/dL Plt Count 191 (140-440) 10*3/uL MPV 11.1 (9.5-12.2) fL Immature Gran % (Auto) 0.4 % Neutrophils % 76.7 % Lymphocytes % 10.2 % Monocytes % 9.0 % Eosinophils % 3.3 % Basophils % 0.4 % Immature Gran # 0.04 (0.00-0.04) 10*3/uL Neutrophils # 8.69 H (1.80-7.70) 10*3/uL Lymphocytes # 1.16 (0.90-5.00) 10*3/uL Monocytes # 1.02 H (0.20-1.00) 10*3/uL Eosinophils # 0.37 H (0.04-0.35) 10*3/uL Basophils # 0.05 (0.00-0.10) 10*3/uL Sodium 140 (137-145) mmol/L Potassium 4.4 (3.5-5.1) mmol/L Chloride 110 H (98-107) mmol/L Carbon Dioxide 23 (22-30) mmol/L Anion Gap 7 mmol/L BUN 28 H (7-17) mg/dL Creatinine 1.05 H (0.52-1.04) mg/dL Est GFR (CKD-EPI)AfAm 56 (>60 ml/min/1.73 sqM) Est GFR (CKD-EPI)NonAf 49 (>60 ml/min/1.73 sqM) Glucose 105 H (74-99) mg/dL Plasma Lactic Acid Hay (0.7-2.0) mmol/L Calcium 8.7 (8.4-10.2) mg/dL Total Bilirubin 0.7 (0.2-1.3) mg/dL AST 32 (14-36) U/L ALT 24 (4-34) U/L Alkaline Phosphatase 71 (38-126) U/L Total Protein 5.6 L (6.3-8.2) g/dL Albumin 2.9 L (3.5-5.0) g/dL Urine Color Colorless Urine Appearance Clear (Clear) Urine pH 5.0 (5.0-8.0) Ur Specific [place] 1.003 (1.001-1.035) Urine Protein Negative (Negative) Urine Glucose (UA) 4+ H (Negative) Urine Ketones Negative (Negative) Urine Blood Negative (Negative) Urine Nitrite Negative (Negative) Urine Bilirubin Negative (Negative) Urine Urobilinogen <2.0 (<2.0) mg/dL Ur Leukocyte Esterase Negative (Negative) 10/16/24 Range/Units 08:15 WBC (4.50-10.00) 10*3/uL RBC (4.10-5.20) 10*6/uL Hgb (12.0-15.0) g/dL Hct (37.2-46.3) % MCV (80.0-97.0) fL MCH (27.0-32.0) pg MCHC (32.0-37.0) g/dL Plt Count (140-440) 10*3/uL MPV (9.5-12.2) fL Immature Gran % (Auto) % Neutrophils % % Lymphocytes % % Monocytes % % Eosinophils % % Basophils % % Immature Gran # (0.00-0.04) 10*3/uL Neutrophils # (1.80-7.70) 10*3/uL Lymphocytes # (0.90-5.00) 10*3/uL Monocytes # (0.20-1.00) 10*3/uL Eosinophils # (0.04-0.35) 10*3/uL Basophils # (0.00-0.10) 10*3/uL Sodium (137-145) mmol/L Potassium (3.5-5.1) mmol/L Chloride (98-107) mmol/L Carbon Dioxide (22-30) mmol/L Anion Gap mmol/L BUN (7-17) mg/dL Creatinine (0.52-1.04) mg/dL Est GFR (CKD-EPI)AfAm (>60 ml/min/1.73 sqM) Est GFR (CKD-EPI)NonAf (>60 ml/min/1.73 sqM) Glucose (74-99) mg/dL Plasma Lactic Acid [place] 0.8 (0.7-2.0) mmol/L Calcium (8.4-10.2) mg/dL Total Bilirubin (0.2-1.3) mg/dL AST (14-36) U/L ALT (4-34) U/L Alkaline Phosphatase (38-126) U/L Total Protein (6.3-8.2) g/dL Albumin (3.5-5.0) g/dL Urine Color Urine Appearance (Clear) Urine pH (5.0-8.0) Ur Specific [place] (1.001-1.035) Urine Protein (Negative) Urine Glucose (UA) (Negative) Urine Ketones (Negative) Urine Blood (Negative) Urine Nitrite (Negative) Urine Bilirubin (Negative) Urine Urobilinogen (<2.0) mg/dL Ur Leukocyte Esterase (Negative) Disposition Clinical Impression: Urinary retention Disposition: HOME SELF-CARE Instructions (If sedation given, give patient instructions): Esposito Catheter Placement and Care (ED), Acute Urinary Retention in Women (ED), Chronic Urinary Retention in Women (ED), How to Change a Catheter Drainage Bag (DC) Additional Instructions: Return to the emergency department with any new, worsening, or concerning symptoms. Follow up with your primary care provider and with Dr. Chaves, urology. Is patient prescribed a controlled substance at d/c from ED?: No Referrals: Radha Hicks MD [Primary Care Provider] - 1-2 days Richard Chaves MD [STAFF PHYSICIAN] - 1-2 days Time of Disposition: 09:37
[2024-10-16 07:29] LABS: Appearance,Urine Clear (Clear); Bilirubin,Urine Negative (Negative); Blood,Urine Negative (Negative); Color,Urine Colorless; Glucose,Urine (UA) 4+ (Negative); Ketones,Urine Negative (Negative); Leukocyte Esterase,Urine Negative (Negative); Nitrite,Urine Negative (Negative); Protein,Urine Negative (Negative); Specific Gravity,Urine 1.003 (1.001-1.035); Urobilinogen,Urine <2.0 mg/dL (<2.0)
[2024-10-16 08:56] LABS: ALT 24 U/L (4-34); AST 32 U/L (14-36); African American GFR (CKD) 56 (>60 ml/min/1.73 sqM); Albumin 2.9 g/dL (3.5-5.0); Alkaline Phosphatase 71 U/L (38-126); Anion Gap 7 mmol/L; Blood Urea Nitrogen 28 mg/dL (7-17); Calcium 8.7 mg/dL (8.4-10.2); Carbon Dioxide 23 mmol/L (22-30); Chloride 110 mmol/L (98-107); Glucose 105 mg/dL (74-99); Non-African American GFR(CKD) 49 (>60 ml/min/1.73 sqM); Potassium 4.4 mmol/L (3.5-5.1); Sodium 140 mmol/L (137-145); Total Bilirubin 0.7 mg/dL (0.2-1.3); Total Protein 5.6 g/dL (6.3-8.2)
[2024-10-16 09:01] LABS: Basophils # (A) 0.05 10*3/uL (0.00-0.10); Basophils % (A) 0.4 %; Eosinophils # (A) 0.37 10*3/uL (0.04-0.35); Eosinophils % (A) 3.3 %; HCT 34.6 % (37.2-46.3); HGB 11.5 g/dL (12.0-15.0); Lymphocytes # (A) 1.16 10*3/uL (0.90-5.00); Lymphocytes % (A) 10.2 %; MCH 31.3 pg (27.0-32.0); MCHC 33.2 g/dL (32.0-37.0); Mean Platelet Volume 11.1 fL (9.5-12.2); Monocytes # (A) 1.02 10*3/uL (0.20-1.00); Neutrophils # (A) 8.69 10*3/uL (1.80-7.70); Neutrophils % (A) 76.7 %; Platelet Count 191 10*3/uL (140-440); RBC 3.68 10*6/uL (4.10-5.20); RDW 13.9 % (11.5-14.5); WBC 11.33 10*3/uL (4.50-10.00)
[2024-10-16 10:01] VITALS: BP 112/70; PULSE 80; RESP 20; TEMP 98
== END 2024-10-16 09:44 | disposition home or self-care (01) ==
LOC: EC 06:32
DX: R33.9 Retention of urine, unspecified (principal); E11.9 Type 2 diabetes mellitus without complications; Z88.0 Allergy status to penicillin; Z88.7 Allergy status to serum and vaccine; Z88.8 Allergy status to other drugs, medicaments and biological substances; Z91.030 Bee allergy status; Z86.73 Personal history of transient ischemic attack (TIA), and cerebral infarction without residual deficits
CPT/HCPCS: 36415; 51702; 51798; 80053; 81003; 83605; 85025; 99284